=== PATIENT | male | born 1965 | race Two or more races ===

== ENCOUNTER 2022-09-15 12:55 | Inpatient (IN) | payer BC, MEDICAID ==
[~2022-09-15] VITALS: Ht 167.6 cm; Wt 68.1 kg
[~2022-09-15 12:55] MED LIST: ASPI-543 PO; ATOR20TA50 PO; CHOL1CAP47 PO; DOX2T PO; GAB100C PO; INSLANTI SC; INSLISPI SC; METO-6 PO; METO25TA36 PO; MID10T PO; NIFE1TAB30 PO; NIFE1TAB31 PO; PANT40T PO
[2022-09-15] MEDS ORDERED: HYDROcodone-ACET 5/325MG TAB PO ONE ×2 (14:00→18:00)
[2022-09-15 14:06] LABS: Basophils # (auto) 0.1 10 ^3/uL (0-0.2); Basophils % (auto) 1.2 % (0.0-2.0); Eosinophils # (auto) 0.1 10 ^3/uL (0-0.8); Eosinophils % (auto) 2.2 % (0.0-7.0); Hemoglobin 13.5 g/dL (13.5-17.5); Lymphocytes % (auto) 31.3 % (10.0-50.0); Mean Corpuscular Hemoglobin 27.8 pg (28.0-32.0); Mean Corpuscular Hgb Conc. 33.7 g/dL (32.0-36.0); Mean Corpuscular Volume 82.5 fL (80.0-100.0); Monocytes # (auto) 0.6 10 ^3/uL (0-1.3); Monocytes % (auto) 8.7 % (0.0-12.0); Neutrophils # (auto) 3.6 10 ^3/uL (1.6-8.6); Neutrophils % (auto) 56.6 % (37.0-80.0); Nucleated Red Blood Cells % 0.1 %; Red Blood Cells 4.85 10^6/uL (4.5-5.90); Red Cell Distribution Width 15.1 % (11.8-14.3); White Blood Cell 6.3 10^3/uL (4.4-10.8)
[2022-09-15 14:25] LABS: Albumin 3.9 g/dL (3.4-5.0); BUN/Creatinine Ratio 24.1; Calcium 8.8 mg/dL (8.5-10.1); Potassium 4.9 mmol/L (3.5-5.1)
[2022-09-15 14:27] LABS: Bilirubin, Total 0.3 mg/dL (0.2-1.0); Total Protein 7.8 g/dL (6.4-8.2)
[2022-09-15 14:40] LABS: Urine Bacteria NONE SEEN /hpf (None Seen); Urine Blood Negative /uL (Negative); Urine Hyaline Cast FEW /lpf (0 - 2); Urine Specific Gravity 1.008 (1.001-1.035); Urine WBC 1 /hpf (0 - 3)
[2022-09-15] MEDS ORDERED: CYCLOBENZAPRINE HCL 10 MG TAB PO ONE (18:00)
[2022-09-15] MEDS ORDERED: NITROGLYCERIN 0.4 MG SL TAB SL PRN (21:15)
[2022-09-15] MEDS ORDERED: MORPHINE SULFATE INJ 2 MG/ml SYRG IV PRN (21:15)
[2022-09-15] MEDS ORDERED: ALBUMIN 25% 50 ML IV PRN (22:00)
[2022-09-16] MEDS: ACCU-CHEK COMFORT CURVE STRIP VI SCH ×5 (05:05→23:00)
[2022-09-16] MEDS: INSULIN 70/30 1unit/0.01ml Susp (100units/ml) SC SCH ×3 (05:06→23:00)
[2022-09-16] MEDS: INSULIN LISPRO (HUMAN) 100 UNITS/ML ML SC SCH ×5 (05:06→23:00)
[2022-09-16] MEDS: hydrALAZINE HCL 25 MG TAB PO SCH ×4 (05:06→22:59)
[2022-09-16 23:00] VITALS: BP 189/99
[2022-09-16 23:11] VITALS: BP 189/9
[2022-09-17] VITALS (7 sets, daily range): BP systolic 155–183; BP diastolic 79–97
[2022-09-17] MEDS ORDERED: TAMS0.4C36 PO (00:22)
[2022-09-17] MEDS ORDERED: LISI-275 PO (00:22)
[2022-09-17] MEDS ORDERED: HYDR-4296 PO (00:22)
[2022-09-17] MEDS ORDERED: TORS20TA20 PO (00:22)
[2022-09-17] MEDS ORDERED: AMLO-489 PO (00:22)
[2022-09-17] MEDS: hydrALAZINE HCL 25 MG TAB PO SCH ×3 (05:10→21:51)
[2022-09-17] MEDS: INSULIN LISPRO (HUMAN) 100 UNITS/ML ML SC SCH ×4 (05:19→21:57)
[2022-09-17] MEDS: ACCU-CHEK COMFORT CURVE STRIP VI SCH ×4 (05:19→21:58)
[2022-09-17] MEDS: cefTRIAXone 1GM/50ML D5W 50 ML IV SCH (09:40)
[2022-09-17] MEDS: INSULIN 70/30 1unit/0.01ml Susp (100units/ml) SC SCH ×2 (10:03→21:54)
[2022-09-17 11:25] LABS: Basophils # (auto) 0.1 10 ^3/uL (0-0.2); Basophils % (auto) 1.3 % (0.0-2.0); Eosinophils # (auto) 0.2 10 ^3/uL (0-0.8); Eosinophils % (auto) 3.5 % (0.0-7.0); Hematocrit 40.6 % (41.0-53.0); Hemoglobin 13.2 g/dL (13.5-17.5); Lymphocytes # (auto) 1.4 10 ^3/uL (0.4-5.4); Lymphocytes % (auto) 26.4 % (10.0-50.0); Mean Corpuscular Hemoglobin 27.9 pg (28.0-32.0); Mean Corpuscular Hgb Conc. 32.5 g/dL (32.0-36.0); Mean Corpuscular Volume 85.9 fL (80.0-100.0); Monocytes # (auto) 0.5 10 ^3/uL (0-1.3); Monocytes % (auto) 9.2 % (0.0-12.0); Neutrophils # (auto) 3.1 10 ^3/uL (1.6-8.6); Neutrophils % (auto) 59.6 % (37.0-80.0); Nucleated Red Blood Cells % 0.1 %; Red Blood Cells 4.73 10^6/uL (4.5-5.90); Red Cell Distribution Width 15.6 % (11.8-14.3); White Blood Cell 5.3 10^3/uL (4.4-10.8)
[2022-09-17 12:01] LABS: Calcium 8.6 mg/dL (8.5-10.1); Potassium 4.7 mmol/L (3.5-5.1)
[2022-09-17 12:03] LABS: BUN/Creatinine Ratio 22.3
[2022-09-17] MEDS: GABAPENTIN 100 MG CAP PO SCH ×2 (13:36→21:50)
[2022-09-18] MEDS ORDERED: HALOPERIDOL LACTATE 5 MG/ML INJ VIAL IM PRN (01:00)
[2022-09-18 05:00] VITALS: BP 162/75
[2022-09-18 05:37] LABS: Basophils # (auto) 0.1 10 ^3/uL (0-0.2); Basophils % (auto) 0.7 % (0.0-2.0); Eosinophils # (auto) 0.2 10 ^3/uL (0-0.8); Eosinophils % (auto) 2.4 % (0.0-7.0); Hematocrit 39.1 % (41.0-53.0); Hemoglobin 13.2 g/dL (13.5-17.5); Lymphocytes # (auto) 3.1 10 ^3/uL (0.4-5.4); Lymphocytes % (auto) 32.8 % (10.0-50.0); Mean Corpuscular Hemoglobin 28.8 pg (28.0-32.0); Mean Corpuscular Hgb Conc. 33.7 g/dL (32.0-36.0); Mean Corpuscular Volume 85.5 fL (80.0-100.0); Monocytes % (auto) 10.6 % (0.0-12.0); Neutrophils # (auto) 5.1 10 ^3/uL (1.6-8.6); Neutrophils % (auto) 53.5 % (37.0-80.0); Nucleated Red Blood Cells % 0.1 %; Red Blood Cells 4.57 10^6/uL (4.5-5.90); Red Cell Distribution Width 15.3 % (11.8-14.3); White Blood Cell 9.6 10^3/uL (4.4-10.8)
[2022-09-18] MEDS ORDERED: IPRATROPIUM BROM 0.5 MG/2.5ML INH SOL ONE (05:48)
[2022-09-18] MEDS ORDERED: ALBUTEROL SULF 2.5 MG/0.5ML(0.5%) NEB SOLN ONE (05:48)
[2022-09-18] MEDS: hydrALAZINE HCL 25 MG TAB PO SCH ×2 (05:49→14:17)
[2022-09-18 05:50] LABS: Albumin 3.7 g/dL (3.4-5.0); Calcium 8.7 mg/dL (8.5-10.1); Magnesium 2.4 mg/dL (1.6-2.6); Potassium 4.3 mmol/L (3.5-5.1)
[2022-09-18] MEDS: GABAPENTIN 100 MG CAP PO SCH ×2 (05:52→14:17)
[2022-09-18] MEDS: ACCU-CHEK COMFORT CURVE STRIP VI SCH ×3 (05:53→17:00)
[2022-09-18] MEDS: INSULIN LISPRO (HUMAN) 100 UNITS/ML ML SC SCH ×3 (05:53→17:00)
[2022-09-18 05:56] LABS: BUN/Creatinine Ratio 22.7; Bilirubin, Total 0.3 mg/dL (0.2-1.0); Total Protein 6.8 g/dL (6.4-8.2)
[2022-09-18 08:00] VITALS: BP 178/89
[2022-09-18 08:50] VITALS: BP 160/85
[2022-09-18] MEDS: cefTRIAXone 1GM/50ML D5W 50 ML IV SCH (10:12)
[2022-09-18] MEDS: INSULIN 70/30 1unit/0.01ml Susp (100units/ml) SC SCH (10:22)
[2022-09-18 12:30] VITALS: BP 162/96
[2022-09-18 16:14] VITALS: BP 156/76
[2022-09-18 16:35] VITALS: BP 164/89
== END 2022-09-18 19:10 | disposition home or self-care (01) | DRG 247 ==
LOC: ER 12:55 → TELE 21:25 → TELE-EAST 09-16 23:19
PROVIDERS: ADMIT Internal Medicine Infectious Disease; ATTEND Internal Medicine Infectious Disease
DX: K56.7 Ileus, unspecified (principal); N17.9 Acute kidney failure, unspecified; I31.39 Other pericardial effusion (noninflammatory); K65.4 Sclerosing mesenteritis; K59.00 Constipation, unspecified; N18.30 Chronic kidney disease, stage 3 unspecified; K52.9 Noninfective gastroenteritis and colitis, unspecified; Z20.822 Contact with and (suspected) exposure to COVID-19; E66.9 Obesity, unspecified; Z68.24 Body mass index [BMI] 24.0-24.9, adult; Z79.4 Long term (current) use of insulin; Z89.421 Acquired absence of other right toe(s)
CPT/HCPCS: 36415; 74176; 80048; 80053; 80061; 81001; 82962; 83036; 83735; 84484; 85025; 87040; 87077; 87086; 87186; 87426; G0378; J0696; J1815

== ENCOUNTER 2024-09-02 18:25 | Inpatient (IN) | payer MEDICAID ==
[~2024-09-02] VITALS: Ht 167.6 cm; Wt 90.3 kg
[~2024-09-02 18:25] MED LIST changes: +AMLO1TAB22 PO; -DOX2T PO; +HYDR25TA88 PO; -INSLANTI SC; -INSLISPI SC; +LISI-275 PO; -METO-6 PO; -METO25TA36 PO; -MID10T PO; -NIFE1TAB30 PO; -NIFE1TAB31 PO; +TAMS0.4C39 PO; +TORS20TA20 PO
[2024-09-02] MEDS: KETOROLAC TROMETH 30 MG/ML 1ML VIAL IV ONE (20:15)
[2024-09-02] MEDS ORDERED: SOD CHL 0.45% 1,000 ML IV SCH (20:15)
[2024-09-02] MEDS ORDERED: KETOROLAC TROMETH 30 MG/ML 1ML VIAL IV PRN (20:15)
[2024-09-02] MEDS ORDERED: MORPHINE SULFATE INJ 2 MG/ml SYRG IV PRN (20:15)
[2024-09-02] MEDS ORDERED: NITROGLYCERIN 0.4 MG SL TAB SL PRN (20:15)
[2024-09-02 21:00] VITALS: BP 156/90; PULSE 87; RESP 20; TEMP 98.6; O2SAT 98
--- NOTE | 2024-09-02 21:10 | DVH ---
CHEST RADIOGRAPH Indication: MD request, admission Technique: Single frontal view of the chest was obtained Comparison: CHEST PORTABLE on DOS: 03/26/21, CXRP on DOS: 03/26/21 FINDINGS: Lines and Tubes: None Lungs: No focal consolidation. Pleura: No effusion. No pneumothorax. Cardiomediastinal contours: Unremarkable Bones: No acute osseous abnormality. IMPRESSION: No acute cardiopulmonary disease.
--- NOTE | 2024-09-02 21:13 | DVH ---
CLINICAL INDICATION: R/O osteomyelitis TECHNIQUE: 3 radiographic views of the right hand were obtained. Comparison: None FINDINGS/IMPRESSION: There is 1 mm density adjacent to the palmar base of the 3rd digit middle phalanx which may represent a small avulsed bony fragment of unknown chronicity versus nonspecific soft tissue calcification. Ot herwise , no evidence of acute traumatic fractures or dislocation. 5 mm lucency over the lateral base of the 3rd digit middle phalanx and lateral head of the 3rd digit proximal phalanx with 4 mm lucency over the lateral head of the 2nd digit middle phalanx which may represent small cysts. The visualized joint space is well maintained. The alignment is anatomical. Vascular calcification is noted.
[2024-09-02 21:38] LABS: Basophils # (auto) 0.1 10 ^3/uL (0-0.2); Eosinophils # (auto) 0.1 10 ^3/uL (0-0.8); Lymphocytes # (auto) 1.4 10 ^3/uL (0.4-5.4); Lymphocytes % (auto) 15.9 % (10.0-50.0); Monocytes # (auto) 0.9 10 ^3/uL (0-1.3)
[2024-09-02 21:46] LABS: Basophils % (auto) 0.9 % (0.0-2.0); Eosinophils % (auto) 0.8 % (0.0-7.0); Hematocrit 50.7 % (41.0-53.0); Hemoglobin 16.8 g/dL (13.5-17.5); Mean Corpuscular Hemoglobin 27.6 pg (28.0-32.0); Mean Corpuscular Volume 83.5 fL (80.0-100.0); Monocytes % (auto) 10.2 % (0.0-12.0); Neutrophils # (auto) 6.2 10 ^3/uL (1.6-8.6); Neutrophils % (auto) 72.2 % (37.0-80.0); Nucleated Red Blood Cells % 0.2 %; Platelet Count (auto) 304 10^3/uL (140-450); Red Blood Cells 6.08 10^6/uL (4.5-5.90); Red Cell Distribution Width 15.1 % (11.8-14.3); White Blood Cell 8.6 10^3/uL (4.4-10.8)
[2024-09-02 21:53] LABS: Alanine Aminotransferase 15 U/L (7-40); Anion Gap 11 (5-15); Aspartate Aminotransferase 14 U/L (13-40); BUN/Creatinine Ratio 24.4 (10.0-20.0); Calcium 10.3 mg/dL (8.7-10.4); Carbon Dioxide 27 mmol/L (20-31); Potassium 3.6 mmol/L (3.5-5.1)
[2024-09-02 21:54] LABS: Bilirubin, Total 0.5 mg/dL (0.2-1.0)
[2024-09-02 21:59] LABS: Albumin 5.1 g/dL (3.2-4.8); Alkaline Phosphatase 118 U/L (46-116); Blood Urea Nitrogen 58 mg/dL (9-23); Chloride 95 mmol/L (98-107); Glucose 221 mg/dL (74-106); Sodium 133 mmol/L (136-145); Total Protein 8.9 g/dL (5.7-8.2); Uric Acid 11.2 mg/dL (3.7-9.2)
[2024-09-02] MEDS: ACCU-CHEK COMFORT CURVE STRIP VI SCH (22:00)
[2024-09-02 22:19] LABS: Erythrocyte Sedimentation Rate 40 mm/hr (0-20)
[2024-09-02 22:23] LABS: CRP High Sensitivity 8.26 mg/dL (<1.0)
[2024-09-02] MEDS ORDERED: HYDROmorphone HCL 2 MG/ML VL/or syr IV PRN (22:45)
[2024-09-02] MEDS ORDERED: HYDROcodone-ACET 10/325MG TAB PO PRN (22:45)
[2024-09-02] MEDS: SODIUM CHLORIDE 0.9% 1,000 ML IV SCH (23:03)
[2024-09-02] MEDS: cefTRIAXone 1GM/50ML D5W 50 ML IV ONE (23:03)
[2024-09-02] MEDS: INSULIN LANTUS (GLARGINE) 1 /0.01ml (100units/ml) SC SCH (23:04)
[2024-09-02] MEDS: methylPREDNISolone SOD SUCC 40 MG/ML VL IV ONE (23:04)
[2024-09-02] MEDS: INSULIN LISPRO (HUMAN) 100 UNITS/ML ML SC SCH (23:05)
[2024-09-02] MEDS: HYDROmorphone HCL 2 MG/ML VL/or syr IV PRN (23:59)
--- NOTE | 2024-09-02 23:59 | DVHHP2 ---
Patient Family History: Diabetes mellitus G8 MOTHER G8 FATHER Hypertension G8 MOTHER G8 FATHER Allergies: Coded Allergies: NO KNOWN ALLERGIES (Unverified , 03/26/21) Home Meds Active Scripts Pantoprazole Sodium Sesquihydr (Pantoprazole Sodium) 40 Mg Tab, 40 MG PO DAILY for 90 Days, #90 TAB Prov:DAVID VARGAS MD 03/29/21 Gabapentin (Gabapentin) 100 Mg Cap, 100 MG PO Q8H for 30 Days, #90 CAP Prov:DAVID VARGAS MD 03/29/21 Cholecalciferol (Vitamin D3 Super Strength) 2,000 Unit Cap, 4000 UNIT PO DAILY for 100 Days, #100 CAP Prov:DAVID VARGAS MD 03/29/21 Atorvastatin Calcium (ATORVASTATIN CALCIUM) 20 Mg Tab, 40 MG PO HS for 90 Days, #180 TAB Prov:DAVID VARGAS MD 03/29/21 Aspirin (Aspir-Low) 81 Mg Tab, 81 MG PO QPM for 90 Days, #90 TAB Prov:DAVID VARGAS MD 03/29/21 Reported Medications Torsemide (Torsemide) 20 Mg Tab, 40 MG PO, MG 09/17/22 Tamsulosin Hcl (Tamsulosin Hcl) 0.4 Mg Cap, 0.4 MG PO QPM for 30 Days, MG 09/17/22 Amlodipine Besylate (Amlodipine Besylate) 5 Mg Tab, 10 MG PO DAILY for 30 Days, MG 09/17/22 Lisinopril (Lisinopril) 5 Mg Tab, 5 MG PO DAILY for 30 Days, MG 09/17/22 Hydralazine Hcl (Hydralazine Hcl) 25 Mg Tab, 25 MG PO TID for 30 Days, MG 09/17/22 Current Medications Current Medications Medications (Trade) Dose Ordered Sig/Andrea Route PRN Reason Start Time Stop Time Status Last Admin Nitroglycerin (Ntrostat Sublingual) 0.4 mg Q5MINP PRN SL FOR CHEST PAIN 09/02/24 20:15 Morphine Sulfate 2 mg Q30M PRN IV FOR CHEST PAIN 09/02/24 20:15 Sodium Chloride 1,000 ml @ 80 mls/hr [id number] IV 09/02/24 20:15 09/02/24 22:49 DC Ketorolac Tromethamine (Toradol Injection) 15 mg Q8HPRN PRN IV MODERATE PAIN (4-6 PAIN SCALE) 09/02/24 20:15 09/02/24 22:49 DC Pantoprazole Sodium (Protonix Tablet) 40 mg DAILY@0600 PO 09/03/24 06:00 Insulin Glargine (Lantus) 20 units BID@0700,2200 SC 09/02/24 22:00 09/02/24 23:04 Insulin Human Lispro (HumaLOG) 5 units ACHS SC 09/02/24 22:00 09/02/24 23:05 Lisinopril (Zestril Tablet) 10 mg DAILY PO 09/03/24 10:00 Diagnostic Test (Pha) (Accu-Chek Comfort Curve T) 1 strip ACHS 09/02/24 22:00 09/02/24 22:00 Ceftriaxone Sodium 50 ml @ 100 mls/hr DAILY@09 IV 09/03/24 09:00 Patient Own Medication 1 DAILY PO 09/03/24 10:00 UNV Patient Own Medication 1 DAILY PO 09/03/24 10:00 UNV Methylprednisolone Sodium Succinate (Solu Medrol) 40 mg Q8HR IV 09/03/24 06:00 09/03/24 23:00 Acetaminophen/ Hydrocodone Bitart (Clements 10/325MG Tab) 1 tab Q6HP PRN PO MILD PAIN (1-3 PAIN SCALE) 09/02/24 22:45 Hydromorphone HCl (Dilaudid Injection) 0.4 mg Q4HPRN PRN IV MODERATE PAIN (4-6 PAIN SCALE) 09/02/24 22:45 Hydromorphone HCl (Dilaudid Injection) 0.8 mg Q4HPRN PRN IV SEVERE PAIN (7-10 PAIN SCALE) 09/02/24 22:45 Sodium Chloride 1,000 ml @ 60 mls/hr [id number] IV 09/02/24 22:45 09/02/24 23:03 Vital Signs Vital Signs Date Time Temp Pulse Resp B/P (MAP) Pulse Ox O2 Delivery O2 Flow Rate FiO2 09/02/24 21:00 98.6 87 20 156/90 (112) 98 98.6 Results Labs Test 09/02/24 22:09 09/02/24 20:56 Range/Units POC Glucose 242 H 70-106 mg/dl White Blood Count 8.6 4.4-10.8 10^3/uL Red Blood Count 6.08 H 4.5-5.90 10^6/uL Hemoglobin 16.8 13.5-17.5 g/dL Hematocrit 50.7 41.0-53.0 % Mean Corpuscular Volume 83.5 80.0-100.0 fL Mean Corpuscular Hemoglobin 27.6 L 28.0-32.0 pg Mean Corpuscular Hemoglobin Concent 33.0 32.0-36.0 g/dL Red Cell Distribution Width 15.1 H 11.8-14.3 % Platelet Count 304 140-450 10^3/uL Mean Platelet Volume 8.8 6.9-10.8 fL Neutrophils (%) (Auto) 72.2 37.0-80.0 % Lymphocytes (%) (Auto) 15.9 10.0-50.0 % Monocytes (%) (Auto) 10.2 0.0-12.0 % Eosinophils (%) (Auto) 0.8 0.0-7.0 % Basophils (%) (Auto) 0.9 0.0-2.0 % Neutrophils # (Auto) 6.2 1.6-8.6 10 ^3/uL Lymphocytes # (Auto) 1.4 0.4-5.4 10 ^3/uL Monocytes # (Auto) 0.9 0-1.3 10 ^3/uL Eosinophils # (Auto) 0.1 0-0.8 10 ^3/uL Basophils # (Auto) 0.1 0-0.2 10 ^3/uL Nucleated Red Blood Cells 0.2 % Erythrocyte Sedimentation Rate 40 H 0-20 mm/hr Sodium Level 133 L 136-145 mmol/L Potassium Level 3.6 3.5-5.1 mmol/L Chloride Level 95 L 98-107 mmol/L Carbon Dioxide Level 27 20-31 mmol/L Anion Gap 11 5-15 Blood Urea Nitrogen 58 H 9-23 mg/dL Creatinine 2.38 H 0.700-1.30 mg/dL Glomerular Filtration Rate Calc 31 >90 mL/min BUN/Creatinine Ratio 24.4 H 10.0-20.0 Serum Glucose 221 H 74-106 mg/dL Uric Acid 11.2 H 3.7-9.2 mg/dL Calcium Level 10.3 8.7-10.4 mg/dL Total Bilirubin 0.5 0.2-1.0 mg/dL Aspartate Amino Transferase (AST) 14 13-40 U/L Alanine Aminotransferase (ALT) 15 7-40 U/L Alkaline Phosphatase 118 H 46-116 U/L C-Reactive Protein High Sensitivity 8.26 H <1.0 mg/dL Total Protein 8.9 H 5.7-8.2 g/dL Albumin 5.1 H 3.2-4.8 g/dL DAVID VARGAS MD Sep 02, 2024 23:59
[2024-09-03] VITALS (9 sets, daily range): BP systolic 126–158; BP diastolic 68–90; PULSE 78–96; RESP 18–20; TEMP 97.8–98.6; O2SAT 95–99
[2024-09-03] MEDS ORDERED: INSU100I21 SC (03:55)
[2024-09-03] MEDS ORDERED: INSU75IN2 SC (03:55)
[2024-09-03 06:27] LABS: Basophils # (auto) 0 10 ^3/uL (0-0.2); Basophils % (auto) 0.2 % (0.0-2.0); Eosinophils # (auto) 0 10 ^3/uL (0-0.8); Monocytes # (auto) 0.1 10 ^3/uL (0-1.3); Nucleated Red Blood Cells % 0.1 %; Platelet Count (auto) 279 10^3/uL (140-450); Red Cell Distribution Width 15.2 % (11.8-14.3); White Blood Cell 6.9 10^3/uL (4.4-10.8)
[2024-09-03 06:30] LABS: Hematocrit 46.9 % (41.0-53.0); Hemoglobin 15.1 g/dL (13.5-17.5); Lymphocytes # (auto) 0.7 10 ^3/uL (0.4-5.4); Lymphocytes % (auto) 10.6 % (10.0-50.0); Mean Corpuscular Hgb Conc. 32.3 g/dL (32.0-36.0); Mean Corpuscular Volume 83.8 fL (80.0-100.0); Monocytes % (auto) 2.1 % (0.0-12.0); Neutrophils % (auto) 87.1 % (37.0-80.0)
[2024-09-03] MEDS: PANTOPRAZOLE 40 MG TAB PO SCH (06:30)
[2024-09-03] MEDS: methylPREDNISolone SOD SUCC 40 MG/ML VL IV SCH (06:30)
[2024-09-03 06:51] LABS: Alanine Aminotransferase 10 U/L (7-40); Albumin 4.3 g/dL (3.2-4.8); Alkaline Phosphatase 103 U/L (46-116); Anion Gap 13 (5-15); BUN/Creatinine Ratio 22.1 (10.0-20.0); Calcium 9.3 mg/dL (8.7-10.4); Carbon Dioxide 22 mmol/L (20-31); Chloride 99 mmol/L (98-107); Cholesterol 184 mg/dL (< 200); Potassium 3.6 mmol/L (3.5-5.1); Total Protein 7.7 g/dL (5.7-8.2); Triglycerides 62 mg/dL (< 150)
[2024-09-03 06:52] LABS: Bilirubin, Total 0.4 mg/dL (0.2-1.0)
[2024-09-03 06:55] LABS: Aspartate Aminotransferase 9 U/L (13-40); Blood Urea Nitrogen 58 mg/dL (9-23); Glucose 243 mg/dL (74-106); HDL Cholesterol 69 mg/dL (40-59); LDL Cholesterol 100 mg/dL (< 100); Sodium 134 mmol/L (136-145)
[2024-09-03] MEDS: cefTRIAXone 1GM/50ML D5W 50 ML IV SCH (08:05)
[2024-09-03] MEDS: FARXIGA 10 MG PO SCH (10:29)
[2024-09-03] MEDS: [UNRECOGNIZED DRUG - OTHER] PO SCH (10:29)
[2024-09-03] MEDS: LISINOPRIL 5 MG TAB PO SCH (10:31)
[2024-09-03] MEDS: TORSEMIDE 20 MG TAB PO ONE (13:00)
[2024-09-03] MEDS: INSULIN LISPRO (HUMAN) 100 UNITS/ML ML SC ONE (13:15)
[2024-09-03] MEDS: ACETAMINOPHEN 325 MG TAB PO PRN (14:09)
[2024-09-03] MEDS: GABAPENTIN 100 MG CAP PO SCH (14:09)
[2024-09-03] MEDS: InsuLIN REG 1unit/0.01ml Soln (100units/ml) SC SCH ×2 (17:00→22:21)
[2024-09-03] MEDS: ACCU-CHEK COMFORT CURVE STRIP VI SCH (17:00)
[2024-09-03] MEDS ORDERED: HYDROmorphone HCL 2 MG/ML VL/or syr IV PRN ×2 (21:00)
[2024-09-03] MEDS: SODIUM CHLORIDE 0.9% 1,000 ML IV SCH (21:00)
[2024-09-03] MEDS ORDERED: ACETAMINOPHEN 325 MG TAB PO PRN (21:00)
[2024-09-03] MEDS ORDERED: hydrALAZINE HCL 20 MG/ML VL IV PRN ×2 (21:00)
[2024-09-03] MEDS ORDERED: INSULIN LANTUS (GLARGINE) 1 /0.01ml (100units/ml) SC SCH (22:00)
[2024-09-03] MEDS: hydrALAZINE HCL 25 MG TAB PO SCH (22:21)
--- NOTE | 2024-09-03 23:59 | DVHPN2 ---
Progress Note - Dictate Date Seen: Sep 03, 2024 vital signs Vital Sign Date Time Temp Pulse Resp B/P (MAP) Pulse Ox O2 Delivery O2 Flow Rate FiO2 09/03/24 22:21 126/68 09/03/24 21:00 98.4 86 18 99 98.4 09/03/24 20:02 Room Air* 0 N/A Nasal Cannula* Total Intake and Output 09/02/24 09/02/24 09/03/24 15:00 23:00 07:00 Intake Total 450 ml Balance 450 ml medications Current Medications Medications Dose Ordered Sig/Andrea Route Start Time Stop Time Status Last Admin Dose Admin Nitroglycerin 0.4 mg Q5MINP PRN SL 09/02/24 20:15 Morphine Sulfate 2 mg Q30M PRN IV 09/02/24 20:15 Pantoprazole Sodium 40 mg DAILY@0600 PO 09/03/24 06:00 09/03/24 06:30 40 MG Patient Own Medication 1 DAILY PO 09/03/24 10:00 09/03/24 10:29 1 Patient Own Medication 1 DAILY PO 09/03/24 10:00 09/03/24 10:29 1 Acetaminophen/ Hydrocodone Bitart 1 tab Q6HP PRN PO 09/02/24 22:45 Gabapentin 100 mg TID PO 09/03/24 14:00 09/03/24 22:21 100 MG Torsemide 40 mg DAILY PO 09/04/24 10:00 Diagnostic Test (Pha) 1 strip ACHS 09/03/24 17:00 09/03/24 22:22 1 STRIP Insulin Human Regular HS SC 09/03/24 22:00 09/03/24 22:21 3 UNITS Sodium Chloride 1,000 ml @ 30 mls/hr Q24H IV 09/03/24 21:00 09/03/24 21:00 30 MLS/HR Acetaminophen 500 mg Q6HP PRN PO 09/03/24 21:00 Hydromorphone HCl 0.4 mg Q4HPRN PRN IV 09/03/24 21:00 Hydromorphone HCl 0.8 mg Q4HPRN PRN IV 09/03/24 21:00 Insulin Glargine 20 units DAILY@BREAKFAST SC 09/04/24 08:00 Hydralazine HCl 50 mg Q8H PO 09/03/24 21:00 09/03/24 22:21 50 MG Hydralazine HCl 5 mg Q6HR PRN IV 09/03/24 21:00 Hydralazine HCl 10 mg Q6HP PRN IV 09/03/24 21:00 Hydralazine HCl 20 mg Q6HPRN PRN IV 09/03/24 21:00 Insulin Human Lispro AC SC 09/04/24 07:00 Insulin Glargine 30 units DAILY@1800 SC 09/04/24 18:00 Prednisone 10 mg BIDPC PO 09/04/24 09:00 laboratory and microbiology Laboratory Tests 09/03/24 05:23 Test 09/03/24 05:23 Range/Units Serum Glucose 243 H 74-106 mg/dL Assessment/Plan Rec Allopurinol starting tomorrow DAVID VARGAS MD Sep 03, 2024 23:59
[2024-09-04] VITALS (8 sets, daily range): BP systolic 107–126; BP diastolic 45–69; PULSE 72–80; RESP 16–20; TEMP 97.3–98; O2SAT 95–99
[2024-09-04] MEDS: INSULIN LISPRO (HUMAN) 100 UNITS/ML ML SC SCH (07:09)
[2024-09-04] MEDS: INSULIN LANTUS (GLARGINE) 1 /0.01ml (100units/ml) SC SCH ×2 (08:28→18:23)
--- NOTE | 2024-09-04 09:41 | DVHINCON2 ---
Date of service: Sep 04, [address] 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 As per the history obtained from the patient pain was started in onset and had limited mobility of his fingers and wrist. On admission patient noted to have a uric acid level of 11.2. Admitted with impression of gout. Started on prednisone. Rheumatology consult is pending. Nephrology consulted because of the elevated creatinine. Past Medical History As stated above Past Surgical History No surgical history Family History: Diabetes mellitus G8 MOTHER G8 FATHER Hypertension G8 MOTHER G8 FATHER Family History No history of kidney disease Social History Denies any abuse of tobacco or drugs Drinks socially Allergies: Coded Allergies: NO KNOWN ALLERGIES (Unverified , 03/26/21) Home Meds Active Scripts Pantoprazole Sodium Sesquihydr (Pantoprazole Sodium) 40 Mg Tab, 40 MG PO DAILY f or 90 Days, #90 TAB Prov:DAVID ÁLVAREZ MD 03/29/21 Gabapentin (Gabapentin) 100 Mg Cap, 100 MG PO Q8H for 30 Days, #90 CAP Prov:DAVID ÁLVAREZ MD 03/29/21 Cholecalciferol (Vitamin D3 Super Strength) 2,000 Unit Cap, 4000 UNIT PO DAILY for 100 Days, #100 CAP Prov:DAVID ÁLVAREZ MD 03/29/21 Atorvastatin Calcium (ATORVASTATIN CALCIUM) 20 Mg Tab, 40 MG PO HS for 90 Days, #180 TAB Prov:DAVID ÁLVAREZ MD 03/29/21 Aspirin (Aspir-Low) 81 Mg Tab, 81 MG PO QPM for 90 Days, #90 TAB Prov:DAVID ÁLVAREZ MD 03/29/21 Reported Medications Insulin Lispro Protamine & Lis (Humalog Mix 75/25 Kwikpen) 75 Mg/25 Kwp Inj, SC 09/03/24 Insulin Lispro (Humalog Salvatore Kwikpen) 100 Unit/Ml Inj, SC 09/03/24 Torsemide (Torsemide) 20 Mg Tab, 40 MG PO, MG 09/17/22 Tamsulosin Hcl (Tamsulosin Hcl) 0.4 Mg Cap, 0.4 MG PO QPM for 30 Days, MG 09/17/22 Amlodipine Besylate (Amlodipine Besylate) 5 Mg Tab, 10 MG PO DAILY for 30 Days, MG 09/17/22 Lisinopril (Lisinopril) 5 Mg Tab, 5 MG PO DAILY for 30 Days, MG 09/17/22 Hydralazine Hcl (Hydralazine Hcl) 25 Mg Tab, 25 MG PO TID for 30 Days, MG 09/17/22 Current Medications Current Medications Medications (Trade) Dose Ordered Sig/Andrea Route PRN Reason Start Time Stop Time Status Last Admin Lisinopril (Zestril Tablet) 10 mg DAILY PO 09/03/24 10:00 09/03/24 21:17 DC 09/03/24 10:31 Patient Own Medication 1 DAILY PO 09/03/24 10:00 09/03/24 10:29 Patient Own Medication 1 DAILY PO 09/03/24 10:00 09/03/24 10:29 Acetaminophen (Tylenol Tablet) 650 mg Q6HP PRN PO PAIN SCALE 1-3 OR TEMP>100.4 09/03/24 13:00 09/03/24 21:17 DC 09/03/24 14:09 Gabapentin (Neurontin Capsule) 100 mg TID PO 09/03/24 14:00 09/04/24 06:03 Torsemide (Demadex Tab) 40 mg DAILY PO 09/04/24 10:00 Diagnostic Test (Pha) (Accu-Chek Comfort Curve T) 1 strip ACHS 09/03/24 17:00 09/04/24 06:37 Insulin Human Regular (InsuLIN R) HS SC 09/03/24 22:00 09/03/24 22:21 Insulin Human Regular (InsuLIN R) AC SC 09/03/24 17:00 09/03/24 21:17 DC 09/03/24 17:00 Insulin Glargine (Lantus) 25 units BID@0700,2200 SC 09/03/24 22:00 09/03/24 21:17 DC Sodium Chloride 1,000 ml @ 30 mls/hr Q24H IV 09/03/24 21:00 09/03/24 21:00 Acetaminophen (Tylenol Tablet) 500 mg Q6HP PRN PO PAIN SCALE 1-3 OR TEMP>100.4 09/03/24 21:00 Hydromorphone HCl (Dilaudid Injection) 0.4 mg Q4HPRN PRN IV MODERATE PAIN (4-6 PAIN SCALE) 09/03/24 21:00 Hydromorphone HCl (Dilaudid Injection) 0.8 mg Q4HPRN PRN IV SEVERE PAIN (7-10 PAIN SCALE) 09/03/24 21:00 Insulin Glargine (Lantus) 20 units DAILY@BREAKFAST SC 09/04/24 08:00 09/04/24 08:28 Hydralazine HCl (Apresoline Tablet) 50 mg Q8H PO 09/03/24 21:00 09/03/24 22:21 Hydralazine HCl (Apresoline Injection) 5 mg Q6HR PRN IV SBP>170-185 09/03/24 21:00 Hydralazine HCl (Apresoline Injection) 10 mg Q6HP PRN IV SBP >181-200 09/03/24 21:00 Hydralazine HCl (Apresoline Injection) 20 mg Q6HPRN PRN IV HTN crisis SBP >221-240 09/03/24 21:00 Insulin Human Lispro (HumaLOG) AC SC 09/04/24 07:00 09/04/24 07:09 Insulin Glargine (Lantus) 30 units DAILY@1800 SC 09/04/24 18:00 Prednisone 10 mg BIDPC PO 09/04/24 09:00 Review of Systems 12 point review of systems negative except as stated in the HPI Vital Signs Vital Signs Date Time Temp Pulse Resp B/P (MAP) Pulse Ox O2 Delivery O2 Flow Rate FiO2 09/04/24 05:00 97.9 73 20 115/65 (82) 97 97.9 09/03/24 20:02 Room Air* 0 N/A Nasal Cannula* Physical Exam Alert awake oriented x3 HEENT: Normocephalic, no JVD Lungs: Bilateral good air entry CVS: S1, S2 regular rate rhythm Abdomen: Soft, bowel sounds present JEWEL STAKER: No focal deficits Extremities: Redness and minimal swelling dorsum of the right wrist. Labs/Diagnostic Data Labs Test 09/04/24 05:36 09/03/24 05:23 09/02/24 20:56 Range/Units POC Glucose 382 H 70-106 mg/dl White Blood Count 6.9 4.4-10.8 10^3/uL Red Blood Count 5.60 4.5-5.90 10^6/uL Hemoglobin 15.1 13.5-17.5 g/dL Hematocrit 46.9 41.0-53.0 % Mean Corpuscular Volume 83.8 80.0-100.0 fL Mean Corpuscular Hemoglobin 27.0 L 28.0-32.0 pg Mean Corpuscular Hemoglobin Concent 32.3 32.0-36.0 g/dL Red Cell Distribution Width 15.2 H 11.8-14.3 % Platelet Count 279 140-450 10^3/uL Mean Platelet Volume 8.6 6.9-10.8 fL Neutrophils (%) (Auto) 87.1 H 37.0-80.0 % Lymphocytes (%) (Auto) 10.6 10.0-50.0 % Monocytes (%) (Auto) 2.1 0.0-12.0 % Eosinophils (%) (Auto) 0.0 0.0-7.0 % Basophils (%) (Auto) 0.2 0.0-2.0 % Neutrophils # (Auto) 6.0 1.6-8.6 10 ^3/uL Lymphocytes # (Auto) 0.7 0.4-5.4 10 ^3/uL Monocytes # (Auto) 0.1 0-1.3 10 ^3/uL Eosinophils # (Auto) 0 0-0.8 10 ^3/uL Basophils # (Auto) 0 0-0.2 10 ^3/uL Nucleated Red Blood Cells 0.1 % Sodium Level 134 L 136-145 mmol/L Potassium Level 3.6 3.5-5.1 mmol/L Chloride Level 99 98-107 mmol/L Carbon Dioxide Level 22 20-31 mmol/L Anion Gap 13 5-15 Blood Urea Nitrogen 58 H 9-23 mg/dL Creatinine 2.63 H 0.700-1.30 mg/dL Glomerular Filtration Rate Calc 27 >90 mL/min BUN/Creatinine Ratio 22.1 H 10.0-20.0 Serum Glucose 243 H 74-106 mg/dL Hemoglobin A1c 8.7 H <5.7 % A1C Calcium Level 9.3 8.7-10.4 mg/dL Total Bilirubin 0.4 0.2-1.0 mg/dL Aspartate Amino Transferase (AST) 9 L 13-40 U/L Alanine Aminotransferase (ALT) 10 7-40 U/L Alkaline Phosphatase 103 46-116 U/L Total Protein 7.7 5.7-8.2 g/dL Albumin 4.3 3.2-4.8 g/dL Triglycerides Level 62 < 150 mg/dL Cholesterol Level 184 < 200 mg/dL LDL Cholesterol 100 H < 100 mg/dL HDL Cholesterol 69 H 40-59 mg/dL Erythrocyte Sedimentation Rate 40 H 0-20 mm/hr Uric Acid 11.2 H 3.7-9.2 mg/dL C-Reactive Protein High Sensitivity 8.26 H <1.0 mg/dL Microbiology Date/Time Source Procedure Growth Status 09/02/24 20:56 Blood Blood Culture - Preliminary NO GROWTH AFTER 24 HOURS OF INCUBATION. 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 Blood sugars need better control. Endocrine consult Rheumatology consult GFR has declined slightly. Continue IV fluids. Hold torsemide. Labs in a.m.. Plan discussed with: Patient DARSHAN MARTINEZ MD Sep 04, 2024 09:41
[2024-09-04] MEDS: predniSONE 5 MG TAB PO SCH (09:46)
[2024-09-04] MEDS ORDERED: TORSEMIDE 20 MG TAB PO SCH (10:00)
[2024-09-05] VITALS (8 sets, daily range): BP systolic 143–165; BP diastolic 70–85; PULSE 18–83; RESP 14–20; TEMP 97.6–98.5; O2SAT 96–98
[2024-09-05 06:17] LABS: Basophils # (auto) 0 10 ^3/uL (0-0.2); Eosinophils # (auto) 0 10 ^3/uL (0-0.8); Eosinophils % (auto) 0.2 % (0.0-7.0); Hemoglobin 14.7 g/dL (13.5-17.5); Lymphocytes # (auto) 1.1 10 ^3/uL (0.4-5.4); Mean Corpuscular Volume 83.4 fL (80.0-100.0); White Blood Cell 9.9 10^3/uL (4.4-10.8)
[2024-09-05 06:21] LABS: Basophils % (auto) 0.2 % (0.0-2.0); Hematocrit 45.3 % (41.0-53.0); Lymphocytes % (auto) 11.6 % (10.0-50.0); Mean Corpuscular Hemoglobin 27.1 pg (28.0-32.0); Mean Corpuscular Hgb Conc. 32.5 g/dL (32.0-36.0); Monocytes # (auto) 0.7 10 ^3/uL (0-1.3); Monocytes % (auto) 7.1 % (0.0-12.0); Neutrophils % (auto) 80.9 % (37.0-80.0); Nucleated Red Blood Cells % 0.2 %; Platelet Count (auto) 291 10^3/uL (140-450); Red Blood Cells 5.43 10^6/uL (4.5-5.90); Red Cell Distribution Width 15.4 % (11.8-14.3)
[2024-09-05 06:25] LABS: Chloride 103 mmol/L (98-107); Potassium 4.4 mmol/L (3.5-5.1)
[2024-09-05 06:26] LABS: Anion Gap 10 (5-15); Carbon Dioxide 22 mmol/L (20-31)
[2024-09-05 06:31] LABS: BUN/Creatinine Ratio 25.4 (10.0-20.0)
[2024-09-05 06:34] LABS: Blood Urea Nitrogen 72 mg/dL (9-23); Glucose 155 mg/dL (74-106); Sodium 135 mmol/L (136-145)
[2024-09-05] MEDS: hydrALAZINE HCL 25 MG TAB PO SCH (06:48)
--- NOTE | 2024-09-05 10:46 | DVHINCON2 ---
Date of service: Sep 05, 2024 Reason for Consultation hyperglycemia History of Present Illness 59-year-old male with a history of type 2 diabetes mellitus, CKD stage IV who presented on 09/04 with right wrist pain and swelling. Initial lab evaluation suggestive of gout flare and patient started on prednisone. Regarding his history of diabetes at home he is on NPH/regular 75/25 mix with modest hyperglycemia at home. Since hospitalization patient has had significant hyperglycemia up to 290 mg/dL. Maintained on basal regimen plus correctional lispro and regular with meals and at bedtime respectively. A1c 8.7%. Family History: Diabetes mellitus G8 MOTHER G8 FATHER Hypertension G8 MOTHER G8 FATHER Allergies: Coded Allergies: NO KNOWN ALLERGIES (Unverified , 03/26/21) Home Meds Active Scripts Pantoprazole Sodium Sesquihydr (Pantoprazole Sodium) 40 Mg Tab, 40 MG PO DAILY for 90 Days, #90 TAB Prov:DAVID VARGAS MD 03/29/21 Gabapentin (Gabapentin) 100 Mg Cap, 100 MG PO Q8H for 30 Days, #90 CAP Prov:DAVID VARGAS MD 03/29/21 Cholecalciferol (Vitamin D3 Super Strength) 2,000 Unit Cap, 4000 UNIT PO DAILY for 100 Days, #100 CAP Prov:DAVID VARGAS MD 03/29/21 Atorvastatin Calcium (ATORVASTATIN CALCIUM) 20 Mg Tab, 40 MG PO HS for 90 Days, #180 TAB Prov:DAVID VARGAS MD 03/29/21 Aspirin (Aspir-Low) 81 Mg Tab, 81 MG PO QPM for 90 Days, #90 TAB Prov:DAVID VARGAS MD 03/29/21 Reported Medications Insulin Lispro Protamine & Lis (Humalog Mix 75/25 Kwikpen) 75 Mg/25 Kwp Inj, SC 09/03/24 Insulin Lispro (Humalog Salvatore Kwikpen) 100 Unit/Ml Inj, SC 09/03/24 Torsemide (Torsemide) 20 Mg Tab, 40 MG PO, MG 09/17/22 Tamsulosin Hcl (Tamsulosin Hcl) 0.4 Mg Cap, 0.4 MG PO QPM for 30 Days, MG 09/17/22 Amlodipine Besylate (Amlodipine Besylate) 5 Mg Tab, 10 MG PO DAILY for 30 Days, MG 09/17/22 Lisinopril (Lisinopril) 5 Mg Tab, 5 MG PO DAILY for 30 Days, MG 09/17/22 Hydralazine Hcl (Hydralazine Hcl) 25 Mg Tab, 25 MG PO TID for 30 Days, MG 09/17/22 Current Medications Current Medications Medications (Trade) Dose Ordered Sig/Andrea Route PRN Reason Start Time Stop Time Status Last Admin Insulin Glargine (Lantus) 30 units DAILY@1800 SC 09/04/24 18:00 09/04/24 18:23 Hydralazine HCl (Apresoline Tablet) 25 mg Q8HR PO 09/05/24 06:00 09/05/24 06:48 Review of Systems Negative except that which is stated in HPI Vital Signs Vital Signs Date Time Temp Pulse Resp B/P (MAP) Pulse Ox O2 Delivery O2 Flow Rate FiO2 09/05/24 09:00 98.5 75 16 143/75 (97) 97 98.5 09/04/24 20:00 Room Air* 0 N/A Nasal Cannula* Physical Exam Gen - no acute distress CV - RRR, no m/r/g Resp - non labored respirations Ext - no edema bilaterally Labs/Diagnostic Data Labs Test 09/05/24 08:41 09/05/24 05:08 09/03/24 05:23 09/02/24 20:56 Range/Units POC Glucose 249 H 70-106 mg/dl White Blood Count 9.9 # 4.4-10.8 10^3/uL Red Blood Count 5.43 4.5-5.90 10^6/uL Hemoglobin 14.7 13.5-17.5 g/dL Hematocrit 45.3 41.0-53.0 % Mean Corpuscular Volume 83.4 80.0-100.0 fL Mean Corpuscular Hemoglobin 27.1 L 28.0-32.0 pg Mean Corpuscular Hemoglobin Concent 32.5 32.0-36.0 g/dL Red Cell Distribution Width 15.4 H 11.8-14.3 % Platelet Count 291 140-450 10^3/uL Mean Platelet Volume 9.1 6.9-10.8 fL Neutrophils (%) (Auto) 80.9 H 37.0-80.0 % Lymphocytes (%) (Auto) 11.6 10.0-50.0 % Monocytes (%) (Auto) 7.1 0.0-12.0 % Eosinophils (%) (Auto) 0.2 0.0-7.0 % Basophils (%) (Auto) 0.2 0.0-2.0 % Neutrophils # (Auto) 8.0 1.6-8.6 10 ^3/uL Lymphocytes # (Auto) 1.1 0.4-5.4 10 ^3/uL Monocytes # (Auto) 0.7 0-1.3 10 ^3/uL Eosinophils # (Auto) 0 0-0.8 10 ^3/uL Basophils # (Auto) 0 0-0.2 10 ^3/uL Nucleated Red Blood Cells 0.2 % Sodium Level 135 L 136-145 mmol/L Potassium Level 4.4 3.5-5.1 mmol/L Chloride Level 103 98-107 mmol/L Carbon Dioxide Level 22 20-31 mmol/L Anion Gap 10 5-15 Blood Urea Nitrogen 72 #H 9-23 mg/dL Creatinine 2.84 H 0.700-1.30 mg/dL Glomerular Filtration Rate Calc 25 >90 mL/min BUN/Creatinine Ratio 25.4 H 10.0-20.0 Serum Glucose 155 H 74-106 mg/dL Calcium Level 9.0 8.7-10.4 mg/dL Hemoglobin A1c 8.7 H <5.7 % A1C Total Bilirubin 0.4 0.2-1.0 mg/dL Aspartate Amino Transferase (AST) 9 L 13-40 U/L Alanine Aminotransferase (ALT) 10 7-40 U/L Alkaline Phosphatase 103 46-116 U/L Total Protein 7.7 5.7-8.2 g/dL Albumin 4.3 3.2-4.8 g/dL Triglycerides Level 62 < 150 mg/dL Cholesterol Level 184 < 200 mg/dL LDL Cholesterol 100 H < 100 mg/dL HDL Cholesterol 69 H 40-59 mg/dL Erythrocyte Sedimentation Rate 40 H 0-20 mm/hr Uric Acid 11.2 H 3.7-9.2 mg/dL C-Reactive Protein High Sensitivity 8.26 H <1.0 mg/dL Microbiology Date/Time Source Procedure Growth Status 09/02/24 20:56 Blood Blood Culture - Preliminary NO GROWTH AFTER 48 HOURS OF INCUBATION. Resulted Assessment 1. Uncontrolled type 2 diabetes mellitus with hyperglycemia 2. Steroid-induced hyperglycemia 3. CKD stage IV Longstanding history of diabetes with hyperglycemia. Presented without have any evidence of ketoacidosis. Initially started on basal correctional regimen will switch to basal bolus correctional to optimize physiologic profile and continue monitoring. Start glargine 20 units daily Start scheduled lispro 5 units with meals Continue correctional lispro with meals and at bedtime [id number] blood glucose monitoring 4 times daily Hypoglycemia protocol Plan discussed with: Patient GREGORY BARAHONA MD Sep 05, 2024 10:46
--- NOTE | 2024-09-05 11:01 | DVHPN2 ---
Progress Note - Dictate Date Seen: Sep 04, 2024 vital signs Vital Sign Date Time Temp Pulse Resp B/P (MAP) Pulse Ox O2 Delivery O2 Flow Rate FiO2 09/05/24 09:00 98.5 75 16 143/75 (97) 97 98.5 09/04/24 20:00 Room Air* 0 N/A Nasal Cannula* Total Intake and Output 09/04/24 09/04/24 09/05/24 15:00 23:00 07:00 Intake Total 720 ml 1620 ml 800 ml Balance 720 ml 1620 ml 800 ml medications Current Medications Medications Dose Ordered Sig/Andrea Route Start Time Stop Time Status Last Admin Dose Admin Nitroglycerin 0.4 mg Q5MINP PRN SL 09/02/24 20:15 Morphine Sulfate 2 mg Q30M PRN IV 09/02/24 20:15 Pantoprazole Sodium 40 mg DAILY@0600 PO 09/03/24 06:00 09/05/24 06:47 40 MG Patient Own Medication 1 DAILY PO 09/03/24 10:00 09/04/24 09:35 1 Patient Own Medication 1 DAILY PO 09/03/24 10:00 09/04/24 09:35 1 Acetaminophen/ Hydrocodone Bitart 1 tab Q6HP PRN PO 09/02/24 22:45 Hold Gabapentin 100 mg TID PO 09/03/24 14:00 09/05/24 06:47 100 MG Diagnostic Test (Pha) 1 strip ACHS 09/03/24 17:00 09/05/24 06:48 1 STRIP Insulin Human Regular HS SC 09/03/24 22:00 09/04/24 22:04 6 UNITS Sodium Chloride 1,000 ml @ 30 mls/hr Q24H IV 09/03/24 21:00 09/04/24 22:04 30 MLS/HR Acetaminophen 500 mg Q6HP PRN PO 09/03/24 21:00 Hydromorphone HCl 0.4 mg Q4HPRN PRN IV 09/03/24 21:00 Hydromorphone HCl 0.8 mg Q4HPRN PRN IV 09/03/24 21:00 Insulin Glargine 20 units DAILY@BREAKFAST SC 09/04/24 08:00 09/05/24 08:48 20 UNITS Hydralazine HCl 5 mg Q6HR PRN IV 09/03/24 21:00 Hydralazine HCl 10 mg Q6HP PRN IV 09/03/24 21:00 Hydralazine HCl 20 mg Q6HPRN PRN IV 09/03/24 21:00 Insulin Human Lispro AC SC 09/04/24 07:00 09/05/24 06:46 3 UNITS Insulin Glargine 30 units DAILY@1800 SC 09/04/24 18:00 09/04/24 18:23 30 UNITS Prednisone 10 mg BIDPC PO 09/04/24 09:00 09/05/24 08:51 10 MG Hydralazine HCl 25 mg Q8HR PO 09/05/24 06:00 09/05/24 06:48 25 MG laboratory and microbiology Laboratory Tests 09/05/24 05:08 Test 09/05/24 05:08 Range/Units Serum Glucose 155 H 74-106 mg/dL Assessment/Plan Rec Allopurinol starting tomorrow DAVID VARGAS MD Sep 05, 2024 11:01
--- NOTE | 2024-09-05 17:24 | DVHPN2 ---
Progress Note - Dictate Date Seen: Sep 05, 2024 Medical Necessity Reason Pt with a Central, PICC or Fol: No Subjective right wrist pain has significantly improved vital signs Vital Sign Date Time Temp Pulse Resp B/P (MAP) Pulse Ox O2 Delivery O2 Flow Rate FiO2 09/05/24 16:54 97.6 83 16 165/70 (101) 98 97.6 09/05/24 08:00 Room Air* 0 N/A Nasal Cannula* Total Intake and Output 09/04/24 09/04/24 09/05/24 15:00 23:00 07:00 Intake Total 720 ml 1620 ml 800 ml Balance 720 ml 1620 ml 800 ml medications Current Medications Medications Dose Ordered Sig/Andrea Route Start Time Stop Time Status Last Admin Dose Admin Nitroglycerin 0.4 mg Q5MINP PRN SL 09/02/24 20:15 Morphine Sulfate 2 mg Q30M PRN IV 09/02/24 20:15 Pantoprazole Sodium 40 mg DAILY@0600 PO 09/03/24 06:00 09/05/24 06:47 40 MG Patient Own Medication 1 DAILY PO 09/03/24 10:00 09/04/24 09:35 1 Patient Own Medication 1 DAILY PO 09/03/24 10:00 09/04/24 09:35 1 Acetaminophen/ Hydrocodone Bitart 1 tab Q6HP PRN PO 09/02/24 22:45 Hold Gabapentin 100 mg TID PO 09/03/24 14:00 09/05/24 13:50 100 MG Diagnostic Test (Pha) 1 strip ACHS 09/03/24 17:00 09/05/24 12:05 1 STRIP Insulin Human Regular HS SC 09/03/24 22:00 09/04/24 22:04 6 UNITS Sodium Chloride 1,000 ml @ 30 mls/hr Q24H IV 09/03/24 21:00 09/04/24 22:04 30 MLS/HR Acetaminophen 500 mg Q6HP PRN PO 09/03/24 21:00 Hydromorphone HCl 0.4 mg Q4HPRN PRN IV 09/03/24 21:00 Hydromorphone HCl 0.8 mg Q4HPRN PRN IV 09/03/24 21:00 Insulin Glargine 20 units DAILY@BREAKFAST SC 09/04/24 08:00 09/05/24 08:48 20 UNITS Hydralazine HCl 5 mg Q6HR PRN IV 09/03/24 21:00 Hydralazine HCl 10 mg Q6HP PRN IV 09/03/24 21:00 Hydralazine HCl 20 mg Q6HPRN PRN IV 09/03/24 21:00 Insulin Human Lispro AC SC 09/04/24 07:00 09/05/24 12:05 15 UNITS Insulin Glargine 30 units DAILY@1800 SC 09/04/24 18:00 09/04/24 18:23 30 UNITS Prednisone 10 mg BIDPC PO 09/04/24 09:00 09/05/24 08:51 10 MG Hydralazine HCl 25 mg Q8HR PO 09/05/24 06:00 09/05/24 13:50 25 MG objective Alert awake oriented x3 HEENT: Normocephalic, no JVD Lungs: Bilateral good air entry CVS: S1, S2 regular rate rhythm Abdomen: Soft, bowel sounds present UNDERGRADUATE INTERN: No focal deficits Extremities: Redness and minimal swelling dorsum of the right wrist has resolved laboratory and microbiology Laboratory Tests 09/05/24 05:08 Test 09/05/24 05:08 Range/Units Serum Glucose 155 H 74-106 mg/dL Assessment/Plan Assessment AARON CKD stage 4 secondary to diabetic nephropathy Gout with inflammation of the right wrist Type 2 diabetes, poorly controlled Hypertension Plan/Recommendation Continue with prednisone. Blood sugars need better control. Endocrine consult Rheumatology consult Hold torsemide. cleared from Nephrology for discharge. PAtient is known to me and will have him follow up in office in 2 weeks Plan discussed with: Patient TABATHA PARRA MD Sep 05, 2024 17:24
--- NOTE | 2024-09-05 23:01 | DVHPN2 ---
Progress Note - Dictate Date Seen: Sep 05, 2024 Medical Necessity Reason Pt with a Central, PICC or Fol: No vital signs Vital Sign Date Time Temp Pulse Resp B/P (MAP) Pulse Ox O2 Delivery O2 Flow Rate FiO2 09/05/24 21:42 157/85 09/05/24 20:33 98.2 78 17 97 98.2 09/05/24 20:00 Room Air* 0 N/A Nasal Cannula* Total Intake and Output 09/04/24 09/04/24 09/05/24 15:00 23:00 07:00 Intake Total 720 ml 1620 ml 800 ml Balance 720 ml 1620 ml 800 ml medications Current Medications Medications Dose Ordered Sig/Andrea Route Start Time Stop Time Status Last Admin Dose Admin Nitroglycerin 0.4 mg Q5MINP PRN SL 09/02/24 20:15 Morphine Sulfate 2 mg Q30M PRN IV 09/02/24 20:15 Pantoprazole Sodium 40 mg DAILY@0600 PO 09/03/24 06:00 09/05/24 06:47 40 MG Patient Own Medication 1 DAILY PO 09/03/24 10:00 09/04/24 09:35 1 Patient Own Medication 1 DAILY PO 09/03/24 10:00 09/04/24 09:35 1 Acetaminophen/ Hydrocodone Bitart 1 tab Q6HP PRN PO 09/02/24 22:45 Hold Gabapentin 100 mg TID PO 09/03/24 14:00 09/05/24 21:42 100 MG Diagnostic Test (Pha) 1 strip ACHS 09/03/24 17:00 09/05/24 21:41 1 STRIP Insulin Human Regular HS SC 09/03/24 22:00 09/05/24 21:42 6 UNITS Sodium Chloride 1,000 ml @ 30 mls/hr Q24H IV 09/03/24 21:00 09/04/24 22:04 30 MLS/HR Acetaminophen 500 mg Q6HP PRN PO 09/03/24 21:00 Hydromorphone HCl 0.4 mg Q4HPRN PRN IV 09/03/24 21:00 Hydromorphone HCl 0.8 mg Q4HPRN PRN IV 09/03/24 21:00 Insulin Glargine 20 units DAILY@BREAKFAST SC 09/04/24 08:00 09/05/24 08:48 20 UNITS Hydralazine HCl 5 mg Q6HR PRN IV 09/03/24 21:00 Hydralazine HCl 10 mg Q6HP PRN IV 09/03/24 21:00 Hydralazine HCl 20 mg Q6HPRN PRN IV 09/03/24 21:00 Insulin Human Lispro AC SC 09/04/24 07:00 09/05/24 17:20 3 UNITS Insulin Glargine 30 units DAILY@1800 SC 09/04/24 18:00 09/05/24 17:48 30 UNITS Prednisone 10 mg BIDPC PO 09/04/24 09:00 09/05/24 17:47 10 MG Hydralazine HCl 25 mg Q8HR PO 09/05/24 06:00 09/05/24 21:42 25 MG laboratory and microbiology Laboratory Tests 09/05/24 05:08 Test 09/05/24 05:08 Range/Units Serum Glucose 155 H 74-106 mg/dL Assessment/Plan Rec Allopurinol starting tomorrow DAVID VARGAS MD Sep 05, 2024 23:01
[2024-09-06 00:37] VITALS: BP 138/81; PULSE 84; RESP 16; TEMP 98.3; O2SAT 98
[2024-09-06 04:19] VITALS: BP 131/82; PULSE 69; RESP 17; TEMP 98.3; O2SAT 98
[2024-09-06] MEDS: SODIUM CHLORIDE 0.9% 1,000 ML IV SCH (04:23)
[2024-09-06 05:54] LABS: Basophils # (auto) 0.1 10 ^3/uL (0-0.2); Basophils % (auto) 0.6 % (0.0-2.0); Eosinophils # (auto) 0 10 ^3/uL (0-0.8); Eosinophils % (auto) 0.1 % (0.0-7.0); Hematocrit 44.4 % (41.0-53.0); Hemoglobin 14.6 g/dL (13.5-17.5); Lymphocytes # (auto) 1.3 10 ^3/uL (0.4-5.4); Mean Corpuscular Hemoglobin 27.7 pg (28.0-32.0); Mean Corpuscular Volume 83.9 fL (80.0-100.0); Monocytes # (auto) 0.7 10 ^3/uL (0-1.3); Monocytes % (auto) 8.9 % (0.0-12.0); Neutrophils # (auto) 6.1 10 ^3/uL (1.6-8.6); Neutrophils % (auto) 74.4 % (37.0-80.0); Nucleated Red Blood Cells % 0.1 %; Platelet Count (auto) 267 10^3/uL (140-450); Red Blood Cells 5.29 10^6/uL (4.5-5.90); Red Cell Distribution Width 15.2 % (11.8-14.3); White Blood Cell 8.2 10^3/uL (4.4-10.8)
[2024-09-06 06:14] LABS: Albumin 3.8 g/dL (3.2-4.8); Alkaline Phosphatase 84 U/L (46-116); Anion Gap 8 (5-15); Calcium 9.2 mg/dL (8.7-10.4); Carbon Dioxide 23 mmol/L (20-31); Chloride 105 mmol/L (98-107); Potassium 4.7 mmol/L (3.5-5.1); Sodium 136 mmol/L (136-145)
[2024-09-06 06:15] LABS: BUN/Creatinine Ratio 25.1 (10.0-20.0); Total Protein 6.6 g/dL (5.7-8.2)
[2024-09-06 06:17] LABS: Bilirubin, Total 0.4 mg/dL (0.2-1.0)
[2024-09-06 06:40] LABS: Alanine Aminotransferase 9 U/L (7-40); Aspartate Aminotransferase 9 U/L (13-40); Blood Urea Nitrogen 58 mg/dL (9-23); Glucose 209 mg/dL (74-106)
[2024-09-06] MEDS: hydrALAZINE HCL 20 MG/ML VL IV PRN (07:49)
[2024-09-06 08:00] VITALS: PULSE 18; RESP 19; O2SAT 98
[2024-09-06 08:46] VITALS: BP 178/104; PULSE 75; RESP 16; TEMP 97.8; O2SAT 96
--- NOTE | 2024-09-06 09:50 | DVHPN2 ---
Progress Note - Dictate Date Seen: Sep 06, 2024 Medical Necessity Reason Pt with a Central, PICC or Fol: No vital signs Vital Sign Date Time Temp Pulse Resp B/P (MAP) Pulse Ox O2 Delivery O2 Flow Rate FiO2 09/06/24 08:46 97.8 75 16 178/104 (128) 96 97.8 09/05/24 20:00 Room Air* 0 N/A Nasal Cannula* Total Intake and Output 09/05/24 09/05/24 09/06/24 15:00 23:00 07:00 Intake Total 1030 ml 800 ml Balance 1030 ml 800 ml medications Current Medications Medications Dose Ordered Sig/Andrea Route Start Time Stop Time Status Last Admin Dose Admin Nitroglycerin 0.4 mg Q5MINP PRN SL 09/02/24 20:15 Morphine Sulfate 2 mg Q30M PRN IV 09/02/24 20:15 Pantoprazole Sodium 40 mg DAILY@0600 PO 09/03/24 06:00 09/06/24 06:33 40 MG Patient Own Medication 1 DAILY PO 09/03/24 10:00 09/06/24 07:48 1 Patient Own Medication 1 DAILY PO 09/03/24 10:00 09/06/24 07:48 1 Acetaminophen/ Hydrocodone Bitart 1 tab Q6HP PRN PO 09/02/24 22:45 Hold Gabapentin 100 mg TID PO 09/03/24 14:00 09/06/24 06:33 100 MG Diagnostic Test (Pha) 1 strip ACHS 09/03/24 17:00 09/06/24 06:34 1 STRIP Insulin Human Regular HS SC 09/03/24 22:00 09/05/24 21:42 6 UNITS Acetaminophen 500 mg Q6HP PRN PO 09/03/24 21:00 Hydromorphone HCl 0.4 mg Q4HPRN PRN IV 09/03/24 21:00 Hydromorphone HCl 0.8 mg Q4HPRN PRN IV 09/03/24 21:00 Insulin Glargine 20 units DAILY@BREAKFAST SC 09/04/24 08:00 09/06/24 07:46 20 UNITS Hydralazine HCl 5 mg Q6HR PRN IV 09/03/24 21:00 09/06/24 07:49 5 MG Hydralazine HCl 10 mg Q6HP PRN IV 09/03/24 21:00 Hydralazine HCl 20 mg Q6HPRN PRN IV 09/03/24 21:00 Insulin Human Lispro AC SC 09/04/24 07:00 09/06/24 06:34 3 UNITS Insulin Glargine 30 units DAILY@1800 SC 09/04/24 18:00 09/05/24 17:48 30 UNITS Prednisone 10 mg BIDPC PO 09/04/24 09:00 09/06/24 07:47 10 MG Hydralazine HCl 25 mg Q8HR PO 09/05/24 06:00 09/06/24 06:33 25 MG Sodium Chloride 1,000 ml @ 75 mls/hr [id number] IV 09/05/24 23:00 09/06/24 04:23 75 MLS/HR laboratory and microbiology Laboratory Tests 09/06/24 05:20 Test 09/06/24 05:20 Range/Units Serum Glucose 209 H 74-106 mg/dL Assessment/Plan Rec Allopurinol starting tomorrow DAVID VARGAS MD Sep 06, 2024 09:50
[2024-09-06] MEDS ORDERED: ALLO300T2 PO (09:55)
[2024-09-06 11:21] VITALS: BP 150/89; PULSE 75; RESP 18; TEMP 97.8; O2SAT 96
== END 2024-09-06 12:11 | disposition home or self-care (01) | DRG 351 ==
LOC: EAST 19:37 → CENTRAL 09-03 22:28
PROVIDERS: ADMIT Specialist; ATTEND Specialist
DX: M10.031 Idiopathic gout, right wrist (principal); N17.0 Acute kidney failure with tubular necrosis; E11.22 Type 2 diabetes mellitus with diabetic chronic kidney disease; T38.0X5A Adverse effect of glucocorticoids and synthetic analogues, initial encounter; N18.4 Chronic kidney disease, stage 4 (severe); E11.65 Type 2 diabetes mellitus with hyperglycemia; I12.9 Hypertensive chronic kidney disease with stage 1 through stage 4 chronic kidney disease, or unspecified chronic kidney disease; Z82.49 Family history of ischemic heart disease and other diseases of the circulatory system; Z79.82 Long term (current) use of aspirin; Z79.899 Other long term (current) drug therapy; Z83.3 Family history of diabetes mellitus; Y92.89 Other specified places as the place of occurrence of the external cause; Z79.4 Long term (current) use of insulin
CPT/HCPCS: 36415; 71045; 73120; 80048; 80053; 80061; 82962; 83036; 84550; 85025; 85652; 86141; 87040; G0378; J1815

== ENCOUNTER 2024-11-27 15:43 | Inpatient (IN) | payer MEDICAID ==
[~2024-11-27] VITALS: Ht 167.6 cm; Wt 87.9 kg
[~2024-11-27 15:43] MED LIST changes: +ALLO300T2 PO; +INSU100I21 SC; +INSU75IN2 SC
--- NOTE | 2024-11-27 16:07 | ED.PDOC ---
HPI (NEURO) HPI Comments 59 y.o male with PMHx of multiple TIA's, CKD, HTN, hyperlipidemia and DM, presents to the ED for a chief complaint of a frontal headache associated with nausea, fever and chills that started at 7am today after waking up. Patient reports headache is non radiating, constant, sharp and has no alleviating factors. Patient denies any vision changes, numbness, weakness, confusions, vomiting or recent head injuries. Time Seen by MD: 15:58 Primary Care Provider: ALICIA Burns Notes: Nurses Notes, Medications, Allergies Information Source: Patient Mode of Arrival: Ambulatory Severity: Moderate Headache Severity: Moderate Timing: Hours Duration: Since onset Headache Quality: Aching, Sharp Headache Location: Frontal Onset: At rest Circumstances: Spontaneous Symptoms: None History of: TIA, DM, Hypertension Modifying factors: Nothing Associated Signs and Symptoms: Headache, Nausea, Other (fever and chills ) Past Medical History PAST MEDICAL HISTORY: CKF, DM, GERD, High Lipids, HTN, TIA Family History Family History: Reviewed,noncontributory to illness, Family hx of DM, Family hx of HTN Social History Smoker: Non-Smoker Alcohol: Occasionally Drugs: Denies Drug Use Lives In: Home Constitutional: reports: chills, fever; denies: diaphoresis, fatigue, malaise, sweats, weakness, others EENTM: denies: blurred vision, double vision, ear bleeding, ear discharge, ear drainage, ear pain, ear ringing, eye pain, eye redness, hearing loss, mouth pain, mouth swelling, nasal discharge, nose bleeding, nose congestion, nose pain, photophobia, tearing, throat pain, throat swelling, voice changes, others Respiratory: denies: cough, hemoptysis, orthopnea, SOB at rest, shortness of breath, SOB with excertion, stridor, wheezing, others Cardiovascular: denies: chest pain, dizzy spells, diaphoresis, Dyspnea on exertion, edema, irregular heart beat, left arm pain, lightheadedness, palpitations, PND, syncope, others Gastrointestinal: reports: nausea; denies: abdomen distended, abdominal pain, blood streaked bowels, constipated, diarrhea, dysphagia, difficulty swallowing, hematemesis, melena, poor appetite, poor fluid intake, rectal bleeding, rectal pain, vomiting, others Genitourinary: denies: burning, dysuria, flank pain, frequency, hematuria, incontinence, penile discharge, penile sore, pain, testicle pain, testicle swelling, urgency, others Neurological: reports: headache; denies: dizziness, fainting, left sided numbness, left sided weakness, numbness, paresthesia, pre-existing deficit, right sided numbness, right sided weakness, seizure, speech problems, tingling, tremors, weakness, others Musculoskeletal: denies: back pain, gout, joint pain, joint swelling, muscle pain, muscle stiffness, neck pain, others Integumetry: denies: bruises, change in color, change in hair/nails, dryness, laceration, lesions, lumps, rash, wounds, others Allergic/Immunocompromised: denies: Difficulty Healing, Frequent Infections, Hives, Itching, others Hematologic/Lymphatic: denies: anemia, blood clots, easy bleeding, easy bruising, swollen glands, others Endocrine: denies: excessive hunger, excessive sweating, excessive thirst, excessive urination, flushing, intolerance to cold, intolerance to heat, unexplained weight gain, unexplained weight loss, others Psychiatric: denies: anxiety, bipolar disorder, depression, hopeless, panic disorder, schizophrenia, sleepless, suicidal, others All Other Systems: Reviewed and Negative Physical Exam General Appearance: Moderate Distress HEENT: Normal ENT Inspection, Pharynx Normal, TMs Normal Neck: Full Range of Motion, Non-Tender, Normal, Normal Inspection Respiratory: Chest Non-Tender, Lungs Clear, No Accessory Muscle Use, No Respiratory Distress, Normal Breath Sounds Cardiovascular: No Edema, No JVD, No Murmur, No Gallop, Normal Peripheral Pulses, Regular Rate/Rhythm Breast Exam: Deferred Gastrointestinal: No Organomegaly, Non Tender, No Pulsatile Mass, Normal Bowel Sounds, Soft Genitalia: Deferred Pelvic: Deferred Rectal: Deferred Extremities: No calf tenderness, Normal capillary refill, Normal inspection, Normal range of motion, Non-tender, No pedal edema Musculoskeletal : Apperance: Normal Neurologic: Alert, 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 Was a procedure done?: No Differential Diagnosis (SZ) CVA: CVA, TIA General Weakness: Dehydration Headache: Cluster, Migraine, CVA, Subarachnoid Hemorrhage, Sinusitis, Trigeminal Neuralgia X-Ray, Labs, Meds, VS Vital Signs Date Time Temp Pulse Resp B/P (MAP) Pulse Ox O2 Delivery O2 Flow Rate FiO2 11/27/24 20:29 100.3 90 16 125/80 (95) 96 100.3 11/27/24 18:26 102.1 95 16 123/67 (85) 95 102.1 11/27/24 16:12 102.9 101 16 147/92 (110) 96 102.9 11/27/24 16:07 99 11/27/24 16:03 99 11/27/24 15:43 102.9 101 16 147/92 (110) 96 102.9 Lab Test 11/27/24 20:05 11/27/24 19:00 11/27/24 16:10 11/27/24 16:01 Range/Units SARS-CoV-2 Antigen (Rapid) Negative NEGATIVE Urine Color Colorless Yellow Urine Clarity Clear Clear Urine pH 5.5 5.0-9.0 Urine Specific [place] 1.008 1.001-1.035 Urine Protein 1+ H Negative Urine Ketones Negative Negative Urine Blood Trace H Negative /uL Urine Nitrite Negative Negative Urine Bilirubin Negative Negative Urine Urobilinogen Normal Negative mg/dL Urine Leukocyte Esterase Negative Negative /uL Urine RBC 1 0 - 3 /hpf Urine Microscopic WBC 1 0-3 /HPF Urine Squamous Epithelial Cells None seen <5 /hpf Urine Bacteria None seen None Seen /hpf Urine Glucose 4+ H Normal mg/dL White Blood Count 10.8 4.4-10.8 10^3/uL Red Blood Count 5.82 4.5-5.90 10^6/uL Hemoglobin 15.9 13.5-17.5 g/dL Hematocrit 47.7 41.0-53.0 % Mean Corpuscular Volume 82.0 80.0-100.0 fL Mean Corpuscular Hemoglobin 27.2 L 28.0-32.0 pg Mean Corpuscular Hemoglobin Concent 33.2 32.0-36.0 g/dL Red Cell Distribution Width 15.5 H 11.8-14.3 % Platelet Count 257 140-450 10^3/uL Mean Platelet Volume 8.1 6.9-10.8 fL Neutrophils (%) (Auto) 81.1 H 37.0-80.0 % Lymphocytes (%) (Auto) 9.9 L 10.0-50.0 % Monocytes (%) (Auto) 7.6 0.0-12.0 % Eosinophils (%) (Auto) 0.5 0.0-7.0 % Basophils (%) (Auto) 0.9 0.0-2.0 % Neutrophils # (Auto) 8.7 H 1.6-8.6 10 ^3/uL Lymphocytes # (Auto) 1.1 0.4-5.4 10 ^3/uL Monocytes # (Auto) 0.8 0-1.3 10 ^3/uL Eosinophils # (Auto) 0.1 0-0.8 10 ^3/uL Basophils # (Auto) 0.1 0-0.2 10 ^3/uL Nucleated Red Blood Cells 0.0 % Sodium Level 135 L 136-145 mmol/L Potassium Level 4.3 3.5-5.1 mmol/L Chloride Level 99 98-107 mmol/L Carbon Dioxide Level 28 20-31 mmol/L Anion Gap 8 5-15 Blood Urea Nitrogen 43 H 9-23 mg/dL Creatinine 2.33 H 0.700-1.30 mg/dL Glomerular Filtration Rate Calc 31 >90 mL/min BUN/Creatinine Ratio 18.5 10.0-20.0 Serum Glucose 186 H 74-106 mg/dL Calcium Level 9.8 8.7-10.4 mg/dL POC Glucose 169 H 70-106 mg/dl Current Medications Medications (Trade) Dose Ordered Sig/Andrea Route Start Time Stop Time Status Last Admin Acetaminophen (Tylenol Tablet) 650 mg ONCE ONCE PO 11/27/24 16:15 11/27/24 16:16 DC 11/27/24 20:16 CAT scan of the head is negative The chest x-ray is pending The patient was given acetaminophen 650 mg by mouth for the fever The patient's CBC is within normal limits The chemistry panel shows a BUN of 43 and a creatinine of 2.33 The patient is being admitted at this time The patient understands and agrees with the management. Images Reviewed?: Images reviewed and evaluated by me Time of 1ST Reevaluation: 16:03 Reevaluation 1ST: Unchanged Patient Education/Counseling: Diagnosis, Treatment, Prognosis Family Education/Counseling: No Family Present Departure 1 Departure Time of Disposition: 21:51 Impression: Primary Impression: Intractable headache Additional Impression: Fever Disposition: 09 ADMITTED INPATIENT Admit to: Tele Condition: Fair Critical Care Note Critical Care Time?: No Stability Stability form required: Yes Unstable for transfer: ED Physician Assesment (Clinical assesment) Heart Score Heart Score: Heart Score Response (Comments) Value History N/A 0 EKG N/A 0 Age N/A 0 Risk Factors N/A 0 Troponin N/A 0 Total 0 I personally scribed for LEE DELACRUZ MD ([email or web address]) on 11/27/24 at 16:07. Electronically submitted by Jael Molina ([facility]). LEE DELACRUZ MD November 27, 2024 16:07
[2024-11-27 16:17] LABS: Basophils # (auto) 0.1 10 ^3/uL (0-0.2); Eosinophils # (auto) 0.1 10 ^3/uL (0-0.8); Eosinophils % (auto) 0.5 % (0.0-7.0); Lymphocytes # (auto) 1.1 10 ^3/uL (0.4-5.4)
[2024-11-27 16:18] LABS: Basophils % (auto) 0.9 % (0.0-2.0); Hematocrit 47.7 % (41.0-53.0); Hemoglobin 15.9 g/dL (13.5-17.5); Lymphocytes % (auto) 9.9 % (10.0-50.0); Mean Corpuscular Hemoglobin 27.2 pg (28.0-32.0); Mean Corpuscular Hgb Conc. 33.2 g/dL (32.0-36.0); Monocytes # (auto) 0.8 10 ^3/uL (0-1.3); Monocytes % (auto) 7.6 % (0.0-12.0); Neutrophils # (auto) 8.7 10 ^3/uL (1.6-8.6); Neutrophils % (auto) 81.1 % (37.0-80.0); Platelet Count (auto) 257 10^3/uL (140-450); Red Blood Cells 5.82 10^6/uL (4.5-5.90); Red Cell Distribution Width 15.5 % (11.8-14.3); White Blood Cell 10.8 10^3/uL (4.4-10.8)
[2024-11-27 16:34] LABS: Chloride 99 mmol/L (98-107); Potassium 4.3 mmol/L (3.5-5.1)
[2024-11-27 16:35] LABS: Anion Gap 8 (5-15); Calcium 9.8 mg/dL (8.7-10.4); Carbon Dioxide 28 mmol/L (20-31)
[2024-11-27 16:40] LABS: BUN/Creatinine Ratio 18.5 (10.0-20.0)
[2024-11-27 16:49] LABS: Blood Urea Nitrogen 43 mg/dL (9-23); Glucose 186 mg/dL (74-106); Sodium 135 mmol/L (136-145)
--- NOTE | 2024-11-27 17:07 | DVH ---
EXAM: CT HEAD WITHOUT CONTRAST INDICATION: BYERS TECHNIQUE: CT of the head without intravenous contrast. Radiation Dose : 1. Head: CT Dose: CTDI volume is 50 mGy. Dose-length product is 934 mGy*cm The dose indicators for CT are the volume Computed Tomography (CT) Dose Index (CTDIvol) and the Dose Length Product (DLP), and are measured in units of mGy and mGy-cm, respectively. These indicators are not patient dose, but values generated from the CT scanner acquisition factors. The report includes radiation exposure data for exposures received during this examination. COMPARISON: HEAD WITHOUT CONTRAST on DOS: 03/26/21 FINDINGS: There is no evidence of acute intracranial hemorrhage, extra-axial collection, mass effect, midline s hift, herniation or hydrocephalus. The ventricles, sulci and cisterns are age appropriate. The rios-white differentiation is intact. Patchy periventricular and subcortical white matter hypoattenuation is nonspecific but may be related to small vessel ischemic disease. Near complete opacification of the right maxillary sinus. The surrounding soft tissues and osseous structures are unremarkable. IMPRESSION: 1. No acute intracranial abnormality. Radiation optimization: All CT scans at this facility use at least one of these dose optimization nida hniques: automated exposure control mA and/or kV adjustment per patient size (includes targeted exam s where dose is matched to clinical indication) or iterative reconstruction.
[2024-11-27 19:01] LABS: Urine Bacteria None Seen /hpf (None Seen)
[2024-11-27 19:19] LABS: Urine Blood TRACE /uL (Negative); Urine Clarity Clear (Clear); Urine Color Colorless (Yellow); Urine Protein, UAD 1+ (Negative); Urine Specific Gravity 1.008 (1.001-1.035); Urine Squamous Epithelial Cell None Seen /hpf (<5); Urine Urobilinogen Normal (Negative); Urine WBC 1 /HPF (0-3); Urine pH 5.5 (5.0-9.0)
[2024-11-27] MEDS: ACETAMINOPHEN 325 MG TAB PO ONE (20:16)
[2024-11-27 21:34] LABS: COVID19 ANTIGEN SOFIA FIA NEGATIVE (NEGATIVE)
[2024-11-27] MEDS ORDERED: NITROGLYCERIN 0.4 MG SL TAB SL PRN (22:00)
[2024-11-27] MEDS ORDERED: MORPHINE SULFATE INJ 2 MG/ml SYRG IV PRN (22:00)
--- NOTE | 2024-11-27 22:18 | DVH ---
EXAM: XY CHEST XRAY 1 VIEW CLINICAL HISTORY: ALICIA DUTTON TECHNIQUE: Single AP view of the chest WID: COMPARISON: XY CHEST XRAY 1 VIEW on DOS: 09/02/24 FINDINGS: Lines and tubes: None Chest: The heart size and pulmonary vasculature is within normal limits. No pleural effusion, pneumothorax, or consolidation. The osseous structures are grossly intact. Multilevel thoracic spondylosis. IMPRESSION: No acute cardiopulmonary abnormality.
--- NOTE | 2024-11-27 22:36 | DVH ---
CLINICAL INDICATION: R/o OM TECHNIQUE: 2 radiographic views of the right foot were obtained. 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 Hallux valgus deformity of the right great toe Bony changes to the 4th metatarsal may represent osteomyelitis. Consider MRI for further evaluation. The visualized joint space is well maintained. The alignment is anatomical. There is no radiopaque foreign body. HS:Y
--- NOTE | 2024-11-27 22:43 | DVHHP2 ---
Admitting Diagnosis: Hyperpyrexia Headache, Pneumonitis R diabetic foot History of Present Illness Mychal Russo 59-year-old middle-aged male with known history of uncontrolled diabetes Hypertension complicated by CKD stage 3b is admitted through emergency room for further eval and management of sudden onset of high fever with chills, nasal sinus congestion, Bifrontal Headache, nausea loss of appetite, poor intake, feeling malaise, as well as generally weak for past 12 hours. He was not able to retain any food. As per patient, his blood pressure at home was high at 179/98 mm. It significantly improved following to his intake of lisinopril. Upon arrival to ER, patient appeared to be generally weak hypovolemic and febrile T-max 102.9 F accompanied by tachycardia HR 101 per minute, and uncontrolled hypertension BP 147/92 mm. By physical exam patient appeared to be hypovolemic, upper respiratory congestion, and reduced breath sound at l basal lung > R base. His chest x-ray in my assessment was noted to have changes of developing pneumonitis affecting LL Base Moreover patient had nonhealing ulcer over base of R 4th metatarsal. His x-ray R foot appearance raised concern about osteomyelitis. His lab exams are reflective of upper normal total WBC count at 10.8 K with 81% neutrophils. Past Medical History Past medical records: reviewed Cardiovascular history: Known history of hypertension without acute ME/CAD Recent h/o CHF 01/20/2021- partly contributed by diastolic dysfunction and cor pulmonale, PAD Respiratory history: Obesity hypoventilation, acute hypoxic Respiratory failure on 01/20/2021 [facility] Gastrointestinal history: GE reflux Genitourinary history: Erectile dysfunction CKD stage 3B to IV-serum creatinine runs @ 2.3-2.6 mg/dL GFR runs between 30 to 35 mL/minute Endocrine history: Uncontrolled diabetes type 2-currently on insulin therapy Hemoglobin A1c runs around 8 % Exogenous obesity with current BMI 35.51 kg/m Neurology history: Diabetic peripheral neuropathy affecting bilateral lower extremity Musculoskeletal history: R diabetic foot-received amputation of second and fifth toe Nonhealing ulcerated callus at base of right foot for past several years Gouty arthritis Past Surgical History Surgical amputation of R fourth and second toES Multiple excisional surgical debridement of ulcerated Callous of R feet Social History Single, , works as a [employer] driver, currently lives with his daughter, History of cigarette/e-cigarette/marijuana smoking: Denies History of alcohol drinking:: Social and sober drinking History of substance abuse: Denies Patient Family History: Diabetes mellitus G8 MOTHER G8 FATHER Hypertension G8 MOTHER G8 FATHER Allergies: Coded Allergies: Acetaminophen (Verified Adverse Reaction, Severe, MAKES HIM VOMIT, 11/27/24) Hydrocodone (Verified Adverse Reaction, Severe, MAKES HIM VOMIT, 11/27/24) Home Meds Active Scripts Allopurinol (Allopurinol) 300 Mg Tab, 200 MG PO DAILY for 90 Days, #60 TAB Prov:DAVID VARGAS MD 09/06/24 Pantoprazole Sodium Sesquihydr (Pantoprazole Sodium) 40 Mg Tab, 40 MG PO DAILY for 90 Days, #90 TAB Prov:DAVID VARGAS MD 03/29/21 Gabapentin (Gabapentin) 100 Mg Cap, 100 MG PO Q8H for 30 Days, #90 CAP Prov:DAVID VARGAS MD 03/29/21 Cholecalciferol (Vitamin D3 Super Strength) 2,000 Unit Cap, 4000 UNIT PO DAILY for 100 Days, #100 CAP Prov:DAVID VARGAS MD 03/29/21 Atorvastatin Calcium (ATORVASTATIN CALCIUM) 20 Mg Tab, 40 MG PO HS for 90 Days, #180 TAB Prov:DAVID VARGAS MD 03/29/21 Aspirin (Aspir-Low) 81 Mg Tab, 81 MG PO QPM for 90 Days, #90 TAB Prov:DAVID VARGAS MD 03/29/21 Reported Medications Insulin Lispro Protamine & Lis (Humalog Mix 75/25 Kwikpen) 75 Mg/25 Kwp Inj, SC 09/03/24 Insulin Lispro (Humalog Salvatore Kwikpen) 100 Unit/Ml Inj, SC 09/03/24 Torsemide (Torsemide) 20 Mg Tab, 40 MG PO, MG 09/17/22 Tamsulosin Hcl (Tamsulosin Hcl) 0.4 Mg Cap, 0.4 MG PO QPM for 30 Days, MG 09/17/22 Amlodipine Besylate (Amlodipine Besylate) 5 Mg Tab, 10 MG PO DAILY for 30 Days, MG 09/17/22 Lisinopril (Lisinopril) 5 Mg Tab, 5 MG PO DAILY for 30 Days, MG 09/17/22 Hydralazine Hcl (Hydralazine Hcl) 25 Mg Tab, 25 MG PO TID for 30 Days, MG 09/17/22 Current Medications Current Medications Medications (Trade) Dose Ordered Sig/Andrea Route PRN Reason Start Time Stop Time Status Last Admin Nitroglycerin (Ntrostat Sublingual) 0.4 mg Q5MINP PRN SL FOR CHEST PAIN 11/27/24 22:00 Morphine Sulfate 2 mg Q30M PRN IV FOR CHEST PAIN 11/27/24 22:00 Amlodipine Besylate (Norvasc Tablet) 5 mg DAILY PO 11/28/24 10:00 11/28/24 09:18 Aspirin (Ecotrin Enteric Coated Tablet) 81 mg QPM PO 11/28/24 18:00 Atorvastatin Calcium (Lipitor) 40 mg HS PO 11/27/24 22:00 11/27/24 23:36 Gabapentin (Neurontin Capsule) 100 mg Q8H PO 11/27/24 22:00 11/28/24 05:09 Hydralazine HCl (Apresoline Tablet) 25 mg TID PO 11/27/24 22:00 11/28/24 05:09 Lisinopril (Zestril Tablet) 5 mg DAILY PO 11/28/24 10:00 11/28/24 09:18 Pantoprazole Sodium (Protonix Tablet) 40 mg DAILY PO 11/28/24 10:00 11/28/24 09:17 Tamsulosin HCl (Flomax) 0.4 mg QPM PO 11/28/24 18:00 11/27/24 22:09 DC Torsemide (Demadex Tab) 40 mg DAILY PO 11/28/24 10:00 11/28/24 09:18 Tamsulosin HCl (Flomax) 0.4 mg QPM PO 11/28/24 18:00 Acetaminophen (Tylenol Tablet) 500 mg Q4HPRN PRN PO Headache, Temp >101.5F 11/27/24 22:15 Ceftriaxone Sodium 50 ml @ 100 mls/hr DAILY IV 11/28/24 10:00 11/28/24 09:17 Diagnostic Test (Pha) (Accu-Chek Comfort Curve T) 1 strip ACHS 11/28/24 11:30 Insulin Human Lispro (HumaLOG) 5 units AC SC 11/28/24 11:30 Insulin Glargine (Lantus) 10 units QAM SC 11/29/24 07:00 Review of Systems Constitutional: Reports [id number] fever chills, easy tiredness, weight loss HEENT: Reports headache/conjunctival/ENT pains and sinus congestion, Denies hoarse voice, hearing or visual deficit Neck: Denies cervical spine local/radicular pains, denies goiters/stridor Denies stiffness spasms, reduced ROM, RS: Reports chest congestion, cough, SOB, denies pleuritic chest pains CVS: Reports exertional shortness of breath Denies angina, palpitation, SOB, edema, orthopnea, PND GI: Denies loss of appetite, abdominal pains, tenderness, N/V/D, Denies melena, GI bleeding,constipation, : Denies dysuria, flank pains, frequency, hematuria, Denies passing foul odor/cloudy turbid urine, nocturia MS: Denies generalized aches/pains, back pains, spasms, stiffness, Denies radicular pains, denies generalized myalgias/muscle weakness EXTs: Reports edema, denies rash, erythema or distal R forearm R wrist Denies physical trauma, open wounds, discoloration, radicular pains NEURO: Denies hypersomnolence, confused mental status, Denies focal weakness or seizures/tremors/myoclonic jerks SKIN: Denies rashes or open ulcerated wound ENDOCRINE: Reports polyuria, polydipsia, denies intolerance to heat and cold HEM/LYMPH: Reports easy tiredness, bruising, lymphadenopathy ALLERGY: Denies allergic reactions Psychiatry: Denies anxiety or depression disorder Otherwise the Review of Systems is Negative as per History & Physical Interview: Yes Vital Signs Vital Signs Date Time Temp Pulse Resp B/P (MAP) Pulse Ox O2 Delivery O2 Flow Rate FiO2 11/28/24 09:18 135/75 11/28/24 09:15 98.1 79 19 95 98.1 11/28/24 00:00 Room Air* 0 21 Vital Signs Vital Signs Date Time Temp Pulse Resp B/P (MAP) Pulse Ox O2 Delivery O2 Flow Rate FiO2 11/27/24 20:29 100.3 90 16 125/80 (95) 96 100.3 11/27/24 18:26 102.1 95 16 123/67 (85) 95 102.1 11/27/24 16:12 102.9 101 16 147/92 (110) 96 102.9 11/27/24 16:07 99 11/27/24 16:03 99 11/27/24 15:43 102.9 101 16 147/92 (110) 96 102.9 Physical Exam Physical exam General appearance: Well-developed, obese male appears generally weak Awake alert oriented x3 no respiratory distress Head: Normocephalic nontraumatic Eyes: EOMI, CHANEL, sclera nonicteric, conjunctive- pale+1 ENT: Bilateral maxillary sinus congestion, NSL bi lateral symmetrical, TM-mildly hyperemic, oral mucosa dry +2 Fundoscopy-grade 2 av changes Neck: Supple, carotid upstroke +2, trachea midline, JVD-3 cm No thyroid or lymph node, C spine- Full ROM No use of sternomastoid muscle Chest: Bilateral symmetrical expansions, No costochondral tenderness Lungs: clear breath sounds all over anterior lung sadler Reduced BS, a few late inspiratory rales at L base> R base CVS: PMI-1 cm lateral to L MCL in fifth ICS , S1- S2 NSR no S3 GI: Abdomen soft, obese+1, bowel sounds normoactive, no mass no hernia No focal/rebound tenderness, No hepatosplenomegaly, , : No CVA tenderness, no bladder mass palpable, genitalia-NE SKIN: Turgor dry, color pale+1, no rash, no icterus, No varicosity, no ulcers or wounds EXTs: edema +1, distal pulses +2 capillary refill <2 seconds, no open wounds JOINTS: Reduced range at bilateral knees BACK: No apparent lumbosacral spinal muscle tenderness, LYMPH NODES: No cervical, axillary or inguinal lymph nodes Neuro: Awake alert oriented 4, coherent, all cognitives- intact No pronator drift, no focal motor deficit, Changes of DPN present, DTR +2, gait steady PSYCH: Affect mildly depressed-denies suicidal ideation Lab Test 11/27/24 20:05 11/27/24 19:00 11/27/24 16:10 11/27/24 16:01 Range/Units SARS-CoV-2 Antigen (Rapid) Negative NEGATIVE Urine Color Colorless Yellow Urine Clarity Clear Clear Urine pH 5.5 5.0-9.0 Urine Specific [place] 1.008 1.001-1.035 Urine Protein 1+ H Negative Urine Ketones Negative Negative Urine Blood Trace H Negative /uL Urine Nitrite Negative Negative Urine Bilirubin Negative Negative Urine Urobilinogen Normal Negative mg/dL Urine Leukocyte Esterase Negative Negative /uL Urine RBC 1 0 - 3 /hpf Urine Microscopic WBC 1 0-3 /HPF Urine Squamous Epithelial Cells None seen <5 /hpf Urine Bacteria None seen None Seen /hpf Urine Glucose 4+ H Normal mg/dL White Blood Count 10.8 4.4-10.8 10^3/uL Red Blood Count 5.82 4.5-5.90 10^6/uL Hemoglobin 15.9 13.5-17.5 g/dL Hematocrit 47.7 41.0-53.0 % Mean Corpuscular Volume 82.0 80.0-100.0 fL Mean Corpuscular Hemoglobin 27.2 L 28.0-32.0 pg Mean Corpuscular Hemoglobin Concent 33.2 32.0-36.0 g/dL Red Cell Distribution Width 15.5 H 11.8-14.3 % Platelet Count 257 140-450 10^3/uL Mean Platelet Volume 8.1 6.9-10.8 fL Neutrophils (%) (Auto) 81.1 H 37.0-80.0 % Lymphocytes (%) (Auto) 9.9 L 10.0-50.0 % Monocytes (%) (Auto) 7.6 0.0-12.0 % Eosinophils (%) (Auto) 0.5 0.0-7.0 % Basophils (%) (Auto) 0.9 0.0-2.0 % Neutrophils # (Auto) 8.7 H 1.6-8.6 10 ^3/uL Lymphocytes # (Auto) 1.1 0.4-5.4 10 ^3/uL Monocytes # (Auto) 0.8 0-1.3 10 ^3/uL Eosinophils # (Auto) 0.1 0-0.8 10 ^3/uL Basophils # (Auto) 0.1 0-0.2 10 ^3/uL Nucleated Red Blood Cells 0.0 % Sodium Level 135 L 136-145 mmol/L Potassium Level 4.3 3.5-5.1 mmol/L Chloride Level 99 98-107 mmol/L Carbon Dioxide Level 28 20-31 mmol/L Anion Gap 8 5-15 Blood Urea Nitrogen 43 H 9-23 mg/dL Creatinine 2.33 H 0.700-1.30 mg/dL Glomerular Filtration Rate Calc 31 >90 mL/min BUN/Creatinine Ratio 18.5 10.0-20.0 Serum Glucose 186 H 74-106 mg/dL Calcium Level 9.8 8.7-10.4 mg/dL POC Glucose 169 H 70-106 mg/dl DOS: 11/27/2024 EXAM: CT HEAD WITHOUT CONTRAST INDICATION: BYERS COMPARISON: HEAD WITHOUT CONTRAST on DOS: 03/26/21 FINDINGS: There is no evidence of acute intracranial hemorrhage, extra-axial collection, mass effect, midline shift, herniation or hydrocephalus. The ventricles, sulci and cisterns are age appropriate. The rios-white differentiation is intact. Patchy periventricular and subcortical white matter hypoattenuation is nonspecific but may be related to small vessel ischemic disease. Near complete opacification of the right maxillary sinus. The surrounding soft tissues and osseous structures are unremarkable. IMPRESSION: 1. No acute intracranial abnormality. ATED BY: SALLY RHODES MD ORDERING PHYSICIAN: DAVID VARGAS MD PROCEDURE(s): RFOT2 - R FOOT 2 VIEW XRAY REASON: R/o OM ORDER NUMBER(s): [id number], ACCESSION NUMBER(s): [id number] CLINICAL INDICATION: R/o OM TECHNIQUE: 2 radiographic views of the right foot were obtained. 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 Hallux valgus deformity of the right great toe Bony changes to the 4th metatarsal may represent osteomyelitis. Consider MRI for further evaluation. The visualized joint space is well maintained. The alignment is anatomical. There is no radiopaque foreign body. HS:Y ATED BY: HONG STEVEN Jr., DO DICTATED DATE/TIME: 11/27/242233 Wounds R foot base of fourth metatarsal-nonhealing ulcerated callus without purulent discharge Results Labs Test 11/28/24 05:47 11/27/24 20:05 11/27/24 19:00 11/27/24 16:10 Range/Units White Blood Count 7.3 # 4.4-10.8 10^3/uL Red Blood Count 5.21 4.5-5.90 10^6/uL Hemoglobin 14.1 13.5-17.5 g/dL Hematocrit 42.8 # 41.0-53.0 % Mean Corpuscular Volume 82.2 80.0-100.0 fL Mean Corpuscular Hemoglobin 27.1 L 28.0-32.0 pg Mean Corpuscular Hemoglobin Concent 32.9 32.0-36.0 g/dL Red Cell Distribution Width 15.6 H 11.8-14.3 % Platelet Count 227 140-450 10^3/uL Mean Platelet Volume 8.8 6.9-10.8 fL Neutrophils (%) (Auto) 76.9 37.0-80.0 % Lymphocytes (%) (Auto) 9.7 L 10.0-50.0 % Monocytes (%) (Auto) 12.0 0.0-12.0 % Eosinophils (%) (Auto) 0.6 0.0-7.0 % Basophils (%) (Auto) 0.8 0.0-2.0 % Neutrophils # (Auto) 5.7 1.6-8.6 10 ^3/uL Lymphocytes # (Auto) 0.7 0.4-5.4 10 ^3/uL Monocytes # (Auto) 0.9 0-1.3 10 ^3/uL Eosinophils # (Auto) 0 0-0.8 10 ^3/uL Basophils # (Auto) 0.1 0-0.2 10 ^3/uL Nucleated Red Blood Cells 0.0 % Sodium Level 133 L 136-145 mmol/L Potassium Level 3.9 3.5-5.1 mmol/L Chloride Level 99 98-107 mmol/L Carbon Dioxide Level 25 20-31 mmol/L Anion Gap 9 5-15 Blood Urea Nitrogen 49 H 9-23 mg/dL Creatinine 2.79 H 0.700-1.30 mg/dL Glomerular Filtration Rate Calc 25 >90 mL/min BUN/Creatinine Ratio 17.6 10.0-20.0 Serum Glucose 273 H 74-106 mg/dL Calcium Level 9.0 8.7-10.4 mg/dL Total Bilirubin 0.5 0.2-1.0 mg/dL Aspartate Amino Transferase (AST) 10 L 13-40 U/L Alanine Aminotransferase (ALT) 9 7-40 U/L Alkaline Phosphatase 91 46-116 U/L Total Protein 6.4 5.7-8.2 g/dL Albumin 3.7 3.2-4.8 g/dL SARS-CoV-2 Antigen (Rapid) Negative NEGATIVE Urine Color Colorless Yellow Urine Clarity Clear Clear Urine pH 5.5 5.0-9.0 Urine Specific [place] 1.008 1.001-1.035 Urine Protein 1+ H Negative Urine Ketones Negative Negative Urine Blood Trace H Negative /uL Urine Nitrite Negative Negative Urine Bilirubin Negative Negative Urine Urobilinogen Normal Negative mg/dL Urine Leukocyte Esterase Negative Negative /uL Urine RBC 1 0 - 3 /hpf Urine Microscopic WBC 1 0-3 /HPF Urine Squamous Epithelial Cells None seen <5 /hpf Urine Bacteria None seen None Seen /hpf Urine Glucose 4+ H Normal mg/dL Hemoglobin A1c 7.9 H <5.7 % A1C C-Reactive Protein High Sensitivity 1.61 H <1.0 mg/dL Test 11/27/24 16:01 Range/Units POC Glucose 169 H 70-106 mg/dl Primary Diagnosis 1. Febrile illness a. Bilateral maxillary sinusitis b. Developing LL B pneumonia b. R diabetic foot-possible osteomyelitis of R 4th metatarsal 2. Moderately severe hypovolemia 3. Acute kidney injury on CKD stage IIIB from a. Hypovolemia b. Inadvertent effect of diuretic and antihypertensive c. CKD from uncontrolled diabetes and hypertension 4. Uncontrolled diabetes with hyperglycemia 5. Uncontrolled hypertension 2' Diagnosis/Comorbidities Exogenous obesity in adult with current BMI > 30-35 kg per m2 Medical decision making Overall patient's general condition appears to be clinically ill from High-grade fever, chills and constitutional symptoms * Etiologic cause of febrile illness could be multifocal from Bilateral maxillary sinusitis, developing LL B pneumonitis and/ osteomyelitis affecting R 4th metatarsal * Recommended patient to receive MRI of R foot * Patient may need podiatry and ID consultation * Started patient on broad-spectrum IV antibiotics * Place patient on IV hydration for correction of AARON on CKD stage IIIB Plan Admit to medical floor with telemetry Obtain blood and sputum cultures Cautious IV fluids infusion IV antibiotics Reconciled home medication Consider MRI R foot Consider Podiatry consultation Consider ID consult check am labs and Hemoglobin A1c Accu-Chek q.a.c. and HS Humalog through sliding scale Inj. LAntus VTE precautions Update patient The patient is well informed by me about 1. Clinical impression, treatment plans, side effects of medications, course of the disease and guarded prognosis 2. All patient's question/ concerns raised by patient are satisfactorily addressed by me Plan discussed with: Patient Code Visit Code Visit Total Time (mins): 100 DAVID VARGAS MD November 27, 2024 22:43
[2024-11-27 22:57] VITALS: BP 142/74; PULSE 73; RESP 18; TEMP 98.7; O2SAT 97
[2024-11-27] MEDS: GABAPENTIN 100 MG CAP PO SCH (23:36)
[2024-11-27] MEDS: ATORVASTATIN 20 MG TAB PO SCH (23:36)
[2024-11-28] VITALS (10 sets, daily range): BP systolic 133–155; BP diastolic 75–92; PULSE 70–85; RESP 16–21; TEMP 97.3–98.6; O2SAT 92–98
[2024-11-28] MEDS: SODIUM CHLORIDE 0.9% 1,000 ML IV ONE (00:33)
[2024-11-28] MEDS: ALLOPURINOL 100 MG TAB PO ONE (00:33)
[2024-11-28] MEDS: hydrALAZINE HCL 25 MG TAB PO SCH (00:37)
[2024-11-28 06:57] LABS: Basophils # (auto) 0.1 10 ^3/uL (0-0.2); Basophils % (auto) 0.8 % (0.0-2.0); Eosinophils # (auto) 0 10 ^3/uL (0-0.8); Eosinophils % (auto) 0.6 % (0.0-7.0); Hemoglobin 14.1 g/dL (13.5-17.5); Mean Corpuscular Volume 82.2 fL (80.0-100.0); Neutrophils # (auto) 5.7 10 ^3/uL (1.6-8.6); Red Cell Distribution Width 15.6 % (11.8-14.3); White Blood Cell 7.3 10^3/uL (4.4-10.8)
[2024-11-28 07:01] LABS: Hematocrit 42.8 % (41.0-53.0); Lymphocytes # (auto) 0.7 10 ^3/uL (0.4-5.4); Lymphocytes % (auto) 9.7 % (10.0-50.0); Mean Corpuscular Hemoglobin 27.1 pg (28.0-32.0); Mean Corpuscular Hgb Conc. 32.9 g/dL (32.0-36.0); Monocytes # (auto) 0.9 10 ^3/uL (0-1.3); Neutrophils % (auto) 76.9 % (37.0-80.0); Platelet Count (auto) 227 10^3/uL (140-450); Red Blood Cells 5.21 10^6/uL (4.5-5.90)
[2024-11-28 07:05] LABS: Albumin 3.7 g/dL (3.2-4.8); Alkaline Phosphatase 91 U/L (46-116); Anion Gap 9 (5-15); BUN/Creatinine Ratio 17.6 (10.0-20.0); Carbon Dioxide 25 mmol/L (20-31); Chloride 99 mmol/L (98-107); Potassium 3.9 mmol/L (3.5-5.1); Total Protein 6.4 g/dL (5.7-8.2)
[2024-11-28 07:06] LABS: Bilirubin, Total 0.5 mg/dL (0.2-1.0)
[2024-11-28 07:20] LABS: Alanine Aminotransferase 9 U/L (7-40); Aspartate Aminotransferase 10 U/L (13-40); Blood Urea Nitrogen 49 mg/dL (9-23); Glucose 273 mg/dL (74-106); Sodium 133 mmol/L (136-145)
--- NOTE | 2024-11-28 07:26 | ECG ---
[facility] Test Date: 2024-11-27 Test Time: 16:03:11 Pat Name: JOHNNY PENN Department: ER Room: [address] [place] [address] 5 Gender: M Adult Live In Caregiver: [place] : 1965 Requested By: LEE DELACRUZ Order Number: [id number] Reading MD: Gordy Stevens Measurements Intervals [place] Rate: 99 P: 37 VA: 107 QRS: 42 QRSD: 76 T: -66 QT: 291 QTc: 374 Interpretive Statements Sinus rhythm Probable left atrial enlargement Anteroseptal infarct, old Nonspecific repol abnormality, inferior leads Electronically Signed On 11-28-2024 12:16:48 PDT by Gordy Stevens Please click the below link to view image of tracing.
[2024-11-28] MEDS: cefTRIAXone 1GM/50ML D5W 50 ML IV SCH (09:17)
[2024-11-28] MEDS: PANTOPRAZOLE 40 MG TAB PO SCH (09:17)
[2024-11-28] MEDS: TORSEMIDE 20 MG TAB PO SCH (09:18)
[2024-11-28] MEDS: amLODIPine BESYLATE 5 MG TAB PO SCH (09:18)
[2024-11-28] MEDS: LISINOPRIL 5 MG TAB PO SCH (09:18)
[2024-11-28] MEDS: LISINOPRIL 5 MG TAB PO ONE (10:00)
--- NOTE | 2024-11-28 10:02 | DVHPN2 ---
Progress Note - Dictate Date Seen: November 28, 2024 Has the PT tested + for MRSA If YES, has PT been informed?: No Medical Necessity Reason Pt with a Central, PICC or Fol: No Medical Necessity Reason MRI of R feet IV antibiotics Podiatry consultation Subjective The patient is noted defervascence of hyperpyrexia from 102.9 to 100 Noted to have improvement in symptoms of upper and lower RS infection /congestion as well Seems to be responding to IV Rocephin He appears well hydrated Recommended patient to receive MRI of R foot Refer patient to Dr. Wagoner [employer] His HTN and NIDDM are coming under under failr control Overnight events are reviewed through medical chart and case discussion with patient's assigned RN while making rounds on patient on the day of service vital signs Vital Sign Date Time Temp Pulse Resp B/P (MAP) Pulse Ox O2 Delivery O2 Flow Rate FiO2 11/28/24 09:18 135/75 11/28/24 09:15 98.1 79 19 95 98.1 11/28/24 00:00 Room Air* 0 21 medications Current Medications Medications Dose Ordered Sig/Andrea Route Start Time Stop Time Status Last Admin Dose Admin Nitroglycerin 0.4 mg Q5MINP PRN SL 11/27/24 22:00 Morphine Sulfate 2 mg Q30M PRN IV 11/27/24 22:00 Amlodipine Besylate 5 mg DAILY PO 11/28/24 10:00 11/28/24 09:18 5 MG Aspirin 81 mg QPM PO 11/28/24 18:00 Atorvastatin Calcium 40 mg HS PO 11/27/24 22:00 11/27/24 23:36 40 MG Gabapentin 100 mg Q8H PO 11/27/24 22:00 11/28/24 05:09 100 MG Hydralazine HCl 25 mg TID PO 11/27/24 22:00 11/28/24 05:09 25 MG Pantoprazole Sodium 40 mg DAILY PO 11/28/24 10:00 11/28/24 09:17 40 MG Torsemide 40 mg DAILY PO 11/28/24 10:00 11/28/24 09:18 40 MG Tamsulosin HCl 0.4 mg QPM PO 11/28/24 18:00 Acetaminophen 500 mg Q4HPRN PRN PO 11/27/24 22:15 Ceftriaxone Sodium 50 ml @ 100 mls/hr DAILY IV 11/28/24 10:00 11/28/24 09:17 100 MLS/HR Diagnostic Test (Pha) 1 strip ACHS 11/28/24 11:30 Insulin Human Lispro 5 units AC SC 11/28/24 11:30 Insulin Glargine 10 units QAM SC 11/29/24 07:00 Lisinopril 10 mg DAILY PO 11/29/24 10:00 objective Physical exam General appearance: Well-developed, obese male appears generally weak Awake alert oriented x3 no respiratory distress Head: Normocephalic nontraumatic Eyes: EOMI, CHANEL, sclera nonicteric, conjunctive- pale+1 ENT: Bilateral maxillary sinus congestion, NSL bilateral symmetrical, TM-mildly hyperemic, oral mucosa dry +1 Fundoscopy-grade 2 av changes Neck: Supple, carotid upstroke +2, trachea midline, JVD-3 cm No thyroid or lymph node, C spine- Full ROM No use of sternomastoid muscle Chest: Bilateral symmetrical expansions, No costochondral tenderness Lungs: clear breath sounds all over anterior lung sadler Reduced BS, a few late inspiratory rales at L base> R base CVS: PMI-1 cm lateral to L MCL in fifth ICS , S1- S2 NSR no S3 GI: Abdomen soft, obese+1, bowel sounds normoactive, no mass no hernia No focal/rebound tenderness, No hepatosplenomegaly, , : No CVA tenderness, no bladder mass palpable, genitalia-NE SKIN: Turgor dry, color pale+1, no rash, no icterus, No varicosity, no ulcers or wounds EXTs: edema +0, distal pulses +2 capillary refill <2 seconds, no open wounds JOINTS: Reduced range at bilateral knees BACK: No apparent lumbosacral spinal muscle tenderness, LYMPH NODES: No cervical, axillary or inguinal lymph nodes Neuro: Awake alert oriented 4, coherent, all cognitives- intact No pronator drift, no focal motor deficit, Changes of DPN present, DTR +2, gait steady PSYCH: Affect mildly depressed-denies suicidal ideation Wounds Wounds R foot base of fourth metatarsal-nonhealing ulcerated callus without purulent discharge, feels tender laboratory and microbiology Laboratory Tests 11/28/24 05:47 Test 11/28/24 05:47 Range/Units Serum Glucose 273 H 74-106 mg/dL Results Results Labs Test 11/28/24 05:47 11/27/24 20:05 11/27/24 19:00 11/27/24 16:10 Range/Units White Blood Count 7.3 # 4.4-10.8 10^3/uL Red Blood Count 5.21 4.5-5.90 10^6/uL Hemoglobin 14.1 13.5-17.5 g/dL Hematocrit 42.8 # 41.0-53.0 % Mean Corpuscular Volume 82.2 80.0-100.0 fL Mean Corpuscular Hemoglobin 27.1 L 28.0-32.0 pg Mean Corpuscular Hemoglobin Concent 32.9 32.0-36.0 g/dL Red Cell Distribution Width 15.6 H 11.8-14.3 % Platelet Count 227 140-450 10^3/uL Mean Platelet Volume 8.8 6.9-10.8 fL Neutrophils (%) (Auto) 76.9 37.0-80.0 % Lymphocytes (%) (Auto) 9.7 L 10.0-50.0 % Monocytes (%) (Auto) 12.0 0.0-12.0 % Eosinophils (%) (Auto) 0.6 0.0-7.0 % Basophils (%) (Auto) 0.8 0.0-2.0 % Neutrophils # (Auto) 5.7 1.6-8.6 10 ^3/uL Lymphocytes # (Auto) 0.7 0.4-5.4 10 ^3/uL Monocytes # (Auto) 0.9 0-1.3 10 ^3/uL Eosinophils # (Auto) 0 0-0.8 10 ^3/uL Basophils # (Auto) 0.1 0-0.2 10 ^3/uL Nucleated Red Blood Cells 0.0 % Sodium Level 133 L 136-145 mmol/L Potassium Level 3.9 3.5-5.1 mmol/L Chloride Level 99 98-107 mmol/L Carbon Dioxide Level 25 20-31 mmol/L Anion Gap 9 5-15 Blood Urea Nitrogen 49 H 9-23 mg/dL Creatinine 2.79 H 0.700-1.30 mg/dL Glomerular Filtration Rate Calc 25 >90 mL/min BUN/Creatinine Ratio 17.6 10.0-20.0 Serum Glucose 273 H 74-106 mg/dL Calcium Level 9.0 8.7-10.4 mg/dL Total Bilirubin 0.5 0.2-1.0 mg/dL Aspartate Amino Transferase (AST) 10 L 13-40 U/L Alanine Aminotransferase (ALT) 9 7-40 U/L Alkaline Phosphatase 91 46-116 U/L Total Protein 6.4 5.7-8.2 g/dL Albumin 3.7 3.2-4.8 g/dL SARS-CoV-2 Antigen (Rapid) Negative NEGATIVE Urine Color Colorless Yellow Urine Clarity Clear Clear Urine pH 5.5 5.0-9.0 Urine Specific [place] 1.008 1.001-1.035 Urine Protein 1+ H Negative Urine Ketones Negative Negative Urine Blood Trace H Negative /uL Urine Nitrite Negative Negative Urine Bilirubin Negative Negative Urine Urobilinogen Normal Negative mg/dL Urine Leukocyte Esterase Negative Negative /uL Urine RBC 1 0 - 3 /hpf Urine Microscopic WBC 1 0-3 /HPF Urine Squamous Epithelial Cells None seen <5 /hpf Urine Bacteria None seen None Seen /hpf Urine Glucose 4+ H Normal mg/dL Hemoglobin A1c 7.9 H <5.7 % A1C C-Reactive Protein High Sensitivity 1.61 H <1.0 mg/dL Test 11/27/24 16:01 Range/Units POC Glucose 169 H 70-106 mg/dl Assessment/Plan DOS: 11/27/2024 EXAM: CT HEAD WITHOUT CONTRAST INDICATION: BYERS COMPARISON: HEAD WITHOUT CONTRAST on DOS: 03/26/21 FINDINGS: There is no evidence of acute intracranial hemorrhage, extra-axial collection, mass effect, midline shift, herniation or hydrocephalus. The ventricles, sulci and cisterns are age appropriate. The rios-white differentiation is intact. Patchy periventricular and subcortical white matter hypoattenuation is nonspecific but may be related to small vessel ischemic disease. Near complete opacification of the right maxillary sinus. The surrounding soft tissues and osseous structures are unremarkable. IMPRESSION: 1. No acute intracranial abnormality. ATED BY: SALLY RHODES MD ORDERING PHYSICIAN: DAVID VARGAS MD PROCEDURE(s): RFOT2 - R FOOT 2 VIEW XRAY REASON: R/o OM ORDER NUMBER(s): [id number], ACCESSION NUMBER(s): [id number] CLINICAL INDICATION: R/o OM TECHNIQUE: 2 radiographic views of the right foot were obtained. 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 Hallux valgus deformity of the right great toe Bony changes to the 4th metatarsal may represent osteomyelitis. Consider MRI for further evaluation. The visualized joint space is well maintained. The alignment is anatomical. There is no radiopaque foreign body. HS:Y ATED BY: HONG STEVEN Jr. DO DICTATED DATE/TIME: 11/27/242233 Problem List Primary Diagnosis 1. Febrile illness a. Bilateral maxillary sinusitis.................................................... Improving b. Developing LL B pneumonia b. R diabetic foot-possible osteomyelitis of R 4th metatarsal............ Very likely 2. Moderately severe hypovolemia 3. Acute kidney injury on CKD stage IIIB....................................... Worsening from a. Hypovolemia b. Inadvertent effect of diuretic and antihypertensive c. CKD from uncontrolled diabetes and hypertension 4. Uncontrolled diabetes with hyperglycemia 5. Uncontrolled hypertension 2' Diagnosis/Comorbidities Exogenous obesity in adult with current BMI > 30-35 kg per m2 Assessment/Plan Medical decision making Overall patient's general condition appears to be relatively improving with Defervescing of hyperpyrexia, upper and lower respiratory congestion Noted improvement in state of maxillary sinusitis and lower respiratory infection * Etiologic cause of febrile illness seemed most likely from osteomyelitis affecting R 4th metatarsal * Patient received MRI R foot-reviewed radiology report * Noted some chronic changes from osteomyelitis as well as severe bony edema Affecting R 4th metatarsal * Patient is recommended to receive one biopsy by Dr. Wagoner podiatry * Continued patient on IV Rocephin * Recommended ID consult from Dr. Juliano vargas * Noted correction in state of dehydration * Lab exam reflects uncontrolled diabetes with hemoglobin A1c 7.9% * Recommended higher dose of Lantus and Humalog Plan Continue hospital stay at medical floor with telemetry Await results of blood and sputum cultures Reviewed results of MRI R foot Refer patient to Dr. Juliano vargas, ID Continue IV Rocephin Revised dose of lisinopril Preop lab work Accu-Chek q.a.c. and HS Revised dose of Humalog and injection Lantus VTE precautions Update patient The patient is well informed by me about 1. Clinical impression, treatment plans, side effects of medications, course of the disease and guarded prognosis 2. All patient's question/ concerns raised by patient are satisfactorily addressed by me Prognosis Fair Dietary Evaluation Review Recommendations by RD: Dietary education by RD Comments: Recommend intenstional weightloss of 30 lbs thru diet and exercises Expected Outcomes/Goals: Intentional loss of weight can help better control of NIDDM and CKD Interpretation of weight loss: >10% in 6 months Plan discussed with: Patient Total Time (mins): 45 DAVID VARGAS MD November 28, 2024 10:02
[2024-11-28] MEDS: ACCU-CHEK COMFORT CURVE STRIP VI SCH (11:38)
[2024-11-28] MEDS: INSULIN LISPRO (HUMAN) 100 UNITS/ML ML SC SCH (12:43)
--- NOTE | 2024-11-28 14:35 | DVH ---
CLINICAL INDICATION: Osteomyelitis R foot-fourth metatarsal COMPARISON: None TECHNIQUE: Multiplanar, multisequence MRI of the right foot was performed without intravenous contras t. Contrast: None. INTERPRETATION: Bones: No evidence of acute fracture. There is faint T1 hypointensity in the proximal 4th metatarsal with corresponding edema. There is cortical thickening of the 4th metatarsal. There is edema in the residual proximal 5th metatarsal without definite T1 hypointensity. The rest of the 5th metatarsal is status post amputation. Joints: There is severe 4th and 5th tarsometatarsal joint space narrowing. There is 4th MTP joint eff usion. Severe hallux valgus with ulnar deviation of the 1st through 3rd toes. There are subchondral c ysts in the medial 1st metatarsal head. Bunion formation noted. Soft tissues: No high-grade tendon or ligament injury. Soft tissue edema within the intrinsic muscles of the foot is nonspecific and may reflect denervation edema or myositis. There is subcutaneous soft tissue swelling deep to the 4th MTP joint and deep to the residual 5th metatarsal bone. IMPRESSION: 1. Bone marrow edema in the proximal 4th metatarsal bone, with cortical thickening. This appearance m ay represent sequelae of a chronic stress reaction and severe osteoarthritis of the tarsometatarsal j oints. Acute on chronic osteomyelitis is not excluded. 2. Plantar soft tissue swelling, nonspecific but may reflect cellulitis. 3. No fluid collection. 4. Edema in the 5th metatarsal, nonspecific and May also be related to stress reaction. Osteomyeliti s is considered less likely though not excluded.
[2024-11-28] MEDS: TAMSULOSIN HYDROCHLORIDE 0.4 MG CAP PO SCH (17:30)
[2024-11-28] MEDS: ASPirin-EC 81 mg tab PO SCH (17:30)
[2024-11-28] MEDS ORDERED: TAMSULOSIN HYDROCHLORIDE 0.4 MG CAP PO SCH (18:00)
[2024-11-29] VITALS (8 sets, daily range): BP systolic 130–154; BP diastolic 78–95; PULSE 66–86; RESP 10–20; TEMP 97.1–98.2; O2SAT 96–98
[2024-11-29] MEDS: INSULIN LANTUS (GLARGINE) 1 /0.01ml (100units/ml) SC SCH (06:30)
[2024-11-29 07:46] LABS: Basophils # (auto) 0 10 ^3/uL (0-0.2); Basophils % (auto) 0.9 % (0.0-2.0); Eosinophils # (auto) 0.2 10 ^3/uL (0-0.8); Eosinophils % (auto) 4.6 % (0.0-7.0); Hematocrit 45.6 % (41.0-53.0); Hemoglobin 14.6 g/dL (13.5-17.5); Lymphocytes # (auto) 1.1 10 ^3/uL (0.4-5.4); Lymphocytes % (auto) 20.4 % (10.0-50.0); Mean Corpuscular Hemoglobin 26.5 pg (28.0-32.0); Mean Corpuscular Hgb Conc. 32.1 g/dL (32.0-36.0); Mean Corpuscular Volume 82.6 fL (80.0-100.0); Monocytes % (auto) 17.8 % (0.0-12.0); Neutrophils % (auto) 56.3 % (37.0-80.0); Nucleated Red Blood Cells % 0.1 %; Platelet Count (auto) 223 10^3/uL (140-450); Red Blood Cells 5.52 10^6/uL (4.5-5.90); Red Cell Distribution Width 15.4 % (11.8-14.3); White Blood Cell 5.4 10^3/uL (4.4-10.8)
[2024-11-29 07:56] LABS: Alanine Aminotransferase < 9 U/L (7-40); Albumin 3.7 g/dL (3.2-4.8); Alkaline Phosphatase 86 U/L (46-116); Anion Gap 8 (5-15); Aspartate Aminotransferase 10 U/L (13-40); BUN/Creatinine Ratio 17.4 (10.0-20.0); Bilirubin, Total 0.3 mg/dL (0.2-1.0); Blood Urea Nitrogen 51 mg/dL (9-23); Carbon Dioxide 25 mmol/L (20-31); Chloride 103 mmol/L (98-107); Glucose 280 mg/dL (74-106); Sodium 136 mmol/L (136-145); Total Protein 6.4 g/dL (5.7-8.2)
[2024-11-29 08:41] LABS: Partial Thromboplastin Time 28.9 SEC (24.5-34.5); Prothrombin Time 10.6 sec (9.3-11.8)
[2024-11-29] MEDS: LISINOPRIL 5 MG TAB PO SCH (09:46)
--- NOTE | 2024-11-29 12:22 | DVHINCON2 ---
Date Seen: November 29, 2024 Reason for Consultation Right foot wound History of Present Illness Mychal Russo 59-year-old middle-aged male with known history of uncontrolled diabetes Hypertension complicated by CKD stage 3b is admitted through emergency room for further eval and management of sudden onset of high fever with chills, nasal sinus congestion, Bifrontal Headache, nausea loss of appetite, poor intake, feeling malaise, as well as generally weak for past 12 hours. He was not able to retain any food. As per patient, his blood pressure at home was high at 179/98 mm. It significantly improved following to his intake of lisinopril. Upon arrival to ER, patient appeared to be generally weak hypovolemic and febrile T-max 102.9 F accompanied by tachycardia HR 101 per minute, and uncontrolled hypertension BP 147/92 mm. By physical exam patient appeared to be hypovolemic, upper respiratory congestion, and reduced breath sound at l basal lung > R base. His chest x-ray in my assessment was noted to have changes of developing pneumonitis affecting LL Base Moreover patient had nonhealing ulcer over base of R 4th metatarsal. His x-ray R foot appearance raised concern about osteomyelitis. His lab exams are reflective of upper normal total WBC count at 10.8 K with 81% neutrophils. Past Medical History See H&P Past Surgical History See H&P Family History: Diabetes mellitus G8 MOTHER G8 FATHER Hypertension G8 MOTHER G8 FATHER Allergies: Coded Allergies: Acetaminophen (Verified Adverse Reaction, Severe, MAKES HIM VOMIT, 11/27/24) Hydrocodone (Verified Adverse Reaction, Severe, MAKES HIM VOMIT, 11/27/24) Home Meds Active Scripts Allopurinol (Allopurinol) 300 Mg Tab, 200 MG PO DAILY for 90 Days, #60 TAB Prov:DAVID VARGAS MD 09/06/24 Pantoprazole Sodium Sesquihydr (Pantoprazole Sodium) 40 Mg Tab, 40 MG PO DAILY for 90 Days, #90 TAB Prov:DAVID VARGAS MD 03/29/21 Gabapentin (Gabapentin) 100 Mg Cap, 100 MG PO Q8H for 30 Days, #90 CAP Prov:DAVID VARGAS MD 03/29/21 Cholecalciferol (Vitamin D3 Super Strength) 2,000 Unit Cap, 4000 UNIT PO DAILY for 100 Days, #100 CAP Prov:DAVID VARGAS MD 03/29/21 Atorvastatin Calcium (ATORVASTATIN CALCIUM) 20 Mg Tab, 40 MG PO HS for 90 Days, #180 TAB Prov:DAVID VARGAS MD 03/29/21 Aspirin (Aspir-Low) 81 Mg Tab, 81 MG PO QPM for 90 Days, #90 TAB Prov:DAVID VARGAS MD 03/29/21 Reported Medications Insulin Lispro Protamine & Lis (Humalog Mix 75/25 Kwikpen) 75 Mg/25 Kwp Inj, SC 09/03/24 Insulin Lispro (Humalog Salvatore Kwikpen) 100 Unit/Ml Inj, SC 09/03/24 Torsemide (Torsemide) 20 Mg Tab, 40 MG PO, MG 09/17/22 Tamsulosin Hcl (Tamsulosin Hcl) 0.4 Mg Cap, 0.4 MG PO QPM for 30 Days, MG 09/17/22 Amlodipine Besylate (Amlodipine Besylate) 5 Mg Tab, 10 MG PO DAILY for 30 Days, MG 09/17/22 Lisinopril (Lisinopril) 5 Mg Tab, 5 MG PO DAILY for 30 Days, MG 09/17/22 Hydralazine Hcl (Hydralazine Hcl) 25 Mg Tab, 25 MG PO TID for 30 Days, MG 09/17/22 Current Medications Current Medications Medications (Trade) Dose Ordered Sig/Andrea Route PRN Reason Start Time Stop Time Status Last Admin Aspirin (Ecotrin Enteric Coated Tablet) 81 mg QPM PO 11/28/24 18:00 11/28/24 17:30 Tamsulosin HCl (Flomax) 0.4 mg QPM PO 11/28/24 18:00 11/27/24 22:09 DC Tamsulosin HCl (Flomax) 0.4 mg QPM PO 11/28/24 18:00 11/28/24 17:30 Insulin Glargine (Lantus) 10 units QAM SC 11/29/24 07:00 11/29/24 06:30 Lisinopril (Zestril Tablet) 10 mg DAILY PO 11/29/24 10:00 11/29/24 10:44 Vital Signs Vital Signs Date Time Temp Pulse Resp B/P (MAP) Pulse Ox O2 Delivery O2 Flow Rate FiO2 11/29/24 10:44 160/92 11/29/24 09:00 97.2 67 17 96 97.2 11/29/24 08:00 Room Air* 0 21 Physical Exam Dermatological: Skin is dry with mild erythema and some maceration around the wound site No gross deformities noted Mild non-pitting edema present bilaterally Right foot plantar ulceration with eschar and cellulitis Vascular: Dorsalis pedis and posterior tibial pulses are 1+ bilaterally Capillary refill is under 2 seconds Skin temperature is warm bilaterally Neurologic: Protective sensation is absent on the plantar forefoot bilaterally Monofilament testing reveals decreased sensation in multiple plantar sites Musculoskeletal: Range of motion at the ankle and MTP joints is within normal limits. Strength is 5/5 in all tested muscle groups. Gait is antalgic due to offloading of the affected limb. Labs/Diagnostic Data Labs Test 11/29/24 10:47 11/29/24 07:21 11/27/24 20:05 11/27/24 19:00 Range/Units POC Glucose 262 H 70-106 mg/dl White Blood Count 5.4 # 4.4-10.8 10^3/uL Red Blood Count 5.52 4.5-5.90 10^6/uL Hemoglobin 14.6 13.5-17.5 g/dL Hematocrit 45.6 41.0-53.0 % Mean Corpuscular Volume 82.6 80.0-100.0 fL Mean Corpuscular Hemoglobin 26.5 L 28.0-32.0 pg Mean Corpuscular Hemoglobin Concent 32.1 32.0-36.0 g/dL Red Cell Distribution Width 15.4 H 11.8-14.3 % Platelet Count 223 140-450 10^3/uL Mean Platelet Volume 8.4 6.9-10.8 fL Neutrophils (%) (Auto) 56.3 37.0-80.0 % Lymphocytes (%) (Auto) 20.4 10.0-50.0 % Monocytes (%) (Auto) 17.8 H 0.0-12.0 % Eosinophils (%) (Auto) 4.6 0.0-7.0 % Basophils (%) (Auto) 0.9 0.0-2.0 % Neutrophils # (Auto) 3.0 1.6-8.6 10 ^3/uL Lymphocytes # (Auto) 1.1 0.4-5.4 10 ^3/uL Monocytes # (Auto) 1.0 0-1.3 10 ^3/uL Eosinophils # (Auto) 0.2 0-0.8 10 ^3/uL Basophils # (Auto) 0 0-0.2 10 ^3/uL Nucleated Red Blood Cells 0.1 % Prothrombin Time 10.6 9.3-11.8 sec Prothrombin Time INR 1.00 0.9-1.15 Activated Partial Thromboplast Time 28.9 24.5-34.5 SEC Sodium Level 136 136-145 mmol/L Potassium Level 4.0 3.5-5.1 mmol/L Chloride Level 103 98-107 mmol/L Carbon Dioxide Level 25 20-31 mmol/L Anion Gap 8 5-15 Blood Urea Nitrogen 51 H 9-23 mg/dL Creatinine 2.93 H 0.700-1.30 mg/dL Glomerular Filtration Rate Calc 24 >90 mL/min BUN/Creatinine Ratio 17.4 10.0-20.0 Serum Glucose 280 H 74-106 mg/dL Calcium Level 9.0 8.7-10.4 mg/dL Total Bilirubin 0.3 0.2-1.0 mg/dL Aspartate Amino Transferase (AST) 10 L 13-40 U/L Alanine Aminotransferase (ALT) < 9 7-40 U/L Alkaline Phosphatase 86 46-116 U/L Total Protein 6.4 5.7-8.2 g/dL Albumin 3.7 3.2-4.8 g/dL SARS-CoV-2 Antigen (Rapid) Negative NEGATIVE Urine Color Colorless Yellow Urine Clarity Clear Clear Urine pH 5.5 5.0-9.0 Urine Specific [place] 1.008 1.001-1.035 Urine Protein 1+ H Negative Urine Ketones Negative Negative Urine Blood Trace H Negative /uL Urine Nitrite Negative Negative Urine Bilirubin Negative Negative Urine Urobilinogen Normal Negative mg/dL Urine Leukocyte Esterase Negative Negative /uL Urine RBC 1 0 - 3 /hpf Urine Microscopic WBC 1 0-3 /HPF Urine Squamous Epithelial Cells None seen <5 /hpf Urine Bacteria None seen None Seen /hpf Urine Glucose 4+ H Normal mg/dL Test 11/27/24 16:10 Range/Units Hemoglobin A1c 7.9 H <5.7 % A1C C-Reactive Protein High Sensitivity 1.61 H <1.0 mg/dL Microbiology Date/Time Source Procedure Growth Status 11/27/24 22:15 Blood Blood Culture - Preliminary NO GROWTH AFTER 24 HOURS OF INCUBATION. Resulted Problems(with codes): (1) Generalized weakness (2) ESRD (end stage renal disease) (3) Episode of syncope (4) Uncontrolled diabetes mellitus (5) Lumbar strain (6) Pericardial effusion (7) Fever (8) Intractable headache (9) Osteomyelitis of foot Plan/Recommendation ASSESSMENT: Patient is a 59 year old seen on the floor for a worsening ulcer PLAN: - The patients chart was reviewed, clinical findings were discussed with the patient, the etiologies of the conditions were discussed in detail, and a treatment plan was agreed to at this time, with both oral and written instructions provided. - reviewed advanced imaging - discussed plan is to perform an incision and drainage - patient NPO since midnight - take him to the OR today - we will get cultures in the OR - can weightbear as tolerated in postoperative shoe All questions were answered and concerns addressed to the patient's satisfaction. The patient was given the phone number to the clinic and was told how to make contact with the clinic should any concerns or questions arise. Patient understands that if any questions or concerns arise prior to the next appointment, we should be contacted immediately. FOLLOW-UP: Continue to follow while inpatient Plan discussed with: Patient Date of Service: November 29, 2024 Billing Provider: ROLANDO AKHTAR DPM Common Visit Codes: CONSULT ONLY Consultation Codes: [id number] CONSULT <80MIN ROLANDO AKHTAR DPM November 29, 2024 12:22
[2024-11-29] MEDS ORDERED: KETAMINE 50mg/ML 1ml syringe ONE (13:07)
[2024-11-29] MEDS ORDERED: fentaNYL CITRATE 100 MCG/2 ML VL ONE (13:08)
[2024-11-29] MEDS ORDERED: ONDANSETRON HCL 4 MG/2 ML VIAL ONE (13:08)
[2024-11-29] MEDS ORDERED: SODIUM CHLORIDE LOCK 10 ML ONE (13:08)
[2024-11-29] MEDS ORDERED: MIDAZOLAM HCL 2MG/2ML 2ml VIAL (1mg/ml) ONE (13:08)
[2024-11-29] MEDS ORDERED: LIDOCAINE 1% INJ PF 5ML AMP ONE (13:08)
[2024-11-29] MEDS ORDERED: PROPOFOL 10 MG/ML 20 ML IV ONE (13:08)
[2024-11-29] MEDS: VANCOMYCIN HCL 1000 MG VL ONE (13:11)
--- NOTE | 2024-11-29 13:36 | DVHOP2 ---
Operative Report - 2 Report Details Date: 11/29/24 Preop Diagnosis: 1. Right foot osteomyelitis 2. Right foot abscess 3. Right foot cellulitis Postop Diagnosis: Same as preop Surgeon: Rolando Akhtar MD Anesthesiologist: See anesthesia Anesthesia: Mac Consent: The patient was informed of the risks and benefits of the procedure. These include but are not limited to complications of anesthesia, postoperative infection, incomplete relief of symptoms, recurrence of symptoms, damage to blood vessels, nerves and tendons, deep venous thrombosis, pulmonary embolism and possible need for repeat surgery in the future. Complications: None Estimated Blood Loss: Minimal Fluids: See anesthesia Findings: Consistent with the diagnosis Indications for Surgery: Worsening right foot wound Name of Procedure Performed 1. Right foot I&D to bone (45440) 2. Right foot bone biopsy 4th metatarsal () Procedure Details Procedure Details: PRE-PROCEDURE INFORMATION: In the pre-op holding area, the extremity to be operated on was clearly marked and the patient verified correct laterality of the marking. The patient was transferred to the OR table and placed in a supine position. A timeout was performed in which identification of the correct patient, procedure, location, and materials was done. The right foot and leg were prepped and draped in normal sterile fashion. DESCRIPTION OF PROCEDURE: Attention was directed to the right where area of fluctuance was noted. An incision was made over this area and was deepened through blunt dissection. The incision was deepened to the level of abscess and bone. Care was taken to the dissection to avoid any neurovascular and tendinous structures. The incision was deepened to the bone, and the abscess appeared to be purulent fluid consistent with pus. The cortices of the bone was then removed with rongeur an all necrotic tissue. After the abscess was drained, the area was irrigated with 3 L normal saline using cysto tubing. Deep cultures were then obtained from the wound. The area was then inspected and any areas of tracking, especially along the tendons were also drained. A bone biopsy was then taken of the right 4th metatarsal which was deepened to the muscle belly and tendons. The bone was then sent to pathology to determine the extent of osteomyelitis. The wound was packed with Betadine-soaked gauze and we will need to be closed at a later date. POSTOPERATIVE INFORMATION: The patient tolerated the above noted procedure and anesthesia well and was transferred to the PACU with vital signs stable, and vascular status intact with capillary refill intact to all digits. Deep cultures were taken and bone biopsy was sent. Patient will return to the floor to continue IV antibiotics. Patient will need subsequent closure on . Specimen: Right 4th metatarsal Condition Good Disposition Still a Patient ROLANDO AKHTAR DPM November 29, 2024 13:36
--- NOTE | 2024-11-29 22:20 | DVHPN2 ---
Progress Note - Dictate Date Seen: November 29, 2024 Has the PT tested + for MRSA If YES, has PT been informed?: No Medical Necessity Reason Pt with a Central, PICC or Fol: No Medical Necessity Reason Podiatry surgical intervention Bone biopsy Management of uncontrolled diabetes Subjective The patient remains hemodynamically stable, afebrile for past 24 hours * MRI are foot is reported abnormal for osteomyelitis of the fourth metatarsal * The patient is recommended bone marrow biopsy * Risks benefits complications of bone marrow biopsy are well discussed with the patient * Patient has given informed consent * Moreover patient is noted to have uncontrolled diabetes with hyperglycemia blood sugar 436 * Stat BMP, IV fluid and Humalog 15 units are ordered Overnight events are reviewed through medical chart and case discussion with patient's assigned RN while making rounds on patient on the day of service vital signs Vital Sign Date Time Temp Pulse Resp B/P (MAP) Pulse Ox O2 Delivery O2 Flow Rate FiO2 11/29/24 21:00 97.1 86 20 154/95 (114) 97 97.1 11/29/24 20:00 Room Air* 0 21 Total Intake and Output 11/28/24 11/28/24 11/29/24 15:00 23:00 07:00 Intake Total 50 ml 1800 ml 0 ml Balance 50 ml 1800 ml 0 ml medications Current Medications Medications Dose Ordered Sig/Andrea Route Start Time Stop Time Status Last Admin Dose Admin Nitroglycerin 0.4 mg Q5MINP PRN SL 11/27/24 22:00 Morphine Sulfate 2 mg Q30M PRN IV 11/27/24 22:00 Amlodipine Besylate 5 mg DAILY PO 11/28/24 10:00 11/28/24 09:18 5 MG Aspirin 81 mg QPM PO 11/28/24 18:00 11/29/24 17:27 81 MG Atorvastatin Calcium 40 mg HS PO 11/27/24 22:00 11/28/24 21:51 40 MG Gabapentin 100 mg Q8H PO 11/27/24 22:00 11/29/24 14:37 100 MG Hydralazine HCl 25 mg TID PO 11/27/24 22:00 11/29/24 14:37 25 MG Pantoprazole Sodium 40 mg DAILY PO 11/28/24 10:00 11/28/24 09:17 40 MG Torsemide 40 mg DAILY PO 11/28/24 10:00 11/28/24 09:18 40 MG Tamsulosin HCl 0.4 mg QPM PO 11/28/24 18:00 11/29/24 17:27 0.4 MG Acetaminophen 500 mg Q4HPRN PRN PO 11/27/24 22:15 Ceftriaxone Sodium 50 ml @ 100 mls/hr DAILY IV 11/28/24 10:00 11/29/24 09:36 100 MLS/HR Diagnostic Test (Pha) 1 strip ACHS 11/28/24 11:30 11/29/24 16:55 1 STRIP Insulin Human Lispro 5 units AC SC 11/28/24 11:30 11/29/24 17:31 5 UNITS Insulin Glargine 10 units QAM SC 11/29/24 07:00 11/29/24 06:30 10 UNITS Lisinopril 10 mg DAILY PO 11/29/24 10:00 11/29/24 10:44 10 MG Sodium Chloride 1,000 ml @ 125 mls/hr Q8H IV 11/29/24 21:30 Insulin Human Lispro AC SC 11/30/24 07:00 UNV Insulin Human Lispro HS SC 11/30/24 22:00 UNV objective Physical exam General appearance: Well-developed, obese male appears generally weak Awake alert oriented x3 no respiratory distress Head: Normocephalic nontraumatic Eyes: EOMI, CHANEL, sclera nonicteric, conjunctive- pale+1 ENT: Bilateral maxillary sinus congestion, NSL bilateral symmetrical, TM-mildly hyperemic, oral mucosa dry +1 Fundoscopy-grade 2 av changes Neck: Supple, carotid upstroke +2, trachea midline, JVD-3 cm No thyroid or lymph node, C spine- Full ROM No use of sternomastoid muscle Chest: Bilateral symmetrical expansions, No costochondral tenderness Lungs: clear breath sounds all over anterior lung sadler Reduced BS, a few late inspiratory rales at L base> R base CVS: PMI-1 cm lateral to L MCL in fifth ICS , S1- S2 NSR no S3 GI: Abdomen soft, obese+1, bowel sounds normoactive, no mass no hernia No focal/rebound tenderness, No hepatosplenomegaly, , : No CVA tenderness, no bladder mass palpable, genitalia-NE SKIN: Turgor dry, color pale+1, no rash, no icterus, No varicosity, no ulcers or wounds EXTs: edema +0, distal pulses +2 capillary refill <2 seconds, no open wounds JOINTS: Reduced range at bilateral knees BACK: No apparent lumbosacral spinal muscle tenderness, LYMPH NODES: No cervical, axillary or inguinal lymph nodes Neuro: Awake alert oriented 4, coherent, all cognitives- intact No pronator drift, no focal motor deficit, Changes of DPN present, DTR +2, gait steady PSYCH: Affect mildly depressed-denies suicidal ideation Wounds Wounds R foot base of fourth metatarsal-nonhealing ulcerated callus without purulent discharge, feels tender laboratory and microbiology Laboratory Tests 11/29/24 07:21 Test 11/29/24 07:21 Range/Units Serum Glucose 280 H 74-106 mg/dL Problem List Primary Diagnosis 1. Febrile illness a. Bilateral maxillary sinusitis.................................................... Improving b. Developing LL B pneumonia b. R diabetic foot-possible osteomyelitis of R 4th metatarsal............ Under evaluation 2. Moderately severe hypovolemia................................................. Being corrected he 3. Acute kidney injury on CKD stage IIIB....................................... Worsening from a. Hypovolemia b. Inadvertent effect of diuretic and antihypertensive c. CKD from uncontrolled diabetes and hypertension 4. Uncontrolled diabetes with hyperglycemia 5. Uncontrolled hypertension 2' Diagnosis/Comorbidities Exogenous obesity in adult with current BMI > 30-35 kg per m2 Assessment/Plan Medical decision making Overall patient's general condition remains hemodynamically stable, afebrile The patient received podiatry surgical intervention this afternoon Including a. Debridement followed by irrigation lavage b. Bone biopsy of fourth metatarsal Surgeon: Manny wong Postprocedure patient appeared to be clinically stable * There were no post procedure complication/s * Continued patient on IV Rocephin * Recommended ID consult from Dr. Juliano neri * Noted uncontrolled diabetes with hyperglycemia Blood sugar was high for 436 mg/dL Recommended stat BMP exam, 0.9 normal saline IV infusion, Humalog 15 units subQ Treatment plans as of today Continue hospital stay at medical floor with telemetry Reviewed report of bone marrow biopsy Requested stat BMP Ordered cautious.9 normal saline infusion Recommended injection Humalog 15 units subQ x1 dose Continue IV Rocephin Revised dose of lisinopril Await results of blood and sputum cultures Reviewed results of MRI R foot Accu-Chek q.a.c. and HS Revised dose of Humalog and injection Lantus VTE precautions Update patient The patient is well informed by me about 1. Clinical impression, treatment plans, side effects of medications, course of the disease and guarded prognosis 2. All patient's question/ concerns raised by patient are satisfactorily addressed by me Prognosis Fair Dietary Evaluation Review Recommendations by RD: Dietary education by RD Comments: Recommend intenstional weightloss of 30 lbs thru diet and exercises Expected Outcomes/Goals: Intentional loss of weight can help better control of NIDDM and CKD Interpretation of weight loss: >10% in 6 months Plan discussed with: Patient Total Time (mins): 45 DAVID NERI MD November 29, 2024 22:20
[2024-11-29] MEDS: SODIUM CHLORIDE 0.9% 1,000 ML IV SCH (22:23)
[2024-11-29] MEDS: INSULIN LISPRO (HUMAN) 100 UNITS/ML ML SC ONE (22:33)
[2024-11-29] MEDS: ACETAMINOPHEN 325 MG TAB PO PRN (22:37)
[2024-11-30] VITALS (8 sets, daily range): BP systolic 136–170; BP diastolic 75–95; PULSE 73–89; RESP 17–20; TEMP 97.3–98.5; O2SAT 95–98
[2024-11-30] MEDS: INSULIN LISPRO (HUMAN) 100 UNITS/ML ML SC SCH ×2 (06:33→22:15)
--- NOTE | 2024-11-30 11:36 | DVHPN2 ---
Subjective Mychal Rsuso 59-year-old middle-aged male with known history of uncontrolled diabetes Hypertension complicated by CKD stage 3b is admitted through emergency room for further eval and management of sudden onset of high fever with chills, nasal sinus congestion, Bifrontal Headache, nausea loss of appetite, poor intake, feeling malaise, as well as generally weak for past 12 hours. He was not able to retain any food. As per patient, his blood pressure at home was high at 179/98 mm. It significantly improved following to his intake of lisinopril. Upon arrival to ER, patient appeared to be generally weak hypovolemic and febrile T-max 102.9 F accompanied by tachycardia HR 101 per minute, and uncontrolled hypertension BP 147/92 mm. By physical exam patient appeared to be hypovolemic, upper respiratory congestion, and reduced breath sound at l basal lung > R base. His chest x-ray in my assessment was noted to have changes of developing pneumonitis affecting LL Base Moreover patient had nonhealing ulcer over base of R 4th metatarsal. His x-ray R foot appearance raised concern about osteomyelitis. His lab exams are reflective of upper normal total WBC count at 10.8 K with 81% neutrophils. Changes from previous H/P or p: No Changes Objective Vitals Vital Signs Date Time Temp Pulse Resp B/P (MAP) Pulse Ox O2 Delivery O2 Flow Rate FiO2 11/30/24 09:21 155/87 11/30/24 09:00 97.8 74 17 96 97.8 11/30/24 08:00 Room Air* 0 21 Intake/Output Intake and Output 11/30/24 07:00 Intake Total 1300 ml Balance 1300 ml Intake Oral 1150 ml IV Total 150 ml # Voids 7 Exam Dermatological: Skin is dry with mild erythema and some maceration around the wound site No gross deformities noted Mild non-pitting edema present bilaterally Right foot plantar ulceration with eschar and cellulitis Vascular: Dorsalis pedis and posterior tibial pulses are 1+ bilaterally Capillary refill is under 2 seconds Skin temperature is warm bilaterally Neurologic: Protective sensation is absent on the plantar forefoot bilaterally Monofilament testing reveals decreased sensation in multiple plantar sites Musculoskeletal: Range of motion at the ankle and MTP joints is within normal limits. Strength is 5/5 in all tested muscle groups. Gait is antalgic due to offloading of the affected limb. Medications Current Medications Medications Dose Ordered Sig/Andrea Route Start Time Stop Time Status Last Admin Dose Admin Nitroglycerin 0.4 mg Q5MINP PRN SL 11/27/24 22:00 Morphine Sulfate 2 mg Q30M PRN IV 11/27/24 22:00 Amlodipine Besylate 5 mg DAILY PO 11/28/24 10:00 11/30/24 09:21 5 MG Aspirin 81 mg QPM PO 11/28/24 18:00 11/29/24 17:27 81 MG Atorvastatin Calcium 40 mg HS PO 11/27/24 22:00 11/29/24 22:22 40 MG Gabapentin 100 mg Q8H PO 11/27/24 22:00 11/30/24 06:35 100 MG Hydralazine HCl 25 mg TID PO 11/27/24 22:00 11/30/24 06:35 25 MG Pantoprazole Sodium 40 mg DAILY PO 11/28/24 10:00 11/30/24 09:21 40 MG Torsemide 40 mg DAILY PO 11/28/24 10:00 11/30/24 09:20 40 MG Tamsulosin HCl 0.4 mg QPM PO 11/28/24 18:00 11/29/24 17:27 0.4 MG Acetaminophen 500 mg Q4HPRN PRN PO 11/27/24 22:15 11/29/24 22:37 500 MG Ceftriaxone Sodium 50 ml @ 100 mls/hr DAILY IV 11/28/24 10:00 11/30/24 09:20 100 MLS/HR Diagnostic Test (Pha) 1 strip ACHS 11/28/24 11:30 11/30/24 06:38 1 STRIP Insulin Human Lispro 5 units AC WV 11/28/24 11:30 11/30/24 06:34 5 UNITS Insulin Glargine 10 units QAM W[place] 11/29/24 07:00 11/30/24 06:35 10 UNITS Lisinopril 10 mg DAILY PO 11/29/24 10:00 11/30/24 09:21 10 MG Sodium Chloride 1,000 ml @ 125 mls/hr Q8H IV 11/29/24 21:30 11/30/24 05:30 125 MLS/HR Insulin Human Lispro AC SC 11/30/24 07:00 11/30/24 06:33 8 UNITS Insulin Human Lispro HS SC 11/30/24 22:00 Laboratory Results Laboratory Tests 11/29/24 07:21 Urinalysis Test 11/27/24 19:00 Urine Color Colorless (Yellow) Urine Clarity Clear (Clear) Urine pH 5.5 (5.0-9.0) Urine Specific [place] 1.008 (1.001-1.035) Urine Protein 1+ (Negative) H Urine Ketones Negative (Negative) Urine Blood Trace /uL (Negative) H Urine Nitrite Negative (Negative) Urine Bilirubin Negative (Negative) Urine Urobilinogen Normal mg/dL (Negative) Urine Leukocyte Esterase Negative /uL (Negative) Urine RBC 1 /hpf (0 - 3) Urine Microscopic WBC 1 /HPF (0-3) Urine Squamous Epithelial Cells None seen /hpf (<5) Urine Bacteria None seen /hpf (None Seen) Urine Glucose 4+ mg/dL (Normal) H Microbiology Microbiology Date/Time Source Procedure Growth Status 11/29/24 13:27 Foot Right Gram Stain - Final Resulted 11/29/24 13:27 Foot Right Anaerobic Culture Pending Resulted 11/29/24 13:27 Foot Right Aerobic Culture - Preliminary Resulted 11/27/24 22:15 Blood Blood Culture - Preliminary NO GROWTH AFTER 48 HOURS OF INCUBATION. Resulted Assessment/Plan Assessment/Plan ASSESSMENT: Patient is a 59 year old seen on the floor follow up s/p foot I&D PLAN: - The patients chart was reviewed, clinical findings were discussed with the patient, the etiologies of the conditions were discussed in detail, and a treatment plan was agreed to at this time, with both oral and written instructions provided. - reviewed advanced imaging - reviewed all of the labs and pathology - discussed plan is to perform a subsequent incision and drainage with closure - patient will be NPO at midnight - take him to the OR tomorrow - it was determined that multiple I&Ds will be necessary to save the limb - evaluted patients both feet and there is excessive dryness and onychomycosis that patient would benefit from routine foot care as an outpatient - can weightbear as tolerated in postoperative shoe - patient can be sent home on p.o. antibiotics after procedure All questions were answered and concerns addressed to the patient's satisfaction. The patient was given the phone number to the clinic and was told how to make contact with the clinic should any concerns or questions arise. Patient understands that if any questions or concerns arise prior to the next appointment, we should be contacted immediately. FOLLOW-UP: Continue to follow while inpatient Plan discussed with: Patient My Orders Orders - ROLANDO AKHTAR DPM Procedure Category Date Status Time Gram Stain YA 11/29/24 In Process 13:27 Routine Bacterial YA 11/29/24 In Process Culture 13: Anaerobic Culture YA 11/29/24 In Process 13:27 Renal DIET 11/30/24 Transmitted Standard(2gna,3gk,Lopho) Breakfast Problem List: (1) Fever (2) Intractable headache (3) Generalized weakness (4) Pericardial effusion (5) ESRD (end stage renal disease) (6) Uncontrolled diabetes mellitus (7) Lumbar strain (8) Episode of syncope (9) Osteomyelitis of foot Date of Service: November 30, 2024 Billing Provider: ROLANDO AKHTAR DPM Common Visit Codes: [id number] INP/OBS CARE(HIGH) ROLANDO AKHTAR DPM November 30, 2024 11:36
[2024-11-30] MEDS: INSULIN LANTUS (GLARGINE) 1 /0.01ml (100units/ml) SC SCH (23:15)
[2024-11-30] MEDS: SODIUM CHLORIDE 0.9% 1,000 ML IV SCH (23:15)
--- NOTE | 2024-11-30 23:27 | DVHPN2 ---
Progress Note - Dictate Date Seen: November 30, 2024 Has the PT tested + for MRSA If YES, has PT been informed?: No Medical Necessity Reason Pt with a Central, PICC or Fol: No Medical Necessity Reason IV antibiotics IV diuretics Subjective The patient remains hemodynamically stable, afebrile for past 24 hours * MRI are foot is reported abnormal for osteomyelitis of the fourth metatarsal * The patient received uneventful bone marrow biopsy * There were no postprocedure delayed complications * Noted uncontrolled diabetes with hyperglycemia blood sugar 290s * Recommended patient to receive higher dose of Lantus and Humalog through sliding scale Overnight events are reviewed through medical chart and case discussion with patient's assigned RN while making rounds on patient on the day of service vital signs Vital Sign Date Time Temp Pulse Resp B/P (MAP) Pulse Ox O2 Delivery O2 Flow Rate FiO2 11/30/24 22:14 137/87 11/30/24 21:00 97.6 75 18 97 97.6 11/30/24 08:00 Room Air* 0 21 Total Intake and Output 11/29/24 11/29/24 11/30/24 15:00 23:00 07:00 Intake Total 150 ml 350 ml 800 ml Balance 150 ml 350 ml 800 ml medications Current Medications Medications Dose Ordered Sig/Andrea Route Start Time Stop Time Status Last Admin Dose Admin Nitroglycerin 0.4 mg Q5MINP PRN SL 11/27/24 22:00 Morphine Sulfate 2 mg Q30M PRN IV 11/27/24 22:00 Amlodipine Besylate 5 mg DAILY PO 11/28/24 10:00 11/30/24 09:21 5 MG Aspirin 81 mg QPM PO 11/28/24 18:00 11/30/24 17:26 81 MG Atorvastatin Calcium 40 mg HS PO 11/27/24 22:00 11/30/24 22:14 40 MG Gabapentin 100 mg Q8H PO 11/27/24 22:00 11/30/24 22:14 100 MG Hydralazine HCl 25 mg TID PO 11/27/24 22:00 11/30/24 22:14 25 MG Pantoprazole Sodium 40 mg DAILY PO 11/28/24 10:00 11/30/24 09:21 40 MG Torsemide 40 mg DAILY PO 11/28/24 10:00 11/30/24 09:20 40 MG Tamsulosin HCl 0.4 mg QPM PO 11/28/24 18:00 11/30/24 17:26 0.4 MG Acetaminophen 500 mg Q4HPRN PRN PO 11/27/24 22:15 11/29/24 22:37 500 MG Ceftriaxone Sodium 50 ml @ 100 mls/hr DAILY IV 11/28/24 10:00 11/30/24 09:20 100 MLS/HR Diagnostic Test (Pha) 1 strip ACHS 11/28/24 11:30 11/30/24 22:14 1 STRIP Insulin Human Lispro 5 units AC SC 11/28/24 11:30 11/30/24 17:41 5 UNITS Insulin Glargine 10 units QAM SC 11/29/24 07:00 11/30/24 06:35 10 UNITS Lisinopril 10 mg DAILY PO 11/29/24 10:00 11/30/24 09:21 10 MG Sodium Chloride 1,000 ml @ 125 mls/hr Q8H IV 11/29/24 21:30 11/30/24 21:30 125 MLS/HR Insulin Human Lispro AC SC 11/30/24 07:00 11/30/24 11:30 5 UNITS Insulin Human Lispro HS SC 11/30/24 22:00 11/30/24 22:15 4 UNITS objective Physical exam General appearance: Well-developed, obese male appears generally weak Awake alert oriented x3 no respiratory distress Head: Normocephalic nontraumatic Eyes: EOMI, CHANEL, sclera nonicteric, conjunctive- pale+1 ENT: Bilateral maxillary sinus congestion, NSL bilateral symmetrical, TM-mildly hyperemic, oral mucosa dry +1 Fundoscopy-grade 2 av changes Neck: Supple, carotid upstroke +2, trachea midline, JVD-3 cm No thyroid or lymph node, C spine- Full ROM No use of sternomastoid muscle Chest: Bilateral symmetrical expansions, No costochondral tenderness Lungs: clear breath sounds all over anterior lung sadler Reduced BS, a few late inspiratory rales at L base> R base CVS: PMI-1 cm lateral to L MCL in fifth ICS , S1- S2 NSR no S3 GI: Abdomen soft, obese+1, bowel sounds normoactive, no mass no hernia No focal/rebound tenderness, No hepatosplenomegaly, , : No CVA tenderness, no bladder mass palpable, genitalia-NE SKIN: Turgor dry, color pale+1, no rash, no icterus, No varicosity, no ulcers or wounds EXTs: edema +0, distal pulses +2 capillary refill <2 seconds, no open wounds JOINTS: Reduced range at bilateral knees BACK: No apparent lumbosacral spinal muscle tenderness, LYMPH NODES: No cervical, axillary or inguinal lymph nodes Neuro: Awake alert oriented 4, coherent, all cognitives- intact No pronator drift, no focal motor deficit, Changes of DPN present, DTR +2, gait steady PSYCH: Affect mildly depressed-denies suicidal ideation Wounds Wounds R foot base of fourth metatarsal-nonhealing ulcerated callus without purulent discharge, feels tender laboratory and microbiology Laboratory Tests 11/29/24 07:21 Test 11/29/24 07:21 Range/Units Serum Glucose 280 H 74-106 mg/dL - PATIENT: JOHNNY PENN ACCT: [id number] LOC: [facility] U: [id number] AGE/SX: 59/M ROOM: [id number] RE11/27/[address]: DAVID VARGAS MD : 1965 BED: 5 DIS: STATUS: ADM IN TLOC: - SPEC #: [id number] SARA: 11/29/24-3010 STATUS: RES REQ #: [id number] RECD: 11/30/[address] [place] [address]: ROLANDO WAGONER DPM SOURCE: FOOT ENTR: 11/29/24-2 [facility] DR: DAVID VARGAS MD [facility]: RIGHT SARAH VARGAS MD ORDERED: RTEC, GS, ANAECUL COMMENTS: NO SPECIMEN SENT TO [id number] Has specimen been collected/obtained? Y Specimen Comment: RIGHT FOOT DEEP CULTURE - Procedure Result - Gram Stain Final RESULT Few White Blood Cells Seen Moderate Red Blood Cells Seen Rare Gram Positive Cocci in pairs Anaerobic Culture PENDING Aerobic Culture Preliminary Report Few growth: Possible Staphylococcus aureus Identification and Susceptibilty test to follow. Few growth: Beta-Hemolytic Group B Streptococcus Still ruling out pathogens. Group B Streptococci are susceptible to Ampicillin, Penicillin and Cefazolin, but may be Erythromycin and/or Clindamycin resistant. Contact laboratory if Erythromycin and/or Clindamycin testing necessary. END OF REPORT Problem List Primary Diagnosis 1. Febrile illness a. Bilateral maxillary sinusitis.................................................... Improving b. Developing LL B pneumonia b. R diabetic foot-possible osteomyelitis of R 4th metatarsal............ Under evaluation 2. Acute kidney injury on CKD stage IIIB....................................... Worsening from a. Hypovolemia b. Inadvertent effect of diuretic and antihypertensive c. CKD from uncontrolled diabetes and hypertension 3. Uncontrolled diabetes with hyperglycemia 4. Uncontrolled hypertension 2' Diagnosis/Comorbidities Exogenous obesity in adult with current BMI > 30-35 kg per m2 Assessment/Plan Medical decision making Overall patient's general condition remains hemodynamically stable, afebrile The patient received uneventful bone marrow biopsy by Dr. Wagoner podiatry * Reviewed wound culture results * Continued patient on IV antibiotics namely Rocephin * Awaiting bone marrow biopsy reports * There were no post procedure complication/s * Recommended ID consult from Dr. Sarah vargas * Noted uncontrolled diabetes with hyperglycemia Blood sugar was high for 293 mg/dL Recommended higher dose of injection Lantus and Humalog through sliding scale Treatment plans as of today Continue hospital stay at medical floor with telemetry Awaiting results of bone marrow biopsy Reviewed results of wound cultures continue IV Rocephin Reduce IV fluids at TKO Revised dose of Lantus and Humalog through sliding scale Added Farxiga and Karendia Revised dose of lisinopril Reviewed results of MRI R foot Accu-Chek q.a.c. and HS VTE precautions Update patient The patient is well informed by me about 1. Clinical impression, treatment plans, side effects of medications, course of the disease and guarded prognosis 2. All patient's question/ concerns raised by patient are satisfactorily addressed by me Prognosis fair Dietary Evaluation Review Recommendations by RD: Dietary education by RD Comments: Recommend intenstional weightloss of 30 lbs thru diet and exercises Expected Outcomes/Goals: Intentional loss of weight can help better control of NIDDM and CKD Interpretation of weight loss: >10% in 6 months Plan discussed with: Patient Total Time (mins): 45 DAVID VARGAS MD November 30, 2024 23:27
[2024-11-30] MEDS: FUROSEMIDE 20 MG/2 ML VIAL IV ONE (23:30)
[2024-12-01] VITALS (7 sets, daily range): BP systolic 114–151; BP diastolic 61–92; PULSE 62–97; RESP 11–20; TEMP 97.7–98.4; O2SAT 96–99
[2024-12-01 06:47] LABS: Basophils # (auto) 0 10 ^3/uL (0-0.2); Basophils % (auto) 0.6 % (0.0-2.0); Eosinophils # (auto) 0.2 10 ^3/uL (0-0.8); Eosinophils % (auto) 2.3 % (0.0-7.0); Hematocrit 42.3 % (41.0-53.0); Hemoglobin 13.7 g/dL (13.5-17.5); Lymphocytes % (auto) 26.9 % (10.0-50.0); Mean Corpuscular Hemoglobin 26.9 pg (28.0-32.0); Mean Corpuscular Hgb Conc. 32.3 g/dL (32.0-36.0); Mean Corpuscular Volume 83.2 fL (80.0-100.0); Monocytes # (auto) 0.9 10 ^3/uL (0-1.3); Monocytes % (auto) 12.6 % (0.0-12.0); Neutrophils # (auto) 4.2 10 ^3/uL (1.6-8.6); Neutrophils % (auto) 57.6 % (37.0-80.0); Nucleated Red Blood Cells % 0.1 %; Platelet Count (auto) 230 10^3/uL (140-450); Red Blood Cells 5.09 10^6/uL (4.5-5.90); Red Cell Distribution Width 15.5 % (11.8-14.3); White Blood Cell 7.3 10^3/uL (4.4-10.8)
[2024-12-01 07:06] LABS: Alkaline Phosphatase 82 U/L (46-116); Anion Gap 9 (5-15); BUN/Creatinine Ratio 17.2 (10.0-20.0); Carbon Dioxide 23 mmol/L (20-31); Chloride 107 mmol/L (98-107); Sodium 139 mmol/L (136-145)
[2024-12-01 07:07] LABS: Albumin 3.4 g/dL (3.2-4.8)
[2024-12-01 07:09] LABS: Blood Urea Nitrogen 52 mg/dL (9-23); Glucose 341 mg/dL (74-106)
[2024-12-01 07:10] LABS: Alanine Aminotransferase < 9 U/L (7-40); Aspartate Aminotransferase < 8 U/L (13-40); Bilirubin, Total 0.2 mg/dL (0.2-1.0); Calcium 8.7 mg/dL (8.7-10.4)
[2024-12-01] MEDS: DEXTROSE 50% SYRINGE 50 ML IV ONE (09:38)
[2024-12-01] MEDS: DEXTROSE (50%) 50ML SYRG IV PRN (09:48)
[2024-12-01] MEDS ORDERED: fentaNYL CITRATE 100 MCG/2 ML VL ONE (11:18)
--- NOTE | 2024-12-01 11:38 | DVHPN2 ---
Subjective Mychal Russo 59-year-old middle-aged male with known history of uncontrolled diabetes Hypertension complicated by CKD stage 3b is admitted through emergency room for further eval and management of sudden onset of high fever with chills, nasal sinus congestion, Bifrontal Headache, nausea loss of appetite, poor intake, feeling malaise, as well as generally weak for past 12 hours. He was not able to retain any food. As per patient, his blood pressure at home was high at 179/98 mm. It significantly improved following to his intake of lisinopril. Upon arrival to ER, patient appeared to be generally weak hypovolemic and febrile T-max 102.9 F accompanied by tachycardia HR 101 per minute, and uncontrolled hypertension BP 147/92 mm. By physical exam patient appeared to be hypovolemic, upper respiratory congestion, and reduced breath sound at l basal lung > R base. His chest x-ray in my assessment was noted to have changes of developing pneumonitis affecting LL Base Moreover patient had nonhealing ulcer over base of R 4th metatarsal. His x-ray R foot appearance raised concern about osteomyelitis. His lab exams are reflective of upper normal total WBC count at 10.8 K with 81% neutrophils. Changes from previous H/P or p: No Changes Objective Vitals Vital Signs Date Time Temp Pulse Resp B/P (MAP) Pulse Ox O2 Delivery O2 Flow Rate FiO2 12/01/24 10:33 151/61 12/01/24 09:00 97.7 71 20 96 97.7 11/30/24 20:00 Room Air* 0 21 Intake/Output Intake and Output 12/01/24 07:00 Intake Total 1930 ml Output Total 1300 ml Balance 630 ml Intake Oral 1930 ml Output Urine Total 1300 ml # Voids 2 Exam Dermatological: Skin is dry with mild erythema and some maceration around the wound site No gross deformities noted Mild non-pitting edema present bilaterally Right foot plantar ulceration with eschar and cellulitis Vascular: Dorsalis pedis and posterior tibial pulses are 1+ bilaterally Capillary refill is under 2 seconds Skin temperature is warm bilaterally Neurologic: Protective sensation is absent on the plantar forefoot bilaterally Monofilament testing reveals decreased sensation in multiple plantar sites Musculoskeletal: Range of motion at the ankle and MTP joints is within normal limits. Strength is 5/5 in all tested muscle groups. Gait is antalgic due to offloading of the affected limb. Medications Current Medications Medications Dose Ordered Sig/Andrea Route Start Time Stop Time Status Last Admin Dose Admin Nitroglycerin 0.4 mg Q5MINP PRN SL 11/27/24 22:00 Morphine Sulfate 2 mg Q30M PRN IV 11/27/24 22:00 Amlodipine Besylate 5 mg DAILY PO 11/28/24 10:00 12/01/24 10:32 5 MG Aspirin 81 mg QPM PO 11/28/24 18:00 11/30/24 17:26 81 MG Atorvastatin Calcium 40 mg HS PO 11/27/24 22:00 11/30/24 22:14 40 MG Gabapentin 100 mg Q8H PO 11/27/24 22:00 12/01/24 06:00 100 MG Hydralazine HCl 25 mg TID PO 11/27/24 22:00 12/01/24 06:00 25 MG Pantoprazole Sodium 40 mg DAILY PO 11/28/24 10:00 12/01/24 10:30 40 MG Torsemide 40 mg DAILY PO 11/28/24 10:00 12/01/24 10:31 40 MG Tamsulosin HCl 0.4 mg QPM PO 11/28/24 18:00 11/30/24 17:26 0.4 MG Acetaminophen 500 mg Q4HPRN PRN PO 11/27/24 22:15 11/29/24 22:37 500 MG Ceftriaxone Sodium 50 ml @ 100 mls/hr DAILY IV 11/28/24 10:00 12/01/24 10:30 100 MLS/HR Diagnostic Test (Pha) 1 strip ACHS 11/28/24 11:30 12/01/24 06:36 1 STRIP Insulin Human Lispro 5 units AC SC 11/28/24 11:30 12/01/24 06:36 5 UNITS Lisinopril 10 mg DAILY PO 11/29/24 10:00 12/01/24 10:33 10 MG Insulin Human Lispro AC SC 11/30/24 07:00 12/01/24 06:36 12 UNITS Insulin Human Lispro HS SC 11/30/24 22:00 11/30/24 22:15 4 UNITS Sodium Chloride 1,000 ml @ 15 mls/hr Q24H IV 11/30/24 23:15 Insulin Glargine 12 units BIDBRS SC 11/30/24 23:15 12/01/24 06:37 12 UNITS Dextrose 50 ml PRN PRN IV 12/01/24 09:45 12/01/24 09:48 50 ML Laboratory Results Laboratory Tests 12/01/24 05:20 Chemistry Test 12/01/24 05:20 Albumin 3.4 g/dL (3.2-4.8) Calcium Level 8.7 mg/dL (8.7-10.4) Total Protein 6.0 g/dL (5.7-8.2) LFT Test 12/01/24 05:20 Alanine Aminotransferase (ALT) < 9 U/L (7-40) Alkaline Phosphatase 82 U/L (46-116) Aspartate Amino Transferase (AST) < 8 U/L (13-40) L Total Bilirubin 0.2 mg/dL (0.2-1.0) Urinalysis Test 11/27/24 19:00 Urine Color Colorless (Yellow) Urine Clarity Clear (Clear) Urine pH 5.5 (5.0-9.0) Urine Specific [place] 1.008 (1.001-1.035) Urine Protein 1+ (Negative) H Urine Ketones Negative (Negative) Urine Blood Trace /uL (Negative) H Urine Nitrite Negative (Negative) Urine Bilirubin Negative (Negative) Urine Urobilinogen Normal mg/dL (Negative) Urine Leukocyte Esterase Negative /uL (Negative) Urine RBC 1 /hpf (0 - 3) Urine Microscopic WBC 1 /HPF (0-3) Urine Squamous Epithelial Cells None seen /hpf (<5) Urine Bacteria None seen /hpf (None Seen) Urine Glucose 4+ mg/dL (Normal) H Microbiology Microbiology Date/Time Source Procedure Growth Status 11/29/24 13:27 Foot Right Gram Stain - Final Resulted 11/29/24 13:27 Foot Right Anaerobic Culture Pending Resulted 11/29/24 13:27 Aerobic Culture - Preliminary Staphylococcus aureus Resulted 11/27/24 22:15 Blood Blood Culture - Preliminary NO GROWTH AFTER 72 HOURS OF INCUBATION. Resulted Assessment/Plan Assessment/Plan ASSESSMENT: Patient is a 59 year old seen on the floor follow up s/p foot I&D PLAN: - The patients chart was reviewed, clinical findings were discussed with the patient, the etiologies of the conditions were discussed in detail, and a treatment plan was agreed to at this time, with both oral and written instructions provided. - reviewed advanced imaging - reviewed all of the labs and pathology - discussed plan is to perform a subsequent incision and drainage with closure - patient has been NPO since midnight - take him to the OR today - it was determined that multiple I&Ds will be necessary to save the limb - evaluted patients both feet and there is excessive dryness and onychomycosis that patient would benefit from routine foot care as an outpatient - can weightbear as tolerated in postoperative shoe - patient can be sent home on p.o. antibiotics after procedure All questions were answered and concerns addressed to the patient's satisfaction. The patient was given the phone number to the clinic and was told how to make contact with the clinic should any concerns or questions arise. Patient understands that if any questions or concerns arise prior to the next appointment, we should be contacted immediately. FOLLOW-UP: Continue to follow while inpatient Plan discussed with: Patient My Orders Orders - ROLANDO AKHTAR DPM Procedure Category Date Status Time Npo (Nothing By DIET 12/01/24 Transmitted Mouth) Diet Breakfast Obtain Consent For: ORDERS 11/30/24 Transmitted 11:37 Problem List: (1) Fever (2) Intractable headache (3) Generalized weakness (4) Pericardial effusion (5) ESRD (end stage renal disease) (6) Uncontrolled diabetes mellitus (7) Lumbar strain (8) Episode of syncope (9) Osteomyelitis of foot Date of Service: December 01, 2024 Billing Provider: ROLANDO AKHTAR DPM Common Visit Codes: [id number] INP/OBS CARE(HIGH) ROLANDO AKHTAR DPM December 01, 2024 11:38
[2024-12-01] MEDS ORDERED: ePHEDrine SULFATE 50 MG/ML AMP ONE (11:42)
[2024-12-01] MEDS: BUPIVACAINE 0.5% MPF INJ 30ML SDV IJ ONE (11:44)
[2024-12-01] MEDS ORDERED: PROPOFOL 10 MG/ML 20 ML IV ONE (11:47)
[2024-12-01] MEDS: VANCOMYCIN HCL 1000 MG VL ONE (11:48)
--- NOTE | 2024-12-01 11:55 | DVHOP2 ---
Operative Report - 2 Report Details Date: 12/01/24 Preop Diagnosis: 1. Right foot osteomyelitis 2. Right foot abscess 3. Right foot cellulitis Postop Diagnosis: Same as preop Surgeon: Rolando Akhtar MD Anesthesiologist: See anesthesia Anesthesia: Mac Consent: The patient was informed of the risks and benefits of the procedure. These include but are not limited to complications of anesthesia, postoperative infection, incomplete relief of symptoms, recurrence of symptoms, damage to blood vessels, nerves and tendons, deep venous thrombosis, pulmonary embolism and possible need for repeat surgery in the future. Complications: None Estimated Blood Loss: Minimal Fluids: See anesthesia Findings: Consistent with the diagnosis Indications for Surgery: Worsening foot wound Name of Procedure Performed 1. Right foot I&D to bone (66789) 2. Right foot 4th metatarsal partial ray amputation (23094) 3. Right foot delayed closure (11615) Procedure Details Procedure Details: PRE-PROCEDURE INFORMATION: In the pre-op holding area, the extremity to be operated on was clearly marked and the patient verified correct laterality of the marking. The patient was transferred to the OR table and placed in a supine position. A timeout was performed in which identification of the correct patient, procedure, location, and materials was done. The right foot and leg were prepped and draped in normal sterile fashion. DESCRIPTION OF PROCEDURE: Attention was directed to the right foot where previous incision was made. An incision was made over this area and was deepened through blunt dissection. The incision was deepened to the level of abscess and bone. Care was taken to the dissection to avoid any neurovascular and tendinous structures. The incision was deepened to the bone, and the abscess appeared to be purulent fluid consistent with pus. The cortices of the bone was then removed with rongeur an all necrotic tissue. After the abscess was drained, the area was irrigated with 3 L normal saline using cysto tubing. Deep cultures were then obtained from the wound. The area was then inspected and any areas of tracking, especially along the tendons were also drained. Attention was directed to the right 4th metatarsal, where there was a prominence that was likely causing the ulceration. It was decided at that point to perform a partial 4th ray amputation. Using a sagittal saw an, the saw was placed at the neck of the 4th metatarsal and was removed in its entirety. A delayed closure was then performed using 2-0 nylon after was deemed appropriate with no longer concern for infection. POSTOPERATIVE INFORMATION: The patient tolerated the above noted procedure and anesthesia well and was transferred to the PACU with vital signs stable, and vascular status intact with capillary refill intact to all digits. Patient can be discharged home on p.o. antibiotics. Patient will follow up with me in 1 week. Patient to keep dressings clean dry and intact until 1st postoperative visit Condition Good Disposition Still a Patient ROLANDO AKHTAR DPM December 01, 2024 11:55
--- NOTE | 2024-12-01 11:59 | DVHPN2 ---
Progress Note - Dictate Date Seen: December 01, 2024 Has the PT tested + for MRSA If YES, has PT been informed?: No Medical Necessity Reason Pt with a Central, PICC or Fol: No Subjective The patient remains hemodynamically stable, afebrile for past 24 hours * MRI are foot is reported abnormal for osteomyelitis of the fourth metatarsal * The patient received uneventful and drainage of incision and drainage of abscess, partial amputation of fourth ray of R foot * There were no postprocedure complications * Noted uncontrolled diabetes with hypoglycemia blood sugar at morning hours * Recommended patient to receive reduced dose of Lantus at evening time Overnight events are reviewed through medical chart and case discussion with patient's assigned RN while making rounds on patient on the day of service vital signs Vital Sign Date Time Temp Pulse Resp B/P (MAP) Pulse Ox O2 Delivery O2 Flow Rate FiO2 12/01/24 10:33 151/61 12/01/24 09:00 97.7 71 20 96 97.7 11/30/24 20:00 Room Air* 0 21 Total Intake and Output 11/30/24 11/30/24 12/01/24 15:00 23:00 07:00 Intake Total 360 ml 570 ml 1000 ml Output Total 1300 ml Balance 360 ml 570 ml -300 ml medications Current Medications Medications Dose Ordered Sig/Andrea Route Start Time Stop Time Status Last Admin Dose Admin Nitroglycerin 0.4 mg Q5MINP PRN SL 11/27/24 22:00 Morphine Sulfate 2 mg Q30M PRN IV 11/27/24 22:00 Amlodipine Besylate 5 mg DAILY PO 11/28/24 10:00 12/01/24 10:32 5 MG Aspirin 81 mg QPM PO 11/28/24 18:00 11/30/24 17:26 81 MG Atorvastatin Calcium 40 mg HS PO 11/27/24 22:00 11/30/24 22:14 40 MG Gabapentin 100 mg Q8H PO 11/27/24 22:00 12/01/24 06:00 100 MG Hydralazine HCl 25 mg TID PO 11/27/24 22:00 12/01/24 06:00 25 MG Pantoprazole Sodium 40 mg DAILY PO 11/28/24 10:00 12/01/24 10:30 40 MG Torsemide 40 mg DAILY PO 11/28/24 10:00 12/01/24 10:31 40 MG Tamsulosin HCl 0.4 mg QPM PO 11/28/24 18:00 11/30/24 17:26 0.4 MG Acetaminophen 500 mg Q4HPRN PRN PO 11/27/24 22:15 11/29/24 22:37 500 MG Ceftriaxone Sodium 50 ml @ 100 mls/hr DAILY IV 11/28/24 10:00 12/01/24 10:30 100 MLS/HR Diagnostic Test (Pha) 1 strip ACHS 11/28/24 11:30 12/01/24 06:36 1 STRIP Insulin Human Lispro 5 units AC SC 11/28/24 11:30 12/01/24 06:36 5 UNITS Lisinopril 10 mg DAILY PO 11/29/24 10:00 12/01/24 10:33 10 MG Insulin Human Lispro AC SC 11/30/24 07:00 12/01/24 06:36 12 UNITS Insulin Human Lispro HS SC 11/30/24 22:00 11/30/24 22:15 4 UNITS Sodium Chloride 1,000 ml @ 15 mls/hr Q24H IV 11/30/24 23:15 Insulin Glargine 12 units BIDBRS SC 11/30/24 23:15 12/01/24 06:37 12 UNITS Dextrose 50 ml PRN PRN IV 12/01/24 09:45 12/01/24 09:48 50 ML objective Physical exam General appearance: Well-developed, obese male appears generally weak Awake alert oriented x3 no respiratory distress Head: Normocephalic nontraumatic Eyes: EOMI, CHANEL, sclera nonicteric, conjunctive- pale+1 ENT: Bilateral maxillary sinus congestion, NSL bilateral symmetrical, TM-mildly hyperemic, oral mucosa dry +1 Fundoscopy-grade 2 av changes Neck: Supple, carotid upstroke +2, trachea midline, JVD-3 cm No thyroid or lymph node, C spine- Full ROM No use of sternomastoid muscle Chest: Bilateral symmetrical expansions, No costochondral tenderness Lungs: clear breath sounds all over anterior lung sadler Reduced BS, a few late inspiratory rales at L base> R base CVS: PMI-1 cm lateral to L MCL in fifth ICS , S1- S2 NSR no S3 GI: Abdomen soft, obese+1, bowel sounds normoactive, no mass no hernia No focal/rebound tenderness, No hepatosplenomegaly, , : No CVA tenderness, no bladder mass palpable, genitalia-NE SKIN: Turgor dry, color pale+1, no rash, no icterus, No varicosity, no ulcers or wounds EXTs: edema +0, RLE surgically dressed distal pulses +2 capillary refill <2 seconds, no open wounds JOINTS: Reduced range at bilateral knees BACK: No apparent lumbosacral spinal muscle tenderness, LYMPH NODES: No cervical, axillary or inguinal lymph nodes Neuro: Awake alert oriented 4, coherent, all cognitives- intact No pronator drift, no focal motor deficit, Changes of DPN present, DTR +2, gait steady PSYCH: Affect mildly depressed-denies suicidal ideation Wounds Wounds -status post debridement, I and D of R foot-surgically dressed laboratory and microbiology Laboratory Tests 12/01/24 05:20 Test 12/01/24 05:20 Range/Units Serum Glucose 341 H 74-106 mg/dL Problem List Primary Diagnosis 1. Osteomyelitis of R foot 2. R diabetic foot complicated by abscess 3. Acute kidney injury on CKD from a. Hypovolemia 4. Fairly well-controlled NIDDM hypertension 2' Diagnosis/Comorbidities. Exogenous obesity in adult with current BMI > 30-35 kg per m2 Assessment/Plan Medical decision making Overall patient's general condition remains hemodynamically stable, afebrile The patient received uneventful incision and drainage of abscess Operative Report - 2 Report Details Date: 12/01/24 Preop Diagnosis: 1. Right foot osteomyelitis 2. Right foot abscess 3. Right foot cellulitis Postop Diagnosis: Same as preop Surgeon: Manny Wagoner MD Anesthesiologist: See anesthesia Anesthesia: Mac Consent: The patient was informed of the risks and benefits of the procedure. These include but are not limited to complications of anesthesia, postoperative infection, incomplete relief of symptoms, recurrence of symptoms, damage to blood vessels, nerves and tendons, deep venous thrombosis, pulmonary embolism and possible need for repeat surgery in the future. Complications: None Estimated Blood Loss: Minimal Fluids: See anesthesia Findings: Consistent with the diagnosis Indications for Surgery: Worsening foot wound Name of Procedure Performed 1. Right foot I&D to bone (19401) 2. Right foot 4th metatarsal partial ray amputation (46455) 3. Right foot delayed closure (98159) Internal medicine assessment of the surgical procedure * The patient tolerated surgery very well * There were no complications per day * Cultures were sent microbiology lab * Prior cultures grew staph aureus-sensitivity pending * Continued patient on IV antibiotics namely Rocephin * Awaiting bone marrow biopsy reports * Case is discussed with Dr. Juliano neri * May need IV home antibiotics * Adjusted dose of injection Lantus and Humalog through sliding scale Treatment plans as of today Continue hospital stay at medical floor with telemetry Reviewed results of wound cultures continue IV Rocephin Reduce IV fluids at TKO Revised dose of Lantus and Humalog through sliding scale Added Farxiga and Karendia Revised dose of lisinopril Reviewed results of MRI R foot Accu-Chek q.a.c. and HS VTE precautions Update patient The patient is well informed by me about 1. Clinical impression, treatment plans, side effects of medications, course of the disease and guarded prognosis 2. All patient's question/ concerns raised by patient are satisfactorily addressed by me Dietary Evaluation Review Recommendations by RD: Dietary education by RD Comments: Recommend intenstional weightloss of 30 lbs thru diet and exercises Expected Outcomes/Goals: Intentional loss of weight can help better control of NIDDM and CKD Interpretation of weight loss: >10% in 6 months Plan discussed with: Patient Total Time (mins): 45 DAVID NERI MD December 01, 2024 11:59
[2024-12-01] MEDS: INSULIN LANTUS (GLARGINE) 1 /0.01ml (100units/ml) SC SCH (18:24)
[2024-12-02] VITALS (12 sets, daily range): BP systolic 101–136; BP diastolic 57–118; PULSE 71–97; RESP 11–18; TEMP 97.2–100; O2SAT 93–98
[2024-12-02] MEDS: INSULIN LANTUS (GLARGINE) 1 /0.01ml (100units/ml) SC SCH (11:45)
--- NOTE | 2024-12-02 12:01 | DVHPN2 ---
Progress Note - Dictate Date Seen: December 02, 2024 Has the PT tested + for MRSA If YES, has PT been informed?: No Medical Necessity Reason Pt with a Central, PICC or Fol: No Subjective The patient is seen on postop day 1 of his receiving I & D, partial amputation of R for metatarsal For diagnosis of osteomyelitis based on MRI findings The patient remains hemodynamically stable, afebrile for past 24 hours * Case is discussed with Dr. Juliano Álvarez ID * The patient will need home IV antibiotics * Patient was referred to psychotherapist social worker * His diabetes remains under fair to poor control * Dose of injection Lantus has been adjusted Overnight events are reviewed through medical chart and case discussion with patient's assigned RN while making rounds on patient on the day of service vital signs Vital Sign Date Time Temp Pulse Resp B/P (MAP) Pulse Ox O2 Delivery O2 Flow Rate FiO2 12/02/24 10:01 103/69 12/02/24 09:00 98.6 78 18 96 98.6 12/02/24 08:00 Room Air* 0 21 Total Intake and Output 12/01/24 12/01/24 12/02/24 15:00 23:00 07:00 Intake Total 100 ml 950 ml 800 ml Output Total 2000 ml 1750 ml Balance 100 ml -1050 ml -950 ml medications Current Medications Medications Dose Ordered Sig/Andrea Route Start Time Stop Time Status Last Admin Dose Admin Nitroglycerin 0.4 mg Q5MINP PRN SL 11/27/24 22:00 Morphine Sulfate 2 mg Q30M PRN IV 11/27/24 22:00 Amlodipine Besylate 5 mg DAILY PO 11/28/24 10:00 12/02/24 10:00 5 MG Aspirin 81 mg QPM PO 11/28/24 18:00 12/01/24 18:10 81 MG Atorvastatin Calcium 40 mg HS PO 11/27/24 22:00 12/01/24 21:38 40 MG Gabapentin 100 mg Q8H PO 11/27/24 22:00 12/02/24 06:09 100 MG Hydralazine HCl 25 mg TID PO 11/27/24 22:00 12/02/24 06:09 25 MG Pantoprazole Sodium 40 mg DAILY PO 11/28/24 10:00 12/02/24 09:59 40 MG Torsemide 40 mg DAILY PO 11/28/24 10:00 12/02/24 10:01 40 MG Tamsulosin HCl 0.4 mg QPM PO 11/28/24 18:00 12/01/24 18:10 0.4 MG Acetaminophen 500 mg Q4HPRN PRN PO 11/27/24 22:15 11/29/24 22:37 500 MG Ceftriaxone Sodium 50 ml @ 100 mls/hr DAILY IV 11/28/24 10:00 12/02/24 09:59 100 MLS/HR Diagnostic Test (Pha) 1 strip ACHS 11/28/24 11:30 12/02/24 11:04 1 STRIP Insulin Human Lispro 5 units AC SC 11/28/24 11:30 12/02/24 11:45 5 UNITS Lisinopril 10 mg DAILY PO 11/29/24 10:00 12/02/24 10:01 10 MG Insulin Human Lispro AC SC 11/30/24 07:00 12/02/24 11:46 5 UNITS Insulin Human Lispro HS SC 11/30/24 22:00 11/30/24 22:15 4 UNITS Sodium Chloride 1,000 ml @ 15 mls/hr Q24H IV 11/30/24 23:15 Dextrose 50 ml PRN PRN IV 12/01/24 09:45 12/01/24 09:48 50 ML Insulin Glargine 5 units BIDBRS SC 12/01/24 18:00 12/02/24 09:58 5 UNITS Insulin Glargine 15 units QAM SC 12/02/24 11:45 UNV objective Physical exam General appearance: Well-developed, obese male appears generally weak Awake alert oriented x3 no respiratory distress Head: Normocephalic nontraumatic Eyes: EOMI, CHANEL, sclera nonicteric, conjunctive- pale+1 ENT: Bilateral maxillary sinus congestion, NSL bilateral symmetrical, TM-mildly hyperemic, oral mucosa dry +1 Fundoscopy-grade 2 av changes Neck: Supple, carotid upstroke +2, trachea midline, JVD-3 cm No thyroid or lymph node, C spine- Full ROM No use of sternomastoid muscle Chest: Bilateral symmetrical expansions, No costochondral tenderness Lungs: clear breath sounds all over anterior lung sadler Reduced BS, a few late inspiratory rales at L base> R base CVS: PMI-1 cm lateral to L MCL in fifth ICS , S1- S2 NSR no S3 GI: Abdomen soft, obese+1, bowel sounds normoactive, no mass no hernia No focal/rebound tenderness, No hepatosplenomegaly, , : No CVA tenderness, no bladder mass palpable, genitalia-NE SKIN: Turgor dry, color pale+1, no rash, no icterus, No varicosity, no ulcers or wounds EXTs: edema +0, distal pulses +2 capillary refill <2 seconds, no open wounds JOINTS: Reduced range at bilateral knees BACK: No apparent lumbosacral spinal muscle tenderness, LYMPH NODES: No cervical, axillary or inguinal lymph nodes Neuro: Awake alert oriented 4, coherent, all cognitives- intact No pronator drift, no focal motor deficit, Changes of DPN present, DTR +2, gait steady PSYCH: Affect mildly depressed-denies suicidal ideation Wounds Wounds R foot base of fourth metatarsal-nonhealing ulcerated callus without purulent discharge, feels tender laboratory and microbiology Laboratory Tests 12/01/24 05:20 Test 12/01/24 05:20 Range/Units Serum Glucose 341 H 74-106 mg/dL Problem List Primary Diagnosis 1. Febrile illness a. Bilateral maxillary sinusitis.................................................... Improving b. Developing LL B pneumonia b. R diabetic foot-possible osteomyelitis of R 4th metatarsal............ Under evaluation 2. Acute kidney injury on CKD stage IIIB....................................... Worsening from a. Hypovolemia b. Inadvertent effect of diuretic and antihypertensive c. CKD from uncontrolled diabetes and hypertension 3. Uncontrolled diabetes with hyperglycemia 4. Uncontrolled hypertension 2' Diagnosis/Comorbidities Exogenous obesity in adult with current BMI > 30-35 kg per m2 Assessment/Plan Medical decision making Overall patient's general condition remains hemodynamically stable, afebrile on post op day 1 of his receiving incision drainage and partial resection of R 4th ray. * No delayed postop complications * His wound cultures have grown staph aureus * Patient will need home IV antibiotics * Case is discussed with Dr. Juliano Álvarez MD * The patient was referred to psychotherapist social worker * Noted uncontrolled diabetes with hyperglycemia Blood sugar was high for 293 mg/dL Recommended higher dose of injection Lantus and Humalog through sliding scale Case is discussed with pharmacy Treatment plans as of today Continue hospital stay at medical floor with telemetry Recommended PICC line insertion Refer to psychotherapist social worker for home IV antibiotics, scooter Reviewed results of wound cultures continue IV Rocephin Reduce IV fluids at TKO Revised dose of Lantus and Humalog through sliding scale Added Farxiga and Karendia DC lisinopril Refer to Dr. Arango nephrology for rising creatinine Reviewed results of MRI R foot Accu-Chek q.a.c. and HS VTE precautions Update patient The patient is well informed by me about 1. Clinical impression, treatment plans, side effects of medications, course of the disease and guarded prognosis 2. All patient's question/ concerns raised by patient are satisfactorily addressed by me Dietary Evaluation Review Recommendations by RD: Dietary education by RD Comments: Recommend intenstional weightloss of 30 lbs thru diet and exercises Expected Outcomes/Goals: Intentional loss of weight can help better control of NIDDM and CKD Interpretation of weight loss: >10% in 6 months Plan discussed with: Patient Total Time (mins): 45 DAVID ÁLVAREZ MD December 02, 2024 12:01
[2024-12-02] MEDS: LISINOPRIL 5 MG TAB PO SCH (13:00)
[2024-12-02] MEDS: hydrALAZINE HCL 25 MG TAB PO SCH (14:00)
[2024-12-02] MEDS: HEPARIN SODIUM (PORCINE) 5000 UNITS/ML 1ML VIAL ONE (15:36)
[2024-12-02] MEDS: MIDAZOLAM HCL 2MG/2ML 2ml VIAL (1mg/ml) ONE (15:37)
[2024-12-02] MEDS: LIDOCAINE 2%HCL (LOCAL ANESTH.) INJ 20ML MDV ONE (15:37)
[2024-12-02] MEDS: fentaNYL CITRATE 100 MCG/2 ML VL ONE (15:37)
[2024-12-02] MEDS: IODIXANOL 320MG/ML 100ML BTL IV ONE (16:21)
--- NOTE | 2024-12-02 16:29 | DVH ---
XY Insertion of Venous Cath, HISTORY: POWERLINE INSERTION DR MEADE PROCEDURE: Informed consent was obtained. The patient was placed supine on the interventional table. A limited localization ultrasound of the right neck base was obtained. The right neck base and upper chest were prepped with chlorhexidine which was allowed to dry and draped in the usual sterile fashio n. Time out was performed. IV sedation was administered. The skin and the soft tissues were infiltrat ed with 1% Lidocaine . With real-time ultrasound guidance, the external jugular vein was accessed wit h a micropuncture kit, and an image documenting patency was recorded to PACS. Contrast injection conf irms patency. A subcutaneous tunneled tract was created from the right upper chest to the venotomy si te. A 5 Monegasque Power Line, 22 cm long central venous catheter was advanced through the tunneled tract after being trimmed. Fluoroscopy was used to advance a guidewire through the internal jugular vein into the inferior vena cava. 6 [place]gasque peel-away sheath was introduced, though which was advanced the catheter into the upper cavoatrial junction. The catheter tip position was confirmed with fluoroscopy. There was satisfactor y flow in both lumens. The catheter lumens were flushed with saline and heparin was left indwelling i n the catheter. A post-procedure image of the chest was obtained. The neck incision site was closed w ith a Dermabond and dressed sterilely. The catheter was sutured at the skin surface and exit site als o dressed sterilely. No immediate complication was identified. DAP 1.23 FLUOROSCOPY TIME: 2.2 minutes. SEDATION: Dr. James Meade was personally responsible for the administration of moderate sedation during the procedure performed, including the use of an independent trained observer who had no other duties during the procedure. The drugs utilized were IV fentanyl and versed (see nursing log for details). The total time of supervision by the attending physician was approximately 30 minutes. FINDINGS: Widely patent right EJV. Post procedure image demonstrates smooth course of the catheter w ith the tip in the upper cavoatrial junction. IMPRESSION: Successful placement of 5 lithuanian dual lumen Power Line , 22 cm long catheter through right external j ugular vein. Plan: Please contact IR for removal when no longer needed.
[2024-12-03] VITALS (8 sets, daily range): BP systolic 108–151; BP diastolic 66–91; PULSE 79–89; RESP 16–18; TEMP 96.7–99; O2SAT 95–99
--- NOTE | 2024-12-03 07:53 | DVHPN2 ---
Consult Progress Note Date Seen: December 02, 2024 Subjective Patient reports: Other (patient underwent amputation of the 4th toe and allowed for delayed foot closure ) Objective vital signs Vital Sign Date Time Temp Pulse Resp B/P (MAP) Pulse Ox O2 Delivery O2 Flow Rate FiO2 12/03/24 05:13 126/77 12/03/24 05:00 97.2 83 18 99 97.2 12/02/24 20:00 Room Air* 0 21 Total Intake and Output 12/02/24 12/02/24 12/03/24 15:00 23:00 07:00 Intake Total 50 ml 700 ml 1700 ml Output Total 1750 ml 600 ml Balance 50 ml -1050 ml 1100 ml medications Current Medications Medications Dose Ordered Sig/Andrea Route Start Time Stop Time Status Last Admin Dose Admin Nitroglycerin 0.4 mg Q5MINP PRN SL 11/27/24 22:00 Morphine Sulfate 2 mg Q30M PRN IV 11/27/24 22:00 Amlodipine Besylate 5 mg DAILY PO 11/28/24 10:00 12/02/24 10:00 Aspirin 81 mg QPM PO 11/28/24 18:00 12/02/24 18:12 Atorvastatin Calcium 40 mg HS PO 11/27/24 22:00 12/02/24 21:59 Gabapentin 100 mg Q8H PO 11/27/24 22:00 12/03/24 05:13 Pantoprazole Sodium 40 mg DAILY PO 11/28/24 10:00 12/02/24 09:59 Tamsulosin HCl 0.4 mg QPM PO 11/28/24 18:00 12/02/24 18:12 Acetaminophen 500 mg Q4HPRN PRN PO 11/27/24 22:15 11/29/24 22:37 Diagnostic Test (Pha) 1 strip ACHS 11/28/24 11:30 12/03/24 06:37 Insulin Human Lispro 5 units AC SC 11/28/24 11:30 12/03/24 06:34 Insulin Human Lispro AC SC 11/30/24 07:00 12/02/24 18:25 Insulin Human Lispro HS SC 11/30/24 22:00 12/02/24 22:02 Sodium Chloride 1,000 ml @ 15 mls/hr Q24H IV 11/30/24 23:15 Dextrose 50 ml PRN PRN IV 12/01/24 09:45 12/01/24 09:48 Insulin Glargine 15 units QAM SC 12/02/24 11:45 12/03/24 06:29 Hydralazine HCl 50 mg TID PO 12/02/24 13:00 12/03/24 05:13 Physical Exam: General: Appears weak and diaphoretic Neck: Supple. No masses. HEENT: PERRL. Normal lids and conjunctiva. Moist mucous membranes. Oropharynx without lesions, exudates or excessive erythema. Normal appearance of the external aspects of the nose and ears. Heart: Regular rhythm, normal rate. No murmur. No lower extremity edema. Lungs: Normal respiratory effort. Clear to auscultation bilaterally. No wheezes. No crackles. Abdomen: Soft. Non-tender. Non-distended. No masses or abdominal hernia. Msk: Right foot 4th toe plantar base ulcer with drainage and erythema. No digital cyanosis. Normal strength and tone in all other limbs. Skin: Warm and dry, no generalized rashes. Localized erythema and drainage at right foot 4th toe. Neuro: Alert. No facial droop or slurred speech. Extra-ocular movements intact. Sensation intact to soft touch in all four limbs. Psych: Appropriate mood. Full affect. Oriented to person, place, time, and situation. laboratory and microbiology Laboratory Tests 12/01/24 05:20 Test 12/01/24 05:20 Range/Units Serum Glucose 341 H 74-106 mg/dL Problem List/Assessment/Plan Problems(with codes): (1) Fever (2) Intractable headache (3) Generalized weakness (4) Pericardial effusion (5) ESRD (end stage renal disease) (6) Uncontrolled diabetes mellitus (7) Lumbar strain (8) Episode of syncope (9) Osteomyelitis of foot Problem List/Assessment/Plan ASSESSMENT AND PLAN: ID Problem List: - Sepsis - Possible left lower lobe pneumonia - Right foot nonhealing ulcer, concern for osteomyelitis (4th metatarsal) - History of gouty arthritis - CKD stage 3 - Uncontrolled diabetes mellitus - Hypertension - History of amputation, 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 Mychal Russo is a 59-year-old male with a history of uncontrolled diabetes mellitus, hypertension, CKD stage 3, and prior right 2nd and 5th toe amputations. He presents with sudden onset of fever (up to 102.9F), chills, nasal congestion, headache, poor oral intake, and urinary urgency, and was admitted for sepsis. On exam, notable for right foot 4th toe ulcer (plantar base) with ongoing drainage and erythema; X-ray of right foot demonstrates bony change of the fourth metatarsal concerning for osteomyelitis. Laboratory evaluation reveals WBC 10.8 (81% neutrophils), platelet count 57, Hgb 15.9, sodium 135, BUN 43, creatinine 2.3 (similar to baseline), glucose 169. Oxygen saturation 96% on room air. Chest imaging suggests possible pneumonia in the left lung base. CT head without acute findings. Urinalysis without pyuria, negative COVID test. Patient was initiated on empiric ceftriaxone and vancomycin. Blood cultures to date show no growth. Patient is clinically stabilizing with fluids and antibiotics. 11/30: hemoglobin A1C is 7.9 , blood sugars as high as 300s during this septic episode and whitecount is at 73 . Foot mri shows bone marrow edema in proximal 4th metatarsal bone with cortical thickening this appearance may represent severe arthritis of metatarsals , acute on chronic osteomyelitis is not excluded . plantar soft tissue swelling , non specific bone marrow represents cellulitis , no fluid collection, edema in 5th metatarsal non specific may also represent stress reaction . patient underwent debridement on 11/29 and Mr Sharon found that there was area fluctuant on right metatarsal deep into the level of the abscess to the level of the bone and prelance consistent with pus. deep cultures were taken and bone biopsy was sent 12/01: operative cultures show gram positive cocci 12/02: s/p amputation of 4th toe and fevers appear to have improved after amputation and additional source control Plan: - Continue ceftriaxone and daptomycin - piccline placement in 6 weeks in anticipation of IV antibiotics - patient will need wound care at home for management of recent amputation - close follow up with primary care Dr to maintain blood sugars under 180 - recommend additional debridement at time for Dr Osborn to close due to fevers - in postoperative period likely hypoglycemic and doesn't need as much insulin and agree with D50 to resuscitate blood sugars - follow up on operative culture results - Hold escalation/adjustment of [id number] therapy pending MRI confirmation of osteomyelitis. - Recommend MRI of right foot to evaluate for osteomyelitis. - Recommend general surgery consult for possible debridement of right 4th toe. If debridement is performed, collect aerobic and anaerobic cultures of bone and tissue. - Monitor for ongoing signs of sepsis; consider addition of daptomycin if clinical situation warrants. - Check hemoglobin A1c. - Monitor blood cultures. - Supportive care: maintain glycemic control, fluid resuscitation as needed. - Monitor kidney function, platelets. - Continue to follow while inpatient. Isolation Precautions: Standard Plan discussed with: Other Dietary Evaluation Review Recommendations by RD: Dietary education by RD Comments: Recommend intenstional weightloss of 30 lbs thru diet and exercises Expected Outcomes/Goals: Intentional loss of weight can help better control of NIDDM and CKD Interpretation of weight loss: >10% in 6 months SARAH VARGAS MD December 03, 2024 07:53
--- NOTE | 2024-12-03 07:53 | DVHPN2 ---
Consult Progress Note Date Seen: November 30, 2024 Subjective Patient reports: Other (fever curve is improving as high as 100.4 . foot is red and tender ) Objective vital signs Vital Sign Date Time Temp Pulse Resp B/P (MAP) Pulse Ox O2 Delivery O2 Flow Rate FiO2 12/03/24 05:13 126/77 12/03/24 05:00 97.2 83 18 99 97.2 12/02/24 20:00 Room Air* 0 21 Total Intake and Output 12/02/24 12/02/24 12/03/24 15:00 23:00 07:00 Intake Total 50 ml 700 ml 1700 ml Output Total 1750 ml 600 ml Balance 50 ml -1050 ml 1100 ml medications Current Medications Medications Dose Ordered Sig/Andrea Route Start Time Stop Time Status Last Admin Dose Admin Nitroglycerin 0.4 mg Q5MINP PRN SL 11/27/24 22:00 Morphine Sulfate 2 mg Q30M PRN IV 11/27/24 22:00 Amlodipine Besylate 5 mg DAILY PO 11/28/24 10:00 12/02/24 10:00 Aspirin 81 mg QPM PO 11/28/24 18:00 12/02/24 18:12 Atorvastatin Calcium 40 mg HS PO 11/27/24 22:00 12/02/24 21:59 Gabapentin 100 mg Q8H PO 11/27/24 22:00 12/03/24 05:13 Pantoprazole Sodium 40 mg DAILY PO 11/28/24 10:00 12/02/24 09:59 Tamsulosin HCl 0.4 mg QPM PO 11/28/24 18:00 12/02/24 18:12 Acetaminophen 500 mg Q4HPRN PRN PO 11/27/24 22:15 11/29/24 22:37 Diagnostic Test (Pha) 1 strip ACHS 11/28/24 11:30 12/03/24 06:37 Insulin Human Lispro 5 units AC SC 11/28/24 11:30 12/03/24 06:34 Insulin Human Lispro AC SC 11/30/24 07:00 12/02/24 18:25 Insulin Human Lispro HS SC 11/30/24 22:00 12/02/24 22:02 Sodium Chloride 1,000 ml @ 15 mls/hr Q24H IV 11/30/24 23:15 Dextrose 50 ml PRN PRN IV 12/01/24 09:45 12/01/24 09:48 Insulin Glargine 15 units QAM SC 12/02/24 11:45 12/03/24 06:29 Hydralazine HCl 50 mg TID PO 12/02/24 13:00 12/03/24 05:13 Physical Exam: General: Appears weak and diaphoretic Neck: Supple. No masses. HEENT: PERRL. Normal lids and conjunctiva. Moist mucous membranes. Oropharynx without lesions, exudates or excessive erythema. Normal appearance of the external aspects of the nose and ears. Heart: Regular rhythm, normal rate. No murmur. No lower extremity edema. Lungs: Normal respiratory effort. Clear to auscultation bilaterally. No wheezes. No crackles. Abdomen: Soft. Non-tender. Non-distended. No masses or abdominal hernia. Msk: Right foot 4th toe plantar base ulcer with drainage and erythema. No digital cyanosis. Normal strength and tone in all other limbs. Skin: Warm and dry, no generalized rashes. Localized erythema and drainage at right foot 4th toe. Neuro: Alert. No facial droop or slurred speech. Extra-ocular movements intact. Sensation intact to soft touch in all four limbs. Psych: Appropriate mood. Full affect. Oriented to person, place, time, and situation. laboratory and microbiology Laboratory Tests 12/01/24 05:20 Test 12/01/24 05:20 Range/Units Serum Glucose 341 H 74-106 mg/dL Problem List/Assessment/Plan Problems(with codes): (1) Fever (2) Uncontrolled diabetes mellitus (3) ESRD (end stage renal disease) (4) Pericardial effusion (5) Generalized weakness (6) Lumbar strain (7) Episode of syncope (8) Osteomyelitis of foot Problem List/Assessment/Plan ASSESSMENT AND PLAN: ID Problem List: - Sepsis - Possible left lower lobe pneumonia - Right foot nonhealing ulcer, concern for osteomyelitis (4th metatarsal) - History of gouty arthritis - CKD stage 3 - Uncontrolled diabetes mellitus - Hypertension - History of amputation, 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 Mychal Russo is a 59-year-old male with a history of uncontrolled diabetes mellitus, hypertension, CKD stage 3, and prior right 2nd and 5th toe amputations. He presents with sudden onset of fever (up to 102.9F), chills, nasal congestion, headache, poor oral intake, and urinary urgency, and was admitted for sepsis. On exam, notable for right foot 4th toe ulcer (plantar base) with ongoing drainage and erythema; X-ray of right foot demonstrates bony change of the fourth metatarsal concerning for osteomyelitis. Laboratory evaluation reveals WBC 10.8 (81% neutrophils), platelet count 57, Hgb 15.9, sodium 135, BUN 43, creatinine 2.3 (similar to baseline), glucose 169. Oxygen saturation 96% on room air. Chest imaging suggests possible pneumonia in the left lung base. CT head without acute findings. Urinalysis without pyuria, negative COVID test. Patient was initiated on empiric ceftriaxone and vancomycin. Blood cultures to date show no growth. Patient is clinically stabilizing with fluids and antibiotics. 11/30: hemoglobin A1C is 7.9 , blood sugars as high as 300s during this septic episode and whitecount is at 73 . Foot mri shows bone marrow edema in proximal 4th metatarsal bone with cortical thickening this appearance may represent severe arthritis of metatarsals , acute on chronic osteomyelitis is not excluded . plantar soft tissue swelling , non specific bone marrow represents cellulitis , no fluid collection, edema in 5th metatarsal non specific may also represent stress reaction . patient underwent debridement on 11/29 and Mr Sharon found that there was area fluctuant on right metatarsal deep into the level of the abscess to the level of the bone and prelance consistent with pus. deep cultures were taken and bone biopsy was sent Plan: - follow up on operative and blood cultures - Continue ceftriaxone at present. - Hold escalation/adjustment of [id number] therapy pending MRI confirmation of osteomyelitis. - Recommend MRI of right foot to evaluate for osteomyelitis. - Recommend general surgery consult for possible debridement of right 4th toe. If debridement is performed, collect aerobic and anaerobic cultures of bone and tissue. - Monitor for ongoing signs of sepsis; consider addition of daptomycin if clinical situation warrants. - Check hemoglobin A1c. - Monitor blood cultures. - Supportive care: maintain glycemic control, fluid resuscitation as needed. - Monitor kidney function, platelets. - Continue to follow while inpatient. Isolation Precautions: Standard Plan discussed with: Other Dietary Evaluation Review Recommendations by RD: Dietary education by RD Comments: Recommend intenstional weightloss of 30 lbs thru diet and exercises Expected Outcomes/Goals: Intentional loss of weight can help better control of NIDDM and CKD Interpretation of weight loss: >10% in 6 months SARAH VARGAS MD December 03, 2024 07:53
--- NOTE | 2024-12-03 07:53 | DVHPN2 ---
Consult Progress Note Date Seen: December 03, 2024 Subjective Patient reports: Other (growing staph aureus in his wound . patient is able to get up and ambulate , toleratign diet . no fevers in last 24 hrs , no drainage from 4th toe amputation site and is well wrapped . has a piccline in place ) Objective vital signs Vital Sign Date Time Temp Pulse Resp B/P (MAP) Pulse Ox O2 Delivery O2 Flow Rate FiO2 12/03/24 05:13 126/77 12/03/24 05:00 97.2 83 18 99 97.2 12/02/24 20:00 Room Air* 0 21 Total Intake and Output 12/02/24 12/02/24 12/03/24 15:00 23:00 07:00 Intake Total 50 ml 700 ml 1700 ml Output Total 1750 ml 600 ml Balance 50 ml -1050 ml 1100 ml medications Current Medications Medications Dose Ordered Sig/Andrea Route Start Time Stop Time Status Last Admin Dose Admin Nitroglycerin 0.4 mg Q5MINP PRN SL 11/27/24 22:00 Morphine Sulfate 2 mg Q30M PRN IV 11/27/24 22:00 Amlodipine Besylate 5 mg DAILY PO 11/28/24 10:00 12/02/24 10:00 Aspirin 81 mg QPM PO 11/28/24 18:00 12/02/24 18:12 Atorvastatin Calcium 40 mg HS PO 11/27/24 22:00 12/02/24 21:59 Gabapentin 100 mg Q8H PO 11/27/24 22:00 12/03/24 05:13 Pantoprazole Sodium 40 mg DAILY PO 11/28/24 10:00 12/02/24 09:59 Tamsulosin HCl 0.4 mg QPM PO 11/28/24 18:00 12/02/24 18:12 Acetaminophen 500 mg Q4HPRN PRN PO 11/27/24 22:15 11/29/24 22:37 Diagnostic Test (Pha) 1 strip ACHS 11/28/24 11:30 12/03/24 06:37 Insulin Human Lispro 5 units AC SC 11/28/24 11:30 12/03/24 06:34 Insulin Human Lispro AC SC 11/30/24 07:00 12/02/24 18:25 Insulin Human Lispro HS SC 11/30/24 22:00 12/02/24 22:02 Sodium Chloride 1,000 ml @ 15 mls/hr Q24H IV 11/30/24 23:15 Dextrose 50 ml PRN PRN IV 12/01/24 09:45 12/01/24 09:48 Insulin Glargine 15 units QAM SC 12/02/24 11:45 12/03/24 06:29 Hydralazine HCl 50 mg TID PO 12/02/24 13:00 12/03/24 05:13 Physical Exam: General: Appears weak and diaphoretic Neck: Supple. No masses. HEENT: PERRL. Normal lids and conjunctiva. Moist mucous membranes. Oropharynx without lesions, exudates or excessive erythema. Normal appearance of the external aspects of the nose and ears. Heart: Regular rhythm, normal rate. No murmur. No lower extremity edema. Lungs: Normal respiratory effort. Clear to auscultation bilaterally. No wheezes. No crackles. Abdomen: Soft. Non-tender. Non-distended. No masses or abdominal hernia. Msk: Right foot 4th toe plantar base ulcer with drainage and erythema. No digital cyanosis. Normal strength and tone in all other limbs. Skin: Warm and dry, no generalized rashes. Localized erythema and drainage at right foot 4th toe. Neuro: Alert. No facial droop or slurred speech. Extra-ocular movements intact. Sensation intact to soft touch in all four limbs. Psych: Appropriate mood. Full affect. Oriented to person, place, time, and situation. laboratory and microbiology Laboratory Tests 12/01/24 05:20 Test 12/01/24 05:20 Range/Units Serum Glucose 341 H 74-106 mg/dL Problem List/Assessment/Plan Problems(with codes): (1) Intractable headache (2) Generalized weakness (3) Pericardial effusion (4) ESRD (end stage renal disease) (5) Uncontrolled diabetes mellitus (6) Lumbar strain (7) Episode of syncope Problem List/Assessment/Plan ASSESSMENT AND PLAN: ID Problem List: - Sepsis - Possible left lower lobe pneumonia - Right foot nonhealing ulcer, concern for osteomyelitis (4th metatarsal) - History of gouty arthritis - CKD stage 3 - Uncontrolled diabetes mellitus - Hypertension - History of amputation, 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 Mychal Russo is a 59-year-old male with a history of uncontrolled diabetes mellitus, hypertension, CKD stage 3, and prior right 2nd and 5th toe amputations. He presents with sudden onset of fever (up to 102.9F), chills, nasal congestion, headache, poor oral intake, and urinary urgency, and was admitted for sepsis. On exam, notable for right foot 4th toe ulcer (plantar base) with ongoing drainage and erythema; X-ray of right foot demonstrates bony change of the fourth metatarsal concerning for osteomyelitis. Laboratory evaluation reveals WBC 10.8 (81% neutrophils), platelet count 57, Hgb 15.9, sodium 135, BUN 43, creatinine 2.3 (similar to baseline), glucose 169. Oxygen saturation 96% on room air. Chest imaging suggests possible pneumonia in the left lung base. CT head without acute findings. Urinalysis without pyuria, negative COVID test. Patient was initiated on empiric ceftriaxone and vancomycin. Blood cultures to date show no growth. Patient is clinically stabilizing with fluids and antibiotics. 11/30: hemoglobin A1C is 7.9 , blood sugars as high as 300s during this septic episode and whitecount is at 73 . Foot mri shows bone marrow edema in proximal 4th metatarsal bone with cortical thickening this appearance may represent severe arthritis of metatarsals , acute on chronic osteomyelitis is not excluded . plantar soft tissue swelling , non specific bone marrow represents cellulitis , no fluid collection, edema in 5th metatarsal non specific may also represent stress reaction . patient underwent debridement on 11/29 and Sharon found that there was area fluctuant on right metatarsal deep into the level of the abscess to the level of the bone and prelance consistent with pus. deep cultures were taken and bone biopsy was sent 12/01: operative cultures show gram positive cocci 12/02: s/p amputation of 4th toe and fevers appear to have improved after amputation and additional source control 12/03: has piccline in place . MSSA growing out of cultures Plan: - stop daptomycin and ceftriaxone - Start IV Ancef 4grams of continuous daily for 6 weeks - oral rifampin 300mg PO BID to complete a 6 week coarse - recommend patient follow upw ith infectious disease clinic in 4 weeks for ongoing management of antibiotic coarse - patient will need wound care at home for management of recent amputation - close follow up with primary care Dr to maintain blood sugars under 180 - recommend additional debridement at time for Dr Osborn to close due to fevers - in postoperative period likely hypoglycemic and doesn't need as much insulin and agree with D50 to resuscitate blood sugars - follow up on operative culture results - Hold escalation/adjustment of [id number] therapy pending MRI confirmation of osteomyelitis. - Recommend MRI of right foot to evaluate for osteomyelitis. - Recommend general surgery consult for possible debridement of right 4th toe. If debridement is performed, collect aerobic and anaerobic cultures of bone and tissue. - Monitor for ongoing signs of sepsis; consider addition of daptomycin if clinical situation warrants. - Check hemoglobin A1c. - Monitor blood cultures. - Supportive care: maintain glycemic control, fluid resuscitation as needed. - Monitor kidney function, platelets. - Continue to follow while inpatient. Isolation Precautions: Standard Plan discussed with: Other Dietary Evaluation Review Recommendations by RD: Dietary education by RD Comments: Recommend intenstional weightloss of 30 lbs thru diet and exercises Expected Outcomes/Goals: Intentional loss of weight can help better control of NIDDM and CKD Interpretation of weight loss: >10% in 6 months SARAH VARGAS MD December 03, 2024 07:53
--- NOTE | 2024-12-03 07:53 | DVHPN2 ---
Consult Progress Note Date Seen: December 01, 2024 Subjective Patient reports: Other (still febrile , having fevers as high as 101. the foot is still drainaing after surgery . patient is also having some hypoglycemic episodes as low as 47 ) Objective vital signs Vital Sign Date Time Temp Pulse Resp B/P (MAP) Pulse Ox O2 Delivery O2 Flow Rate FiO2 12/03/24 05:13 126/77 12/03/24 05:00 97.2 83 18 99 97.2 12/02/24 20:00 Room Air* 0 21 Total Intake and Output 12/02/24 12/02/24 12/03/24 15:00 23:00 07:00 Intake Total 50 ml 700 ml 1700 ml Output Total 1750 ml 600 ml Balance 50 ml -1050 ml 1100 ml medications Current Medications Medications Dose Ordered Sig/Andrea Route Start Time Stop Time Status Last Admin Dose Admin Nitroglycerin 0.4 mg Q5MINP PRN SL 11/27/24 22:00 Morphine Sulfate 2 mg Q30M PRN IV 11/27/24 22:00 Amlodipine Besylate 5 mg DAILY PO 11/28/24 10:00 12/02/24 10:00 Aspirin 81 mg QPM PO 11/28/24 18:00 12/02/24 18:12 Atorvastatin Calcium 40 mg HS PO 11/27/24 22:00 12/02/24 21:59 Gabapentin 100 mg Q8H PO 11/27/24 22:00 12/03/24 05:13 Pantoprazole Sodium 40 mg DAILY PO 11/28/24 10:00 12/02/24 09:59 Tamsulosin HCl 0.4 mg QPM PO 11/28/24 18:00 12/02/24 18:12 Acetaminophen 500 mg Q4HPRN PRN PO 11/27/24 22:15 11/29/24 22:37 Diagnostic Test (Pha) 1 strip ACHS 11/28/24 11:30 12/03/24 06:37 Insulin Human Lispro 5 units AC SC 11/28/24 11:30 12/03/24 06:34 Insulin Human Lispro AC SC 11/30/24 07:00 12/02/24 18:25 Insulin Human Lispro HS SC 11/30/24 22:00 12/02/24 22:02 Sodium Chloride 1,000 ml @ 15 mls/hr Q24H IV 11/30/24 23:15 Dextrose 50 ml PRN PRN IV 12/01/24 09:45 12/01/24 09:48 Insulin Glargine 15 units QAM SC 12/02/24 11:45 12/03/24 06:29 Hydralazine HCl 50 mg TID PO 12/02/24 13:00 12/03/24 05:13 Physical Exam: General: Appears weak and diaphoretic Neck: Supple. No masses. HEENT: PERRL. Normal lids and conjunctiva. Moist mucous membranes. Oropharynx without lesions, exudates or excessive erythema. Normal appearance of the external aspects of the nose and ears. Heart: Regular rhythm, normal rate. No murmur. No lower extremity edema. Lungs: Normal respiratory effort. Clear to auscultation bilaterally. No wheezes. No crackles. Abdomen: Soft. Non-tender. Non-distended. No masses or abdominal hernia. Msk: Right foot 4th toe plantar base ulcer with drainage and erythema. No digital cyanosis. Normal strength and tone in all other limbs. Skin: Warm and dry, no generalized rashes. Localized erythema and drainage at right foot 4th toe. Neuro: Alert. No facial droop or slurred speech. Extra-ocular movements intact. Sensation intact to soft touch in all four limbs. Psych: Appropriate mood. Full affect. Oriented to person, place, time, and situation. laboratory and microbiology Laboratory Tests 12/01/24 05:20 Test 12/01/24 05:20 Range/Units Serum Glucose 341 H 74-106 mg/dL Problem List/Assessment/Plan Problems(with codes): (1) Uncontrolled diabetes mellitus (2) Lumbar strain (3) Episode of syncope (4) Osteomyelitis of foot (5) ESRD (end stage renal disease) (6) Pericardial effusion Problem List/Assessment/Plan ASSESSMENT AND PLAN: ID Problem List: - Sepsis - Possible left lower lobe pneumonia - Right foot nonhealing ulcer, concern for osteomyelitis (4th metatarsal) - History of gouty arthritis - CKD stage 3 - Uncontrolled diabetes mellitus - Hypertension - History of amputation, 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 Mychal Russo is a 59-year-old male with a history of uncontrolled diabetes mellitus, hypertension, CKD stage 3, and prior right 2nd and 5th toe amputations. He presents with sudden onset of fever (up to 102.9F), chills, nasal congestion, headache, poor oral intake, and urinary urgency, and was admitted for sepsis. On exam, notable for right foot 4th toe ulcer (plantar base) with ongoing drainage and erythema; X-ray of right foot demonstrates bony change of the fourth metatarsal concerning for osteomyelitis. Laboratory evaluation reveals WBC 10.8 (81% neutrophils), platelet count 57, Hgb 15.9, sodium 135, BUN 43, creatinine 2.3 (similar to baseline), glucose 169. Oxygen saturation 96% on room air. Chest imaging suggests possible pneumonia in the left lung base. CT head without acute findings. Urinalysis without pyuria, negative COVID test. Patient was initiated on empiric ceftriaxone and vancomycin. Blood cultures to date show no growth. Patient is clinically stabilizing with fluids and antibiotics. 11/30: hemoglobin A1C is 7.9 , blood sugars as high as 300s during this septic episode and whitecount is at 73 . Foot mri shows bone marrow edema in proximal 4th metatarsal bone with cortical thickening this appearance may represent severe arthritis of metatarsals , acute on chronic osteomyelitis is not excluded . plantar soft tissue swelling , non specific bone marrow represents cellulitis , no fluid collection, edema in 5th metatarsal non specific may also represent stress reaction . patient underwent debridement on 11/29 and Mr Sharon found that there was area fluctuant on right metatarsal deep into the level of the abscess to the level of the bone and prelance consistent with pus. deep cultures were taken and bone biopsy was sent 12/01: operative cultures show gram positive cocci Plan: - recommend addition of daptomycin until culture sensitives return - recommend additional debridement at time for Dr Osborn to close due to fevers - in postoperative period likely hypoglycemic and doesn't need as much insulin and agree with D50 to resuscitate blood sugars - follow up on operative and blood cultures - Continue ceftriaxone at present. - Hold escalation/adjustment of [id number] therapy pending MRI confirmation of osteomyelitis. - Recommend MRI of right foot to evaluate for osteomyelitis. - Recommend general surgery consult for possible debridement of right 4th toe. If debridement is performed, collect aerobic and anaerobic cultures of bone and tissue. - Monitor for ongoing signs of sepsis; consider addition of daptomycin if clinical situation warrants. - Check hemoglobin A1c. - Monitor blood cultures. - Supportive care: maintain glycemic control, fluid resuscitation as needed. - Monitor kidney function, platelets. - Continue to follow while inpatient. Isolation Precautions: Standard Plan discussed with: Other Dietary Evaluation Review Recommendations by RD: Dietary education by RD Comments: Recommend intenstional weightloss of 30 lbs thru diet and exercises Expected Outcomes/Goals: Intentional loss of weight can help better control of NIDDM and CKD Interpretation of weight loss: >10% in 6 months SARAH VARGAS MD December 03, 2024 07:53
--- NOTE | 2024-12-03 07:53 | DVHINCON2 ---
Date of service: November 29, 2024 Family History: Diabetes mellitus G8 MOTHER G8 FATHER Hypertension G8 MOTHER G8 FATHER Allergies: Coded Allergies: Acetaminophen (Verified Adverse Reaction, Severe, MAKES HIM VOMIT, 11/27/24) Hydrocodone (Verified Adverse Reaction, Severe, MAKES HIM VOMIT, 11/27/24) Home Meds Active Scripts Rifampin (Rifampin) 300 Mg Cap, 300 MG PO BID PRN for 42 Days, #84 CAP Prov:SARAH ÁLVAREZ MD 12/03/24 Allopurinol (Allopurinol) 300 Mg Tab, 200 MG PO DAILY for 90 Days, #60 TAB Prov:DAVID ÁLVAREZ MD 09/06/24 Pantoprazole Sodium Sesquihydr (Pantoprazole Sodium) 40 Mg Tab, 40 MG PO DAILY for 90 Days, #90 TAB Prov:DAVID ÁLVAREZ MD 03/29/21 Gabapentin (Gabapentin) 100 Mg Cap, 100 MG PO Q8H for 30 Days, #90 CAP Prov:DAVID ÁLVAREZ MD 03/29/21 Cholecalciferol (Vitamin D3 Super Strength) 2,000 Unit Cap, 4000 UNIT PO DAILY for 100 Days, #100 CAP Prov:DAVID ÁLVAREZ MD 03/29/21 Atorvastatin Calcium (ATORVASTATIN CALCIUM) 20 Mg Tab, 40 MG PO HS for 90 Days, #180 TAB Prov:DAVID ÁLVAREZ MD 03/29/21 Aspirin (Aspir-Low) 81 Mg Tab, 81 MG PO QPM for 90 Days, #90 TAB Prov:DAVID ÁLVAREZ MD 03/29/21 Reported Medications Insulin Lispro Protamine & Lis (Humalog Mix 75/25 Kwikpen) 75 Mg/25 Kwp Inj, SC 09/03/24 Insulin Lispro (Humalog Salvatore Kwikpen) 100 Unit/Ml Inj, SC 09/03/24 Torsemide (Torsemide) 20 Mg Tab, 40 MG PO, MG 09/17/22 Tamsulosin Hcl (Tamsulosin Hcl) 0.4 Mg Cap, 0.4 MG PO QPM for 30 Days, MG 09/17/22 Amlodipine Besylate (Amlodipine Besylate) 5 Mg Tab, 10 MG PO DAILY for 30 Days, MG 09/17/22 Lisinopril (Lisinopril) 5 Mg Tab, 5 MG PO DAILY for 30 Days, MG 09/17/22 Hydralazine Hcl (Hydralazine Hcl) 25 Mg Tab, 25 MG PO TID for 30 Days, MG 09/17/22 Current Medications Current Medications Medications (Trade) Dose Ordered Sig/Andrea Route PRN Reason Start Time Stop Time Status Last Admin Insulin Glargine (Lantus) 15 units QAM SC 12/02/24 11:45 12/03/24 06:29 Hydralazine HCl (Apresoline Tablet) 50 mg TID PO 12/02/24 13:00 12/03/24 05:13 Lisinopril (Zestril Tablet) 2.5 mg DAILY PO 12/02/24 13:00 12/02/24 17:08 DC Vital Signs Vital Signs Date Time Temp Pulse Resp B/P (MAP) Pulse Ox O2 Delivery O2 Flow Rate FiO2 12/03/24 05:13 126/77 12/03/24 05:00 97.2 83 18 99 97.2 12/02/24 20:00 Room Air* 0 21 Labs/Diagnostic Data Labs Test 12/03/24 06:03 12/01/24 05:20 11/29/24 07:21 11/27/24 20:05 Range/Units POC Glucose 207 H 70-106 mg/dl White Blood Count 7.3 # 4.4-10.8 10^3/uL Red Blood Count 5.09 4.5-5.90 10^6/uL Hemoglobin 13.7 13.5-17.5 g/dL Hematocrit 42.3 41.0-53.0 % Mean Corpuscular Volume 83.2 80.0-100.0 fL Mean Corpuscular Hemoglobin 26.9 L 28.0-32.0 pg Mean Corpuscular Hemoglobin Concent 32.3 32.0-36.0 g/dL Red Cell Distribution Width 15.5 H 11.8-14.3 % Platelet Count 230 140-450 10^3/uL Mean Platelet Volume 8.7 6.9-10.8 fL Neutrophils (%) (Auto) 57.6 37.0-80.0 % Lymphocytes (%) (Auto) 26.9 10.0-50.0 % Monocytes (%) (Auto) 12.6 H 0.0-12.0 % Eosinophils (%) (Auto) 2.3 0.0-7.0 % Basophils (%) (Auto) 0.6 0.0-2.0 % Neutrophils # (Auto) 4.2 1.6-8.6 10 ^3/uL Lymphocytes # (Auto) 2.0 0.4-5.4 10 ^3/uL Monocytes # (Auto) 0.9 0-1.3 10 ^3/uL Eosinophils # (Auto) 0.2 0-0.8 10 ^3/uL Basophils # (Auto) 0 0-0.2 10 ^3/uL Nucleated Red Blood Cells 0.1 % Sodium Level 139 136-145 mmol/L Potassium Level 4.0 3.5-5.1 mmol/L Chloride Level 107 98-107 mmol/L Carbon Dioxide Level 23 20-31 mmol/L Anion Gap 9 5-15 Blood Urea Nitrogen 52 H 9-23 mg/dL Creatinine 3.02 H 0.700-1.30 mg/dL Glomerular Filtration Rate Calc 23 >90 mL/min BUN/Creatinine Ratio 17.2 10.0-20.0 Serum Glucose 341 H 74-106 mg/dL Calcium Level 8.7 8.7-10.4 mg/dL Total Bilirubin 0.2 0.2-1.0 mg/dL Aspartate Amino Transferase (AST) < 8 L 13-40 U/L Alanine Aminotransferase (ALT) < 9 7-40 U/L Alkaline Phosphatase 82 46-116 U/L Total Protein 6.0 5.7-8.2 g/dL Albumin 3.4 3.2-4.8 g/dL Prothrombin Time 10.6 9.3-11.8 sec Prothrombin Time INR 1.00 0.9-1.15 Activated Partial Thromboplast Time 28.9 24.5-34.5 SEC SARS-CoV-2 Antigen (Rapid) Negative NEGATIVE Test 11/27/24 19:00 11/27/24 16:10 Range/Units Urine Color Colorless Yellow Urine Clarity Clear Clear Urine pH 5.5 5.0-9.0 Urine Specific [place] 1.008 1.001-1.035 Urine Protein 1+ H Negative Urine Ketones Negative Negative Urine Blood Trace H Negative /uL Urine Nitrite Negative Negative Urine Bilirubin Negative Negative Urine Urobilinogen Normal Negative mg/dL Urine Leukocyte Esterase Negative Negative /uL Urine RBC 1 0 - 3 /hpf Urine Microscopic WBC 1 0-3 /HPF Urine Squamous Epithelial Cells None seen <5 /hpf Urine Bacteria None seen None Seen /hpf Urine Glucose 4+ H Normal mg/dL Hemoglobin A1c 7.9 H <5.7 % A1C C-Reactive Protein High Sensitivity 1.61 H <1.0 mg/dL Microbiology Date/Time Source Procedure Growth Status 11/29/24 13:27 Foot Right Gram Stain - Final Resulted 11/29/24 13:27 Foot Right Anaerobic Culture - Preliminary Resulted 11/29/24 13:27 Aerobic Culture - Final Staphylococcus aureus Resulted 11/27/24 22:15 Blood Blood Culture - Final NO GROWTH AFTER 5 DAYS OF INCUBATION. 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 Mychal Russo is a 59-year-old male with a history of uncontrolled diabetes mellitus, hypertension, CKD stage 3, and prior right 2nd and 5th toe amputations. He presents with sudden onset of fever (up to 102.9F), chills, nasal congestion, headache, poor oral intake, and urinary urgency, and was admitted for sepsis. On exam, notable for right foot 4th toe ulcer (plantar base) with ongoing drainage and erythema; X-ray of right foot demonstrates bony change of the fourth metatarsal concerning for osteomyelitis. Laboratory evaluation reveals WBC 10.8 (81% neutrophils), platelet count 57, Hgb 15.9, sodium 135, BUN 43, creatinine 2.3 (similar to baseline), glucose 169. Oxygen saturation 96% on room air. Chest imaging suggests possible pneumonia in the left lung base. CT head without acute findings. Urinalysis without pyuria, negative COVID test. Patient was initiated on empiric ceftriaxone and vancomycin. Blood cultures to date show no growth. Patient is clinically stabilizing with fluids and antibiotics. Plan: - Continue ceftriaxone at present. - Hold escalation/adjustment of [id number] therapy pending MRI confirmation of osteomyelitis. - Recommend MRI of right foot to evaluate for osteomyelitis. - Recommend general surgery consult for possible debridement of right 4th toe. If debridement is performed, collect aerobic and anaerobic cultures of bone and tissue. - Monitor for ongoing signs of sepsis; consider addition of daptomycin if clinical situation warrants. - Check hemoglobin A1c. - Monitor blood cultures. - Supportive care: maintain glycemic control, fluid resuscitation as needed. - Monitor kidney function, platelets. - Continue to follow while inpatient. Isolation Precautions: Standard Assessment and plan discussed with the patient as written above. Plan subject to change pending new information or diagnostics. Updates may be added as addendum. Thank you for consultation. ID will continue to follow. Please contact Infectious Disease for any questions or concerns. Sarah Álvarez M.D. [facility]: ? History: The patient's chart and medications were reviewed in detail and the patient was seen and examined. History obtained from: patient Mr. Mychal Russo is a 59-year-old male with uncontrolled diabetes mellitus, hypertension, CKD stage 3, and a history of gout and prior right 2nd and 5th toe amputations. He presents with sudden onset of fever, chills, nasal congestion, headache, poor PO intake, and urinary urgency. Noted right foot 4th toe ulcer with ongoing drainage and erythema; longstanding issues with chronic foot wounds. Admitted for sepsis; concern for possible left lower lobe pneumonia and right foot osteomyelitis. Review of Systems: A complete 10-system review of systems was completed and negative except as noted in the HPI or here. - CONSTITUTIONAL: Fever, chills present. Denies weight loss. - HEENT: Nasal congestion, headache. Denies changes in vision and hearing. - RESPIRATORY: Denies cough; possible left lower lobe pneumonia. - CARDIOVASCULAR: Denies chest pain and palpitations. - GASTROINTESTINAL: Poor oral intake. Denies abdominal pain, nausea, vomiting, or diarrhea. - GENITOURINARY: Urinary urgency. Denies dysuria or frequency. - MUSCULOSKELETAL: Right foot 4th toe ulcer with drainage and erythema. History of gout. Denies myalgia or other joint pain. - SKIN: Right foot ulceration with drainage and erythema. Denies generalized rash or pruritus. - NEUROLOGICAL: Denies syncope. - PSYCHIATRIC: Not discussed. Past Medical History: - Uncontrolled diabetes mellitus - Hypertension - Chronic kidney disease, stage 3 - Gouty arthritis Past Surgical History: - Amputation of right 2nd and 5th toes Home Medications: - Allopurinol - Gabapentin - Pantoprazole - Calcitriol (assumed correction of "calcipherol" based on context) - Atorvastatin - Aspirin - Insulin - Nitroglycerin Dosing, frequency, and routes not detailed in transcript. Allergies: Not provided in transcript. Family History: Not provided in transcript. Social History: - Never smoked - No alcohol use - Lives with daughter - Former hazmat cdl a driver - Other details not provided Objective: Vital Signs on Arrival: - Temp: 102.9F - BP: 147/92 mmHg - Pulse: 101 bpm - Resp: 16/min - SpO2: 96% on room air Most Recent Vital Signs: Not provided in transcript. Admission Weight: Not provided in transcript. Physical Exam: General: Appears weak and diaphoretic Neck: Supple. No masses. HEENT: PERRL. Normal lids and conjunctiva. Moist mucous membranes. Oropharynx without lesions, exudates or excessive erythema. Normal appearance of the external aspects of the nose and ears. Heart: Regular rhythm, normal rate. No murmur. No lower extremity edema. Lungs: Normal respiratory effort. Clear to auscultation bilaterally. No wheezes. No crackles. Abdomen: Soft. Non-tender. Non-distended. No masses or abdominal hernia. Msk: Right foot 4th toe plantar base ulcer with drainage and erythema. No digital cyanosis. Normal strength and tone in all other limbs. Skin: Warm and dry, no generalized rashes. Localized erythema and drainage at right foot 4th toe. Neuro: Alert. No facial droop or slurred speech. Extra-ocular movements intact. Sensation intact to soft touch in all four limbs. Psych: Appropriate mood. Full affect. Oriented to person, place, time, and situation. Lines: Not provided in transcript. Diagnostic Studies: Significant relevant results below; all available studies personally reviewed. Pertinent Imaging: - Right foot X-ray: Bony change in the fourth metatarsal concerning for osteomyelitis. - CT head without contrast: No acute intracranial abnormality. - Chest imaging: Possible left lung base pneumonia. Laboratory: - WBC: 10.8 (81% neutrophils) - Hemoglobin: 15.9 - Platelets: 57 - Sodium: 135 BUN: 43 - Creatinine: 2.3 (noted as baseline) - Glucose: 169 - Urinalysis: No pyuria - COVID: Negative - Blood cultures: No growth to date Other Studies: Not provided in transcript. Plan discussed with: Patient SARAH ÁLVAREZ MD December 03, 2024 07:52
--- NOTE | 2024-12-03 11:02 | DVHINCON2 ---
Date of service: December 03, [address] Álvarez Reason for Consultation Elevated creatinine History of Present Illness This is a 59-year-old male with history of Chronic kidney disease stage IIIB secondary to diabetes, hypertension admitted because of high fever with chills. In the emergency room patient noted to have a temperature of 102.9 F. patient also noted to have nonhealing ulcer at the base of right 4th metatarsal. X-ray of the foot was concerning for osteomyelitis. Patient was admitted. Evaluated by Podiatry. Patient underwent right foot I and D and partial ray amputation of the 4th metatarsal. On IV antibiotics. Nephrology consulted because of rising creatinine. Baseline creatinine is between 2.3-2.5. Patient seen and examined at bedside. No complaints. Past Medical History Hypertension Type 2 diabetes Coronary artery disease Congestive heart failure Nonhealing diabetic foot ulcer Past Surgical History Status post amputation of right 4th metatarsal Family History: Diabetes mellitus G8 MOTHER G8 FATHER Hypertension G8 MOTHER G8 FATHER Family History Diabetes mellitus G8 MOTHER G8 FATHER Hypertension G8 MOTHER G8 FATHER Social History Social History Single, , works as a freight delivery driver, currently lives with his daughter, History of cigarette/e-cigarette/marijuana smoking: Denies History of alcohol drinking:: Social and sober drinking History of substance abuse: Denies Allergies: Coded Allergies: Acetaminophen (Verified Adverse Reaction, Severe, MAKES HIM VOMIT, 11/27/24) Hydrocodone (Verified Adverse Reaction, Severe, MAKES HIM VOMIT, 11/27/24) Home Meds Active Scripts Allopurinol (Allopurinol) 300 Mg Tab, 200 MG PO DAILY for 90 Days, #60 TAB Prov:DAVID ÁLVAREZ MD 09/06/24 Pantoprazole Sodium Sesquihydr (Pantoprazole Sodium) 40 Mg Tab, 40 MG PO DAILY for 90 Days, #90 TAB Prov:DAVID ÁLVAREZ MD 03/29/21 Gabapentin (Gabapentin) 100 Mg Cap, 100 MG PO Q8H for 30 Days, #90 CAP Prov:DAVID ÁLVAREZ MD 03/29/21 Cholecalciferol (Vitamin D3 Super Strength) 2,000 Unit Cap, 4000 UNIT PO DAILY for 100 Days, #100 CAP Prov:DAVID ÁLVAREZ MD 03/29/21 Atorvastatin Calcium (ATORVASTATIN CALCIUM) 20 Mg Tab, 40 MG PO HS for 90 Days, #180 TAB Prov:DAVID ÁLVAREZ MD 03/29/21 Aspirin (Aspir-Low) 81 Mg Tab, 81 MG PO QPM for 90 Days, #90 TAB Prov:DAVID ÁLVAREZ MD 03/29/21 Reported Medications Insulin Lispro Protamine & Lis (Humalog Mix 75/25 Kwikpen) 75 Mg/25 Kwp Inj, SC 09/03/24 Insulin Lispro (Humalog Salvatore Kwikpen) 100 Unit/Ml Inj, SC 09/03/24 Torsemide (Torsemide) 20 Mg Tab, 40 MG PO, MG 09/17/22 Tamsulosin Hcl (Tamsulosin Hcl) 0.4 Mg Cap, 0.4 MG PO QPM for 30 Days, MG 09/17/22 Amlodipine Besylate (Amlodipine Besylate) 5 Mg Tab, 10 MG PO DAILY for 30 Days, MG 09/17/22 Lisinopril (Lisinopril) 5 Mg Tab, 5 MG PO DAILY for 30 Days, MG 09/17/22 Hydralazine Hcl (Hydralazine Hcl) 25 Mg Tab, 25 MG PO TID for 30 Days, MG 09/17/22 Current Medications Current Medications Medications (Trade) Dose Ordered Sig/Andrea Route PRN Reason Start Time Stop Time Status Last Admin Insulin Glargine (Lantus) 15 units QAM SC 12/02/24 11:45 12/03/24 06:29 Hydralazine HCl (Apresoline Tablet) 50 mg TID PO 12/02/24 13:00 12/03/24 05:13 Lisinopril (Zestril Tablet) 2.5 mg DAILY PO 12/02/24 13:00 12/02/24 17:08 DC Cefazolin Sodium 50 ml @ 100 mls/hr Q12H IV 12/03/24 22:00 Review of Systems 12 point review of system negative except as stated in the HPI Vital Signs Vital Signs Date Time Temp Pulse Resp B/P (MAP) Pulse Ox O2 Delivery O2 Flow Rate FiO2 12/03/24 10:35 128/75 12/03/24 09:00 98.3 82 18 96 98.3 12/03/24 08:00 Room Air* 0 21 Physical Exam Awake alert oriented x3 HEENT: Normocephalic, no JVD Lungs: Bilateral good air entry CVS: S1, S2 regular rate rhythm Abdomen: Soft, bowel sounds present BI ANALYST: No focal deficits Extremities: Right foot status post surgery. Currently in bandages. No edema to left lower extremity Labs/Diagnostic Data Labs Test 12/03/24 10:38 12/01/24 05:20 11/29/24 07:21 11/27/24 20:05 Range/Units POC Glucose 226 H 70-106 mg/dl White Blood Count 7.3 # 4.4-10.8 10^3/uL Red Blood Count 5.09 4.5-5.90 10^6/uL Hemoglobin 13.7 13.5-17.5 g/dL Hematocrit 42.3 41.0-53.0 % Mean Corpuscular Volume 83.2 80.0-100.0 fL Mean Corpuscular Hemoglobin 26.9 L 28.0-32.0 pg Mean Corpuscular Hemoglobin Concent 32.3 32.0-36.0 g/dL Red Cell Distribution Width 15.5 H 11.8-14.3 % Platelet Count 230 140-450 10^3/uL Mean Platelet Volume 8.7 6.9-10.8 fL Neutrophils (%) (Auto) 57.6 37.0-80.0 % Lymphocytes (%) (Auto) 26.9 10.0-50.0 % Monocytes (%) (Auto) 12.6 H 0.0-12.0 % Eosinophils (%) (Auto) 2.3 0.0-7.0 % Basophils (%) (Auto) 0.6 0.0-2.0 % Neutrophils # (Auto) 4.2 1.6-8.6 10 ^3/uL Lymphocytes # (Auto) 2.0 0.4-5.4 10 ^3/uL Monocytes # (Auto) 0.9 0-1.3 10 ^3/uL Eosinophils # (Auto) 0.2 0-0.8 10 ^3/uL Basophils # (Auto) 0 0-0.2 10 ^3/uL Nucleated Red Blood Cells 0.1 % Sodium Level 139 136-145 mmol/L Potassium Level 4.0 3.5-5.1 mmol/L Chloride Level 107 98-107 mmol/L Carbon Dioxide Level 23 20-31 mmol/L Anion Gap 9 5-15 Blood Urea Nitrogen 52 H 9-23 mg/dL Creatinine 3.02 H 0.700-1.30 mg/dL Glomerular Filtration Rate Calc 23 >90 mL/min BUN/Creatinine Ratio 17.2 10.0-20.0 Serum Glucose 341 H 74-106 mg/dL Calcium Level 8.7 8.7-10.4 mg/dL Total Bilirubin 0.2 0.2-1.0 mg/dL Aspartate Amino Transferase (AST) < 8 L 13-40 U/L Alanine Aminotransferase (ALT) < 9 7-40 U/L Alkaline Phosphatase 82 46-116 U/L Total Protein 6.0 5.7-8.2 g/dL Albumin 3.4 3.2-4.8 g/dL Prothrombin Time 10.6 9.3-11.8 sec Prothrombin Time INR 1.00 0.9-1.15 Activated Partial Thromboplast Time 28.9 24.5-34.5 SEC SARS-CoV-2 Antigen (Rapid) Negative NEGATIVE Test 11/27/24 19:00 11/27/24 16:10 Range/Units Urine Color Colorless Yellow Urine Clarity Clear Clear Urine pH 5.5 5.0-9.0 Urine Specific [place] 1.008 1.001-1.035 Urine Protein 1+ H Negative Urine Ketones Negative Negative Urine Blood Trace H Negative /uL Urine Nitrite Negative Negative Urine Bilirubin Negative Negative Urine Urobilinogen Normal Negative mg/dL Urine Leukocyte Esterase Negative Negative /uL Urine RBC 1 0 - 3 /hpf Urine Microscopic WBC 1 0-3 /HPF Urine Squamous Epithelial Cells None seen <5 /hpf Urine Bacteria None seen None Seen /hpf Urine Glucose 4+ H Normal mg/dL Hemoglobin A1c 7.9 H <5.7 % A1C C-Reactive Protein High Sensitivity 1.61 H <1.0 mg/dL Microbiology Date/Time Source Procedure Growth Status 11/29/24 13:27 Foot Right Gram Stain - Final Resulted 11/29/24 13:27 Foot Right Anaerobic Culture - Preliminary Resulted 11/29/24 13:27 Aerobic Culture - Final Staphylococcus aureus Resulted 11/27/24 22:15 Blood Blood Culture - Final NO GROWTH AFTER 5 DAYS OF INCUBATION. Complete Assessment AARON superimposed on Chronic kidney disease stage IIIB Right foot osteomyelitis Status post I and D of the right foot and partial ray amputation of 4th metatarsal Poorly controlled diabetes Hypertension History of coronary artery disease Plan/Recommendation Continue with IV antibiotics. Patient status post tunneled PICC line. Awaiting arrangements for home antibiotics. Discontinue lisinopril and torsemide for now. Hold off on SGLT2 inhibitors We will follow up on labs Plan discussed with: Patient DARSHAN MARTINEZ MD December 03, 2024 11:02
[2024-12-03] MEDS: ceFAZolin 2 GM/D5W50ml 50 ML IV ONE (14:28)
--- NOTE | 2024-12-03 14:49 | DVHPN2 ---
Progress Note - Dictate Date Seen: December 03, 2024 Has the PT tested + for MRSA If YES, has PT been informed?: No Medical Necessity Reason Pt with a Central, PICC or Fol: No Medical Necessity Reason Nephrology consult Home IV antibiotics arrangement Discharge planning Subjective The patient is seen on postop day 2 of his receiving I & D, partial amputation of R for metatarsal For diagnosis of osteomyelitis based on MRI findings The patient remains hemodynamically stable, afebrile for past 24 hours * Case is discussed with Dr. Juliano Álvarez ID-revised IV antibiotics to IV Ancef * Patient recommended to receive IV Ancef as home IV antibiotics-order has been placed * Moreover noted to have worsening of serum creatinine value * The patient has been seen by Dr. Fernandez, Nephrology * Her input and recommendations are being followed * Social Service has been working on arranging home IV antibiotics * His diabetes remains under fair to poor control * Dose of injection Lantus has been adjusted Overnight events are reviewed through medical chart and case discussion with patient's assigned RN while making rounds on patient on the day of service vital signs Vital Sign Date Time Temp Pulse Resp B/P (MAP) Pulse Ox O2 Delivery O2 Flow Rate FiO2 12/03/24 14:27 151/91 12/03/24 13:00 98.5 79 18 98 98.5 12/03/24 08:00 Room Air* 0 21 Total Intake and Output 12/02/24 12/02/24 12/03/24 15:00 23:00 07:00 Intake Total 50 ml 700 ml 1700 ml Output Total 1750 ml 600 ml Balance 50 ml -1050 ml 1100 ml medications Current Medications Medications Dose Ordered Sig/Andrea Route Start Time Stop Time Status Last Admin Dose Admin Nitroglycerin 0.4 mg Q5MINP PRN SL 11/27/24 22:00 Morphine Sulfate 2 mg Q30M PRN IV 11/27/24 22:00 Amlodipine Besylate 5 mg DAILY PO 11/28/24 10:00 12/03/24 10:35 5 MG Aspirin 81 mg QPM PO 11/28/24 18:00 12/02/24 18:12 81 MG Atorvastatin Calcium 40 mg HS PO 11/27/24 22:00 12/02/24 21:59 40 MG Gabapentin 100 mg Q8H PO 11/27/24 22:00 12/03/24 14:26 100 MG Pantoprazole Sodium 40 mg DAILY PO 11/28/24 10:00 12/03/24 10:35 40 MG Tamsulosin HCl 0.4 mg QPM PO 11/28/24 18:00 12/02/24 18:12 0.4 MG Acetaminophen 500 mg Q4HPRN PRN PO 11/27/24 22:15 11/29/24 22:37 500 MG Diagnostic Test (Pha) 1 strip ACHS 11/28/24 11:30 12/03/24 11:39 1 STRIP Insulin Human Lispro 5 units AC SC 11/28/24 11:30 12/03/24 11:38 5 UNITS Insulin Human Lispro AC SC 11/30/24 07:00 12/03/24 11:39 5 UNITS Insulin Human Lispro HS SC 11/30/24 22:00 12/02/24 22:02 8 UNITS Sodium Chloride 1,000 ml @ 15 mls/hr Q24H IV 11/30/24 23:15 Dextrose 50 ml PRN PRN IV 12/01/24 09:45 12/01/24 09:48 50 ML Insulin Glargine 15 units QAM SC 12/02/24 11:45 12/03/24 06:29 15 UNITS Hydralazine HCl 50 mg TID PO 12/02/24 13:00 12/03/24 14:27 50 MG Cefazolin Sodium 50 ml @ 100 mls/hr Q12H IV 12/03/24 22:00 objective Physical exam General appearance: Well-developed, obese male appears generally weak Awake alert oriented x3 no respiratory distress Head: Normocephalic nontraumatic Eyes: EOMI, CHANEL, sclera nonicteric, conjunctive- pale+1 ENT: Bilateral maxillary sinus congestion, NSL bilateral symmetrical, TM-mildly hyperemic, oral mucosa dry +1 Fundoscopy-grade 2 av changes Neck: Supple, carotid upstroke +2, trachea midline, JVD-3 cm No thyroid or lymph node, C spine- Full ROM No use of sternomastoid muscle Chest: Bilateral symmetrical expansions, No costochondral tenderness Lungs: clear breath sounds all over anterior lung sadler Reduced BS, a few late inspiratory rales at L base> R base CVS: PMI-1 cm lateral to L MCL in fifth ICS , S1- S2 NSR no S3 GI: Abdomen soft, obese+1, bowel sounds normoactive, no mass no hernia No focal/rebound tenderness, No hepatosplenomegaly, , : No CVA tenderness, no bladder mass palpable, genitalia-NE SKIN: Turgor dry, color pale+1, no rash, no icterus, No varicosity, no ulcers or wounds EXTs: edema +0, RLE surgically dressed distal pulses +2 capillary refill <2 seconds, no open wounds JOINTS: Reduced range at bilateral knees BACK: No apparent lumbosacral spinal muscle tenderness, LYMPH NODES: No cervical, axillary or inguinal lymph nodes Neuro: Awake alert oriented 4, coherent, all cognitives- intact No pronator drift, no focal motor deficit, Changes of DPN present, DTR +2, gait steady PSYCH: Affect mildly depressed-denies suicidal ideation Wounds Wounds -status post debridement, I and D of R foot-surgically dressed laboratory and microbiology Laboratory Tests 12/01/24 05:20 Test 12/01/24 05:20 Range/Units Serum Glucose 341 H 74-106 mg/dL Problem List Primary Diagnosis 1. Osteomyelitis of R foot 2. R diabetic foot complicated by abscess 3. Acute kidney injury on CKD from a. Hypovolemia 4. Fairly well-controlled NIDDM hypertension 2' Diagnosis/Comorbidities. Exogenous obesity in adult with current BMI > 30-35 kg per m2 Assessment/Plan Medical decision making Overall patient's general condition remains hemodynamically stable, afebrile on post op day 2 of his receiving incision drainage and partial resection of R 4th ray. * No delayed postop complications * His wound cultures have grown staph aureus sensitive to methyl penicillin * Patient is recommended IV Ancef by Dr. Juliano Álvarez MD * clinical services professional are helping to arrange for home IV antibiotics * Case is discussed with patient's assigned RN * For worsening of serum creatinine, the patient has been seen by Dr. fernandez * She recommended patient to be off lisinopril and torsemide * Her recommendations are being followed * Noted uncontrolled diabetes with hyperglycemia Blood sugar was high for 293 mg/dL Recommended higher dose of injection Lantus and Humalog through sliding scale Case is discussed with pharmacy Treatment plans as of today Consider discharge planning today provided patient receives supply of IV antibiotics at home Started patient on IV Ancef Continue injection Lantus and Humalog for diabetes Continue daily wound care Continue Eliane PUGH lisinopril and torsemide Reviewed input of Dr. Arango nephrology for rising creatinine Reviewed results of MRI R foot Accu-Chek q.a.c. and HS VTE precautions Update patient The patient is well informed by me about 1. Clinical impression, treatment plans, side effects of medications, course of the disease and fair prognosis 2. All patient's question/ concerns raised by patient are satisfactorily addressed by me Dietary Evaluation Review Recommendations by RD: Dietary education by RD Comments: Recommend intenstional weightloss of 30 lbs thru diet and exercises Expected Outcomes/Goals: Intentional loss of weight can help better control of NIDDM and CKD Interpretation of weight loss: >10% in 6 months Plan discussed with: Patient Total Time (mins): 45 DAVID ÁLVAREZ MD December 03, 2024 14:49
--- NOTE | 2024-12-03 18:12 | DVHPN2 ---
Consult Progress Note Date Seen: Dec 04, 2024 Subjective Patient reports: Feels better (no diarrhra or rash) Objective vital signs Vital Sign Date Time Temp Pulse Resp B/P (MAP) Pulse Ox O2 Delivery O2 Flow Rate FiO2 12/03/24 17:00 99.0 83 18 124/78 (93) 96 99.0 12/03/24 08:00 Room Air* 0 21 Total Intake and Output 12/02/24 12/02/24 12/03/24 15:00 23:00 07:00 Intake Total 50 ml 700 ml 1700 ml Output Total 1750 ml 600 ml Balance 50 ml -1050 ml 1100 ml medications Current Medications Medications Dose Ordered Sig/Andrea Route Start Time Stop Time Status Last Admin Dose Admin Nitroglycerin 0.4 mg Q5MINP PRN SL 11/27/24 22:00 Morphine Sulfate 2 mg Q30M PRN IV 11/27/24 22:00 Amlodipine Besylate 5 mg DAILY PO 11/28/24 10:00 12/03/24 10:35 5 MG Aspirin 81 mg QPM PO 11/28/24 18:00 12/03/24 17:26 81 MG Atorvastatin Calcium 40 mg HS PO 11/27/24 22:00 12/02/24 21:59 40 MG Gabapentin 100 mg Q8H PO 11/27/24 22:00 12/03/24 14:26 100 MG Pantoprazole Sodium 40 mg DAILY PO 11/28/24 10:00 12/03/24 10:35 40 MG Tamsulosin HCl 0.4 mg QPM PO 11/28/24 18:00 12/03/24 17:26 0.4 MG Acetaminophen 500 mg Q4HPRN PRN PO 11/27/24 22:15 11/29/24 22:37 500 MG Diagnostic Test (Pha) 1 strip ACHS 11/28/24 11:30 12/03/24 17:00 1 STRIP Insulin Human Lispro 5 units AC SC 11/28/24 11:30 12/03/24 17:32 5 UNITS Insulin Human Lispro AC SC 11/30/24 07:00 12/03/24 17:00 2 UNITS Insulin Human Lispro HS SC 11/30/24 22:00 12/02/24 22:02 8 UNITS Sodium Chloride 1,000 ml @ 15 mls/hr Q24H IV 11/30/24 23:15 Dextrose 50 ml PRN PRN IV 12/01/24 09:45 12/01/24 09:48 50 ML Insulin Glargine 15 units QAM SC 12/02/24 11:45 12/03/24 06:29 15 UNITS Hydralazine HCl 50 mg TID PO 12/02/24 13:00 12/03/24 14:27 50 MG Cefazolin Sodium 50 ml @ 100 mls/hr Q12H IV 12/03/24 22:00 Physical Exam:General: NAD, mildly diaphoreticNeck: Supple. No masses.HEENT: PERRL. Normal lids and conjunctiva. Moist mucous membranes. Oropharynx without lesions, exudates or excessive erythema. Normal appearance of the external aspects of the nose and ears.Heart: Regular rhythm, normal rate. No murmur. No lower extremity edema.Lungs: Normal respiratory effort. Scattered rhonchi. Short of breath on conversation. No wheezes. No crackles.Abdomen: Soft. Non-tender. Non-distended. No masses or abdominal hernia.Msk: No digital cyanosis. Normal strength and tone in all 4 limbsSkin: Warm and dry, no rashes.Neuro: Alert. No facial droop or slurred speech. Extra-ocular movements intact. Sensation intact to soft touch in all 4 limbs.Psych: Appropriate mood. Full affect. Oriented to person, place, time, and situation. 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 Mychal Russo is a 59-year-old male with a history of uncontrolled diabetes mellitus, hypertension, CKD stage 3, and prior right 2nd and 5th toe amputations. He presents with sudden onset of fever (up to 102.9F), chills, nasal congestion, headache, poor oral intake, and urinary urgency, and was admitted for sepsis. On exam, notable for right foot 4th toe ulcer (plantar base) with ongoing drainage and erythema; X-ray of right foot demonstrates bony change of the fourth metatarsal concerning for osteomyelitis. Laboratory evaluation reveals WBC 10.8 (81% neutrophils), platelet count 57, Hgb 15.9, sodium 135, BUN 43, creatinine 2.3 (similar to baseline), glucose 169. Oxygen saturation 96% on room air. Chest imaging suggests possible pneumonia in the left lung base. CT head without acute findings. Urinalysis without pyuria, negative COVID test. Patient was initiated on empiric ceftriaxone and vancomycin. Blood cultures to date show no growth. Patient is clinically stabilizing with fluids and antibiotics. 11/30: hemoglobin A1C is 7.9 , blood sugars as high as 300s during this septic episode and whitecount is at 73 . Foot mri shows bone marrow edema in proximal 4th metatarsal bone with cortical thickening this appearance may represent severe arthritis of metatarsals , acute on chronic osteomyelitis is not excluded . plantar soft tissue swelling , non specific bone marrow represents cellulitis , no fluid collection, edema in 5th metatarsal non specific may also represent stress reaction . patient underwent debridement on 11/29 and Mr Herrera found that there was area fluctuant on right metatarsal deep into the level of the abscess to the level of the bone and prelance consistent with pus. deep cultures were taken and bone biopsy was sent 12/01: operative cultures show gram positive cocci 12/02: s/p amputation of 4th toe and fevers appear to have improved after amputation and additional source control 12/03: has piccline in place . MSSA growing out of cultures Plan: - stop daptomycin and ceftriaxone - Start IV Ancef 4grams of continuous daily for 6 weeks - oral rifampin 300mg PO BID to complete a 6 week coarse - recommend patient follow upw ith infectious disease clinic in 4 weeks for ongoing management of antibiotic coarse - patient will need wound care at home for management of recent amputation - close follow up with primary care Dr to maintain blood sugars under 180 - recommend additional debridement at time for Dr Osborn to close due to fevers - in postoperative period likely hypoglycemic and doesn't need as much insulin and agree with D50 to resuscitate blood sugars - follow up on operative culture results - Hold escalation/adjustment of [id number] therapy pending MRI confirmation of osteomyelitis. - Recommend MRI of right foot to evaluate for osteomyelitis. - Recommend general surgery consult for possible debridement of right 4th toe. If debridement is performed, collect aerobic and anaerobic cultures of bone and tissue. - Monitor for ongoing signs of sepsis; consider addition of daptomycin if clinical situation warrants. - Check hemoglobin A1c. - Monitor blood cultures. - Supportive care: maintain glycemic control, fluid resuscitation as needed. - Monitor kidney function, platelets. - Continue to follow while inpatient. Isolation Precautions: Standard Plan discussed with: Patient Dietary Evaluation Review Recommendations by RD: Dietary education by RD Comments: 1) Initiate Dialy-Osvaldo @ 1 tb qd 2) Encourage optimal PO intake 3) Refer to outpatient RD/CDCES for diabetes education and weight management 4) Follow-up with nephrology and podiatry or othropedic surgery 5) Continue to monitor I&O, labs, and skin integrity Expected Outcomes/Goals: 1) appetite and labs to improve 2) wound to improve 3) f/u in 3-5 days Interpretation of weight loss: >10% in 6 months SARAH VARGAS MD December 03, 2024 18:12
[2024-12-03] MEDS ORDERED: RIFA300C58 PO (18:22)
[2024-12-03] MEDS: ceFAZolin 1GM/50ML 50 ML IV SCH (21:30)
[2024-12-03] MEDS: rifAMPin 300 MG CAP PO SCH (22:06)
[2024-12-04] VITALS (7 sets, daily range): BP systolic 117–142; BP diastolic 69–82; PULSE 73–82; RESP 14–18; TEMP 97.9–98.6; O2SAT 93–98
[2024-12-04 06:32] LABS: Chloride 104 mmol/L (98-107); Potassium 3.8 mmol/L (3.5-5.1); Sodium 137 mmol/L (136-145)
[2024-12-04 06:33] LABS: Anion Gap 8 (5-15); Carbon Dioxide 25 mmol/L (20-31)
[2024-12-04 06:34] LABS: Calcium 8.7 mg/dL (8.7-10.4)
[2024-12-04 06:38] LABS: BUN/Creatinine Ratio 20.4 (10.0-20.0)
[2024-12-04 06:41] LABS: Blood Urea Nitrogen 59 mg/dL (9-23); Glucose 133 mg/dL (74-106)
[2024-12-04] MEDS ORDERED: RIFA300C58 PO (12:46)
--- NOTE | 2024-12-04 13:17 | DVHDS2 ---
Discharge Summary Date of Admission November 27, 2024 at 21:52 Date of Discharge: Dec 04, 2024 Admitting Diagnosis Hyperpyrexia Wounds: Surgical wound at right foot Labs/Diagnostic Data: Laboratory Results Test 12/04/24 11:48 12/04/24 05:37 12/01/24 05:20 11/29/24 07:21 POC Glucose 232 mg/dl (70-106) Sodium Level 137 mmol/L (136-145) Potassium Level 3.8 mmol/L (3.5-5.1) Chloride Level 104 mmol/L (98-107) Carbon Dioxide Level 25 mmol/L (20-31) Anion Gap 8 (5-15) Blood Urea Nitrogen 59 mg/dL (9-23) Creatinine 2.89 mg/dL (0.700-1.30) Glomerular Filtration Rate Calc 24 mL/min (>90) BUN/Creatinine Ratio 20.4 (10.0-20.0) Serum Glucose 133 mg/dL (74-106) Calcium Level 8.7 mg/dL (8.7-10.4) White Blood Count 7.3 10^3/uL (4.4-10.8) Red Blood Count 5.09 10^6/uL (4.5-5.90) Hemoglobin 13.7 g/dL (13.5-17.5) Hematocrit 42.3 % (41.0-53.0) Mean Corpuscular Volume 83.2 fL (80.0-100.0) Mean Corpuscular Hemoglobin 26.9 pg (28.0-32.0) Mean Corpuscular Hemoglobin Concent 32.3 g/dL (32.0-36.0) Red Cell Distribution Width 15.5 % (11.8-14.3) Platelet Count 230 10^3/uL (140-450) Mean Platelet Volume 8.7 fL (6.9-10.8) Neutrophils (%) (Auto) 57.6 % (37.0-80.0) Lymphocytes (%) (Auto) 26.9 % (10.0-50.0) Monocytes (%) (Auto) 12.6 % (0.0-12.0) Eosinophils (%) (Auto) 2.3 % (0.0-7.0) Basophils (%) (Auto) 0.6 % (0.0-2.0) Neutrophils # (Auto) 4.2 10 ^3/uL (1.6-8.6) Lymphocytes # (Auto) 2.0 10 ^3/uL (0.4-5.4) Monocytes # (Auto) 0.9 10 ^3/uL (0-1.3) Eosinophils # (Auto) 0.2 10 ^3/uL (0-0.8) Basophils # (Auto) 0 10 ^3/uL (0-0.2) Nucleated Red Blood Cells 0.1 % Total Bilirubin 0.2 mg/dL (0.2-1.0) Aspartate Amino Transferase (AST) < 8 U/L (13-40) Alanine Aminotransferase (ALT) < 9 U/L (7-40) Alkaline Phosphatase 82 U/L (46-116) Total Protein 6.0 g/dL (5.7-8.2) Albumin 3.4 g/dL (3.2-4.8) Prothrombin Time 10.6 sec (9.3-11.8) Prothrombin Time INR 1.00 (0.9-1.15) Activated Partial Thromboplast Time 28.9 SEC (24.5-34.5) Test 11/27/24 20:05 11/27/24 19:00 11/27/24 16:10 SARS-CoV-2 Antigen (Rapid) Negative (NEGATIVE) Urine Color Colorless (Yellow) Urine Clarity Clear (Clear) Urine pH 5.5 (5.0-9.0) Urine Specific Louise 1.008 (1.001-1.035) Urine Protein 1+ (Negative) Urine Ketones Negative (Negative) Urine Blood Trace /uL (Negative) Urine Nitrite Negative (Negative) Urine Bilirubin Negative (Negative) Urine Urobilinogen Normal mg/dL (Negative) Urine Leukocyte Esterase Negative /uL (Negative) Urine RBC 1 /hpf (0 - 3) Urine Microscopic WBC 1 /HPF (0-3) Urine Squamous Epithelial Cells None seen /hpf (<5) Urine Bacteria None seen /hpf (None Seen) Urine Glucose 4+ mg/dL (Normal) Hemoglobin A1c 7.9 % A1C (<5.7) C-Reactive Protein High Sensitivity 1.61 mg/dL (<1.0) Other Laboratory Tests 12/04/24 05:37 12/01/24 05:20 Brief Hx & Hospital Course: History of Present Illness Mychal Russo 59-year-old middle-aged male with known history of uncontrolled diabetes Hypertension complicated by CKD stage 3b is admitted through emergency room for further eval and management of sudden onset of high fever with chills, nasal sinus congestion, Bifrontal Headache, nausea loss of appetite, poor intake, feeling malaise, as well as generally weak for past 12 hours. He was not able to retain any food. As per patient, his blood pressure at home was high at 179/98 mm. It significantly improved following to his intake of lisinopril. Upon arrival to ER, patient appeared to be generally weak hypovolemic and febrile T-max 102.9 F accompanied by tachycardia HR 101 per minute, and uncontrolled hypertension BP 147/92 mm. By physical exam patient appeared to be hypovolemic, upper respiratory congestion, and reduced breath sound at l basal lung > R base. His chest x-ray in my assessment was noted to have changes of developing pneumonitis affecting LL Base Moreover patient had nonhealing ulcer over base of R 4th metatarsal. His x-ray R foot appearance raised concern about osteomyelitis. His lab exams are reflective of upper normal total WBC count at 10.8 K with 81% neutrophils. Past Medical History Past medical records: reviewed Cardiovascular history: Known history of hypertension without acute HI/CAD Recent h/o CHF 01/20/2021- partly contributed by diastolic dysfunction and cor pulmonale, PAD Respiratory history: Obesity hypoventilation, acute hypoxic Respiratory failure [facility] 01[facility]20/2021 [facility] Gastrointestinal history: GE reflux Genitourinary history: Erectile dysfunction CKD stage 3B to IV-serum creatinine runs @ 2.3-2.6 mg/dL GFR runs between 30 to 35 mL/minute Endocrine history: Uncontrolled diabetes type 2-currently on insulin therapy Hemoglobin A1c runs around 8 % Exogenous obesity with current BMI 35.51 kg/m Neurology history: Diabetic peripheral neuropathy affecting bilateral lower extremity Musculoskeletal history: R diabetic foot-received amputation of second and fifth toe Nonhealing ulcerated callus at base of right foot for past several years Gouty arthritis Past Surgical History Surgical amputation of R fourth and second toES Multiple excisional surgical debridement of ulcerated Callous of R feet Hospital course Consults/Reason for consult Dr. Juliano Álvarez-infectious disease Dr. Wagoner-Podiatry DPM Dr. Deandre Woodard nephrology Intervention radiology Operations or Procedures Incision and drainage of R foot abscess Excision debridement and lavage of R foot Partial amputation of R 4 toe Condition at Discharge: Good Final Diagnosis/Problems List 1. Hyperpyrexia From a. Acute sinusitis b. Possible LLB pneumonitis c. Osteomyelitis of R foot 2. R diabetic foot complicated by a. Abscess of R foot b. Osteomyelitis of R foot metatarsal secondary to Staph aureus 3. Diabetes T2 uncontrolled From a. Obesity and insulin resistance b. Noncompliance with diet and medications c stress from infection/surgery 4. Acute kidney injury on CKD A. Intravascular volume depletion B. CKD from diabetes and hypertension C. Inadvertent effect of antihypertensive and diuretics 5. Fairly well-controlled hypertension 6. Exogenous obesity in adult with current BMI > 30-35 kg per m2 Discharge Disposition: Still a Patient Discharge Instruct/Medications Diet: Consistent carbohydrate, Cardiac 2g Na,low cholest Diet comment: 1800 calorie ADA diet, proteint compatible with renal failure, low-salt 2 g Activity: Light activity Activity comment: Avoid physical trauma to R foot Wear diabetics shoes all time See ribbon cutter or PMD in case of infection of R foot Follow Up/Referral: Dr. Álvarez in 1-[address] Juliano Álvarez in 1-2 weeks Medications: Please follow discharge med rec Discharge Statement: "Patient was advised to return to the ER or call 911 if any headaches, dizziness, shortness of breath, chest pain, abdominal pain, bleeding, fevers, or worsening of medical condition. Patient was counseled about treatment plan, medications, possible side effects, patientverbalized understanding. All questions were answered to the best of my ability. This discharge took greater then 30 minutes in planning, reviewing documentation, counseling the patient, and discussing with other team members." ASSESSMENT ASSESSMENT Assessment 1. Hyperpyrexia a. Acute sinusitis b. Possible pneumonitis c. Osteomyelitis of R foot 2. R diabetic foot a. Abscess of R foot b. Osteomyelitis of R foot metatarsal secondary to Staph aureus 3. Diabetes T2 uncontrolled Etiologic causes a. Obesity and insulin resistance b. Noncompliance with diet and medications c stress from infection/surgery 4. Acute kidney injury on CKD A. Intravascular volume depletion B. CKD from diabetes and hypertension C. Inadvertent effect of antihypertensive and diuretics 5. Fairly well-controlled hypertension 6. Exogenous obesity in adult with current BMI > 30-35 kg per m2 DAVID ÁLVAREZ MD Dec 04, 2024 13:16
--- NOTE | 2024-12-04 17:04 | DVHPN2 ---
Progress Note - Dictate Date Seen: Dec 04, 2024 Has the PT tested + for MRSA If YES, has PT been informed?: No Medical Necessity Reason Pt with a Central, PICC or Fol: No Subjective No acute issues overnight vital signs Vital Sign Date Time Temp Pulse Resp B/P (MAP) Pulse Ox O2 Delivery O2 Flow Rate FiO2 12/04/24 16:30 98.6 82 16 139/82 (101) 96 98.6 12/04/24 08:00 Room Air* 0 21 Total Intake and Output 12/03/24 12/03/24 12/04/24 14:59 22:59 06:59 Intake Total 2340 ml 800 ml Output Total 1800 ml Balance 540 ml 800 ml medications Current Medications Medications Dose Ordered Sig/Andrea Route Start Time Stop Time Status Last Admin Dose Admin Nitroglycerin 0.4 mg Q5MINP PRN SL 11/27/24 22:00 Morphine Sulfate 2 mg Q30M PRN IV 11/27/24 22:00 Amlodipine Besylate 5 mg DAILY PO 11/28/24 10:00 12/04/24 09:30 5 MG Aspirin 81 mg QPM PO 11/28/24 18:00 12/03/24 17:26 81 MG Atorvastatin Calcium 40 mg HS PO 11/27/24 22:00 12/03/24 21:30 40 MG Gabapentin 100 mg Q8H PO 11/27/24 22:00 12/04/24 13:38 100 MG Pantoprazole Sodium 40 mg DAILY PO 11/28/24 10:00 12/04/24 09:30 40 MG Tamsulosin HCl 0.4 mg QPM PO 11/28/24 18:00 12/03/24 17:26 0.4 MG Acetaminophen 500 mg Q4HPRN PRN PO 11/27/24 22:15 11/29/24 22:37 500 MG Diagnostic Test (Pha) 1 strip ACHS 11/28/24 11:30 12/04/24 11:30 1 STRIP Insulin Human Lispro 5 units AC SC 11/28/24 11:30 12/04/24 12:26 5 UNITS Insulin Human Lispro AC SC 11/30/24 07:00 12/04/24 11:30 5 UNITS Insulin Human Lispro HS SC 11/30/24 22:00 12/03/24 21:32 6 UNITS Sodium Chloride 1,000 ml @ 15 mls/hr Q24H IV 11/30/24 23:15 Dextrose 50 ml PRN PRN IV 12/01/24 09:45 12/01/24 09:48 50 ML Insulin Glargine 15 units QAM SC 12/02/24 11:45 12/04/24 06:14 15 UNITS Hydralazine HCl 50 mg TID PO 12/02/24 13:00 12/04/24 13:39 50 MG Cefazolin Sodium 50 ml @ 100 mls/hr Q12H IV 12/03/24 22:00 12/04/24 09:31 100 MLS/HR Rifampin 300 mg BID PO 12/03/24 22:00 12/04/24 12:16 300 MG objective Awake alert oriented x3 HEENT: Normocephalic, no JVD Lungs: Bilateral good air entry CVS: S1, S2 regular rate rhythm Abdomen: Soft, bowel sounds present APPLE PICKER: No focal deficits Extremities: Right foot status post surgery. Currently in bandages. 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 Patient being discharged home with IV antibiotics. Continue to hold Farxiga , FLORIDALMA inhibitor and Lasix for now. 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 Dietary Evaluation Review Recommendations by RD: Dietary education by RD Comments: 1) Initiate Dialy-Osvaldo @ 1 tb qd 2) Encourage optimal PO intake 3) Refer to outpatient RD/CD[facility] for diabetes education and weight management 4) Follow-up with nephrology and podiatry or othropedic surgery 5) Continue to monitor I&O, labs, and skin integrity Expected Outcomes/Goals: 1) appetite and labs to improve 2) wound to improve 3) f/u in 3-5 days Interpretation of weight loss: >10% in 6 months Plan discussed with: Patient DARSHAN MARTINEZ MD Dec 04, 2024 17:04
== END 2024-12-04 17:15 | disposition home or self-care (01) | DRG 305 ==
LOC: ER 15:43 → OVERFLOW 21:52 → TELE-EAST 23:27
PROVIDERS: ADMIT Specialist; ATTEND Specialist
PROC: 0Y9M0ZZ Drainage of Right Foot, Open Approach (ICD-10-PCS; 2024-11-29)
PROC: 0QBN0ZX Excision of Right Metatarsal, Open Approach, Diagnostic (ICD-10-PCS; principal; 2024-11-29 13:11)
PROC: 0Y6M0ZD Detachment at Right Foot, Partial 4th Ray, Open Approach (ICD-10-PCS; 2024-12-01)
PROC: 0Y9M0ZZ Drainage of Right Foot, Open Approach (ICD-10-PCS; 2024-12-01)
DX: E11.69 Type 2 diabetes mellitus with other specified complication (principal); N17.0 Acute kidney failure with tubular necrosis; J69.0 Pneumonitis due to inhalation of food and vomit; E88.819 Insulin resistance, unspecified; I13.0 Hypertensive heart and chronic kidney disease with heart failure and stage 1 through stage 4 chronic kidney disease, or unspecified chronic kidney disease; I50.9 Heart failure, unspecified; M86.8X7 Other osteomyelitis, ankle and foot; J01.00 Acute maxillary sinusitis, unspecified; L03.115 Cellulitis of right lower limb; L97.519 Non-pressure chronic ulcer of other part of right foot with unspecified severity; E11.22 Type 2 diabetes mellitus with diabetic chronic kidney disease; E86.1 Hypovolemia; E11.621 Type 2 diabetes mellitus with foot ulcer; Z20.822 Contact with and (suspected) exposure to COVID-19; E11.65 Type 2 diabetes mellitus with hyperglycemia; E86.0 Dehydration; Z68.30 Body mass index [BMI] 30.0-30.9, adult; N18.32 Chronic kidney disease, stage 3b; E66.09 Other obesity due to excess calories; J98.4 Other disorders of lung; L02.611 Cutaneous abscess of right foot; I25.10 Atherosclerotic heart disease of native coronary artery without angina pectoris; T50.2X5A Adverse effect of carbonic-anhydrase inhibitors, benzothiadiazides and other diuretics, initial encounter; K21.9 Gastro-esophageal reflux disease without esophagitis; E11.42 Type 2 diabetes mellitus with diabetic polyneuropathy; Z89.429 Acquired absence of other toe(s), unspecified side; Z91.148 Patient's other noncompliance with medication regimen for other reason; Z86.73 Personal history of transient ischemic attack (TIA), and cerebral infarction without residual deficits; Z83.3 Family history of diabetes mellitus; Z82.49 Family history of ischemic heart disease and other diseases of the circulatory system; Z79.84 Long term (current) use of oral hypoglycemic drugs; Y92.89 Other specified places as the place of occurrence of the external cause; Z79.4 Long term (current) use of insulin; Z88.8 Allergy status to other drugs, medicaments and biological substances
CPT/HCPCS: 36415; 70450; 71045; 73620; 73718; 80048; 80053; 81001; 82962; 83036; 85025; 85610; 85730; 86141; 87040; 87070; 87075; 87077; 87186; 87205; 87426; 93005; 96360; 99152; C1894; G0378; J1815; J2250; J2405; J2704; J3490; Q9967

== ENCOUNTER 2024-12-21 08:58 | Inpatient (IN) | payer MEDICAID ==
[~2024-12-21] VITALS: Ht 167.6 cm; Wt 87.4 kg
[~2024-12-21 08:58] MED LIST changes: -LISI-275 PO; +RIFA300C58 PO; -TORS20TA20 PO
--- NOTE | 2024-12-21 09:40 | ED.PDOC ---
Musculoskeletal HPI Comments 59 y.o male with PMHx of DM, CKD, HTN, and gout, presents to the ED for a chief complaint of right arm swelling x 3 days, bilateral leg swelling x 3 weeks and ongoing orthopnea. Patient denies any recent injuries, erythema, pain and has full ROM. Patient has 1+ pitting edema to the right arm and lower extremity. Patient has a PICC line to the right upper arm for osteomyelitis for right toe. No fever, chills, chest pain reported. Chief Complaint: Extremity Swelling Time Seen by MD: 09:05 Primary Care Provider: ALICIA Reviewed Notes: Nurses Notes, Medications, Allergies Allergies: Coded Allergies: Acetaminophen (Verified Adverse Reaction, Severe, MAKES HIM VOMIT, 11/27/24) Hydrocodone (Verified Adverse Reaction, Severe, MAKES HIM VOMIT, 11/27/24) Home Meds Active Scripts Rifampin (Rifampin) 300 Mg Cap, 300 MG PO BID for 42 Days, CAP Prov:DAVID VARGAS MD 12/04/24 Rifampin (Rifampin) 300 Mg Cap, 300 MG PO BID PRN for 42 Days, #84 CAP Prov:SARAH VARGAS MD 12/03/24 Allopurinol (Allopurinol) 300 Mg Tab, 200 MG PO DAILY for 90 Days, #60 TAB Prov:DAVID VARGAS MD 09/06/24 Pantoprazole Sodium Sesquihydr (Pantoprazole Sodium) 40 Mg Tab, 40 MG PO DAILY for 90 Days, #90 TAB Prov:DAVID VARGAS MD 03/29/21 Gabapentin (Gabapentin) 100 Mg Cap, 100 MG PO Q8H for 30 Days, #90 CAP Prov:DAVID VARGAS MD 03/29/21 Cholecalciferol (Vitamin D3 Super Strength) 2,000 Unit Cap, 4000 UNIT PO DAILY for 100 Days, #100 CAP Prov:DAVID VARGAS MD 03/29/21 Atorvastatin Calcium (ATORVASTATIN CALCIUM) 20 Mg Tab, 40 MG PO HS for 90 Days, #180 TAB Prov:DAVID VARGAS MD 03/29/21 Aspirin (Aspir-Low) 81 Mg Tab, 81 MG PO QPM for 90 Days, #90 TAB Prov:DAVID VARGAS MD 03/29/21 Reported Medications Insulin Lispro Protamine & Lis (Humalog Mix 75/25 Kwikpen) 75 Mg/25 Kwp Inj, SC 09/03/24 Insulin Lispro (Humalog Salvatore Kwikpen) 100 Unit/Ml Inj, SC 09/03/24 Tamsulosin Hcl (Tamsulosin Hcl) 0.4 Mg Cap, 0.4 MG PO QPM for 30 Days, MG 09/17/22 Amlodipine Besylate (Amlodipine Besylate) 5 Mg Tab, 10 MG PO DAILY for 30 Days, MG 09/17/22 Hydralazine Hcl (Hydralazine Hcl) 25 Mg Tab, 25 MG PO TID for 30 Days, MG 09/17/22 Information Source: Patient Mode of Arrival: Ambulatory Extremity Location: Arm (right ), Leg (bilateral ) Severity: Moderate Able to Move Extremity: Yes Bear Weight: Fully Pain: None Mechanism: None Circumstances: Spontaneous Onset of Symptoms: Spontaneous Symptoms: Swelling DVT Risk Factors: NONE Associated signs and symptoms: Swelling Past Medical History PAST MEDICAL HISTORY: CKF, DM, GERD, High Lipids, HTN, TIA Surgical History (Other): debridement of the right toe with partial amputation Family History Family History: Reviewed,noncontributory to illness, Family hx of DM, Family hx of HTN Social History Smoker: Non-Smoker Alcohol: Occasionally Drugs: Denies Drug Use Lives In: Home Constitutional: denies: chills, diaphoresis, fatigue, fever, malaise, sweats, weakness, others EENTM: denies: blurred vision, double vision, ear bleeding, ear discharge, ear drainage, ear pain, ear ringing, eye pain, eye redness, hearing loss, mouth pain, mouth swelling, nasal discharge, nose bleeding, nose congestion, nose pain, photophobia, tearing, throat pain, throat swelling, voice changes, others Respiratory: reports: orthopnea; denies: cough, hemoptysis, SOB at rest, shortn ess of breath, SOB with excertion, stridor, wheezing, others Cardiovascular: denies: chest pain, dizzy spells, diaphoresis, Dyspnea on exertion, edema, irregular heart beat, left arm pain, lightheadedness, palpitations, PND, syncope, others Gastrointestinal: denies: abdomen distended, abdominal pain, blood streaked bowels, constipated, diarrhea, dysphagia, difficulty swallowing, hematemesis, melena, nausea, poor appetite, poor fluid intake, rectal bleeding, rectal pain, vomiting, others Genitourinary: denies: burning, dysuria, flank pain, frequency, hematuria, incontinence, penile discharge, penile sore, pain, testicle pain, testicle swelling, urgency, others Neurological: denies: dizziness, fainting, headache, left sided numbness, left sided weakness, numbness, paresthesia, pre-existing deficit, right sided numbness, right sided weakness, seizure, speech problems, tingling, tremors, weakness, others Musculoskeletal: reports: others (right arm and lower extremity swelling. ); denies: back pain, gout, joint pain, joint swelling, muscle pain, muscle stiffness, neck pain Integumetry: denies: bruises, change in color, change in hair/nails, dryness, laceration, lesions, lumps, rash, wounds, others Allergic/Immunocompromised: denies: Difficulty Healing, Frequent Infections, Hives, Itching, others Hematologic/Lymphatic: denies: anemia, blood clots, easy bleeding, easy bruising, swollen glands, others Endocrine: denies: excessive hunger, excessive sweating, excessive thirst, excessive urination, flushing, intolerance to cold, intolerance to heat, unexplained weight gain, unexplained weight loss, others Psychiatric: denies: anxiety, bipolar disorder, depression, hopeless, panic disorder, schizophrenia, sleepless, suicidal, others All Other Systems: Reviewed and Negative Physical Exam General Appearance: No Apparent Distress, Normal HEENT: Normal ENT Inspection, Pharynx Normal, TMs Normal Neck: Full Range of Motion, Non-Tender, Normal, Normal Inspection Respiratory: Chest Non-Tender, Lungs Clear, No Accessory Muscle Use, No Respiratory Distress, Normal Breath Sounds Cardiovascular: No Edema, No JVD, No Murmur, No Gallop, Normal Peripheral Pulses, Regular Rate/Rhythm Breast Exam: Deferred Gastrointestinal: No Organomegaly, Non Tender, No Pulsatile Mass, Normal Bowel Sounds, Soft Genitalia: Deferred Pelvic: Deferred Rectal: Deferred Extremities: Swelling (1+ pitting edema to the right arm. 1+ pitting edema to bilateral legs) Musculoskeletal : Apperance: Normal Neurologic: Alert, grease remover II-XII nml as Tested, No Motor Deficits, Normal Affect, Normal Mood, No Sensory Deficits Cerebellar Function: Normal Reflexes: Normal Skin: Dry, Normal Color, Warm Lymphatic: No Adenopathy Was a procedure done? Was a procedure done?: No Differential Diagnosis EXT Differential Diagnosis: Cellulitis, Deep Vein Thrombosis, Gout, Contusion, Strain X-Ray, Labs, Meds, VS Vital Signs Date Time Temp Pulse Resp B/P (MAP) Pulse Ox O2 Delivery O2 Flow Rate FiO2 12/21/24 12:33 98.4 74 15 145/75 (98) 97 98.4 12/21/24 10:42 98.4 75 16 148/78 (101) 97 98.4 12/21/24 09:20 79 12/21/24 09:11 98.4 81 18 160/93 (115) 97 98.4 Lab Test 12/21/24 12:46 12/21/24 10:55 12/21/24 09:45 Range/Units Troponin I High Sensitivity Pending 28 26 </=54 ng/L White Blood Count 4.5 4.4-10.8 10^3/uL Red Blood Count 5.04 4.5-5.90 10^6/uL Hemoglobin 13.7 13.5-17.5 g/dL Hematocrit 40.9 L 41.0-53.0 % Mean Corpuscular Volume 81.1 80.0-100.0 fL Mean Corpuscular Hemoglobin 27.3 L 28.0-32.0 pg Mean Corpuscular Hemoglobin Concent 33.6 32.0-36.0 g/dL Red Cell Distribution Width 15.0 H 11.8-14.3 % Platelet Count 326 140-450 10^3/uL Mean Platelet Volume 7.6 6.9-10.8 fL Neutrophils (%) (Auto) 51.5 37.0-80.0 % Lymphocytes (%) (Auto) 29.8 10.0-50.0 % Monocytes (%) (Auto) 13.4 H 0.0-12.0 % Eosinophils (%) (Auto) 4.1 0.0-7.0 % Basophils (%) (Auto) 1.2 0.0-2.0 % Neutrophils # (Auto) 2.3 1.6-8.6 10 ^3/uL Lymphocytes # (Auto) 1.3 0.4-5.4 10 ^3/uL Monocytes # (Auto) 0.6 0-1.3 10 ^3/uL Eosinophils # (Auto) 0.2 0-0.8 10 ^3/uL Basophils # (Auto) 0.1 0-0.2 10 ^3/uL Nucleated Red Blood Cells 0.2 % Sodium Level 138 136-145 mmol/L Potassium Level 4.7 3.5-5.1 mmol/L Chloride Level 108 H 98-107 mmol/L Carbon Dioxide Level 22 20-31 mmol/L Anion Gap 8 5-15 Blood Urea Nitrogen 28 H 9-23 mg/dL Creatinine 1.82 H 0.700-1.30 mg/dL Glomerular Filtration Rate Calc 42 >90 mL/min BUN/Creatinine Ratio 15.4 10.0-20.0 Serum Glucose 166 H 74-106 mg/dL Calcium Level 9.4 8.7-10.4 mg/dL B-Type Natriuretic Peptide 250.86 0-100 pg/mL CHEST RADIOGRAPH Indication: extremity swelling Technique: Single frontal view of the chest was obtained COMPARISON: XY CHEST XRAY 1 VIEW on DOS: 11/27/24, XY CHEST XRAY 1 VIEW on DOS: 09/02/24, CHEST PORTABLE on DOS: 03/26/21, CXRP on DOS: 03/26/21 FINDINGS: Lines and Tubes: Tunneled right PICC in satisfactory position overlying the superior vena cava. Lungs: Mild congestion Pleura: No effusion. No pneumothorax. Cardiomediastinal contours: Unremarkable Bones: Unremarkable IMPRESSION: Mild pulmonary vascular congestion Time of 1ST Reevaluation: 10:00 Reevaluation 1ST: Unchanged Patient Education/Counseling: Diagnosis, Treatment, Prognosis Family Education/Counseling: No Family Present Departure 1 Departure Time of Disposition: 13:17 (Patient with worsening shortness of breath and extremity swelling. We will admit patient for further workup and expert consultation) Impression: Primary Impression: Swelling of right upper extremity Additional Impressions: Swelling of lower leg S/P PICC central line placement Shortness of breath Disposition: ADMITTED INPATIENT Admit to: Med Surg Condition: Serious Critical Care Note Critical Care Time?: No Stability Stability form required: No I personally scribed for PATRICIO TODD MD ([facility]) on 12/21/24 at 09:39. Electronically submitted by Jael Molina ([facility]). I personally scribed for PATRICIO TODD [facility] ([facility] on 12/21/24 at 10:44. Electronically submitted by Jael Molina ([facility]). I personally scribed for PATRICIO TODD MD ([facility]) on 12/21/24 at 11:37. Electronically submitted by Jael Molina ([facility]). PATRICIO TODD MD Dec 21, 2024 09:39
[2024-12-21 10:10] LABS: Basophils # (auto) 0.1 10 ^3/uL (0-0.2); Basophils % (auto) 1.2 % (0.0-2.0); Eosinophils # (auto) 0.2 10 ^3/uL (0-0.8); Eosinophils % (auto) 4.1 % (0.0-7.0); Hematocrit 40.9 % (41.0-53.0); Hemoglobin 13.7 g/dL (13.5-17.5); Lymphocytes # (auto) 1.3 10 ^3/uL (0.4-5.4); Lymphocytes % (auto) 29.8 % (10.0-50.0); Mean Corpuscular Hemoglobin 27.3 pg (28.0-32.0); Mean Corpuscular Hgb Conc. 33.6 g/dL (32.0-36.0); Mean Corpuscular Volume 81.1 fL (80.0-100.0); Monocytes # (auto) 0.6 10 ^3/uL (0-1.3); Monocytes % (auto) 13.4 % (0.0-12.0); Neutrophils # (auto) 2.3 10 ^3/uL (1.6-8.6); Neutrophils % (auto) 51.5 % (37.0-80.0); Nucleated Red Blood Cells % 0.2 %; Platelet Count (auto) 326 10^3/uL (140-450); Red Blood Cells 5.04 10^6/uL (4.5-5.90); White Blood Cell 4.5 10^3/uL (4.4-10.8)
[2024-12-21 10:19] LABS: Potassium 4.7 mmol/L (3.5-5.1); Sodium 138 mmol/L (136-145)
[2024-12-21 10:20] LABS: Anion Gap 8 (5-15); Carbon Dioxide 22 mmol/L (20-31)
[2024-12-21 10:21] LABS: Calcium 9.4 mg/dL (8.7-10.4)
[2024-12-21 10:23] LABS: Chloride 108 mmol/L (98-107)
--- NOTE | 2024-12-21 10:24 | DVH ---
CHEST RADIOGRAPH Indication: extremity swelling Technique: Single frontal view of the chest was obtained COMPARISON: XY CHEST XRAY 1 VIEW on DOS: 11/27/24, XY CHEST XRAY 1 VIEW on DOS: 09/02/24, CHEST PORTABL E on DOS: 03/26/21, CXRP on DOS: 03/26/21 FINDINGS: Lines and Tubes: Tunneled right PICC in satisfactory position overlying the superior vena cava. Lungs: Mild congestion Pleura: No effusion. No pneumothorax. Cardiomediastinal contours: Unremarkable Bones: Unremarkable IMPRESSION: Mild pulmonary vascular congestion
[2024-12-21 10:25] LABS: BUN/Creatinine Ratio 15.4 (10.0-20.0)
[2024-12-21 10:26] LABS: Blood Urea Nitrogen 28 mg/dL (9-23); Glucose 166 mg/dL (74-106)
[2024-12-21] MEDS ORDERED: DOCUSATE SOD 100 MG CAP PO PRN (16:00)
[2024-12-21] MEDS ORDERED: ACETAMINOPHEN 325 MG TAB PO PRN (16:00)
[2024-12-21] MEDS ORDERED: ONDANSETRON HCL 4 MG/2 ML VIAL IV PRN (16:00)
[2024-12-21] MEDS ORDERED: DEXTROSE (50%) 50ML SYRG IV PRN (16:00)
--- NOTE | 2024-12-21 16:08 | DVHHP2 ---
Admitting Diagnosis: Extremity swelling History of Present Illness 59 y.o male with PMHx of DM, CKD, HTN, and gout, presents to the ED for a chief complaint of right arm swelling x 3 days, bilateral leg swelling x 3 weeks and ongoing orthopnea. Patient denies any recent injuries, erythema, pain and has full ROM. Patient has 1+ pitting edema to the right arm and lower extremity. Patient has a PICC line to the right upper arm for osteomyelitis for right toe. No fever, chills, chest pain reported. PAST MEDICAL HISTORY: CKF, DM, GERD, High Lipids, HTN, TIA Surgical History (Other): debridement of the right toe with partial amputation Family History Family History: Reviewed,noncontributory to illness, Family hx of DM, Family hx of HTN Social History Smoker: Non-Smoker Alcohol: Occasionally Drugs: Denies Drug Use Lives In: Home Patient Family History: Diabetes mellitus G8 MOTHER G8 FATHER Hypertension G8 MOTHER G8 FATHER Allergies: Coded Allergies: Acetaminophen (Verified Adverse Reaction, Severe, MAKES HIM VOMIT, 11/27/24) Hydrocodone (Verified Adverse Reaction, Severe, MAKES HIM VOMIT, 11/27/24) Home Meds Active Scripts Rifampin (Rifampin) 300 Mg Cap, 300 MG PO BID for 42 Days, CAP Prov:DAVID VARGAS MD 12/04/24 Rifampin (Rifampin) 300 Mg Cap, 300 MG PO BID PRN for 42 Days, #84 CAP Prov:SARAH VARGAS MD 12/03/24 Allopurinol (Allopurinol) 300 Mg Tab, 200 MG PO DAILY for 90 Days, #60 TAB Prov:DAVID VARGAS MD 09/06/24 Pantoprazole Sodium Sesquihydr (Pantoprazole Sodium) 40 Mg Tab, 40 MG PO DAILY for 90 Days, #90 TAB Prov:DAVID VARGAS MD 03/29/21 Gabapentin (Gabapentin) 100 Mg Cap, 100 MG PO Q8H for 30 Days, #90 CAP Prov:DAVID VARGAS MD 03/29/21 Cholecalciferol (Vitamin D3 Super Strength) 2,000 Unit Cap, 4000 UNIT PO DAILY for 100 Days, #100 CAP Prov:DAVID VARGAS MD 03/29/21 Atorvastatin Calcium (ATORVASTATIN CALCIUM) 20 Mg Tab, 40 MG PO HS for 90 Days, #180 TAB Prov:DAVID VARGAS MD 03/29/21 Aspirin (Aspir-Low) 81 Mg Tab, 81 MG PO QPM for 90 Days, #90 TAB Prov:DAVID VARGAS MD 03/29/21 Reported Medications Insulin Lispro Protamine & Lis (Humalog Mix 75/25 Kwikpen) 75 Mg/25 Kwp Inj, SC 09/03/24 Insulin Lispro (Humalog Salvatore Kwikpen) 100 Unit/Ml Inj, SC 09/03/24 Tamsulosin Hcl (Tamsulosin Hcl) 0.4 Mg Cap, 0.4 MG PO QPM for 30 Days, MG 09/17/22 Amlodipine Besylate (Amlodipine Besylate) 5 Mg Tab, 10 MG PO DAILY for 30 Days, MG 09/17/22 Hydralazine Hcl (Hydralazine Hcl) 25 Mg Tab, 25 MG PO TID for 30 Days, MG 09/17/22 Vital Signs Vital Signs Date Time Temp Pulse Resp B/P (MAP) Pulse Ox O2 Delivery O2 Flow Rate FiO2 12/21/24 14:23 78 16 151/79 (103) 97 12/21/24 12:33 98.4 98.4 Physical Exam Generally-59 years old male, overweight, resting on chair. Mild distress HEENT-atraumatic, nondistended Heart-regular rate and rhythm Lungs decreased breath sounds bilateral lower lung sadler Abdomen soft, nontender nondistended Musculoskeletal-plus two pitting edema bilaterally right upper extremity nonpitting, edema, tender Neuro-AO x3, no focal deficits Results Labs Test 12/21/24 12:46 12/21/24 09:45 Range/Units Troponin I High Sensitivity 27 </=54 ng/L White Blood Count 4.5 4.4-10.8 10^3/uL Red Blood Count 5.04 4.5-5.90 10^6/uL Hemoglobin 13.7 13.5-17.5 g/dL Hematocrit 40.9 L 41.0-53.0 % Mean Corpuscular Volume 81.1 80.0-100.0 fL Mean Corpuscular Hemoglobin 27.3 L 28.0-32.0 pg Mean Corpuscular Hemoglobin Concent 33.6 32.0-36.0 g/dL Red Cell Distribution Width 15.0 H 11.8-14.3 % Platelet Count 326 140-450 10^3/uL Mean Platelet Volume 7.6 6.9-10.8 fL Neutrophils (%) (Auto) 51.5 37.0-80.0 % Lymphocytes (%) (Auto) 29.8 10.0-50.0 % Monocytes (%) (Auto) 13.4 H 0.0-12.0 % Eosinophils (%) (Auto) 4.1 0.0-7.0 % Basophils (%) (Auto) 1.2 0.0-2.0 % Neutrophils # (Auto) 2.3 1.6-8.6 10 ^3/uL Lymphocytes # (Auto) 1.3 0.4-5.4 10 ^3/uL Monocytes # (Auto) 0.6 0-1.3 10 ^3/uL Eosinophils # (Auto) 0.2 0-0.8 10 ^3/uL Basophils # (Auto) 0.1 0-0.2 10 ^3/uL Nucleated Red Blood Cells 0.2 % Sodium Level 138 136-145 mmol/L Potassium Level 4.7 3.5-5.1 mmol/L Chloride Level 108 H 98-107 mmol/L Carbon Dioxide Level 22 20-31 mmol/L Anion Gap 8 5-15 Blood Urea Nitrogen 28 H 9-23 mg/dL Creatinine 1.82 H 0.700-1.30 mg/dL Glomerular Filtration Rate Calc 42 >90 mL/min BUN/Creatinine Ratio 15.4 10.0-20.0 Serum Glucose 166 H 74-106 mg/dL Calcium Level 9.4 8.7-10.4 mg/dL B-Type Natriuretic Peptide 250.86 0-100 pg/mL Primary Diagnosis Bilateral lower extremity edema rule out DVT Right foot osteomyelitis lung IV antibiotics Right upper extremity edema rule out DVT AARON on CKD Pulmonary congestion rule out CHF Plan Chest x-ray shows pulmonary congestion Check echo of the heart for possible diastolic heart failure Start IV Lasix 40 mg daily Nephrology consult for AARON on CKD and diuresis Strict in and out Daily weights DVT studies right upper extremity, bilateral lower extremity Resume home meds Insulin sliding scale moderate Patient is on Ancef for 4g qd. We will start Ancef 1 g q.6 hours while in hospital and resume 4 mg q.day upon discharge until January 13 Full code Heparin for DVT prophylaxis No GI prophylaxis needed Cardiac diet Plan discussed with: Patient Problems List: (1) Swelling of lower leg Status: Acute (2) Swelling of right upper extremity Status: Acute (3) Shortness of breath Status: Acute (4) Osteomyelitis of foot Date of Service: Dec 21, 2024 Billing Provider: MARGARET HODGSON MD Common Visit Codes: 95617-EFOOTHM INP/OBS CARE (HIGH) MARGARET HODGSON MD Dec 21, 2024 16:08
--- NOTE | 2024-12-21 16:52 | DVH ---
EXAM: US Duplex Right Lower Extremity Veins CLINICAL INDICATION: swelling and pain TECHNIQUE: Real-time duplex ultrasound scan of the right lower extremity veins integrating B-mode tw o-dimensional vascular structure, Doppler spectral analysis, color flow Doppler imaging and compressi on. COMPARISON: None FINDINGS: DEEP VEINS: Unremarkable. No DVT in the visualized common femoral, femoral, proximal deep femoral or popliteal veins. The veins demonstrate normal color flow, are normally compressible, with normal phasic flow and/or augmentation response. SUPERFICIAL VEINS: Unremarkable. No thrombus in the visualized great saphenous vein. SOFT TISSUES: No acute findings. No popliteal cyst. OTHER FINDINGS: . IMPRESSION: No DVT.
--- NOTE | 2024-12-21 16:54 | DVH ---
Bilateral lower extremity venous duplex Clinical History: swelling and pain Comparison: BLDVT on DOS: 03/27/21, BI LOWER DVT on DOS: 03/27/21 Technique: Duplex Doppler evaluation of the deep venous systems of both lower extremities from the common femora l veins to the popliteal veins including color Doppler and spectral/pulsed waveform analysis was perf ormed. Findings: RIGHT SIDE: The common femoral vein demonstrates appropriate compressibility and waveform variability. There is compressibility/patency of the great saphenous vein at the proximal thigh. The femoral vein demonstrates appropriate compressibility and waveform variability. The deep femoral vein demonstrates appropriate compressibility and waveform variability. The popliteal vein demonstrates appropriate compressibility and waveform variability. There is normal compressibility at the tibioperoneal trunk. LEFT SIDE: The common femoral vein demonstrates appropriate compressibility and waveform variability. There is compressibility/patency of the great saphenous vein at the proximal thigh. The femoral vein demonstrates appropriate compressibility and waveform variability. The deep femoral vein demonstrates appropriate compressibility and waveform variability. The popliteal vein demonstrates appropriate compressibility and waveform variability. There is normal compressibility at the tibioperoneal trunk. Impression: 1. No right or left femoropopliteal venous thrombosis. HS:Y
[2024-12-21 17:00] VITALS: PULSE 76; RESP 18; O2SAT 97
[2024-12-21] MEDS: InsuLIN REG 1unit/0.01ml Soln (100units/ml) SC SCH ×2 (17:00→22:07)
[2024-12-21] MEDS: TAMSULOSIN HYDROCHLORIDE 0.4 MG CAP PO SCH (17:03)
[2024-12-21] MEDS: ASPirin-EC 81 mg tab PO SCH (17:03)
[2024-12-21] MEDS: GABAPENTIN 100 MG CAP PO SCH (17:03)
[2024-12-21] MEDS: ACCU-CHEK COMFORT CURVE STRIP VI SCH (17:06)
[2024-12-21] MEDS: ceFAZolin 1GM/50ML 50 ML IV SCH (17:11)
[2024-12-21] MEDS: FUROSEMIDE 40 MG/4 ML VIAL IV SCH (17:25)
[2024-12-21 18:45] VITALS: BP 168/88; PULSE 70; RESP 17; TEMP 97.6; O2SAT 98
[2024-12-21] MEDS: ATORVASTATIN 20 MG TAB PO SCH (21:54)
[2024-12-21] MEDS: hydrALAZINE HCL 25 MG TAB PO SCH (21:55)
[2024-12-21] MEDS: SODIUM CHLOR 0.9% PF (SALINE LOCK) 10ML VIAL/SYR IV SCH (21:55)
[2024-12-22] VITALS (8 sets, daily range): BP systolic 151–197; BP diastolic 50–109; PULSE 73–82; RESP 16–18; TEMP 97.5–98.4; O2SAT 95–98
[2024-12-22] MEDS: PANTOPRAZOLE 40 MG TAB PO SCH (08:45)
[2024-12-22] MEDS: amLODIPine BESYLATE 5 MG TAB PO SCH (08:46)
[2024-12-22] MEDS: ALLOPURINOL 100 MG TAB PO SCH (08:46)
[2024-12-22] MEDS ORDERED: ALLOPURINOL 100 MG TAB PO SCH (10:00)
--- NOTE | 2024-12-22 14:17 | ECG ---
[facility] Test Date: 2024-12-21 Test Time: 09:20:47 Pat Name: JOHNNY PENN Department: ER Room: 0298 Gender: M Director Workforce Management: : 1965 Requested By: PATRICIO TODD Order Number: [id number] Reading MD: Gordy Stevens Measurements Intervals [place] Rate: 79 P: 40 LA: 145 QRS: 44 QRSD: 83 T: 115 QT: 367 QTc: 421 Interpretive Statements Sinus rhythm Probable anteroseptal infarct, old Nonspecific T abnormalities, lateral leads Baseline wander in lead(s) II,III,aVF Electronically Signed On 12-23-2024 21:17:07 PDT by Gordy Stevens Please click the below link to view image of tracing.
--- NOTE | 2024-12-22 15:38 | DVHINCON2 ---
Date of service: Dec 22, [address] Rodríguez History of Present Illness 59-year-old patient with significant history of chronic kidney disease stage 3, hypertension, diabetes type 2 with nephropathy, chronic leg edema, and osteomyelitis of the right toe and IV antibiotics at home Ancef history of gout who presents to the hospital with progressive leg edema and shortness of breath since last discharge to the hospital about three weeks ago. At the time the patient had acute kidney injury and his torsemide care Shavon as well as Farxiga were discontinued upon discharge and since then he has noticed increasing swelling and above-mentioned symptoms. He denies fever chills does endorse some orthopnea. He was place of mild discomfort in the right hand consistent with early gout Laboratory data revealed chronic kidney disease findings. Past Medical History Diabetes type 2, Chronic kidney disease, hypertension, osteomyelitis of the right toe, gout Past Surgical History I&D Allergies: Coded Allergies: Acetaminophen (Verified Adverse Reaction, Severe, MAKES HIM VOMIT, 11/27/24) Hydrocodone (Verified Adverse Reaction, Severe, MAKES HIM VOMIT, 11/27/24) Home Meds Active Scripts Rifampin (Rifampin) 300 Mg Cap, 300 MG PO BID for 42 Days, CAP Prov:DAVID VARGAS MD 12/04/24 Rifampin (Rifampin) 300 Mg Cap, 300 MG PO BID PRN for 42 Days, #84 CAP Prov:SARAH VARGAS MD 12/03/24 Allopurinol (Allopurinol) 300 Mg Tab, 200 MG PO DAILY for 90 Days, #60 TAB Prov:DAVID VARGAS MD 09/06/24 Pantoprazole Sodium Sesquihydr (Pantoprazole Sodium) 40 Mg Tab, 40 MG PO DAILY for 90 Days, #90 TAB Prov:DAVID VARGAS MD 03/29/21 Gabapentin (Gabapentin) 100 Mg Cap, 100 MG PO Q8H for 30 Days, #90 CAP Prov:DAVID VARGAS MD 03/29/21 Cholecalciferol (Vitamin D3 Super Strength) 2,000 Unit Cap, 4000 UNIT PO DAILY for 100 Days, #100 CAP Prov:DAVID VARGAS MD 03/29/21 Atorvastatin Calcium (ATORVASTATIN CALCIUM) 20 Mg Tab, 40 MG PO HS for 90 Days, #180 TAB Prov:DAVID VARGAS MD 03/29/21 Aspirin (Aspir-Low) 81 Mg Tab, 81 MG PO QPM for 90 Days, #90 TAB Prov:DAVID VARGAS MD 03/29/21 Reported Medications Insulin Lispro Protamine & Lis (Humalog Mix 75/25 Kwikpen) 75 Mg/25 Kwp Inj, SC 09/03/24 Insulin Lispro (Humalog Salvatore Kwikpen) 100 Unit/Ml Inj, SC 09/03/24 Tamsulosin Hcl (Tamsulosin Hcl) 0.4 Mg Cap, 0.4 MG PO QPM for 30 Days, MG 09/17/22 Amlodipine Besylate (Amlodipine Besylate) 5 Mg Tab, 10 MG PO DAILY for 30 Days, MG 09/17/22 Hydralazine Hcl (Hydralazine Hcl) 25 Mg Tab, 25 MG PO TID for 30 Days, MG 09/17/22 Current Medications Current Medications Medications (Trade) Dose Ordered Sig/Andrea Route PRN Reason Start Time Stop Time Status Last Admin Furosemide (Lasix Injection) 40 mg DAILY IV 12/21/24 16:00 12/22/24 09:07 Amlodipine Besylate (Norvasc Tablet) 10 mg DAILY PO 12/22/24 10:00 12/22/24 08:46 Aspirin (Ecotrin Enteric Coated Tablet) 81 mg QPM PO 12/21/24 18:00 12/21/24 17:03 Atorvastatin Calcium (Lipitor) 40 mg HS PO 12/21/24 22:00 12/21/24 21:54 Gabapentin (Neurontin Capsule) 100 mg Q8H PO 12/21/24 16:00 12/22/24 08:46 Hydralazine HCl (Apresoline Tablet) 25 mg TID PO 12/21/24 22:00 12/22/24 14:56 Pantoprazole Sodium (Protonix Tablet) 40 mg DAILY PO 12/22/24 10:00 12/22/24 08:45 Tamsulosin HCl (Flomax) 0.4 mg QPM PO 12/21/24 18:00 12/21/24 17:03 Allopurinol (Zyloprim Tablet) 200 mg DAILY PO 12/22/24 10:00 12/21/24 17:09 DC Ergocalciferol (Vitamin D 50,000 Unit) 50,000 unit Q7D PO 12/25/24 10:00 12/21/24 17:07 DC Diagnostic Test (Pha) (Accu-Chek Comfort Curve T) 1 strip ACHS 12/21/24 17:00 12/22/24 11:26 Insulin Human Regular (InsuLIN R) HS SC 12/21/24 22:00 12/21/24 22:07 Insulin Human Regular (InsuLIN R) AC SC 12/21/24 17:00 12/22/24 11:30 Dextrose 50 ml UD PRN IV Blood Sugar LESS THAN 60 12/21/24 16:00 Sodium Chloride (Saline Lock Ns) 10 ml Q8HR IV 12/21/24 22:00 12/22/24 14:00 Docusate Sodium (Colace Capsule) 100 mg BIDPRN PRN PO FOR CONSTIPATION 12/21/24 16:00 Acetaminophen (Tylenol Tablet) 650 mg Q6HP PRN PO PAIN SCALE 1-3 OR TEMP>100.4 12/21/24 16:00 Hold Hydromorphone HCl (Dilaudid Injection) 0.5 mg Q4HP PRN IV SEVERE PAIN (7-10 PAIN SCALE) 12/21/24 16:00 Ondansetron HCl (Zofran) 4 mg Q4HP PRN IV NAUSEA / VOMITING 12/21/24 16:00 Cefazolin Sodium 50 ml @ 100 mls/hr Q8HR IV 12/21/24 16:37 12/22/24 15:26 Ergocalciferol (Vitamin D 50,000 Unit) 50,000 unit Q7D PO 12/25/24 10:00 Allopurinol (Zyloprim Tablet) 200 mg DAILY PO 12/22/24 10:00 12/22/24 08:46 Family History: Diabetes mellitus G8 MOTHER G8 FATHER Hypertension G8 MOTHER G8 FATHER Social History Denies smoking alcohol or drug abuse Review of Systems HEENT: Oral mucosa dry Neck no JVD Cardiovascular: Denies for chest pain Positive for orthopnea and leg edema Respiratory: Positive for shortness of breath Gastrointestinal: Denies for nausea vomiting Musculoskeletal: Positive for right hand pain Neurological: Denies focal weakness Dermatological: Denies any rash The rest of the review of systems were reviewed pertinent positives and pertinent negatives are as per HPI up to 12 points review of systems H&P Exam Vital Signs/I&O Vital Sign Date Time Temp Pulse Resp B/P (MAP) Pulse Ox O2 Delivery O2 Flow Rate FiO2 6/19/25 14:56 150/86 12/22/24 12:50 98.1 79 18 95 98.1 12/21/24 17:00 Room Air* 0 21 Intake and Output 12/21/24 12/22/24 19:00 07:00 Intake Total 790 ml 240 ml Balance 790 ml 240 ml Intake Oral 740 ml 240 ml IV Total 50 ml # Voids 2 Physical Exam HEENT: No evidence of JVD, no oral ulcers. Pulmonary: Lungs are clear on auscultation bilaterally Cardiovascular S1-S2, no S3 or S4 Abdomen: Bowel sounds positive, soft no rebound tenderness Skin: No rash Neurological: Alert, oriented, no focal weakness Musculoskeletal: Right foot dressed, 1+ pitting edema in the lower extremities, left hand no erythema or deformity or increased temperature Labs/Diagnostic Data Labs/Diagnostic Data Laboratory Tests Test 12/22/24 11:16 12/22/24 06:43 12/22/24 05:34 12/21/24 22:01 Range/Units POC Glucose 291 H 151 H 62 L 289 H 70-106 mg/dl Test 12/21/24 17:11 12/21/24 12:46 12/21/24 10:55 12/21/24 09:45 Range/Units POC Glucose 125 H 70-106 mg/dl Troponin I High Sensitivity 27 28 26 </=54 ng/L White Blood Count 4.5 4.4-10.8 10^3/uL Red Blood Count 5.04 4.5-5.90 10^6/uL Hemoglobin 13.7 13.5-17.5 g/dL Hematocrit 40.9 L 41.0-53.0 % Mean Corpuscular Volume 81.1 80.0-100.0 fL Mean Corpuscular Hemoglobin 27.3 L 28.0-32.0 pg Mean Corpuscular Hemoglobin Concent 33.6 32.0-36.0 g/dL Red Cell Distribution Width 15.0 H 11.8-14.3 % Platelet Count 326 140-450 10^3/uL Mean Platelet Volume 7.6 6.9-10.8 fL Neutrophils (%) (Auto) 51.5 37.0-80.0 % Lymphocytes (%) (Auto) 29.8 10.0-50.0 % Monocytes (%) (Auto) 13.4 H 0.0-12.0 % Eosinophils (%) (Auto) 4.1 0.0-7.0 % Basophils (%) (Auto) 1.2 0.0-2.0 % Neutrophils # (Auto) 2.3 1.6-8.6 10 ^3/uL Lymphocytes # (Auto) 1.3 0.4-5.4 10 ^3/uL Monocytes # (Auto) 0.6 0-1.3 10 ^3/uL Eosinophils # (Auto) 0.2 0-0.8 10 ^3/uL Basophils # (Auto) 0.1 0-0.2 10 ^3/uL Nucleated Red Blood Cells 0.2 % Sodium Level 138 136-145 mmol/L Potassium Level 4.7 3.5-5.1 mmol/L Chloride Level 108 H 98-107 mmol/L Carbon Dioxide Level 22 20-31 mmol/L Anion Gap 8 5-15 Blood Urea Nitrogen 28 H 9-23 mg/dL Creatinine 1.82 H 0.700-1.30 mg/dL Glomerular Filtration Rate Calc 42 >90 mL/min BUN/Creatinine Ratio 15.4 10.0-20.0 Serum Glucose 166 H 74-106 mg/dL Calcium Level 9.4 8.7-10.4 mg/dL B-Type Natriuretic Peptide 250.86 0-100 pg/mL Microbiology Date/Time Source Procedure Growth Status 12/21/24 18:53 Nose MRSA Screen - Final Complete Ultrasound shows no DVT Assessment Assessment: Fluid overload CHF exacerbation Chronic kidney disease stage III Diabetes type 2 Hypertension Osteomyelitis of the right toe Gout Plan: Continue IV Lasix Leg elevation Continue allopurinol consider lowering the dosage Upon discharge he will need perhaps Lasix 20 mg daily Check uric acid 2D echo Continue antihypertensive meds Plan discussed with: Patient SHOSHANA LIN MD Dec 22, 2024 15:38
--- NOTE | 2024-12-22 17:15 | DVHSR ---
APPROVED REPORT EXAM: Two-dimensional and M-mode echocardiogram with Doppler and color Doppler. Blood Pressure: 156/78 mmHg INDICATION Dyspnea Heart Failure Pulmonary Congestion assess for heart failure RISK FACTORS Height: 5' 6", Weight: 196 DIMENSIONS LVDd4.6 (3.8-5.7cm)LA (2D)4.3 (1.9-4.0cm)Aortic Root3.4 (2.0-3.7cm) LVDs2.9 (2.5-4.0cm)LA (MM) (1.9-4.0cm)Aortic Cusp Exc1.6 (1.5-2.0cm) EF (%) 66.0 (55-70%)Rt. Atrium4.1 (1.9-4.0cm)Asc. Aorta cm IVSd1.0 (0.7-1.1cm)RV (D) (1.8-2.4cm) PWd1.0 (0.7-1.1cm) Mitral Valve MitralMitral Stenosis E wave0.90m/sMV Mean GR.mmHg A wave0.80m/sMV Peak GR.mmHg E/A ratio1.12D MVAcm2 Aortic Valve Aortic ValveAortic Stenosis V10.90m/Su Mean GR.2mmHg V20.90m/Su Peak GR.4mmHg LVOT Diameter2.1 (1.8-2.4cm)Doppler AVA3.46cm2 AI P 1/2 Lgkr518.82ms Pulmonic Valve V20.90m/s Conclusion LVEF 55-60%, moderate diastolic dysfunction Mild left and atrial dilation No hemodynamically significant valve disease Small circumferential pericardial effusion
--- NOTE | 2024-12-22 17:17 | DVHPN2 ---
Objective Vitals Vital Signs Date Time Temp Pulse Resp B/P (MAP) Pulse Ox O2 Delivery O2 Flow Rate FiO2 12/22/24 17:00 97.5 74 18 151/50 (83) 97 97.5 12/21/24 17:00 Room Air* 0 21 Intake/Output Intake and Output 12/22/24 07:00 Intake Total 1030 ml Balance 1030 ml Intake Oral 980 ml IV Total 50 ml # Voids 2 Medications Current Medications Medications Dose Ordered Sig/Andrea Route Start Time Stop Time Status Last Admin Dose Admin Furosemide 40 mg DAILY IV 12/21/24 16:00 12/22/24 09:07 40 MG Amlodipine Besylate 10 mg DAILY PO 12/22/24 10:00 12/22/24 08:46 10 MG Aspirin 81 mg QPM PO 12/21/24 18:00 12/21/24 17:03 81 MG Atorvastatin Calcium 40 mg HS PO 12/21/24 22:00 12/21/24 21:54 40 MG Gabapentin 100 mg Q8H PO 12/21/24 16:00 12/22/24 08:46 100 MG Hydralazine HCl 25 mg TID PO 12/21/24 22:00 12/22/24 14:56 25 MG Pantoprazole Sodium 40 mg DAILY PO 12/22/24 10:00 12/22/24 08:45 40 MG Tamsulosin HCl 0.4 mg QPM PO 12/21/24 18:00 12/21/24 17:03 0.4 MG Diagnostic Test (Pha) 1 strip ACHS 12/21/24 17:00 12/22/24 11:26 1 STRIP Insulin Human Regular HS SC 12/21/24 22:00 12/21/24 22:07 9 UNITS Insulin Human Regular AC SC 12/21/24 17:00 12/22/24 11:30 9 UNITS Dextrose 50 ml UD PRN IV 12/21/24 16:00 Sodium Chloride 10 ml Q8HR IV 12/21/24 22:00 12/22/24 14:00 10 ML Docusate Sodium 100 mg BIDPRN PRN PO 12/21/24 16:00 Acetaminophen 650 mg Q6HP PRN PO 12/21/24 16:00 Hold Hydromorphone HCl 0.5 mg Q4HP PRN IV 12/21/24 16:00 Ondansetron HCl 4 mg Q4HP PRN IV 12/21/24 16:00 Cefazolin Sodium 50 ml @ 100 mls/hr Q8HR IV 12/21/24 16:37 12/22/24 15:26 100 MLS/HR Ergocalciferol 50,000 unit Q7D PO 12/25/24 10:00 Allopurinol 200 mg DAILY PO 12/22/24 10:00 12/22/24 08:46 200 MG Laboratory Results Laboratory Tests 12/21/24 09:45 Microbiology Microbiology Date/Time Source Procedure Growth Status 12/21/24 18:53 Nose MRSA Screen - Final Complete Assessment/Plan My Orders Orders - GINNY RUIZ NP Procedure Category Date Status Time Basic Metabolic Panel LAB 12/23/24 Verified 04:00 *Podiatry Consult CONS 12/22/24 Transmitted Ciaran([facility]) 17:14 * Infectious Trina- CONS 12/22/24 Verified Abraham Álvarez 17:15 GINNY RUIZ NP Dec 22, 2024 17:16
--- NOTE | 2024-12-22 20:48 | DVHPN2 ---
Subjective Patient states that his lower extremity swelling has improved. Reviewed: Care Plan, H&P, Labs, Medications Changes from previous H/P or p: No Changes General: Per HPI Objective Vitals Vital Signs Date Time Temp Pulse Resp B/P (MAP) Pulse Ox O2 Delivery O2 Flow Rate FiO2 12/22/24 18:45 Room Air* 0 21 12/22/24 18:30 98.0 74 16 191/105 (133) 98 98.0 Intake/Output Intake and Output 12/22/24 07:00 Intake Total 1030 ml Balance 1030 ml Intake Oral 980 ml IV Total 50 ml # Voids 2 General Appearance: Alert, Oriented X3, Cooperative, No acute distress HEENT: Atraumatic, PERRLA Lungs: Clear to auscultation, Normal air movement Cardiovascular: Normal S1, Normal S2 Abdomen: Normal bowel sounds, Soft, No tenderness Musculoskeletal: Normal sensory function, Normal motor function Extremities: Other (Right lower extremity dressing dry and intact) Skin: Dry, Intact Psych/Mental Status: Mental status NL, Mood NL Medications Current Medications Medications Dose Ordered Sig/Andrea Route Start Time Stop Time Status Last Admin Dose Admin Furosemide 40 mg DAILY IV 12/21/24 16:00 12/22/24 09:07 40 MG Amlodipine Besylate 10 mg DAILY PO 12/22/24 10:00 12/22/24 08:46 10 MG Aspirin 81 mg QPM PO 12/21/24 18:00 12/22/24 18:00 81 MG Atorvastatin Calcium 40 mg HS PO 12/21/24 22:00 12/21/24 21:54 40 MG Gabapentin 100 mg Q8H PO 12/21/24 16:00 12/22/24 17:50 100 MG Hydralazine HCl 25 mg TID PO 12/21/24 22:00 12/22/24 14:56 25 MG Pantoprazole Sodium 40 mg DAILY PO 12/22/24 10:00 12/22/24 08:45 40 MG Tamsulosin HCl 0.4 mg QPM PO 12/21/24 18:00 12/22/24 18:00 0.4 MG Diagnostic Test (Pha) 1 strip ACHS 12/21/24 17:00 12/22/24 17:50 1 STRIP Insulin Human Regular HS SC 12/21/24 22:00 12/21/24 22:07 9 UNITS Insulin Human Regular AC SC 12/21/24 17:00 12/22/24 11:30 9 UNITS Dextrose 50 ml UD PRN IV 12/21/24 16:00 Sodium Chloride 10 ml Q8HR IV 12/21/24 22:00 12/22/24 14:00 10 ML Docusate Sodium 100 mg BIDPRN PRN PO 12/21/24 16:00 Acetaminophen 650 mg Q6HP PRN PO 12/21/24 16:00 Hold Hydromorphone HCl 0.5 mg Q4HP PRN IV 12/21/24 16:00 Ondansetron HCl 4 mg Q4HP PRN IV 12/21/24 16:00 Cefazolin Sodium 50 ml @ 100 mls/hr Q8HR IV 12/21/24 16:37 12/22/24 15:26 100 MLS/HR Ergocalciferol 50,000 unit Q7D PO 12/25/24 10:00 Allopurinol 200 mg DAILY PO 12/22/24 10:00 12/22/24 08:46 200 MG Laboratory Results Laboratory Tests 12/21/24 09:45 Microbiology Microbiology Date/Time Source Procedure Growth Status 12/21/24 18:53 Nose MRSA Screen - Final Complete Labs and/or images reviewed: Labs reviewed by me, Image(s) reviewed by me Assessment/Plan Assessment/Plan Impression: -right lower extremity osteomyelitis -acute decompensated diastolic heart failure -acute kidney injury, vasomotor nephropathy -obesity -diabetes mellitus -primary hypertension Plan: -nephrology consultation: Recommendations reviewed -podiatry consultation placed -IV diuresis -check uric acid level -regular insulin sliding scale -continue antibiotic therapy as ordered as an outpatient for osteomyelitis. Continue with ID consultation -repeat labs in a.m. -echocardiogram, pending Total time spent with patient discussing and formulating plan of care: 35 minutes. This medical document was created using an electronic medical record system with [employer] dictation system. Although this document has been carefully reviewed, there may still be some phonetic and typographical errors. These areas are purely typographical due to imperfections of the software programs, and do not reflect any compromise in the patient's medical care. Plan discussed with: Patient, Other (RN) My Orders Orders - GINNY RUIZ NP Procedure Category Date Status Time Basic Metabolic Panel LAB 12/23/24 Verified 04:00 *Podiatry Consult CONS 12/22/24 Transmitted Ciaran([facility]) 17:14 * Infectious [facility]- [facility] CONS 12/22/24 Transmitted Abraham Álvarez 17:15 Date of Service: Dec 22, 2024 Billing Provider: GINNY RUIZ NP Common Visit Codes: [id number] INP/OBS CARE(HIGH) GINNY RUIZ NP Dec 22, 2024 20:48
[2024-12-22] MEDS: hydrALAZINE HCL 20 MG/ML VL IV ONE (23:00)
[2024-12-23 01:00] VITALS: BP 111/67; PULSE 81; RESP 17; TEMP 98; O2SAT 94
[2024-12-23] MEDS: HYDROmorphone HCL 2 MG/ML VL/or syr IV PRN (01:43)
[2024-12-23 05:00] VITALS: BP 165/99; PULSE 80; RESP 16; TEMP 97.9; O2SAT 100
[2024-12-23] MEDS: hydrALAZINE HCL 20 MG/ML VL IV PRN (05:31)
[2024-12-23 06:29] LABS: Anion Gap 10 (5-15); Carbon Dioxide 26 mmol/L (20-31); Chloride 103 mmol/L (98-107); Potassium 4.9 mmol/L (3.5-5.1); Sodium 139 mmol/L (136-145)
[2024-12-23 06:34] LABS: Uric Acid 7.6 mg/dL (3.7-9.2)
[2024-12-23 06:35] LABS: BUN/Creatinine Ratio 16.9 (10.0-20.0)
[2024-12-23 06:44] LABS: Blood Urea Nitrogen 35 mg/dL (9-23); Glucose 128 mg/dL (74-106)
[2024-12-23 08:50] VITALS: BP 136/75; PULSE 89; RESP 17; TEMP 97.6; O2SAT 97
[2024-12-23 12:55] VITALS: BP 121/60; PULSE 91; RESP 17; TEMP 98.1; O2SAT 96
--- NOTE | 2024-12-23 15:07 | DVHPN2 ---
Subjective Patient states that his lower extremity swelling has improved. Reviewed: Care Plan, H&P, Labs, Medications Changes from previous H/P or p: No Changes General: Per HPI Objective Vitals Vital Signs Date Time Temp Pulse Resp B/P (MAP) Pulse Ox O2 Delivery O2 Flow Rate FiO2 12/23/24 14:00 121/60 12/23/24 12:55 98.1 91 17 96 98.1 12/23/24 08:20 Room Air* 0 21 Intake/Output Intake and Output 12/23/24 07:00 Intake Total 1705 ml Output Total 800 ml Balance 905 ml Intake Oral 1505 ml IV Total 200 ml Output Urine Total 800 ml # Voids 4 General Appearance: Alert, Oriented X3, Cooperative, No acute distress HEENT: Atraumatic, PERRLA Lungs: Clear to auscultation, Normal air movement Cardiovascular: Normal S1, Normal S2 Abdomen: Normal bowel sounds, Soft, No tenderness Musculoskeletal: Normal sensory function, Normal motor function Extremities: Other (Right lower extremity dressing dry and intact) Skin: Dry, Intact Psych/Mental Status: Mental status NL, Mood NL Medications Current Medications Medications Dose Ordered Sig/Andrea Route Start Time Stop Time Status Last Admin Dose Admin Furosemide 40 mg DAILY IV 12/21/24 16:00 12/23/24 10:41 40 MG Amlodipine Besylate 10 mg DAILY PO 12/22/24 10:00 12/23/24 10:41 10 MG Aspirin 81 mg QPM PO 12/21/24 18:00 12/22/24 18:00 81 MG Atorvastatin Calcium 40 mg HS PO 12/21/24 22:00 12/22/24 22:45 40 MG Gabapentin 100 mg Q8H PO 12/21/24 16:00 12/23/24 10:41 100 MG Hydralazine HCl 25 mg TID PO 12/21/24 22:00 12/23/24 05:31 25 MG Pantoprazole Sodium 40 mg DAILY PO 12/22/24 10:00 12/23/24 10:42 40 MG Tamsulosin HCl 0.4 mg QPM PO 12/21/24 18:00 12/22/24 18:00 0.4 MG Diagnostic Test (Pha) 1 strip ACHS 12/21/24 17:00 12/23/24 11:38 1 STRIP Insulin Human Regular HS SC 12/21/24 22:00 12/22/24 22:58 6 UNITS Insulin Human Regular AC SC 12/21/24 17:00 12/23/24 11:38 6 UNITS Dextrose 50 ml UD PRN IV 12/21/24 16:00 Sodium Chloride 10 ml Q8HR IV 12/21/24 22:00 12/23/24 14:24 10 ML Docusate Sodium 100 mg BIDPRN PRN PO 12/21/24 16:00 Acetaminophen 650 mg Q6HP PRN PO 12/21/24 16:00 Hydromorphone HCl 0.5 mg Q4HP PRN IV 12/21/24 16:00 12/23/24 01:43 0.5 MG Ondansetron HCl 4 mg Q4HP PRN IV 12/21/24 16:00 Cefazolin Sodium 50 ml @ 100 mls/hr Q8HR IV 12/21/24 16:37 12/23/24 14:24 100 MLS/HR Ergocalciferol 50,000 unit Q7D PO 12/25/24 10:00 Allopurinol 200 mg DAILY PO 12/22/24 10:00 12/23/24 10:41 200 MG Hydralazine HCl 10 mg Q6HP PRN IV 12/23/24 05:15 12/23/24 05:31 10 MG Laboratory Results Laboratory Tests 12/21/24 09:45 12/23/24 04:37 Chemistry Test 12/23/24 04:37 Calcium Level 9.0 mg/dL (8.7-10.4) Microbiology Microbiology Date/Time Source Procedure Growth Status 12/21/24 18:53 Nose MRSA Screen - Final Complete Labs and/or images reviewed: Labs reviewed by me, Image(s) reviewed by me Assessment/Plan Assessment/Plan Impression: -right lower extremity osteomyelitis -acute decompensated diastolic heart failure -acute kidney injury, vasomotor nephropathy -obesity -diabetes mellitus -primary hypertension Plan: Events: Renal function slightly worsening, high secondary to diuretics -nephrology consultation: Recommendations reviewed -podiatry consultation pending -IV diuresis -check uric acid level -regular insulin sliding scale -continue antibiotic therapy as ordered as an outpatient for osteomyelitis. ID consultation pending -echocardiogram reviewed Plan for discharge in a.m. Total time spent with patient discussing and formulating plan of care: 35 minutes. This medical document was created using an electronic medical record system with [employer] dictation system. Although this document has been carefully reviewed, there may still be some phonetic and typographical errors. These areas are purely typographical due to imperfections of the software programs, and do not reflect any compromise in the patient's medical care. Plan discussed with: Patient, Other (RN) My Orders Orders - GINNY RUIZ NP Procedure Category Date Status Time *Podiatry Consult CONS 12/22/24 Transmitted Ciaran([facility]) 17:14 * Infectious [facility]- CONS 12/22/24 Transmitted Abraham Álvarez 17:15 Date of Service: Dec 23, 2024 Billing Provider: GINNY RUIZ NP Common Visit Codes: [id number] INP/OBS CARE(HIGH) GINNY RUIZ NP Dec 23, 2024 15:07
--- NOTE | 2024-12-23 15:13 | DVHPN2 ---
Progress Note - Dictate Date Seen: Dec 23, 2024 Has the PT tested + for MRSA If YES, has PT been informed?: No Medical Necessity Reason Pt with a Central, PICC or Fol: No Subjective Patient's leg edema is resolved. He feels slightly nauseous vital signs Vital Sign Date Time Temp Pulse Resp B/P (MAP) Pulse Ox O2 Delivery O2 Flow Rate FiO2 12/23/24 14:00 121/60 12/23/24 12:55 98.1 91 17 96 98.1 12/23/24 08:20 Room Air* 0 21 Total Intake and Output 12/22/24 12/22/24 12/23/24 15:00 23:00 07:00 Intake Total 50 ml 650 ml 1005 ml Output Total 800 ml Balance 50 ml 650 ml 205 ml medications Current Medications Medications Dose Ordered Sig/Andrea Route Start Time Stop Time Status Last Admin Dose Admin Amlodipine Besylate 10 mg DAILY PO 12/22/24 10:00 12/23/24 10:41 10 MG Aspirin 81 mg QPM PO 12/21/24 18:00 12/22/24 18:00 81 MG Atorvastatin Calcium 40 mg HS PO 12/21/24 22:00 12/22/24 22:45 40 MG Gabapentin 100 mg Q8H PO 12/21/24 16:00 12/23/24 10:41 100 MG Hydralazine HCl 25 mg TID PO 12/21/24 22:00 12/23/24 05:31 25 MG Pantoprazole Sodium 40 mg DAILY PO 12/22/24 10:00 12/23/24 10:42 40 MG Tamsulosin HCl 0.4 mg QPM PO 12/21/24 18:00 12/22/24 18:00 0.4 MG Diagnostic Test (Pha) 1 strip ACHS 12/21/24 17:00 12/23/24 11:38 1 STRIP Insulin Human Regular HS SC 12/21/24 22:00 12/22/24 22:58 6 UNITS Insulin Human Regular AC SC 12/21/24 17:00 12/23/24 11:38 6 UNITS Dextrose 50 ml UD PRN IV 12/21/24 16:00 Sodium Chloride 10 ml Q8HR IV 12/21/24 22:00 12/23/24 14:24 10 ML Docusate Sodium 100 mg BIDPRN PRN PO 12/21/24 16:00 Acetaminophen 650 mg Q6HP PRN PO 12/21/24 16:00 Hydromorphone HCl 0.5 mg Q4HP PRN IV 12/21/24 16:00 12/23/24 01:43 0.5 MG Ondansetron HCl 4 mg Q4HP PRN IV 12/21/24 16:00 Cefazolin Sodium 50 ml @ 100 mls/hr Q8HR IV 12/21/24 16:37 12/23/24 14:24 100 MLS/HR Ergocalciferol 50,000 unit Q7D PO 12/25/24 10:00 Allopurinol 200 mg DAILY PO 12/22/24 10:00 12/23/24 10:41 200 MG Hydralazine HCl 10 mg Q6HP PRN IV 12/23/24 05:15 12/23/24 05:31 10 MG objective HEENT: No evidence of JVD, no oral ulcers. Pulmonary: Lungs are clear on auscultation bilaterally Cardiovascular S1-S2, no S3 or S4 Abdomen: Bowel sounds positive, soft no rebound tenderness Skin: No rash Neurological: Alert, oriented, no focal weakness laboratory and microbiology Laboratory Tests 12/23/24 04:37 12/21/24 09:45 Test 12/23/24 04:37 Range/Units Serum Glucose 128 H 74-106 mg/dL Assessment/Plan Assessment: Fluid overload, improved CHF exacerbation Chronic kidney disease stage III Diabetes type 2 Hypertension Osteomyelitis of the right toe Gout Plan: Switch Lasix to torsemide 20 mg daily Leg elevation Continue allopurinol consider lowering the dosage 2D echo reviewed Continue antihypertensive meds Follow up as an outpatient with Nephrology, okay to discharge Dietary Evaluation Review Comments: 1) Rudolph 1pk BID 2) CCHO 60 + renal specific 80gm protein 3) Refer CDE on DC 4) Monitor wound healing, I/O , wt trend, lab values Expected Outcomes/Goals: wound to imrpove blood glucose under control FU 3-5 days Plan discussed with: Patient SHOSHANA LIN MD Dec 23, 2024 15:13
[2024-12-23 16:55] VITALS: BP 142/77; PULSE 92; RESP 17; TEMP 98.4; O2SAT 96
[2024-12-23 21:00] VITALS: BP 121/65; PULSE 95; RESP 18; TEMP 99.9; O2SAT 96
[2024-12-24 01:00] VITALS: BP 138/85; PULSE 87; RESP 18; TEMP 97.9; O2SAT 98
[2024-12-24 05:00] VITALS: BP 117/68; PULSE 78; RESP 18; TEMP 97.8; O2SAT 97
[2024-12-24] MEDS: TORSEMIDE 20 MG TAB PO SCH (08:34)
[2024-12-24 09:00] VITALS: BP 139/75; PULSE 80; RESP 18; TEMP 97.8; O2SAT 97
--- NOTE | 2024-12-24 12:00 | DVHINCON2 ---
Date of service: Dec 23, 2024 Family History: Diabetes mellitus G8 MOTHER G8 FATHER Hypertension G8 MOTHER G8 FATHER Allergies: Coded Allergies: Hydrocodone (Verified Adverse Reaction, Severe, MAKES HIM VOMIT, 11/27/24) Home Meds Active Scripts Rifampin (Rifampin) 300 Mg Cap, 300 MG PO BID for 42 Days, CAP Prov:DAVID VARGAS MD 12/04/24 Rifampin (Rifampin) 300 Mg Cap, 300 MG PO BID PRN for 42 Days, #84 CAP Prov:SARAH VARGAS MD 12/03/24 Allopurinol (Allopurinol) 300 Mg Tab, 200 MG PO DAILY for 90 Days, #60 TAB Prov:DAVID VARGAS MD 09/06/24 Pantoprazole Sodium Sesquihydr (Pantoprazole Sodium) 40 Mg Tab, 40 MG PO DAILY for 90 Days, #90 TAB Prov:DAVID VARGAS MD 03/29/21 Gabapentin (Gabapentin) 100 Mg Cap, 100 MG PO Q8H for 30 Days, #90 CAP Prov:DAVID VARGAS MD 03/29/21 Cholecalciferol (Vitamin D3 Super Strength) 2,000 Unit Cap, 4000 UNIT PO DAILY for 100 Days, #100 CAP Prov:DAVID VARGAS MD 03/29/21 Atorvastatin Calcium (ATORVASTATIN CALCIUM) 20 Mg Tab, 40 MG PO HS for 90 Days, #180 TAB Prov:DAVID VARGAS MD 03/29/21 Aspirin (Aspir-Low) 81 Mg Tab, 81 MG PO QPM for 90 Days, #90 TAB Prov:DAVID VARGAS MD 03/29/21 Reported Medications Insulin Lispro Protamine & Lis (Humalog Mix 75/25 Kwikpen) 75 Mg/25 Kwp Inj, SC 09/03/24 Insulin Lispro (Humalog Salvatore Kwikpen) 100 Unit/Ml Inj, SC 09/03/24 Tamsulosin Hcl (Tamsulosin Hcl) 0.4 Mg Cap, 0.4 MG PO QPM for 30 Days, MG 09/17/22 Amlodipine Besylate (Amlodipine Besylate) 5 Mg Tab, 10 MG PO DAILY for 30 Days, MG 09/17/22 Hydralazine Hcl (Hydralazine Hcl) 25 Mg Tab, 25 MG PO TID for 30 Days, MG 09/17/22 Current Medications Current Medications Medications (Trade) Dose Ordered Sig/Andrea Route PRN Reason Start Time Stop Time Status Last Admin Ergocalciferol (Vitamin D 50,000 Unit) 50,000 unit Q7D PO 12/25/24 10:00 12/21/24 17:07 DC Ergocalciferol (Vitamin D 50,000 Unit) 50,000 unit Q7D PO 12/25/24 10:00 Torsemide (Demadex Tab) 20 mg DAILY PO 12/24/24 10:00 12/24/24 08:34 Vital Signs Vital Signs Date Time Temp Pulse Resp B/P (MAP) Pulse Ox O2 Delivery O2 Flow Rate FiO2 12/24/24 09:00 97.8 80 18 139/75 (96) 97 97.8 12/23/24 20:00 Room Air* 0 21 Labs/Diagnostic Data Labs Test 12/24/24 11:12 12/23/24 04:37 12/21/24 12:46 12/21/24 09:45 Range/Units POC Glucose 165 H 70-106 mg/dl Sodium Level 139 136-145 mmol/L Potassium Level 4.9 3.5-5.1 mmol/L Chloride Level 103 98-107 mmol/L Carbon Dioxide Level 26 20-31 mmol/L Anion Gap 10 5-15 Blood Urea Nitrogen 35 H 9-23 mg/dL Creatinine 2.07 H 0.700-1.30 mg/dL Glomerular Filtration Rate Calc 36 >90 mL/min BUN/Creatinine Ratio 16.9 10.0-20.0 Serum Glucose 128 H 74-106 mg/dL Uric Acid 7.6 3.7-9.2 mg/dL Calcium Level 9.0 8.7-10.4 mg/dL Troponin I High Sensitivity 27 </=54 ng/L White Blood Count 4.5 4.4-10.8 10^3/uL Red Blood Count 5.04 4.5-5.90 10^6/uL Hemoglobin 13.7 13.5-17.5 g/dL Hematocrit 40.9 L 41.0-53.0 % Mean Corpuscular Volume 81.1 80.0-100.0 fL Mean Corpuscular Hemoglobin 27.3 L 28.0-32.0 pg Mean Corpuscular Hemoglobin Concent 33.6 32.0-36.0 g/dL Red Cell Distribution Width 15.0 H 11.8-14.3 % Platelet Count 326 140-450 10^3/uL Mean Platelet Volume 7.6 6.9-10.8 fL Neutrophils (%) (Auto) 51.5 37.0-80.0 % Lymphocytes (%) (Auto) 29.8 10.0-50.0 % Monocytes (%) (Auto) 13.4 H 0.0-12.0 % Eosinophils (%) (Auto) 4.1 0.0-7.0 % Basophils (%) (Auto) 1.2 0.0-2.0 % Neutrophils # (Auto) 2.3 1.6-8.6 10 ^3/uL Lymphocytes # (Auto) 1.3 0.4-5.4 10 ^3/uL Monocytes # (Auto) 0.6 0-1.3 10 ^3/uL Eosinophils # (Auto) 0.2 0-0.8 10 ^3/uL Basophils # (Auto) 0.1 0-0.2 10 ^3/uL Nucleated Red Blood Cells 0.2 % B-Type Natriuretic Peptide 250.86 0-100 pg/mL Microbiology Date/Time Source Procedure Growth Status 12/21/24 18:53 Nose MRSA Screen - Final Complete Plan/Recommendation ASSESSMENT AND PLAN: ID Problem List: - Sepsis - Right foot nonhealing ulcer, concern for osteomyelitis (4th metatarsal) - History of gouty arthritis - CKD stage 3 - Uncontrolled diabetes mellitus - Hypertension - History of amputation, 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 Mychal Russo is a 59-year-old male with a history of uncontrolled diabetes mellitus, hypertension, CKD stage 3, and prior right 2nd and 5th toe amputations. He presents with sudden onset of fever (up to 102.9F), chills, nasal congestion, headache, poor oral intake, and urinary urgency, and was admitted for R arm edema and bilateral LE edema concerning for CHF exacerbation On exam, notable for right foot 4th toe ulcer (plantar base) with ongoing drainage and erythema; X-ray of right foot demonstrates bony change of the fourth metatarsal concerning for osteomyelitis. Laboratory evaluation reveals WBC 10.8 (81% neutrophils), platelet count 57, Hgb 15.9, sodium 135, BUN 43, creatinine 2.3 (similar to baseline), glucose 169. Oxygen saturation 96% on room air. Chest imaging suggests possible pneumonia in the left lung base. CT head without acute findings. Urinalysis without pyuria, negative COVID test. 11/30: hemoglobin A1C is 7.9 , blood sugars as high as 300s during this septic episode and whitecount is at 73 . Foot mri shows bone marrow edema in proximal 4th metatarsal bone with cortical thickening this appearance may represent severe arthritis of metatarsals , acute on chronic osteomyelitis is not excluded . plantar soft tissue swelling , non specific bone marrow represents cellulitis , no fluid collection, edema in 5th metatarsal non specific may also represent stress reaction . patient underwent debridement on 11/29 and Mr Herrera found that there was area fluctuant on right metatarsal deep into the level of the abscess to the level of the bone and prelance consistent with pus. deep cultures were taken and bone biopsy was sent. 12/01: operative cultures show gram positive cocci 12/02: s/p amputation of 4th toe and fevers appear to have improved after amputation and additional source control 12/03: has piccline in place . MSSA growing out of cultures since then was discharged on Ancef and rifampin. has been compliant with reg imen. sutures remain in place and wound remain closed without erythema or drainage Plan: - biopsy results reviewed- Negative for osteomyelitis - continue Ancef for now - check esr and crp. - if inflammatory markers are improved, will consider picc line removal and dc on oral keflex and rifampin to complete 6 weeks course - will fu on blood cultures History: The patient's chart and medications were reviewed in detail and the patient was seen and examined. History obtained from: patient Mr. Mychal Russo is a 59-year-old male with uncontrolled diabetes mellitus, hypertension, CKD stage 3, and a history of gout and prior right 2nd and 5th toe amputations. He presents with sudden onset of fever, chills, nasal congestion, headache, poor PO intake, and urinary urgency. Noted right foot 4th toe ulcer with ongoing drainage and erythema; longstanding issues with chronic foot wounds. Admitted for LE edema, R arm pain and swelling, chronic foot wound evaluation Review of Systems: A complete 10-system review of systems was completed and negative except as noted in the HPI or here. - CONSTITUTIONAL: Fever, chills present. Denies weight loss. - HEENT: Nasal congestion, headache. Denies changes in vision and hearing. - RESPIRATORY: Denies cough; possible left lower lobe pneumonia. - CARDIOVASCULAR: Denies chest pain and palpitations. - GASTROINTESTINAL: Poor oral intake. Denies abdominal pain, nausea, vomiting, or diarrhea. - GENITOURINARY: Urinary urgency. Denies dysuria or frequency. - MUSCULOSKELETAL: Right foot 4th toe ulcer with drainage and erythema. History of gout. Denies myalgia or other joint pain. - SKIN: Right foot ulceration with drainage and erythema. Denies generalized rash or pruritus. - NEUROLOGICAL: Denies syncope. - PSYCHIATRIC: Not discussed. Past Medical History: - Uncontrolled diabetes mellitus - Hypertension - Chronic kidney disease, stage 3 - Gouty arthritis Past Surgical History: - Amputation of right 2nd and 5th toes Home Medications: - Allopurinol - Gabapentin - Pantoprazole - Calcitriol (assumed correction of "calcipherol" based on context) - Atorvastatin - Aspirin - Insulin - Nitroglycerin Dosing, frequency, and routes not detailed in transcript. Allergies: Not provided in transcript. Family History: Not provided in transcript. Social History: - Never smoked - No alcohol use - Lives with daughter - Former [employer] driver - Other details not provided Objective: Vital Signs on Arrival: - Temp: 102.9F - BP: 147/92 mmHg - Pulse: 101 bpm - Resp: 16/min - SpO2: 96% on room air Most Recent Vital Signs: Not provided in transcript. Admission Weight: Not provided in transcript. Physical Exam: General: Appears weak and diaphoretic Neck: Supple. No masses. HEENT: PERRL. Normal lids and conjunctiva. Moist mucous membranes. Oropharynx without lesions, exudates or excessive erythema. Normal appearance of the external aspects of the nose and ears. Heart: Regular rhythm, normal rate. No murmur. No lower extremity edema. Lungs: Normal respiratory effort. Clear to auscultation bilaterally. No wheezes. No crackles. Abdomen: Soft. Non-tender. Non-distended. No masses or abdominal hernia. Msk: Right foot 4th toe plantar base ulcer with drainage and erythema. No digital cyanosis. Normal strength and tone in all other limbs. Skin: Warm and dry, no generalized rashes. Localized erythema and drainage at right foot 4th toe. Neuro: Alert. No facial droop or slurred speech. Extra-ocular movements intact. Sensation intact to soft touch in all four limbs. Psych: Appropriate mood. Full affect. Oriented to person, place, t leia, and situation. Lines: Not provided in transcript. Diagnostic Studies: Significant relevant results below; all available studies personally reviewed. Pertinent Imaging: - Right foot X-ray: Bony change in the fourth metatarsal concerning for osteomye litis. - CT head without contrast: No acute intracranial abnormality. - Chest imaging: Possible left lung base pneumonia. Laboratory: - WBC: 10.8 (81% neutrophils) - Hemoglobin: 15.9 - Platelets: 57 - Sodium: 135 BUN: 43 - Creatinine: 2.3 (noted as baseline) - Glucose: 169 - Urinalysis: No pyuria - COVID: Negative - Blood cultures: No growth to date Plan discussed with: Patient Plan discussed with: Patient SARAH VARGAS MD Dec 24, 2024 12:00
[2024-12-24] MEDS ORDERED: LISI-275 PO ×2 (12:09)
[2024-12-24] MEDS ORDERED: FINE10TA PO ×2 (12:09)
[2024-12-24] MEDS ORDERED: DAPA1TAB4 PO ×2 (12:09)
[2024-12-24] MEDS ORDERED: HYDR25TA87 PO (12:09)
[2024-12-24] MEDS ORDERED: FURO20TA4 PO ×2 (12:13)
[2024-12-24] MEDS ORDERED: ALLO100T PO ×2 (12:14)
--- NOTE | 2024-12-24 12:23 | DVHDS2 ---
Discharge Summary Date of Admission Dec 21, 2024 at 15:59 Date of Discharge: Dec 24, 2024 Admitting Diagnosis Acute diastolic heart failure Labs/Diagnostic Data: Laboratory Results Test 12/24/24 11:12 12/23/24 04:37 12/21/24 12:46 12/21/24 09:45 POC Glucose 165 mg/dl (70-106) Sodium Level 139 mmol/L (136-145) Potassium Level 4.9 mmol/L (3.5-5.1) Chloride Level 103 mmol/L (98-107) Carbon Dioxide Level 26 mmol/L (20-31) Anion Gap 10 (5-15) Blood Urea Nitrogen 35 mg/dL (9-23) Creatinine 2.07 mg/dL (0.700-1.30) Glomerular Filtration Rate Calc 36 mL/min (>90) BUN/Creatinine Ratio 16.9 (10.0-20.0) Serum Glucose 128 mg/dL (74-106) Uric Acid 7.6 mg/dL (3.7-9.2) Calcium Level 9.0 mg/dL (8.7-10.4) Troponin I High Sensitivity 27 ng/L (</=54) White Blood Count 4.5 10^3/uL (4.4-10.8) Red Blood Count 5.04 10^6/uL (4.5-5.90) Hemoglobin 13.7 g/dL (13.5-17.5) Hematocrit 40.9 % (41.0-53.0) Mean Corpuscular Volume 81.1 fL (80.0-100.0) Mean Corpuscular Hemoglobin 27.3 pg (28.0-32.0) Mean Corpuscular Hemoglobin Concent 33.6 g/dL (32.0-36.0) Red Cell Distribution Width 15.0 % (11.8-14.3) Platelet Count 326 10^3/uL (140-450) Mean Platelet Volume 7.6 fL (6.9-10.8) Neutrophils (%) (Auto) 51.5 % (37.0-80.0) Lymphocytes (%) (Auto) 29.8 % (10.0-50.0) Monocytes (%) (Auto) 13.4 % (0.0-12.0) Eosinophils (%) (Auto) 4.1 % (0.0-7.0) Basophils (%) (Auto) 1.2 % (0.0-2.0) Neutrophils # (Auto) 2.3 10 ^3/uL (1.6-8.6) Lymphocytes # (Auto) 1.3 10 ^3/uL (0.4-5.4) Monocytes # (Auto) 0.6 10 ^3/uL (0-1.3) Eosinophils # (Auto) 0.2 10 ^3/uL (0-0.8) Basophils # (Auto) 0.1 10 ^3/uL (0-0.2) Nucleated Red Blood Cells 0.2 % B-Type Natriuretic Peptide 250.86 pg/mL (0-100) Other Laboratory Tests 12/23/24 04:37 12/21/24 09:45 Brief Hx & Hospital Course: History of Present Illness 59 y.o male with PMHx of DM, CKD, HTN, and gout, presents to the ED for a chief complaint of right arm swelling x 3 days, bilateral leg swelling x 3 weeks and ongoing orthopnea. Patient denies any recent injuries, erythema, pain and has full ROM. Patient has 1+ pitting edema to the right arm and lower extremity. Patient has a PICC line to the right upper arm for osteomyelitis for right toe. No fever, chills, chest pain reported. Course of Hospitalization: Patient was given IV diuresis. Consultation was placed with Infectious Disease, Podiatry, as well as Nephrology. Patient had echocardiogram which revealed normal ejection fraction with moderate diastolic heart failure. Patient's swelling has improved to bilateral lower extremities as well as right upper extremity. Medication reconciliation was performed. Patient will be continued on his home IV antibiotic therapy with Ancef. Patient will follow up with Podiatry at next available appointment. Patient will also be started on allopurinol 100 mg p.o. daily, as well as Lasix 20 mg p.o. daily, and given his increasing creatinine from IV diuresis in the hospital. Patient currently takes furosemide at home. Patient will make an appointment with Infectious Disease. Social service consultation has been placed for resuming home health services. All questions answered. Physical examination: General: Alert and Oriented x3. No acute distress. Well-nourished. Eyes: EOMI. Anicteric. HENT: Moist mucous membranes. Lungs: Clear to auscultation bilaterally. No accessory muscle use. Cardiovascular: Regular rate and rhythm. No murmur. No JVD. Abdomen: Soft, non-tender and non-distended. No palpable masses. Extremities: No edema. Non-tender. Skin: No rashes or lesions. Warm. Neurologic: No focal neurological deficits. CN II-XII grossly intact, but not individually tested. Psychiatric: Cooperative. Appropriate mood and affect. Total time spent with patient discussing and formulating plan of care: 35 minutes. This medical document was created using an electronic medical record system with [employer] dictation system. Although this document has been carefully reviewed, there may still be some phonetic and typographical errors. These areas are purely typographical due to imperfections of the software programs, and do not reflect any compromise in the patient's medical care. Consults/Reason for consult Infectious disease: Osteomyelitis Podiatry: Osteomyelitis Nephrology: Acute kidney injury Condition at Discharge: Fair Final Diagnosis/Problems List Decompensated diastolic HF Secondary Diagnosis: -right lower extremity osteomyelitis -acute decompensated diastolic heart failure -acute kidney injury, vasomotor nephropathy -obesity -diabetes mellitus -primary hypertension Discharge Disposition: Home with Health Services Discharge Instruct/Medications Diet: Consistent carbohydrate, Cardiac 2g Na,low cholest Activity: No Restrictions, As Tolerated Follow Up/Referral: ID in 2 weeks Podiatry at next available appointment PCP in 1-2 weeks Medications: Continue per medication reconciliation form 36 Discharge Statement: "Patient was advised to return to the ER or call 911 if any headaches, dizziness, shortness of breath, chest pain, abdominal pain, bleeding, fevers, or worsening of medical condition. Patient was counseled about treatment plan, medications, possible side effects, patientverbalized understanding. All questions were answered to the best of my ability. This discharge took greater then 30 minutes in planning, reviewing documentation, counseling the patient, and discussing with other team members." ASSESSMENT ASSESSMENT Assessment Decompensated diastolic HF Date of Service: Dec 24, 2024 Billing Provider: GINNY RUIZ NP Common Visit Codes: 33358-BLD/OBS DISCH DAY >30min GINNY RUIZ NP Dec 24, 2024 12:23
[2024-12-24 13:00] VITALS: BP 176/82; PULSE 80; RESP 18; TEMP 98.2; O2SAT 96
[2024-12-24 13:23] VITALS: BP 135/66; PULSE 70; RESP 16; TEMP 98.2; O2SAT 94
[2024-12-24 14:53] LABS: Erythrocyte Sedimentation Rate 32 mm/hr (0-20)
[2024-12-25] MEDS ORDERED: ERGOCALCIFEROL 50,000 UNIT(1.25MG) CAP PO SCH ×2 (10:00)
== END 2024-12-24 13:52 | disposition home or self-care (01) | DRG 194 ==
LOC: ER 08:58 → OVERFLOW 15:59 → WEST WING 12-22 18:24
PROVIDERS: ADMIT Nurse Practitioner Acute Care; ATTEND Nurse Practitioner Acute Care
DX: I13.0 Hypertensive heart and chronic kidney disease with heart failure and stage 1 through stage 4 chronic kidney disease, or unspecified chronic kidney disease (principal); N17.0 Acute kidney failure with tubular necrosis; E11.22 Type 2 diabetes mellitus with diabetic chronic kidney disease; I50.33 Acute on chronic diastolic (congestive) heart failure; E11.69 Type 2 diabetes mellitus with other specified complication; L97.519 Non-pressure chronic ulcer of other part of right foot with unspecified severity; M86.8X6 Other osteomyelitis, lower leg; E66.9 Obesity, unspecified; E11.65 Type 2 diabetes mellitus with hyperglycemia; M10.9 Gout, unspecified; N18.30 Chronic kidney disease, stage 3 unspecified; Z79.899 Other long term (current) drug therapy; Z82.49 Family history of ischemic heart disease and other diseases of the circulatory system; Z83.3 Family history of diabetes mellitus; Z86.73 Personal history of transient ischemic attack (TIA), and cerebral infarction without residual deficits; Z89.429 Acquired absence of other toe(s), unspecified side; Z68.31 Body mass index [BMI] 31.0-31.9, adult
CPT/HCPCS: 36415; 71045; 80048; 82962; 83880; 84484; 84550; 85025; 85652; 86141; 87081; 93005; 93306; 93970; 93971; 96365; 96375; G0378; J1815

== ENCOUNTER 2024-12-26 09:53 | Emergency (ER) | payer MEDICAID ==
[~2024-12-26] VITALS: Ht 167.6 cm; Wt 86.5 kg
[~2024-12-26 09:53] MED LIST changes: +ALLO100T PO; +DAPA1TAB4 PO; +FINE10TA PO; +FURO20TA4 PO; +HYDR25TA87 PO; +LISI-275 PO
--- NOTE | 2024-12-26 10:07 | ED.PDOC ---
History of Present Illness HPI Comments 59 year old male presents to the ED with a chief complaint of PICC line malfunction onset today (12/26/24). Patient was discharged from [facility] on 12/24/24, with PICC line antibiotics. Patient's home health nurse tried to administer medication this morning, noticed it was plugged, advised patient to come to ED. Patient has no further complaints. Denies chest pain,l shortness of breath, fever, chills, headache, dizziness. No other symptoms or modifying factors present at this time. Time Seen by : 10:00 Primary Care Provider: ALICIA Reviewed Notes: Medications, Allergies Allergies: Coded Allergies: Hydrocodone (Verified Adverse Reaction, Severe, MAKES HIM VOMIT, 11/27/24) Home Meds Active Scripts Allopurinol (Allopurinol) 100 Mg Tab, 100 MG PO DAILY for 30 Days, #30 TAB Prov:GINNY RUIZ FRONT SIGHT ATTACHER 12/24/24 Furosemide (Furosemide) 20 Mg Tab, 20 MG PO DAILY for 30 Days, #30 TAB Prov:GINNY RUIZ NP 12/24/24 Rifampin (Rifampin) 300 Mg Cap, 300 MG PO BID for 42 Days, CAP Prov:DAVID VARGAS MD 12/04/24 Rifampin (Rifampin) 300 Mg Cap, 300 MG PO BID PRN for 42 Days, #84 CAP Prov:SARAH VARGAS MD 12/03/24 Allopurinol (Allopurinol) 300 Mg Tab, 200 MG PO DAILY for 90 Days, #60 TAB Prov:DAVID VARGAS MD 09/06/24 Pantoprazole Sodium Sesquihydr (Pantoprazole Sodium) 40 Mg Tab, 40 MG PO DAILY for 90 Days, #90 TAB Prov:DAVID VARGAS MD 03/29/21 Gabapentin (Gabapentin) 100 Mg Cap, 100 MG PO Q8H for 30 Days, #90 CAP Prov:DAVID VARGAS MD 03/29/21 Cholecalciferol (Vitamin D3 Super Strength) 2,000 Unit Cap, 4000 UNIT PO DAILY for 100 Days, #100 CAP Prov:DAVID VARGAS MD 03/29/21 Atorvastatin Calcium (ATORVASTATIN CALCIUM) 20 Mg Tab, 40 MG PO HS for 90 Days, #180 TAB Prov:DAVID VARGAS MD 03/29/21 Aspirin (Aspir-Low) 81 Mg Tab, 81 MG PO QPM for 90 Days, #90 TAB Prov:DAVID VARGAS MD 03/29/21 Reported Medications Dapagliflozin Propanediol (Farxiga) 10 Mg Tab, 1 TAB PO DAILY 12/24/24 Lisinopril (Lisinopril) 5 Mg Tab, 1 TAB PO DAILY 12/24/24 Finerenone (Kerendia) 10 Mg Tab, PO 12/24/24 Hydralazine HCl (Hydralazine HCl) 25 Mg Tab, 1 TAB PO BID 12/24/24 Insulin Lispro Protamine & Lis (Humalog Mix 75/25 Kwikpen) 75 Mg/25 Kwp Inj, SC 09/03/24 Insulin Lispro (Humalog Salvatore Kwikpen) 100 Unit/Ml Inj, SC 09/03/24 Tamsulosin Hcl (Tamsulosin Hcl) 0.4 Mg Cap, 0.4 MG PO QPM for 30 Days, MG 09/17/22 Amlodipine Besylate (Amlodipine Besylate) 5 Mg Tab, 10 MG PO DAILY for 30 Days, MG 09/17/22 Hydralazine Hcl (Hydralazine Hcl) 25 Mg Tab, 25 MG PO TID for 30 Days, MG 09/17/22 Information Source: Patient Mode of Arrival: Ambulatory Severity: Moderate Timing: Hours Duration: Since onset Prehospital treatment: None Past Medical History PAST MEDICAL HISTORY: CKF, DM, GERD, High Lipids, HTN, TIA Surgical History (Other): RT toe amputation Family History Family History: Reviewed,noncontributory to illness, Family hx of DM, Family hx of HTN Social History Smoker: Non-Smoker Alcohol: Occasionally Drugs: Denies Drug Use Lives In: Home Constitutional: denies: chills, diaphoresis, fatigue, fever, malaise, sweats, weakness, others EENTM: denies: blurred vision, double vision, ear bleeding, ear discharge, ear drainage, ear pain, ear ringing, eye pain, eye redness, hearing loss, mouth pain, mouth swelling, nasal discharge, nose bleeding, nose congestion, nose pain, photophobia, tearing, throat pain, throat swelling, voice changes, others Respiratory: denies: cough, hemoptysis, orthopnea, SOB at rest, shortness of breath, SOB with excertion, stridor, wheezing, others Cardiovascular: denies: chest pain, dizzy spells, diaphoresis, Dyspnea on exertion, edema, irregular heart beat, left arm pain, lightheadedness, palpitations, PND, syncope, others Gastrointestinal: denies: abdomen distended, abdominal pain, blood streaked bowels, constipated, diarrhea, dysphagia, difficulty swallowing, hematemesis, melena, nausea, poor appetite, poor fluid intake, rectal bleeding, rectal pain, vomiting, others Genitourinary: denies: burning, dysuria, flank pain, frequency, hematuria, incontinence, penile discharge, penile sore, pain, testicle pain, testicle swelling, urgency, others Neurological: denies: dizziness, fainting, headache, left sided numbness, left sided weakness, numbness, paresthesia, pre-existing deficit, right sided numbness, right sided weakness, seizure, speech problems, tingling, tremors, weakness, others Musculoskeletal: denies: back pain, gout, joint pain, joint swelling, muscle pain, muscle stiffness, neck pain, others Integumetry: denies: bruises, change in color, change in hair/nails, dryness, laceration, lesions, lumps, rash, wounds, others Allergic/Immunocompromised: denies: Difficulty Healing, Frequent Infections, Hives, Itching, others Hematologic/Lymphatic: denies: anemia, blood clots, easy bleeding, easy bruising, swollen glands, others Endocrine: denies: excessive hunger, excessive sweating, excessive thirst, excessive urination, flushing, intolerance to cold, intolerance to heat, unexplained weight gain, unexplained weight loss, others Psychiatric: denies: anxiety, bipolar disorder, depression, hopeless, panic di sorder, schizophrenia, sleepless, suicidal, others All Other Systems: Reviewed and Negative Physical Exam General Appearance: Moderate Distress, Normal HEENT: Normal ENT Inspection, Pharynx Normal, TMs Normal Neck: Full Range of Motion, Non-Tender, Normal, Normal Inspection Respiratory: Chest Non-Tender, Lungs Clear, No Accessory Muscle Use, No Respiratory Distress, Normal Breath Sounds Cardiovascular: No Edema, No JVD, No Murmur, No Gallop, Normal Peripheral Pulses, Regular Rate/Rhythm Breast Exam: Deferred Gastrointestinal: No Organomegaly, Non Tender, No Pulsatile Mass, Normal Bowel Sounds, Soft Genitalia: Deferred Pelvic: Deferred Rectal: Deferred Extremities: No calf tenderness, Normal capillary refill, Normal inspection, Normal range of motion, Non-tender, No pedal edema Musculoskeletal : Apperance: Normal Neurologic: Alert, computational biologist II-XII nml as Tested, No Motor Deficits, Normal Affect, Normal Mood, No Sensory Deficits Cerebellar Function: Normal Reflexes: Normal Skin: Dry, Normal Color, Warm, Wounds (Right foot) Peripheral Pulses: 3+ Radial (R), 3+ Radial (L) Lymphatic: No Adenopathy Was a procedure done? Was a procedure done?: No Differential Dx Considerations may include: Cellulitis Diabetic foot X-Ray, Labs, Meds, VS Vital Signs Date Time Temp Pulse Resp B/P (MAP) Pulse Ox O2 Delivery O2 Flow Rate FiO2 12/26/24 10:23 80 18 97 Room Air* 0 21 12/26/24 10:11 99.4 80 18 176/91 (119) 97 99.4 12/26/24 10:11 99.4 80 18 176/91 (119) 97 99.4 Lab Test 12/26/24 10:06 Range/Units POC Glucose 214 H 70-106 mg/dl Patient alert. Vitals stable. Answering questions. Ambulating. Complaining of PICC line not working. Reviewed his previous visit. Explained to the patient. Was told to follow up with his primary care physician. Was told to come back if there is any problem. [place] [id number] Ph: [phone] DIAGNOSTIC IMAGING Diagnostic Imaging Report : [id number] Signed PATIENT: JOHNNY PENN ACCT: [id number] UNIT: [id number] : 1965 LOC: ER ROOM / BED: / AGE / SEX: 59 / M ADM STATUS: REG ER SERVICE 1019 ORDERING PHYSICIAN: MILTON DE LA PAZ MD PROCEDURE(s): CXRP - CHEST PORTABLE REASON: picctip ORDER NUMBER(s): [id number], ACCESSION NUMBER(s): [id number] CHEST RADIOGRAPH Indication: picctip Technique: Single frontal view of the chest was obtained COMPARISON: XY CHEST PORTABLE on DOS: 12/21/24, XY CHEST XRAY 1 VIEW on DOS: 11/27/24, XY CHEST XRAY 1 VIEW on DOS: 09/02/24, CHEST PORTABLE on DOS: 03/26/21, CXRP on DOS: 03/26/21 FINDINGS: Lines and Tubes: Right tunneled central venous catheter in the superior vena cava. Lungs: Clear Pleura: No effusion. No pneumothorax. Cardiomediastinal contours: Unremarkable Bones: Unremarkable IMPRESSION: Right PICC in satisfactory position. ATED BY: SHAWN ABRAHAM MD DICTATED DATE/TIME: 12/26/24 105 SIGNED BY: SHAWN ABRAHAM MD SIGNED DATE/TIME: 12/26/24 105 CC: Time of 1ST Reevaluation: 10:30 Reevaluation 1ST: Unchanged Patient Education/Counseling: Diagnosis, Treatment, Prognosis Family Education/Counseling: No Family Present SEPSIS Sepsis Screen Physician Orders * Picc Line Consult (12/26/24 10:03) Chest Portable (12/26/24 10:19) Vital Signs Date Time Temp Pulse Resp B/P (MAP) Pulse Ox O2 Delivery O2 Flow Rate FiO2 12/26/24 10:23 80 18 97 Room Air* 0 21 12/26/24 10:11 99.4 80 18 176/91 (119) 97 99.4 12/26/24 10:11 99.4 80 18 176/91 (119) 97 99.4 Departure 1 Departure Time of Disposition: 10:09 Impression: Primary Impression: S/P PICC central line placement Additional Impression: Diabetic foot Disposition: 01 HOME / SELF CARE / HOMELESS Condition: Good Discharged With: Self Critical Care Note Critical Care Time?: No Stability Stability form required: No Heart Score Heart Score: Heart Score Response (Comments) Value History N/A 0 EKG N/A 0 Age N/A 0 Risk Factors N/A 0 Troponin N/A 0 Total 0 I personally scribed for MILTON DE LA PAZ MD ([email or web address]) on 12/26/24 at 10:07. Electronically submitted by Melany Sommer ([email or web address]). I personally scribed for MILTON DE LA PAZ MD ([email or web address]) on 12/26/24 at 11:23. Electronically submitted by Melany Sommer ([email or web address]). MILTON DE LA PAZ MD Dec 26, 2024 10:07
[2024-12-26 10:11] VITALS: BP 176/91; TEMP 99.4
[2024-12-26 10:23] VITALS: PULSE 80; RESP 18; O2SAT 97
[2024-12-26] MEDS: CATHFLO ACTIVASE (ALTEPLASE) 2 MG VIAL IV ONE (10:30)
--- NOTE | 2024-12-26 10:53 | DVH ---
CHEST RADIOGRAPH Indication: picctip Technique: Single frontal view of the chest was obtained COMPARISON: XY CHEST PORTABLE on DOS: 12/21/24, XY CHEST XRAY 1 VIEW on DOS: 11/27/24, XY CHEST XRAY 1 VIEW on DOS: 09/02/24, CHEST PORTABLE on DOS: 03/26/21, CXRP on DOS: 03/26/21 FINDINGS: Lines and Tubes: Right tunneled central venous catheter in the superior vena cava. Lungs: Clear Pleura: No effusion. No pneumothorax. Cardiomediastinal contours: Unremarkable Bones: Unremarkable IMPRESSION: Right PICC in satisfactory position.
== END 2024-12-26 11:31 | disposition home or self-care (01) ==
LOC: ER 09:53
DX: T82.514A Breakdown (mechanical) of infusion catheter, initial encounter (principal); E11.621 Type 2 diabetes mellitus with foot ulcer; I12.9 Hypertensive chronic kidney disease with stage 1 through stage 4 chronic kidney disease, or unspecified chronic kidney disease; E11.22 Type 2 diabetes mellitus with diabetic chronic kidney disease; N18.9 Chronic kidney disease, unspecified; K21.9 Gastro-esophageal reflux disease without esophagitis; E78.5 Hyperlipidemia, unspecified; Z79.82 Long term (current) use of aspirin; Z79.84 Long term (current) use of oral hypoglycemic drugs; Z79.899 Other long term (current) drug therapy; Z86.73 Personal history of transient ischemic attack (TIA), and cerebral infarction without residual deficits; Z95.828 Presence of other vascular implants and grafts; Z88.5 Allergy status to narcotic agent; Y92.89 Other specified places as the place of occurrence of the external cause
CPT/HCPCS: 71045; 82947; 82962

== ENCOUNTER 2025-01-02 10:17 | Emergency (ER) | payer MEDICAID ==
[~2025-01-02] VITALS: Ht 167.6 cm; Wt 85.5 kg
--- NOTE | 2025-01-02 10:27 | ED.PDOC ---
History of Present Illness HPI Comments 59-year-old male came to the ER stating that his PICC line dressing needs to be changed. He was here last week for the same condition for which the nurse check the line in change the dressing. He does get antibiotics because of his right foot infection. Patient states that he is feeling much better. He does not not have a home nurse yet to help with the change of dressing. Denies any other symptoms. Time Seen by MD: 10:23 Primary Care Provider: KENN Burns Notes: Nurses Notes, Medications, Allergies Allergies: Coded Allergies: Hydrocodone (Verified Adverse Reaction, Severe, MAKES HIM VOMIT, 11/27/24) Home Meds Active Scripts Allopurinol (Allopurinol) 100 Mg Tab, 100 MG PO DAILY for 30 Days, #30 TAB Prov:GINNY RUIZ MEDICATION RECONCILIATION TECHNICIAN 12/24/24 Furosemide (Furosemide) 20 Mg Tab, 20 MG PO DAILY for 30 Days, #30 TAB Prov:GINNY RUIZ MEDICATION RECONCILIATION TECHNICIAN 12/24/24 Rifampin (Rifampin) 300 Mg Cap, 300 MG PO BID for 42 Days, CAP Prov:DAVID VARGAS MD 12/04/24 Rifampin (Rifampin) 300 Mg Cap, 300 MG PO BID PRN for 42 Days, #84 CAP Prov:SARAH VARGAS MD 12/03/24 Allopurinol (Allopurinol) 300 Mg Tab, 200 MG PO DAILY for 90 Days, #60 TAB Prov:DAVID VARGAS MD 09/06/24 Pantoprazole Sodium Sesquihydr (Pantoprazole Sodium) 40 Mg Tab, 40 MG PO DAILY for 90 Days, #90 TAB Prov:DAVID VARGAS MD 03/29/21 Gabapentin (Gabapentin) 100 Mg Cap, 100 MG PO Q8H for 30 Days, #90 CAP Prov:DAVID VARGAS MD 03/29/21 Cholecalciferol (Vitamin D3 Super Strength) 2,000 Unit Cap, 4000 UNIT PO DAILY for 100 Days, #100 CAP Prov:DAVID VARGAS MD 03/29/21 Atorvastatin Calcium (ATORVASTATIN CALCIUM) 20 Mg Tab, 40 MG PO HS for 90 Days, #180 TAB Prov:DAVID VARGAS MD 03/29/21 Aspirin (Aspir-Low) 81 Mg Tab, 81 MG PO QPM for 90 Days, #90 TAB Prov:DAVID VARGAS MD 03/29/21 Reported Medications Dapagliflozin Propanediol (Farxiga) 10 Mg Tab, 1 TAB PO DAILY 12/24/24 Lisinopril (Lisinopril) 5 Mg Tab, 1 TAB PO DAILY 12/24/24 Finerenone (Kerendia) 10 Mg Tab, PO 12/24/24 Hydralazine HCl (Hydralazine HCl) 25 Mg Tab, 1 TAB PO BID 12/24/24 Insulin Lispro Protamine & Lis (Humalog Mix 75/25 Kwikpen) 75 Mg/25 Kwp Inj, SC 09/03/24 Insulin Lispro (Humalog Salvatore Kwikpen) 100 Unit/Ml Inj, SC 09/03/24 Tamsulosin Hcl (Tamsulosin Hcl) 0.4 Mg Cap, 0.4 MG PO QPM for 30 Days, MG 09/17/22 Amlodipine Besylate (Amlodipine Besylate) 5 Mg Tab, 10 MG PO DAILY for 30 Days, MG 09/17/22 Hydralazine Hcl (Hydralazine Hcl) 25 Mg Tab, 25 MG PO TID for 30 Days, MG 09/17/22 Information Source: Patient Mode of Arrival: Ambulatory Severity: Moderate Timing: Days Duration: Since onset Past Medical History PAST MEDICAL HISTORY: CKF, DM, GERD, High Lipids, HTN, TIA Surgical History: Denies all surgeries Family History Family History: Reviewed,noncontributory to illness, Family hx of DM, Family hx of HTN Social History Smoker: Non-Smoker Alcohol: Occasionally Drugs: Denies Drug Use Lives In: Home Constitutional: denies: chills, diaphoresis, fatigue, fever, malaise, sweats, weakness, others EENTM: denies: blurred vision, double vision, ear bleeding, ear discharge, ear drainage, ear pain, ear ringing, eye pain, eye redness, hearing loss, mouth pain, mouth swelling, nasal discharge, nose bleeding, nose congestion, nose pain, photophobia, tearing, throat pain, throat swelling, voice changes, others Respiratory: denies: cough, hemoptysis, orthopnea, SOB at rest, shortness of breath, SOB with excertion, stridor, wheezing, others Cardiovascular: denies: chest pain, dizzy spells, diaphoresis, Dyspnea on exertion, edema, irregular heart beat, left arm pain, lightheadedness, palpitations, PND, syncope, others Gastrointestinal: denies: abdomen distended, abdominal pain, blood streaked bowels, constipated, diarrhea, dysphagia, difficulty swallowing, hematemesis, melena, nausea, poor appetite, poor fluid intake, rectal bleeding, rectal pain, vomiting, others Genitourinary: denies: burning, dysuria, flank pain, frequency, hematuria, incontinence, penile discharge, penile sore, pain, testicle pain, testicle swelling, urgency, others Neurological: denies: dizziness, fainting, headache, left sided numbness, left sided weakness, numbness, paresthesia, pre-existing deficit, right sided numbness, right sided weakness, seizure, speech problems, tingling, tremors, weakness, others Musculoskeletal: denies: back pain, gout, joint pain, joint swelling, muscle pain, muscle stiffness, neck pain, others Integumetry: denies: bruises, change in color, change in hair/nails, dryness, laceration, lesions, lumps, rash, wounds, others Allergic/Immunocompromised: denies: Difficulty Healing, Frequent Infections, Hives, Itching, others Hematologic/Lymphatic: denies: anemia, blood clots, easy bleeding, easy bruising, swollen glands, others Endocrine: denies: excessive hunger, excessive sweating, excessive thirst, excessive urination, flushing, intolerance to cold, intolerance to heat, unexplained weight gain, unexplained weight loss, others Psychiatric: denies: anxiety, bipolar disorder, depression, hopeless, panic disorder, schizophrenia, sleepless, suicidal, others Physical Exam General Appearance: Moderate Distress HEENT: Normal ENT Inspection, Pharynx Normal, TMs Normal Neck: Full Range of Motion, Non-Tender, Normal, Normal Inspection Respiratory: Chest Non-Tender, Lungs Clear, No Accessory Muscle Use, No Respiratory Distress, Normal Breath Sounds Cardiovascular: No Edema, No JVD, No Murmur, No Gallop, Normal Peripheral Pulses, Regular Rate/Rhythm Breast Exam: Deferred Gastrointestinal: No Organomegaly, Non Tender, No Pulsatile Mass, Normal Bowel Sounds, Soft Genitalia: Deferred Pelvic: Deferred Rectal: Deferred Extremities: No calf tenderness, Normal capillary refill, Normal inspection, Normal range of motion, Non-tender, No pedal edema Musculoskeletal : Apperance: Normal Neurologic: Alert, waste specialist II-XII nml as Tested, No Motor Deficits, Normal Affect, Normal Mood, No Sensory Deficits Cerebellar Function: Normal Reflexes: Normal Skin: Dry, Normal Color, Warm, Wounds (PICC line right side) Peripheral Pulses: 3+ Radial (R), 3+ Radial (L) Lymphatic: No Adenopathy Was a procedure done? Was a procedure done?: No Differential Dx Considerations may include: PICC line dressing X-Ray, Labs, Meds, VS Vital Signs Date Time Temp Pulse Resp B/P (MAP) Pulse Ox O2 Delivery O2 Flow Rate FiO2 01/02/25 10:45 98.7 91 18 174/91 (118) 98 98.7 Patient alert. Complaining of having to change the PICC line dressing. Has been a week. Vitals stable. Answering questions. Saturation pristine on room air. No sign of distress. No sepsis. Dressing change. Satisfied with the treatment plan. Was told to follow up with his primary care physician. Was told to come back if there is any problem. Time of 1ST Reevaluation: 11:33 Reevaluation 1ST: Improved Patient Education/Counseling: Diagnosis, Treatment, Prognosis, Need For Follow Up Family Education/Counseling: No Family Present SEPSIS Sepsis Screen Physician Orders Change Picc Dressing Q7 Days QWEEKLY (01/02/25 10:49) Vital Signs Date Time Temp Pulse Resp B/P (MAP) Pulse Ox O2 Delivery O2 Flow Rate FiO2 01/02/25 10:45 98.7 91 18 174/91 (118) 98 98.7 Departure 1 Departure Time of Disposition: 11:34 Impression: Primary Impression: Diabetic foot Additional Impression: Dressing change Disposition: 01 HOME / SELF CARE / HOMELESS Condition: Good Discharged With: Self Critical Care Note Critical Care Time?: No Stability Stability form required: No Heart Score Heart Score: Heart Score Response (Comments) Value History N/A 0 EKG N/A 0 Age N/A 0 Risk Factors N/A 0 Troponin N/A 0 Total 0 MILTON DE LA PAZ MD Jan 02, 2025 10:27
[2025-01-02 10:45] VITALS: BP 174/91; PULSE 91; RESP 18; TEMP 98.7; O2SAT 98
== END 2025-01-02 12:17 | disposition home or self-care (01) ==
LOC: ER 10:17
DX: E11.621 Type 2 diabetes mellitus with foot ulcer (principal); I10 Essential (primary) hypertension; Z48.00 Encounter for change or removal of nonsurgical wound dressing; Z79.899 Other long term (current) drug therapy; Z86.73 Personal history of transient ischemic attack (TIA), and cerebral infarction without residual deficits; Z88.5 Allergy status to narcotic agent

== ENCOUNTER 2025-01-13 12:55 | Emergency (ER) | payer MEDICAID ==
[~2025-01-13] VITALS: Ht 167.6 cm; Wt 83.9 kg
--- NOTE | 2025-01-13 13:13 | ED.PDOC ---
History of Present Illness HPI Comments A 59 YEAR OLD MALE PRESENTS TO THE ED WITH COMPLAINT OF REQUEST FOR TUNNEL CATHETER REMOVAL. PATIENT STATES HE HAD A TUNNEL CATHETER CENTRAL LINE PLACED ON HIS RIGHT UPPER CHEST WALL 6 WEEKS AGO DUE TO HAVING OSTEOMYELITIS. PATIENT REPORTS HE HAS COMPLETED HIS COURSE OF ANTIBIOTICS AND WAS TOLD TO GO TO THE ED FOR REMOVAL OF THIS CATHETER. PATIENT DENIES FEVER, CHILLS, SHORTNESS OF BREATH, CHEST PAIN, ABDOMINAL PAIN, NAUSEA, VOMITING, HEADACHE, OR OTHER COMPLAINTS. NO OTHER SYMPTOMS OR MODIFYING FACTORS AT THIS TIME. PATIENT IS ALERT, ORIENTED X 4, AND HAS STEADY GAIT. Time Seen by MD: 13:03 Primary Care Provider: jazzmine Reviewed Notes: Nurses Notes, Medications, Allergies Allergies: Coded Allergies: Hydrocodone (Verified Adverse Reaction, Severe, MAKES HIM VOMIT, 11/27/24) Home Meds Active Scripts Allopurinol (Allopurinol) 100 Mg Tab, 100 MG PO DAILY for 30 Days, #30 TAB Prov:GINNY RUIZ HARP REPAIRER 12/24/24 Furosemide (Furosemide) 20 Mg Tab, 20 MG PO DAILY for 30 Days, #30 TAB Prov:GINNY RUIZ NP 12/24/24 Rifampin (Rifampin) 300 Mg Cap, 300 MG PO BID for 42 Days, CAP Prov:DAVID VARGAS MD 12/04/24 Rifampin (Rifampin) 300 Mg Cap, 300 MG PO BID PRN for 42 Days, #84 CAP Prov:SARAH VARGAS MD 12/03/24 Allopurinol (Allopurinol) 300 Mg Tab, 200 MG PO DAILY for 90 Days, #60 TAB Prov:DAVID VARGAS MD 09/06/24 Pantoprazole Sodium Sesquihydr (Pantoprazole Sodium) 40 Mg Tab, 40 MG PO DAILY for 90 Days, #90 TAB Prov:DAVID VARGAS MD 03/29/21 Gabapentin (Gabapentin) 100 Mg Cap, 100 MG PO Q8H for 30 Days, #90 CAP Prov:DAVID VARGAS MD 03/29/21 Cholecalciferol (Vitamin D3 Super Strength) 2,000 Unit Cap, 4000 UNIT PO DAILY for 100 Days, #100 CAP Prov:DAVID VARGAS MD 03/29/21 Atorvastatin Calcium (ATORVASTATIN CALCIUM) 20 Mg Tab, 40 MG PO HS for 90 Days, #180 TAB Prov:DAVID VARGAS MD 03/29/21 Aspirin (Aspir-Low) 81 Mg Tab, 81 MG PO QPM for 90 Days, #90 TAB Prov:DAVID VARGAS MD 03/29/21 Reported Medications Dapagliflozin Propanediol (Farxiga) 10 Mg Tab, 1 TAB PO DAILY 12/24/24 Lisinopril (Lisinopril) 5 Mg Tab, 1 TAB PO DAILY 12/24/24 Finerenone (Kerendia) 10 Mg Tab, PO 12/24/24 Hydralazine HCl (Hydralazine HCl) 25 Mg Tab, 1 TAB PO BID 12/24/24 Insulin Lispro Protamine & Lis (Humalog Mix 75/25 Kwikpen) 75 Mg/25 Kwp Inj, SC 09/03/24 Insulin Lispro (Humalog Salvatore Kwikpen) 100 Unit/Ml Inj, SC 09/03/24 Tamsulosin Hcl (Tamsulosin Hcl) 0.4 Mg Cap, 0.4 MG PO QPM for 30 Days, MG 09/17/22 Amlodipine Besylate (Amlodipine Besylate) 5 Mg Tab, 10 MG PO DAILY for 30 Days, MG 09/17/22 Hydralazine Hcl (Hydralazine Hcl) 25 Mg Tab, 25 MG PO TID for 30 Days, MG 09/17/22 Information Source: Patient Mode of Arrival: Ambulatory Severity: Moderate Timing: Weeks Duration: Since onset Prehospital treatment: None Medication Refill: For: Other (REQUEST FOR TUNNEL CATHETER REMOVAL) Past Medical History PAST MEDICAL HISTORY: CKF, DM, GERD, High Lipids, HTN, TIA Surgical History: Denies all surgeries Family History Family History: Reviewed,noncontributory to illness, Family hx of DM, Family hx of HTN Social History Smoker: Non-Smoker Alcohol: Occasionally Drugs: Denies Drug Use Lives In: Home Constitutional: denies: chills, diaphoresis, fatigue, fever, malaise, sweats, weakness, others EENTM: denies: blurred vision, double vision, ear bleeding, ear discharge, ear drainage, ear pain, ear ringing, eye pain, eye redness, hearing loss, mouth pain , mouth swelling, nasal discharge, nose bleeding, nose congestion, nose pain, photophobia, tearing, throat pain, throat swelling, voice changes, others Respiratory: denies: cough, hemoptysis, orthopnea, SOB at rest, shortness of breath, SOB with excertion, stridor, wheezing, others Cardiovascular: denies: chest pain, dizzy spells, diaphoresis, Dyspnea on exertion, edema, irregular heart beat, left arm pain, lightheadedness, palpitations, PND, syncope, others Gastrointestinal: denies: abdomen distended, abdominal pain, blood streaked bowels, constipated, diarrhea, dysphagia, difficulty swallowing, hematemesis, melena, nausea, poor appetite, poor fluid intake, rectal bleeding, rectal pain, vomiting, others Genitourinary: denies: burning, dysuria, flank pain, frequency, hematuria, incontinence, penile discharge, penile sore, pain, testicle pain, testicle swelling, urgency, others Neurological: denies: dizziness, fainting, headache, left sided numbness, left sided weakness, numbness, paresthesia, pre-existing deficit, right sided numbness, right sided weakness, seizure, speech problems, tingling, tremors, weakness, others Musculoskeletal: denies: back pain, gout, joint pain, joint swelling, muscle pain, muscle stiffness, neck pain, others Integumetry: reports: others (REQUEST FOR TUNNEL CATHETER REMOVAL ON RIGHT UPPER CHEST WALL ); denies: bruises, change in color, change in hair/nails, dryness, laceration, lesions, lumps, rash, wounds Allergic/Immunocompromised: denies: Difficulty Healing, Frequent Infections, Hives, Itching, others Hematologic/Lymphatic: denies: anemia, blood clots, easy bleeding, easy bruising, swollen glands, others Endocrine: denies: excessive hunger, excessive sweating, excessive thirst, excessive urination, flushing, intolerance to cold, intolerance to heat, unexplained weight gain, unexplained weight loss, others Psychiatric: denies: anxiety, bipolar disorder, depression, hopeless, panic disorder, schizophrenia, sleepless, suicidal, others All Other Systems: Reviewed and Negative Physical Exam General Appearance: No Apparent Distress, Normal HEENT: Normal ENT Inspection, PERRL/EOMI, Pharynx Normal, TMs Normal Neck: Full Range of Motion, Non-Tender, Normal, Normal Inspection Respiratory: Chest Non-Tender, Lungs Clear, No Accessory Muscle Use, No Respiratory Distress, Normal Breath Sounds Cardiovascular: No Edema, No JVD, No Murmur, No Gallop, Normal Peripheral Pulses, Regular Rate/Rhythm Breast Exam: Deferred Gastrointestinal: No Organomegaly, Non Tender, No Pulsatile Mass, Normal Bowel Sounds, Soft Genitalia: Deferred Pelvic: Deferred Rectal: Deferred Extremities: No calf tenderness, Normal capillary refill, Normal inspection, Normal range of motion, Non-tender, No pedal edema Musculoskeletal : Apperance: Normal Neurologic: Alert, state game warden II-XII nml as Tested, No Motor Deficits, Normal Affect, Normal Mood, No Sensory Deficits Cerebellar Function: Normal Reflexes: Normal Skin: Dry, Normal Color, Warm, Other (TUNNEL CATHETER IN PLACE ON RIGHT UPPER CHEST WALL, NO SKIN REDNESS, SWELLING AND INFECTION SIGNS. ) Peripheral Pulses: 2+ carotid (R), 2+ carotid (L) Lymphatic: No Adenopathy Was a procedure done? Was a procedure done?: No Differential Dx Considerations may include: REQUEST FOR TUNNEL CATHETER REMOVAL, HISTORY OF OSTEOMYELITIS X-Ray, Labs, Meds, VS Vital Signs Date Time Temp Pulse Resp B/P (MAP) Pulse Ox O2 Delivery O2 Flow Rate FiO2 01/13/25 13:16 97.5 84 16 157/94 (115) 97 97.5 X-Ray, Labs, Meds, VS Comment EXTERNAL MEDICAL RECORDS REVIEWED: [NONE] INDEPENDENT HISTORIANS: [NONE] SOCIAL DETERMINANTS OF HEALTH: [NONE] LABS ORDERED: NONE REVIEWED AND INTERPRETED RESULTS: NONE IMAGING ORDERED: XR CHEST: [INTERPRETED BY ME. NO ABNORMALITIES SEEN AT THIS TIME. TUNNELED POWERLINE CATHETER SUCCESSFULLY REMOVED. PENDING RADIOLOGY REVIEW.] TREATMENTS ORDERED: INTERVENTIONAL RADIOLOGY SUCCESSFULLY REMOVED THE PATIENT'S TUNNELED POWERLINE CATHETER. PROCEDURES PERFORMED: NONE CRITICAL CARE TIME: NONE I HAVE DISCUSSED THE PATIENT WITH THE ATTENDING PHYSICIAN DR. TODD AND HE AGREES WITH THE PATIENT'S PLAN OF CARE AND DISPOSITION. BASED ON HISTORY OF PRESENT ILLNESS, AND PHYSICAL EXAM, PATIENT WILL BE DISCHARGED HOME. SHARED DECISION MAKING: PATIENT INSTRUCTED TO FOLLOW UP WITH PRIMARY CARE PROVIDER IN 1-2 DAYS FOR RE-EVALUATION OF SYMPTOMS. PATIENT VERBALIZES UNDERSTANDING TO RETURN TO ED FOR NEW OR WORSENING SYMPTOMS OR IF FOLLOW UP WITH PCP CANNOT BE OBTAINED. PATIENT FEELS COMFORTABLE GOING HOME AT THIS TIME. ALL QUESTIONS ADDRESSED AT TIME OF DISCHARGE. Images Reviewed?: Images reviewed and evaluated by me Time of 1ST Reevaluation: 14:00 Reevaluation 1ST: Improved Consultation: Other (RADIOLOGY: I HAVE CONSULTED THE ON-CALL RADIOLOGIST REGARDING THIS PATIENT'S CASE AND THEY HAVE SUCCESSFULLY REMOVED THE PATIENT'S TUNNELED POWERLINE CATHETER.) Patient Education/Counseling: Diagnosis, Treatment, Need For Follow Up Family Education/Counseling: Diagnosis, Treatment, Need For Follow Up Medical Screening: No EMC Exist At This Time SEPSIS Sepsis Screen Physician Orders * Radiologist Consult (01/13/25 13:16) Chest Portable (01/13/25 13:32) Vital Signs Date Time Temp Pulse Resp B/P (MAP) Pulse Ox O2 Delivery O2 Flow Rate FiO2 01/13/25 13:16 97.5 84 16 157/94 (115) 97 97.5 Departure 1 Departure Time of Disposition: 14:10 Impression: Primary Impression: Encounter for removal of tunneled central venous catheter (CVC) with port Disposition: 01 HOME / SELF CARE / HOMELESS Condition: Stable Additional Instructions: FOLLOW-UP WITH PCP IN 1 TO 2 DAYS. TAKE MEDICATIONS PRESCRIBED. RETURN TO ED FOR ANY NEW OR WORSENING SYMPTOMS. Discharged With: Self Critical Care Note Critical Care Time?: No Stability Stability form required: No I personally scribed for LEONIDAS MARQUIS ([email or web address]) on 01/13/25 at 13:13. Electronically submitted by Ahsan Tapia ([employer]). I personally scribed for LEONIDAS MARQUIS ([email or web address]) on 01/13/25 at 13:56. Electronically submitted by Ahsan Tapia ([employer]). I personally scribed for LEONIDAS MARQUIS ([email or web address]) on 01/13/25 at 13:58. Electronically submitted by Ahsan Tapia ([employer]). LEONIDAS MARQUIS Jan 13, 2025 13:13
[2025-01-13] MEDS: LIDOCAINE 2% (LOCAL ANESTH.) PF 5ml SDV ONE (13:45)
[2025-01-13 14:01] VITALS: BP 148/89; PULSE 87; RESP 17; TEMP 98.5; O2SAT 98
--- NOTE | 2025-01-13 14:08 | DVH ---
EXAM: XY CHEST PORTABLE HISTORY: S/P REMOVAL TD CATH COMPARISON: XY CHEST PORTABLE on DOS: 12/26/24, XY CHEST PORTABLE on DOS: 12/21/24, XY CHEST XRAY 1 VIE W on DOS: 11/27/24, XY CHEST XRAY 1 VIEW on DOS: 09/02/24, CHEST PORTABLE on DOS: 03/26/21 TECHNIQUE: Frontal view of the chest was performed. FINDINGS: There has been interval removal of the right central line. No pneumothorax, consolidative infiltrates , or pulmonary edema. The heart is not enlarged. There is thoracic degenerative disc disease. IMPRESSION: Interval removal of right chest central line. The lungs are clear.
== END 2025-01-13 14:04 | disposition home or self-care (01) ==
LOC: ER 12:55
DX: Z45.2 Encounter for adjustment and management of vascular access device (principal); F10.90 Alcohol use, unspecified, uncomplicated; K21.9 Gastro-esophageal reflux disease without esophagitis; E78.5 Hyperlipidemia, unspecified; E11.22 Type 2 diabetes mellitus with diabetic chronic kidney disease; I12.9 Hypertensive chronic kidney disease with stage 1 through stage 4 chronic kidney disease, or unspecified chronic kidney disease; N18.9 Chronic kidney disease, unspecified; Z88.5 Allergy status to narcotic agent; Z79.899 Other long term (current) drug therapy; Z79.82 Long term (current) use of aspirin; Z79.84 Long term (current) use of oral hypoglycemic drugs; Z86.73 Personal history of transient ischemic attack (TIA), and cerebral infarction without residual deficits
CPT/HCPCS: 71045; 99283; J2003

== ENCOUNTER 2025-01-23 11:10 | Outpatient (CLI) | payer MEDICAID ==
[2025-01-23 11:39] LABS: Hematocrit 44.9 % (41.0-53.0); Hemoglobin 15.0 g/dL (13.5-17.5); Mean Corpuscular Hemoglobin 27.8 pg (28.0-32.0); Mean Corpuscular Volume 83.2 fL (80.0-100.0); Nucleated Red Blood Cells % 0.0 %
[2025-01-23 12:08] LABS: Chloride 106 mmol/L (98-107); Potassium 4.8 mmol/L (3.5-5.1); Sodium 139 mmol/L (136-145)
[2025-01-23 12:09] LABS: Anion Gap 9 (5-15); Calcium 9.7 mg/dL (8.7-10.4); Carbon Dioxide 24 mmol/L (20-31)
[2025-01-23 12:17] LABS: BUN/Creatinine Ratio 22.5 (10.0-20.0); Blood Urea Nitrogen 61 mg/dL (9-23); Glucose 163 mg/dL (74-106)
== END 2025-01-23 17:00 | disposition home or self-care (01) ==
LOC: LAB 11:10
PROVIDERS: ATTEND Internal Medicine
DX: M86.9 Osteomyelitis, unspecified (principal)
CPT/HCPCS: 36415; 80048; 85025

== ENCOUNTER 2025-05-08 11:28 | Outpatient (CLI) | payer MEDICAID ==
[2025-05-08 13:28] LABS: Hematocrit 48.3 % (41.0-53.0); Hemoglobin 15.9 g/dL (13.5-17.5); Mean Corpuscular Hemoglobin 27.8 pg (28.0-32.0); Mean Corpuscular Volume 84.2 fL (80.0-100.0); Nucleated Red Blood Cells % 0.0 %
[2025-05-08 13:52] LABS: Alanine Aminotransferase 19 U/L (7-40); Alkaline Phosphatase 118 U/L (46-116); Anion Gap 12 (5-15); Calcium 8.9 mg/dL (8.7-10.4); Carbon Dioxide 26 mmol/L (20-31); Chloride 99 mmol/L (98-107); Potassium 4.2 mmol/L (3.5-5.1); Sodium 137 mmol/L (136-145)
[2025-05-08 13:56] LABS: BUN/Creatinine Ratio 14.0 (10.0-20.0); Total Protein 7.5 g/dL (5.7-8.2); Triglycerides 92 mg/dL (< 150)
[2025-05-08 13:57] LABS: Albumin 4.2 g/dL (3.2-4.8); Blood Urea Nitrogen 37 mg/dL (9-23); Glucose 158 mg/dL (74-106)
[2025-05-08 13:58] LABS: Bilirubin, Total 0.7 mg/dL (0.2-1.0); Cholesterol 226 mg/dL (< 200); HDL Cholesterol 70 mg/dL (40-59)
[2025-05-08 14:03] LABS: Urine Protein, UAD 1+ (Negative)
== END 2025-05-08 17:00 | disposition home or self-care (01) ==
LOC: LAB 11:28
PROVIDERS: ATTEND Internal Medicine
DX: Z00.01 Encounter for general adult medical examination with abnormal findings (principal); Z79.899 Other long term (current) drug therapy
CPT/HCPCS: 36415; 80053; 80061; 81001; 83036; 84439; 84443; 85025

== ENCOUNTER 2025-05-22 12:04 | Outpatient (CLI) | payer MEDICAID ==
[2025-05-22 13:35] LABS: Anion Gap 9 (5-15); Carbon Dioxide 25 mmol/L (20-31); Chloride 102 mmol/L (98-107); Potassium 5.1 mmol/L (3.5-5.1)
[2025-05-22 13:36] LABS: Calcium 9.1 mg/dL (8.7-10.4)
[2025-05-22 13:37] LABS: Sodium 136 mmol/L (136-145)
[2025-05-22 13:41] LABS: BUN/Creatinine Ratio 18.6 (10.0-20.0)
[2025-05-22 13:46] LABS: Blood Urea Nitrogen 58 mg/dL (9-23); Glucose 146 mg/dL (74-106)
== END 2025-05-22 17:00 | disposition home or self-care (01) ==
LOC: LAB 12:04
PROVIDERS: ATTEND Internal Medicine
DX: I12.9 Hypertensive chronic kidney disease with stage 1 through stage 4 chronic kidney disease, or unspecified chronic kidney disease (principal); E11.22 Type 2 diabetes mellitus with diabetic chronic kidney disease; N18.32 Chronic kidney disease, stage 3b
CPT/HCPCS: 36415; 80048

== ENCOUNTER 2025-05-29 10:32 | Emergency (ER) | payer MEDICAID ==
[~2025-05-29] VITALS: Ht 167.6 cm; Wt 91.8 kg
--- NOTE | 2025-05-29 11:24 | ED.PDOC ---
History of Present Illness HPI Comments 59M presents to the ER w/ prior MHx of CKF, DM, GERD, High Lipids, HTN, TIA and the c/c of abnormal labs. Pt reports on having had his blood drawn on 05/22/25 for his PCP. Pt came to follow up with his PCP today and was told that his potassium was low and to go to the ER to get more blood drawn. Pt notes on not feeling any symptoms at this time. Denies any symptoms at this time. Patient denies any CP, SOB, dizziness, numbness, weakness, tingling, fever, chills, or recent fall. Chief Complaint: Abnormal LAB's Time Seen by MD: 11:15 Primary Care Provider: ALICIA Reviewed Notes: Nurses Notes, Medications, Allergies Allergies: Coded Allergies: Hydrocodone (Verified Adverse Reaction, Severe, MAKES HIM VOMIT, 11/27/24) Home Meds Active Scripts Allopurinol (Allopurinol) 100 Mg Tab, 100 MG PO DAILY for 30 Days, #30 TAB Prov:GINNY RUIZ FOREX TRADER 12/24/24 Furosemide (Furosemide) 20 Mg Tab, 20 MG PO DAILY for 30 Days, #30 TAB Prov:GINNY RUIZ FOR[employer] TRADER 12/24/24 Rifampin (Rifampin) 300 Mg Cap, 300 MG PO BID for 42 Days, CAP Prov:DAVID VARGAS MD 12/04/24 Rifampin (Rifampin) 300 Mg Cap, 300 MG PO BID PRN for 42 Days, #84 CAP Prov:SARAH VARGAS MD 12/03/24 Allopurinol (Allopurinol) 300 Mg Tab, 200 MG PO DAILY for 90 Days, #60 TAB Prov:DAVID VARGAS MD 09/06/24 Pantoprazole Sodium Sesquihydr (Pantoprazole Sodium) 40 Mg Tab, 40 MG PO DAILY for 90 Days, #90 TAB Prov:DAVID VARGAS MD 03/29/21 Gabapentin (Gabapentin) 100 Mg Cap, 100 MG PO Q8H for 30 Days, #90 CAP Prov:DAVID VARGAS MD 03/29/21 Cholecalciferol (Vitamin D3 Super Strength) 2,000 Unit Cap, 4000 UNIT PO DAILY for 100 Days, #100 CAP Prov:DAVID VARGAS MD 03/29/21 Atorvastatin Calcium (ATORVASTATIN CALCIUM) 20 Mg Tab, 40 MG PO HS for 90 Days, #180 TAB Prov:DAVID VARGAS MD 03/29/21 Aspirin (Aspir-Low) 81 Mg Tab, 81 MG PO QPM for 90 Days, #90 TAB Prov:DAVID VARGAS MD 03/29/21 Reported Medications Dapagliflozin Propanediol (Farxiga) 10 Mg Tab, 1 TAB PO DAILY 12/24/24 Lisinopril (Lisinopril) 5 Mg Tab, 1 TAB PO DAILY 12/24/24 Finerenone (Kerendia) 10 Mg Tab, PO 12/24/24 Hydralazine HCl (Hydralazine HCl) 25 Mg Tab, 1 TAB PO BID 12/24/24 Insulin Lispro Protamine & Lis (Humalog Mix 75/25 Kwikpen) 75 Mg/25 Kwp Inj, SC 09/03/24 Insulin Lispro (Humalog Salvatore Kwikpen) 100 Unit/Ml Inj, SC 09/03/24 Tamsulosin Hcl (Tamsulosin Hcl) 0.4 Mg Cap, 0.4 MG PO QPM for 30 Days, MG 09/17/22 Amlodipine Besylate (Amlodipine Besylate) 5 Mg Tab, 10 MG PO DAILY for 30 Days, MG 09/17/22 Hydralazine Hcl (Hydralazine Hcl) 25 Mg Tab, 25 MG PO TID for 30 Days, MG 09/17/22 Information Source: Patient Mode of Arrival: Ambulatory Severity: Moderate Timing: Days Duration: Since onset, Days Prehospital treatment: None Past Medical History PAST MEDICAL HISTORY: CKF, DM, GERD, High Lipids, HTN, TIA Surgical History: Denies all surgeries Family History Family History: Reviewed,noncontributory to illness, Unknown Social History Smoker: Non-Smoker Alcohol: Denies ETOH Use Drugs: Denies Drug Use Lives In: Home Constitutional: reports: others (low potassium); denies: chills, diaphoresis, fatigue, fever, malaise, sweats, weakness EENTM: denies: blurred vision, double vision, ear bleeding, ear discharge, ear drainage, ear pain, ear ringing, eye pain, eye redness, hearing loss, mouth pain, mouth swelling, nasal discharge, nose bleeding, nose congestion, nose pain, photophobia, tearing, throat pain, throat swelling, voice changes, others Respiratory: denies: cough, hemoptysis, orthopnea, SOB at rest, shortness of breath, SOB with excertion, stridor, wheezing, others Cardiovascular: denies: chest pain, dizzy spells, diaphoresis, Dyspnea on exertion, edema, irregular heart beat, left arm pain, lightheadedness, palpitations, PND, syncope, others Gastrointestinal: denies: abdomen distended, abdominal pain, blood streaked bowels, constipated, diarrhea, dysphagia, difficulty swallowing, hematemesis, melena, nausea, poor appetite, poor fluid intake, rectal bleeding, rectal pain, vomiting, others Genitourinary: denies: burning, dysuria, flank pain, frequency, hematuria, incontinence, penile discharge, penile sore, pain, testicle pain, testicle swelling, urgency, others Neurological: denies: dizziness, fainting, headache, left sided numbness, left sided weakness, numbness, paresthesia, pre-existing deficit, right sided numbness, right sided weakness, seizure, speech problems, tingling, tremors, weakness, others Musculoskeletal: denies: back pain, gout, joint pain, joint swelling, muscle pain, muscle stiffness, neck pain, others Integumetry: denies: bruises, change in color, change in hair/nails, dryness, laceration, lesions, lumps, rash, wounds, others Allergic/Immunocompromised: denies: Difficulty Healing, Frequent Infections, Hives, Itching, others Hematologic/Lymphatic: denies: anemia, blood clots, easy bleeding, easy bruising, swollen glands, others Endocrine: denies: excessive hunger, excessive sweating, excessive thirst, excessive urination, flushing, intolerance to cold, intolerance to heat, unexplained weight gain, unexplained weight loss, others Psychiatric: denies: anxiety, bipolar disorder, depression, hopeless, panic disorder, schizophrenia, sleepless, suicidal, others All Other Systems: Reviewed and Negative Physical Exam General Appearance: No Apparent Distress, Normal HEENT: Normal ENT Inspection, PERRL/EOMI, Pharynx Normal, TMs Normal Neck: Full Range of Motion, Non-Tender, Normal, Normal Inspection Respiratory: Chest Non-Tender, Lungs Clear, No Accessory Muscle Use, No Respiratory Distress, Normal Breath Sounds Cardiovascular: No Edema, No JVD, No Murmur, No Gallop, Normal Peripheral Pulses, Regular Rate/Rhythm Breast Exam: Deferred Gastrointestinal: No Organomegaly, Non Tender, No Pulsatile Mass, Normal Bowel Sounds, Soft Genitalia: Deferred Pelvic: Deferred Rectal: Deferred Extremities: No calf tenderness, Normal capillary refill, Normal inspection, Normal range of motion, Non-tender, No pedal edema Musculoskeletal : Apperance: Normal Neurologic: Alert, construction lineman II-XII nml as Tested, No Motor Deficits, Normal Affect, Normal Mood, No Sensory Deficits Cerebellar Function: Normal Reflexes: Normal Skin: Dry, Normal Color, Warm Peripheral Pulses: 1+ carotid (R), 1+ carotid (L) Lymphatic: No Adenopathy Was a procedure done? Was a procedure done?: No Differential Dx Considerations may include: Patient seen in the emergency department for possible abnormal lab potassium X-Ray, Labs, Meds, VS Vital Signs Date Time Temp Pulse Resp B/P (MAP) Pulse Ox O2 Delivery O2 Flow Rate FiO2 05/29/25 12:01 Room Air* 0 21 05/29/25 12:01 99.3 69 16 142/83 (102) 97 99.3 05/29/25 10:37 97.5 70 17 125/97 98 97.5 Lab Test 05/29/25 11:19 Range/Units Sodium Level 141 # 136-145 mmol/L Potassium Level 5.6 *H 3.5-5.1 mmol/L Chloride Level 107 98-107 mmol/L Carbon Dioxide Level 26 20-31 mmol/L Anion Gap 8 5-15 Blood Urea Nitrogen 62 H 9-23 mg/dL Creatinine 3.49 H 0.700-1.30 mg/dL Glomerular Filtration Rate Calc 19 >90 mL/min BUN/Creatinine Ratio 17.8 10.0-20.0 Serum Glucose 119 H 74-106 mg/dL Calcium Level 9.1 8.7-10.4 mg/dL X-Ray, Labs, Meds, VS Comment Patient came to the emergency department for possible abnormal lab potassium was high BNP positive for potassium at 5.6 BUN at 6.2 creatinine at 3.49 with a GFR at 19 Blood sugar 119 Patient is in renal failure and will be admitted for further care Time of 1ST Reevaluation: 11:45 Reevaluation 1ST: Unchanged Time of 2ND Reevaluation: 13:14 Reevaluation 2ND: Unchanged Patient Education/Counseling: Diagnosis, Treatment, Prognosis, Need For Follow Up Family Education/Counseling: Diagnosis, Treatment, Prognosis, Need For Follow Up, No Family Present SEPSIS Sepsis Screen Date sepsis recognized/suspect: May 29, 2025 Time Sepsis recognized/suspect: 1034 Recent Procedure: No On Antibiotic Therapy: No Respiratory Rate >20: No Heart Rate >90: No Temp<36 C (96.8 F) or >38.3 C: No SBP <90 or MAP <65 mmHG: No New Acute Mental Status Change: No Is the patient on CPAP, BIPAP,: No Physician Orders Sodium Bicarb 50meq/50ml Vial (05/29/25 13:15) Calcium Ivpb (05/29/25 13:15) [place]ock Iv (05/29/25 13:10) 0.9% Nacl 500 Ml Bolus (05/29/25 13:15) Vital Signs Date Time Temp Pulse Resp B/P (MAP) Pulse Ox O2 Delivery O2 Flow Rate FiO2 05/29/25 12:01 Room Air* 0 21 05/29/25 12:01 99.3 69 16 142/83 (102) 97 99.3 05/29/25 10:37 97.5 70 17 125/97 98 97.5 Departure 1 Departure Time of Disposition: 13:14 Impression: Primary Impression: ESRD (end stage renal disease) Additional Impression: Hyperkalemia Disposition: ADMITTED INPATIENT Admit to: Med Surg Condition: Serious Critical Care Note Critical Care Time?: No Stability Stability form required: Yes Heart Score Heart Score: Heart Score Response (Comments) Value History N/A 0 EKG N/A 0 Age 45-64 1 Risk Factors 1 or 2 risk factors 1 Troponin N/A 0 Total 2 I personally scribed for MARIOLA YOUSSEF MD ([email or web address]) on 05/29/25 at 11:24. Electronically submitted by Anthony Pelaez ([email or web address]). MARIOLA YOUSSEF MD May 29, 2025 11:24
[2025-05-29 11:46] LABS: Chloride 107 mmol/L (98-107); Sodium 141 mmol/L (136-145)
[2025-05-29 11:47] LABS: Anion Gap 8 (5-15); Carbon Dioxide 26 mmol/L (20-31)
[2025-05-29 11:48] LABS: Calcium 9.1 mg/dL (8.7-10.4)
[2025-05-29 11:50] LABS: Potassium 5.6 mmol/L (3.5-5.1)
[2025-05-29 11:53] LABS: BUN/Creatinine Ratio 17.8 (10.0-20.0); Blood Urea Nitrogen 62 mg/dL (9-23); Glucose 119 mg/dL (74-106)
[2025-05-29] MEDS ORDERED: SODIUM BICARB 8.4% 50Meq/50ml SYR Vial IV ONE (13:15)
[2025-05-29] MEDS ORDERED: CALCIUM CHL 100MG/ML 1,000 MG in D5W 5% 100 ML IV ONE (13:15)
[2025-05-29] MEDS ORDERED: SODIUM CHLORIDE 0.9% 500 ML IVB ONE (13:15)
--- NOTE | 2025-05-29 13:42 | DVHHPRES ---
History of Present Illness Resident Creating Document: URUSLA BUTTERFIELD RESIDENT Review of Systems Allergies: Coded Allergies: Hydrocodone (Verified Adverse Reaction, Severe, MAKES HIM VOMIT, 11/27/24) Exam Vital Signs Vital Signs Date Time Temp Pulse Resp B/P (MAP) Pulse Ox O2 Delivery O2 Flow Rate FiO2 05/29/25 12:01 Room Air* 0 21 05/29/25 12:01 99.3 69 16 142/83 (102) 97 99.3 Labs/Xrays Labs Test 05/29/25 11:19 Range/Units Sodium Level 141 # 136-145 mmol/L Potassium Level 5.6 *H 3.5-5.1 mmol/L Chloride Level 107 98-107 mmol/L Carbon Dioxide Level 26 20-31 mmol/L Anion Gap 8 5-15 Blood Urea Nitrogen 62 H 9-23 mg/dL Creatinine 3.49 H 0.700-1.30 mg/dL Glomerular Filtration Rate Calc 19 >90 mL/min BUN/Creatinine Ratio 17.8 10.0-20.0 Serum Glucose 119 H 74-106 mg/dL Calcium Level 9.1 8.7-10.4 mg/dL SEPSIS Sepsis Screen Date sepsis recognized/suspect: May 29, 2025 Time Sepsis recognized/suspect: 103 Recent Procedure: No On Antibiotic Therapy: No Respiratory Rate >20: No Heart Rate >90: No Temp<36 C (96.8 F) or >38.3 C: No SBP <90 or MAP <65 mmHG: No New Acute Mental Status Change: No Is the patient on CPAP, BIPAP,: No Physician Orders Calcium Chl 100mg/Ml (05/29/25 13:15) Heplock Iv (05/29/25 13:10) Sodium Chloride 0.9% (05/29/25 13:15) Admit (05/29/25 13:34) Code Status (05/29/25 13:34) Renal Standard(2gna,3gk,Lopho) (05/29/25 Dinner) Acetaminophen Tablet (Tylenol Tablet) (05/29/25 13:45) Ondansetron Hcl (Zofran) (05/29/25 13:45) Complete Blood Count (05/30/25 04:00) Comprehensive Metabolic Panel (05/30/25 04:00) Morphine Sulfate Injection (05/29/25 13:45) Oxygen By Nasal Cannula (05/29/25 13:34) Stat Ekg For Chest Pain (05/29/25 13:34) Notify Md Of Changes From Base (05/29/25 13:34) Corporate Real Estate Specialist For 24 Hours (05/29/25 13:34) Emergency Dysrhythmia Protocol (05/29/25 13:34) Rhythm Strips Once Every Shift (05/29/25 13:34) Vitamin D, 25-Hydroxy (05/29/25 13:34) Vitamin B12 (05/29/25 13:34) Urinalysis (05/29/25 13:34) Thyroid Stimulating Hormone (05/29/25 13:34) PTPTT (05/29/25 13:34) Phosphorus (05/29/25 13:34) Magnesium (05/29/25 13:34) Lipid Panel (05/29/25 13:34) Lipase (05/29/25 13:34) Hemoglobin A1c (05/29/25 13:34) Drug Screen (05/29/25 13:34) Complete Blood Count (05/29/25 13:34) Comprehensive Metabolic Panel (05/29/25 13:34) Chest Xray 1 View (05/29/25 13:34) Electrocardigram (05/29/25 13:34) Insulin R 10units Iv X One (05/29/25 13:45) Dextrose 50% 1amp=50ml (05/29/25 13:45) Albuterol 20mg Medneb X One (05/29/25 13:45) Lokelma 10gm Po X One (05/29/25 13:45) Amlodipine Tablet (Norvasc Tablet) (05/30/25 10:00) Aspirin Enteric Coated Tablet (Ecotrin E (05/29/25 18:00) Atorvastatin (Lipitor) (05/29/25 22:00) Furosemide Tablet (Lasix Tablet) (05/30/25 10:00) Hydralazine Hcl Tablet (Apresoline Table (05/29/25 22:00) Pantoprazole Tablet (Protonix Tablet) (05/30/25 10:00) Tamsulosin Hydrochloride (Flomax) (05/29/25 18:00) Vital Signs Date Time Temp Pulse Resp B/P (MAP) Pulse Ox O2 Delivery O2 Flow Rate FiO2 05/29/25 12:01 Room Air* 0 21 05/29/25 12:01 99.3 69 16 142/83 (102) 97 99.3 05/29/25 10:37 97.5 70 17 125/97 98 97.5 Assessment/Plan My Orders Orders - URSULA BUTTERFIELD RESIDENT Procedure Category Date Status Time Admit ADMIT 05/29/25 Verified 13:34 Code Status CODE 05/29/25 Verified 13:34 Renal DIET 05/29/25 Verified Standard(2gna,3gk,Lopho) Dinner Acetaminophen Tablet PHA 05/29/25 Verified (Tylenol Tablet) 13:45 Ondansetron Hcl PHA 05/29/25 Verified (Zofran) 13:45 Complete Blood Count LAB 05/30/25 Verified 04:00 Comprehensive LAB 05/30/25 Verified Metabolic Panel 04:00 Morphine Sulfate PHA 05/29/25 Verified Injection 13:45 Oxygen By Nasal RT 05/29/25 Verified Cannula 13:34 Stat Ekg For Chest [facility] 05/29/25 Verified Pain 13:34 Notify Md Of Changes [facility] 05/29/25 Verified From Base 13:34 Corporate Real Estate Specialist For [facility] 05/29/25 Verified 24 Hours 13:34 Emergency Dysrhythmia [facility] 05/29/25 Verified Protocol 13:34 Rhythm Strips Once [facility] 05/29/25 Verified Every Shift 13:34 Vitamin D, 25-Hydroxy LAB 05/29/25 Verified 13:34 Vitamin B12 LAB 05/29/25 Verified 13:34 Urinalysis LAB 05/29/25 Verified 13:34 Thyroid Stimulating LAB 05/29/25 Verified Hormone 13:34 PTPTT LAB 05/29/25 Verified 13:34 Phosphorus LAB 05/29/25 Verified 13:34 Magnesium LAB 05/29/25 Verified 13:34 Lipid Panel LAB 05/29/25 Verified 13:34 Lipase LAB 05/29/25 Verified 13:34 Hemoglobin A1c LAB 05/29/25 Verified 13:34 Drug Screen LAB 05/29/25 Verified 13:34 Complete Blood Count LAB 05/29/25 Verified 13:34 Comprehensive LAB 05/29/25 Verified Metabolic Panel 13:34 Chest Xray 1 View XY 05/29/25 Verified 13:34 Electrocardigram EKG 05/29/25 Verified 13:34 Insulin R 10units Iv PHA 05/29/25 Verified X One 13:45 Dextrose 50% 1amp=50ml PHA 05/29/25 Verified 13:45 Albuterol 20mg Medneb PHA 05/29/25 Verified X One 13:45 Lokelma 10gm Po X One PHA 05/29/25 Verified 13:45 Amlodipine Tablet PHA 05/30/25 Verified (Norvasc Tablet) 10:00 Aspirin Enteric PHA 05/29/25 Verified Coated Tablet 18:00 Atorvastatin (Lipitor) PHA 05/29/25 Verified 22:00 Furosemide Tablet PHA 05/30/25 Verified (Lasix Tablet) 10:00 Hydralazine Hcl PHA 05/29/25 Verified Tablet (Apresoline 22:00 Pantoprazole Tablet PHA 05/30/25 Verified (Protonix Tablet) 10:00 Tamsulosin PHA 05/29/25 Verified Hydrochloride (Flomax) 18:00 URSULA BUTTERFIELD RESIDENT May 29, 2025 13:42
[2025-05-29] MEDS ORDERED: ALBUTEROL SULF 2.5 MG/0.5ML(0.5%) NEB SOLN NEB ONE (13:45)
[2025-05-29] MEDS ORDERED: ACETAMINOPHEN 325 MG TAB PO PRN (13:45)
[2025-05-29] MEDS ORDERED: DEXTROSE (50%) 50ML SYRG IV ONE (13:45)
[2025-05-29] MEDS ORDERED: MORPHINE SULFATE INJ 2 MG/ml SYRG IV PRN (13:45)
[2025-05-29] MEDS ORDERED: InsuLIN REG 1unit/0.01ml Soln (100units/ml) IV ONE (13:45)
[2025-05-29] MEDS ORDERED: SODIUM ZIRCONIUM CYCL 10 GM PAK PO ONE (13:45)
[2025-05-29] MEDS ORDERED: ONDANSETRON HCL 4 MG/2 ML VIAL IV PRN (13:45)
[2025-05-29 14:05] LABS: Hematocrit 48.4 % (41.0-53.0); Hemoglobin 15.6 g/dL (13.5-17.5); Mean Corpuscular Hemoglobin 27.2 pg (28.0-32.0); Mean Corpuscular Volume 84.4 fL (80.0-100.0); Nucleated Red Blood Cells % 0.2 %
[2025-05-29 14:11] LABS: INR 1.01 (0.9-1.15); Partial Thromboplastin Time 31.5 SEC (24.5-34.5); Prothrombin Time 10.7 sec (9.3-11.8)
[2025-05-29 14:37] LABS: Alanine Aminotransferase 16 U/L (7-40); Albumin 4.2 g/dL (3.2-4.8); Alkaline Phosphatase 109 U/L (46-116); Total Protein 7.5 g/dL (5.7-8.2); Triglycerides 72 mg/dL (< 150)
[2025-05-29 14:38] LABS: Bilirubin, Total 0.4 mg/dL (0.2-1.0)
[2025-05-29 14:39] LABS: Bilirubin, Direct < 0.1 mg/dL (<0.3); Cholesterol 201 mg/dL (< 200); HDL Cholesterol 61 mg/dL (40-59); Magnesium 2.8 mg/dL (1.6-2.6)
[2025-05-29 15:10] LABS: Lipase 47 U/L (12-53)
[2025-05-29] MEDS ORDERED: ASPirin-EC 81 mg tab PO SCH (18:00)
[2025-05-29] MEDS ORDERED: TAMSULOSIN HYDROCHLORIDE 0.4 MG CAP PO SCH (18:00)
[2025-05-29] MEDS ORDERED: ATORVASTATIN 20 MG TAB PO SCH (22:00)
[2025-05-30] MEDS ORDERED: PANTOPRAZOLE 40 MG TAB PO SCH (10:00)
[2025-05-30] MEDS ORDERED: FUROSEMIDE 20 MG TAB PO SCH (10:00)
== END 2025-05-29 14:21 | disposition left against medical advice (07) ==
LOC: ER 10:32 → OVERFLOW 13:34 → UNDOADMIN 13:34 → OVERFLOW 13:41 → UNDODISIN 14:21 → OVERFLOW 14:21
DX: I12.0 Hypertensive chronic kidney disease with stage 5 chronic kidney disease or end stage renal disease (principal); E11.22 Type 2 diabetes mellitus with diabetic chronic kidney disease; N18.6 End stage renal disease; E87.5 Hyperkalemia; E78.5 Hyperlipidemia, unspecified; K21.9 Gastro-esophageal reflux disease without esophagitis; Z79.82 Long term (current) use of aspirin; Z79.899 Other long term (current) drug therapy
CPT/HCPCS: 36415; 80048; 80061; 80076; 82306; 82607; 83690; 83735; 84100; 84443; 85025; 85610; 85730; 99283; J1815; J7042; G0378; J7060

== ENCOUNTER 2025-05-29 16:23 | Inpatient (IN) | payer MEDICAID ==
[~2025-05-29] VITALS: Ht 167.6 cm; Wt 92.9 kg
--- NOTE | 2025-05-29 16:44 | ED.PDOC ---
History of Present Illness HPI Comments Patient is a 59-year-old male with past medical history of type 2 diabetes, chronic kidney disease stage IIIB, hypertension, history of diabetic foot ulcer now healed, who comes in at the recommendation of his PCP. According to the patient, he went to his PCP's appointment and was noted to have a potassium of 5.1 and a serum creatinine of 3.11 from labs drawn on 05/22/2025. Per patient, his serum creatinine was 2.6 about a month ago when he was discharged from the hospital, after which he started taking lisinopril at the recommendation of the analytical data miner, since then his serum creatinine has been up trending which is what prompted this visit to the ER. On review of systems patient is complaining of shortness of breaths and oliguria. Chief Complaint: Abnormal LAB's Time Seen by MD: 16:34 Primary Care Provider: ALICIA Allergies: Coded Allergies: Hydrocodone (Verified Adverse Reaction, Severe, MAKES HIM VOMIT, 11/27/24) Home Meds Active Scripts Allopurinol (Allopurinol) 100 Mg Tab, 100 MG PO DAILY for 30 Days, #30 TAB Prov:GINNY RUIZ TOBACCO BUYER 12/24/24 Furosemide (Furosemide) 20 Mg Tab, 20 MG PO DAILY for 30 Days, #30 TAB Prov:GINNY RUIZ TOBACCO BUYER 12/24/24 Rifampin (Rifampin) 300 Mg Cap, 300 MG PO BID for 42 Days, CAP Prov:DAVID VARGAS MD 12/04/24 Rifampin (Rifampin) 300 Mg Cap, 300 MG PO BID PRN for 42 Days, #84 CAP Prov:SARAH VARGAS MD 12/03/24 Allopurinol (Allopurinol) 300 Mg Tab, 200 MG PO DAILY for 90 Days, #60 TAB Prov:DAVID VARGAS MD 09/06/24 Pantoprazole Sodium Sesquihydr (Pantoprazole Sodium) 40 Mg Tab, 40 MG PO DAILY for 90 Days, #90 TAB Prov:DAVID VARGAS MD 03/29/21 Gabapentin (Gabapentin) 100 Mg Cap, 100 MG PO Q8H for 30 Days, #90 CAP Prov:DAVID VARGAS MD 03/29/21 Cholecalciferol (Vitamin D3 Super Strength) 2,000 Unit Cap, 4000 UNIT PO DAILY for 100 Days, #100 CAP Prov:DAVID VARGAS MD 03/29/21 Atorvastatin Calcium (ATORVASTATIN CALCIUM) 20 Mg Tab, 40 MG PO HS for 90 Days, #180 TAB Prov:DAVID VARGAS MD 03/29/21 Aspirin (Aspir-Low) 81 Mg Tab, 81 MG PO QPM for 90 Days, #90 TAB Prov:DAVID VARGAS MD 03/29/21 Reported Medications Dapagliflozin Propanediol (Farxiga) 10 Mg Tab, 1 TAB PO DAILY 12/24/24 Lisinopril (Lisinopril) 5 Mg Tab, 1 TAB PO DAILY 12/24/24 Finerenone (Kerendia) 10 Mg Tab, PO 12/24/24 Hydralazine HCl (Hydralazine HCl) 25 Mg Tab, 1 TAB PO BID 12/24/24 Insulin Lispro Protamine & Lis (Humalog Mix 75/25 Kwikpen) 75 Mg/25 Kwp Inj, SC 09/03/24 Insulin Lispro (Humalog Salvatore Kwikpen) 100 Unit/Ml Inj, SC 09/03/24 Tamsulosin Hcl (Tamsulosin Hcl) 0.4 Mg Cap, 0.4 MG PO QPM for 30 Days, MG 09/17/22 Amlodipine Besylate (Amlodipine Besylate) 5 Mg Tab, 10 MG PO DAILY for 30 Days, MG 09/17/22 Hydralazine Hcl (Hydralazine Hcl) 25 Mg Tab, 25 MG PO TID for 30 Days, MG 09/17/22 Mode of Arrival: Ambulatory Past Medical History PAST MEDICAL HISTORY: CKF, DM, GERD, High Lipids, HTN, TIA Past Medical History (Contd): type 2 diabetes, chronic kidney disease stage IIIB, hypertension, history of diabetic foot ulcer now healed Surgical History: Denies all surgeries Surgical History (Cont'd) Incision and drainage of the diabetic foot ulcer, head surgery secondary to head trauma Family History Family History: Reviewed,noncontributory to illness, Unknown Social History Smoker: Non-Smoker Alcohol: Denies ETOH Use Drugs: Denies Drug Use Lives In: Home Constitutional: denies: chills, diaphoresis, fatigue, fever, malaise, sweats, weakness, others EENTM: denies: blurred vision, double vision, ear bleeding, ear discharge, ear drainage, ear pain, ear ringing, eye pain, eye redness, hearing loss, mouth pain, mouth swelling, nasal discharge, nose bleeding, nose congestion, nose pain, photophobia, tearing, throat pain, throat swelling, voice changes, others Respiratory: reports: shortness of breath; denies: cough, hemoptysis, orthopnea, SOB at rest, SOB with excertion, stridor, wheezing, others Cardiovascular: denies: chest pain, dizzy spells, diaphoresis, Dyspnea on exertion, edema, irregular heart beat, left arm pain, lightheadedness, palpitations, PND, syncope, others Gastrointestinal: reports: others (Decreased urine output); denies: abdomen distended, abdominal pain, blood streaked bowels, constipated, diarrhea, dysphagia, difficulty swallowing, hematemesis, melena, nausea, poor appetite, poor fluid intake, rectal bleeding, rectal pain, vomiting Genitourinary: denies: burning, dysuria, flank pain, frequency, hematuria, incontinence, penile discharge, penile sore, pain, testicle pain, testicle swelling, urgency, others Neurological: denies: dizziness, fainting, headache, left sided numbness, left sided weakness, numbness, paresthesia, pre-existing deficit, right sided numbness, right sided weakness, seizure, speech problems, tingling, tremors, weakness, others Musculoskeletal: denies: back pain, gout, joint pain, joint swelling, muscle pain, muscle stiffness, neck pain, others Integumetry: denies: bruises, change in color, change in hair/nails, dryness, laceration, lesions, lumps, rash, wounds, others Allergic/Immunocompromised: denies: Difficulty Healing, Frequent Infections, Hives, Itching, others Hematologic/Lymphatic: denies: anemia, blood clots, easy bleeding, easy bruising, swollen glands, others Endocrine: denies: excessive hunger, excessive sweating, excessive thirst, excessive urination, flushing, intolerance to cold, intolerance to heat, unexplained weight gain, unexplained weight loss, others Psychiatric: denies: anxiety, bipolar disorder, depression, hopeless, panic di sorder, schizophrenia, sleepless, suicidal, others Physical Exam General Appearance: No Apparent Distress, None, Normal HEENT: Normal ENT Inspection, PERRL/EOMI Neck: Full Range of Motion, Non-Tender, Normal Inspection Respiratory: Chest Non-Tender, No Accessory Muscle Use, No Respiratory Distress Cardiovascular: No Edema, No JVD, Regular Rate/Rhythm Breast Exam: Deferred Gastrointestinal: Non Tender, No Pulsatile Mass, Normal Bowel Sounds Genitalia: Deferred Pelvic: Deferred Rectal: Rectal Exam not done Extremities: No calf tenderness, Normal inspection, Normal range of motion, Non-tender, Other (Trace lower extremity edema) Neurologic: Alert, No Motor Deficits, No Sensory Deficits Cerebellar Function: NOT DONE Reflexes: NOT DONE Skin: Dry, Normal Color Peripheral Pulses: 2+ dorsalis pedis (R), 2+ dorsalis pedis (L) Lymphatic: NOT DONE Was a procedure done? Was a procedure done?: No Differential Dx Considerations may include: Acute kidney injury Chronic kidney disease Hyperkalemia Acute tubular necrosis Vasomotor nephropathy X-Ray, Labs, Meds, VS Vital Signs Date Time Temp Pulse Resp B/P (MAP) Pulse Ox O2 Delivery O2 Flow Rate FiO2 05/29/25 17:15 Room Air* 0 21 05/29/25 17:15 98.3 69 16 139/67 (91) 99 98.3 05/29/25 16:29 Room Air* 0 21 05/29/25 16:26 98.7 71 18 160/83 97 98.7 Time of 1ST Reevaluation: 17:00 Reevaluation 1ST: Unchanged Patient Education/Counseling: Diagnosis, Treatment, Prognosis, Need For Follow Up Family Education/Counseling: No Family Present SEPSIS Sepsis Screen Date sepsis recognized/suspect: May 29, 2025 Time Sepsis recognized/suspect: 1626 Recent Procedure: No On Antibiotic Therapy: No Respiratory Rate >20: No Heart Rate >90: No Temp<36 C (96.8 F) or >38.3 C: No SBP <90 or MAP <65 mmHG: No New Acute Mental Status Change: No Is the patient on CPAP, BIPAP,: No Vital Signs Date Time Temp Pulse Resp B/P (MAP) Pulse Ox O2 Delivery O2 Flow Rate FiO2 05/29/25 17:15 Room Air* 0 21 05/29/25 17:15 98.3 69 16 139/67 (91) 99 98.3 05/29/25 16:29 Room Air* 0 21 05/29/25 16:26 98.7 71 18 160/83 97 98.7 Departure 1 Departure Time of Disposition: 17:01 Impression: Primary Impression: Acute kidney injury Additional Impressions: Chronic kidney disease Qualified Codes: N18.32 - Chronic kidney disease, stage 3b Hyperkalemia Acute tubular necrosis Uncontrolled diabetes mellitus Qualified Codes: E11.65 - Type 2 diabetes mellitus with hyperglycemia Disposition: 09 ADMITTED INPATIENT Admit to: [facility] Condition: Guarded Critical Care Note Critical Care Time?: No Stability Stability form required: SUKHWINDER Hennessy RESIDENT May 29, 2025 16:44
--- NOTE | 2025-05-29 17:29 | DVHHPRES ---
History of Present Illness Resident Creating Document: URSULA BUTTERFIELD History of Present Illness Mychal Russo is a 59 year old male patient who presents to the ED referred by PCP due to abnormal labs (Potassium 5.1 and creatinine 3.11 on , previous creatinine 2.6) associated with dyspnea in functional class II and oliguria. Patient reports recent initiation of Lisinopril indicated by dry roaster. Patient initially checked in to ED with lab results which showed worsening labs (K 5.9 and creatinine 3.6) indicating admission, but patient he eloped without receiving the hyperkalemia protocol and later on returned after discussing severity of clinical status. Denies any other associated symptoms Past medical history: Diabetes insulin-dependent, dyslipidemia, hypertension, TIA, CKD stage IIIB, diabetic foot s/p op, diabetic neuropathy, gout, GERD, BPH, vitamin-D deficiency. (Per med rec patient was on finerenone) Surgical history: Incision and drainage of diabetic foot, head surgery secondary to trauma Family history noncontributory Social history: Lives in [place] with family (next of kin daughter). Denies current tobacco, alcohol and other drug abuse. Allergies: Hydrocodone Home medication: Allopurinol, furosemide, rifampin, allopurinol, pantoprazole, gabapentin, vitamin-D, atorvastatin 40 mg p.o. daily, aspirin 81 mg p.o. daily, lisinopril 5 mg p.o. daily, hydralazine 25 mg p.o. b.i.d., dapagliflozin 10 mg p.o. daily, amlodipine 10 mg p.o. daily, tamsulosin 0.4 mg p.o. daily Patient seen and examined at bedside. Currently has no new complaints. Admitted to telemetry for further evaluation. Past Medical History Per HPI Past Surgical History Per HPI Family History Per HPI Past Social History Per HPI Review of Systems Review of Systems Per HPI Allergies: Coded Allergies: Hydrocodone (Verified Adverse Reaction, Severe, MAKES HIM VOMIT, 11/27/24) Exam Vital Signs Vital Signs Date Time Temp Pulse Resp B/P (MAP) Pulse Ox O2 Delivery O2 Flow Rate FiO2 05/29/25 17:15 Room Air* 0 21 05/29/25 17:15 98.3 69 16 139/67 (91) 99 98.3 Exam Patient lying in bed, in no acute distress General: Lucid, afebrile, mucosae are moist Cardiovascular: Normal S1 and S2. No murmurs, gallops or rubs Respiratory: Normal ventilation mechanics. Clear lung sounds on auscultation. Abdomen: Soft, nontender, no organomegaly, normal bowel sounds MSK/skin: Mobilizes 4 limbs. Skin is dry and warm Neurological: Oriented in 3 spheres. No motor no sensitive deficits. Pupils are isocoric and reactive SEPSIS Sepsis Screen Date sepsis recognized/suspect: May 29, 2025 Time Sepsis recognized/suspect: 1625 Recent Procedure: No On Antibiotic Therapy: No Respiratory Rate >20: No Heart Rate >90: No Temp<36 C (96.8 F) or >38.3 C: No SBP <90 or MAP <65 mmHG: No New Acute Mental Status Change: No Is the patient on CPAP, BIPAP,: No Vital Signs Date Time Temp Pulse Resp B/P (MAP) Pulse Ox O2 Delivery O2 Flow Rate FiO2 05/29/25 17:15 Room Air* 0 21 05/29/25 17:15 98.3 69 16 139/67 (91) 99 98.3 05/29/25 16:29 Room Air* 0 21 05/29/25 16:26 98.7 71 18 160/83 97 98.7 Assessment/Plan Assessment/Plan ASSESSMENT AARON hemodynamically mediated (VMN) on CKD stage IIIB Acute tubular necrosis Hyperkalemia Hypermagnesemia Elevated lipase Diabetes History of diabetic foot status post incision and drainage Diabetic Peripheral neuropathy History of TIA PLAN Admitted patient to telemetry Indicated hyperkalemia protocol Repeat CMP Discontinued lisinopril and nephrotoxic medication. Consulted nephrology Continued amlodipine and hydralazine for antihypertensive medication. Increase dose of atorvastatin to 80 mg p.o. daily due to dyslipidemia (LDL is 120, goal of less than 55 due to history of TIA) Goals of care discussed with patient for over 18 minutes: Full code status Discussed plan with Dr. Travis, patient and nurses: Admit patient to telemetry. Indicated hyperkalemia protocol. Discontinued nephrotoxic medication (lisinopril). Consulted Nephrology (Farheen) patient has poor prognosis. Plan discussed with: Patient, Daughter, Other Date of Service: May 29, 2025 Billing Provider: ANICETO TRAVIS MD Common Visit Codes: [id number] INP/OBS CARE (HIGH) Secondary Visit Codes: [id number] CARE PLAN 30 MINUTES ETCHEGOYEN,URSULA RESIDENT May 29, 2025 17:29
[2025-05-29] MEDS ORDERED: DEXTROSE (50%) 50ML SYRG IV ONE (17:30)
[2025-05-29] MEDS ORDERED: MORPHINE SULFATE 4 MG/ML SYR/VIAL IV PRN (17:30)
[2025-05-29] MEDS ORDERED: InsuLIN REG 1unit/0.01ml Soln (100units/ml) IV ONE (17:30)
[2025-05-29] MEDS ORDERED: SODIUM ZIRCONIUM CYCL 10 GM PAK PO ONE (17:30)
[2025-05-29] MEDS ORDERED: ACETAMINOPHEN 325 MG TAB PO PRN (17:30)
[2025-05-29] MEDS ORDERED: ONDANSETRON HCL 4 MG/2 ML VIAL IV PRN (17:30)
[2025-05-29] MEDS: ALBUTEROL SULF 2.5 MG/0.5ML(0.5%) NEB SOLN NEB ONE (17:47)
[2025-05-29 18:07] LABS: Hematocrit 47.7 % (41.0-53.0); Hemoglobin 15.5 g/dL (13.5-17.5); Mean Corpuscular Hemoglobin 27.5 pg (28.0-32.0); Mean Corpuscular Volume 84.6 fL (80.0-100.0); Nucleated Red Blood Cells % 0.0 %
[2025-05-29 18:23] LABS: INR 0.98 (0.9-1.15); Partial Thromboplastin Time 30.6 SEC (24.5-34.5); Prothrombin Time 10.4 sec (9.3-11.8)
[2025-05-29 18:26] LABS: Alanine Aminotransferase 16 U/L (7-40); Albumin 4.3 g/dL (3.2-4.8); Anion Gap 9 (5-15); BUN/Creatinine Ratio 18.4 (10.0-20.0); Calcium 9.0 mg/dL (8.7-10.4); Carbon Dioxide 26 mmol/L (20-31); Chloride 103 mmol/L (98-107); Potassium 5.0 mmol/L (3.5-5.1); Sodium 138 mmol/L (136-145); Total Protein 7.6 g/dL (5.7-8.2); Triglycerides 101 mg/dL (< 150)
[2025-05-29 18:27] LABS: Alkaline Phosphatase 116 U/L (46-116); Bilirubin, Total 0.4 mg/dL (0.2-1.0); Blood Urea Nitrogen 66 mg/dL (9-23); Cholesterol 201 mg/dL (< 200); Glucose 165 mg/dL (74-106); HDL Cholesterol 60 mg/dL (40-59); Magnesium 2.9 mg/dL (1.6-2.6)
[2025-05-29 18:31] VITALS: PULSE 99; RESP 16; O2SAT 100
[2025-05-29 18:40] LABS: Lipase 100 U/L (12-53)
--- NOTE | 2025-05-29 18:49 | DVH ---
CHEST RADIOGRAPH Indication: SOB Technique: XY CHEST XRAY 1 VIEW Comparison: None FINDINGS: The cardiac silhouette is unremarkable. The lungs demonstrate no pulmonary airspace consolidation. The pulmonary vasculature is unremarkable. There is no pleural effusion. There is no pneumothorax. Aortic atherosclerotic disease. IMPRESSION: No pulmonary airspace consolidation.
[2025-05-29] MEDS ORDERED: ALBUTEROL SULF 2.5 MG/0.5ML(0.5%) NEB SOLN NEB ONE (19:45)
[2025-05-29] MEDS: DEXTROSE (50%) 50ML SYRG IV ONE ×2 (19:50→21:44)
[2025-05-29] MEDS: InsuLIN REG 1unit/0.01ml Soln (100units/ml) IV ONE (19:51)
[2025-05-29] MEDS: SODIUM ZIRCONIUM CYCL 10 GM PAK PO ONE (19:52)
[2025-05-29] MEDS: ASPirin-EC 81 mg tab PO SCH (20:01)
[2025-05-29] MEDS: TAMSULOSIN HYDROCHLORIDE 0.4 MG CAP PO SCH (20:01)
[2025-05-29] MEDS: ACCU-CHEK COMFORT CURVE STRIP VI ONE (21:36)
[2025-05-29] MEDS: InsuLIN REG 1unit/0.01ml Soln (100units/ml) SC ONE (21:42)
[2025-05-29] MEDS ORDERED: ATORVASTATIN 20 MG TAB PO SCH (22:00)
[2025-05-29 22:36] VITALS: BP 128/69; PULSE 91; PULSE 92; RESP 18; TEMP 97.6; O2SAT 97
[2025-05-29] MEDS: ATORVASTATIN 20 MG TAB PO SCH (23:04)
[2025-05-30] VITALS (8 sets, daily range): BP systolic 106–165; BP diastolic 53–94; PULSE 71–82; RESP 15–18; TEMP 97.5–98.3; O2SAT 95–98
[2025-05-30] MEDS: INFLUENZA TRIVALENT 2024-2025 0.5 ML INJ IM ONE (00:15)
[2025-05-30 00:25] LABS: Urine Protein, UAD 1+ (Negative)
[2025-05-30 01:48] LABS: Amphetamine Screen, Urine Neg (NEGATIVE); Barbiturate Scree,Urine Neg (NEGATIVE); Benzodiazephine Screen, Urine Neg (NEGATIVE); Cannabinoid Screen, Urine Neg (NEGATIVE); Cocaine Screen, Urine Neg (NEGATIVE); Opiate Scree,Urine Neg (NEGATIVE); Phencyclidine Screen, Urine Neg (NEGATIVE)
[2025-05-30] MEDS: GABAPENTIN 100 MG CAP PO SCH (06:11)
[2025-05-30 06:26] LABS: Lipase 41.0 U/L (12-53)
[2025-05-30 06:29] LABS: Magnesium 2.8 mg/dL (1.6-2.6)
[2025-05-30 08:08] LABS: Hematocrit 41.6 % (41.0-53.0); Hemoglobin 13.7 g/dL (13.5-17.5); Mean Corpuscular Hemoglobin 27.6 pg (28.0-32.0); Mean Corpuscular Volume 84.0 fL (80.0-100.0); Nucleated Red Blood Cells % 0.1 %
[2025-05-30 08:57] LABS: Alanine Aminotransferase 13 U/L (7-40); Albumin 3.5 g/dL (3.2-4.8); Alkaline Phosphatase 85 U/L (46-116); Anion Gap 12 (5-15); BUN/Creatinine Ratio 19.4 (10.0-20.0); Bilirubin, Total 0.4 mg/dL (0.2-1.0); Carbon Dioxide 21 mmol/L (20-31); Chloride 106 mmol/L (98-107); Potassium 4.2 mmol/L (3.5-5.1); Sodium 139 mmol/L (136-145); Total Protein 6.1 g/dL (5.7-8.2)
[2025-05-30 09:03] LABS: Blood Urea Nitrogen 68 mg/dL (9-23); Calcium 8.4 mg/dL (8.7-10.4); Glucose 142 mg/dL (74-106)
[2025-05-30] MEDS: FUROSEMIDE 20 MG TAB PO SCH (09:53)
[2025-05-30] MEDS: CHOLECALCIFEROL (VITD3) 1,000UNIT=25mCg TAB PO SCH (09:53)
[2025-05-30] MEDS: PANTOPRAZOLE 40 MG TAB PO SCH (09:54)
--- NOTE | 2025-05-30 12:43 | DVHPN2 ---
CHEY YOUNG RESIDENT 05/30/25 1243: Progress Note Date Seen: May 30, 2025 Medical Necessity Reason Pt with a Central, PICC or Fol: No Subjective Review of Systems Mychal Russo is a 59 year old male with past medical history of Diabetes insulin-dependent, dyslipidemia, hypertension, TIA, CKD stage IIIB, diabetic foot s/p op, diabetic neuropathy, gout, GERD, BPH, vitamin-D deficiency presents to the ED referred by PCP due to abnormal labs (Potassium 5.1 and creatinine 3.11 on , previous creatinine 2.6) associated with dyspnea in functional class II and oliguria. Patient reports recent initiation of Lisinopril indicated by top knitter. Patient initially checked in to ED with lab results which showed worsening labs (K 5.9 and creatinine 3.6) indicating admission, but patient he eloped without receiving the hyperkalemia protocol and later on returned after discussing severity of clinical status. Denies any other associated symptoms Past medical history: Diabetes insulin-dependent, dyslipidemia, hypertension, TIA, CKD stage IIIB, diabetic foot s/p op, diabetic neuropathy, gout, GERD, BPH, vitamin-D deficiency. (Per med rec patient was on finerenone) Surgical history: Incision and drainage of diabetic foot, head surgery secondary to trauma Family history noncontributory Social history: Lives in [place] with family (next of kin daughter). Denies current tobacco, alcohol and other drug abuse. Allergies: Hydrocodone Home medication: Allopurinol, furosemide, rifampin, allopurinol, pantoprazole, gabapentin, vitamin-D, atorvastatin 40 mg p.o. daily, aspirin 81 mg p.o. daily, lisinopril 5 mg p.o. daily, hydralazine 25 mg p.o. b.i.d., dapagliflozin 10 mg p.o. daily, amlodipine 10 mg p.o. daily, tamsulosin 0.4 mg p.o. daily Patient was seen today at bedside, labs and chart reviewed. Patient has no complaint. Hyperkalemia resolved, ordered Nephrology consult for further evaluation and care-recommended low-potassium diet, discontinue lisinopril. Veltassa 1 packet twice a day. Hold torsemide.. Objective vital signs Vital Sign Date Time Temp Pulse Resp B/P (MAP) Pulse Ox O2 Delivery O2 Flow Rate FiO2 05/30/25 09:53 117/55 11/25/25 08:34 97.9 77 15 95 97.9 05/30/25 08:00 Room Air* 0 21 Total Intake and Output 05/29/25 05/29/25 05/30/25 15:00 23:00 07:00 Intake Total 600 ml Balance 600 ml medications Current Medications Medications Dose Ordered Sig/Andrea Route Start Time Stop Time Status Last Admin Dose Admin Acetaminophen 325 mg Q4HP PRN PO 05/29/25 17:30 Ondansetron HCl 4 mg Q4HP PRN IV 05/29/25 17:30 Morphine Sulfate 2 mg Q4HPRN PRN IV 05/29/25 17:30 Amlodipine Besylate 10 mg DAILY PO 05/30/25 10:00 Aspirin 81 mg QPM PO 05/29/25 18:00 05/29/25 20:01 81 MG Furosemide 20 mg DAILY PO 05/30/25 10:00 05/30/25 09:53 20 MG Hydralazine HCl 25 mg TID PO 05/29/25 22:00 05/30/25 06:10 25 MG Pantoprazole Sodium 40 mg DAILY PO 05/30/25 10:00 05/30/25 09:54 40 MG Tamsulosin HCl 0.4 mg QPM PO 05/29/25 18:00 05/29/25 20:01 0.4 MG Cholecalciferol 4,000 unit DAILY PO 05/30/25 10:00 05/30/25 09:53 4,000 UNIT Atorvastatin Calcium 80 mg HS PO 05/29/25 22:00 05/29/25 23:04 80 MG Gabapentin 100 mg TID PO 05/30/25 06:00 05/30/25 06:11 100 MG Examination General examination- awake, alert, oriented HEENT- PEERLA, no acute nasal discharge Cardiovascular- S1-S2 audible, rate and rhythm regular, no murmur Respiratory- CTAB, no wheeze or rhonchi Gastrointestinal-nontender, bowel sound+. Nondistended Musculoskeletal-no acute joint swelling or tenderness or redness Lower extremity- no leg edema Neurological- cranial nerves intact, no acute dysarthria or dysphagia Psychiatry- denies depression or SI or HI Skin- no acute rash or purpura laboratory and microbiology Laboratory Tests 05/30/25 05:45 Test 05/30/25 05:45 Range/Units Serum Glucose 142 H 74-106 mg/dL Problem List/Assessment/Plan Problem List/Assessment/Plan Assessment and plan #AARON hemodynamically mediated (VMN) on CKD stage IIIB #Acute tubular necrosis #Hyperkalemia #Hypermagnesemia -creatinine 3.59> 3.5 -potassium 5.9> 5.0> 4.1 -avoid dehydration and nephrotoxic drugs -continue oral hydration -monitor CMP - nephrology consult -recommended low-potassium diet, discontinue lisinopril. Veltassa 1 packet twice a day. Hold torsemide.. #Diabetes #History of diabetic foot status post incision and drainage #Diabetic Peripheral neuropathy -insulin sliding scale as prescribed -monitor blood sugar -continue gabapentin 100 mg p.o. t.i.d. # hypertension #History of TIA # hyperlipidemia -amlodipine 10 mg p.o. daily -Lasix 20 mg p.o. daily -hydralazine 25 mg p.o. t.i.d. -atorvastatin 80 mg p.o. q.h.s. # gout -follow up outpatient with the primary care physician # GERD -pantoprazole as prescribed #BPH -tamsulosin 0.4 mg p.o. q.d. Diabetes insulin-dependent, dyslipidemia, hypertension, TIA, CKD stage IIIB, diabetic foot s/p op, diabetic neuropathy, gout, GERD, BPH, vitamin-D deficiency Goals of care, Code status full code ; discussed with >15 minutes PUD prophylaxis: Pantoprazole DVT prophylaxis: No acute indication, patient ambulating Plan discussed with Dr , nursing staff, Total time spent on patient evaluation, chart review, assessment and plan, discussion discussion >35 minutes Plan discussed with: Patient, Other (RN) Date of Service: May 30, 2025 Billing Provider: ANICETO MA MD Common Visit Codes: [id number] INP/OBS CARE(HIGH) GRACIELA FELIPE RESIDENT 05/31/25 1608: CHEY YOUNG RESIDENT May 30, 2025 12:43 GRACIELA FELIPE RESIDENT May 31, 2025 16:08
[2025-05-30] MEDS ORDERED: DEXTROSE (50%) 50ML SYRG IV PRN (12:45)
[2025-05-30] MEDS: SODIUM CHLORIDE 0.9% 1,000 ML IV SCH (14:45)
--- NOTE | 2025-05-30 14:45 | DVHINCON2 ---
Date of service: May 30, [address] Travis Reason for Consultation Acute kidney injury History of Present Illness 59-year-old patient with significant history of chronic kidney disease stage IIIB, hypertension, diabetes type 2, BPH, vitamin-D deficiency presents to the hospital with abnormal labs of hyperkalemia. Patient states that he was started recently on lisinopril low-dose by his artist consultant and when he was checking his blood pressure he noticed a message of abnormal rhythm from electronic sphygmomanometer. He went to see his primary care doctor who performed labs and found to have hyperkalemia five point diet mg/dL. Patient has been taking his torsemide as usual has noticed some decreased urinary output. He denies chest pain orthopnea or PND or leg swelling. Laboratory data revealed serum creatinine of 3.5 mg/dL as compared to creatinine of two in December of this year add hyperkalemia. Past Medical History Diabetes insulin-dependent, dyslipidemia, hypertension, TIA, CKD stage IIIB, diabetic foot s/p op, diabetic neuropathy, gout, GERD, BPH, vitamin-D deficiency. Past Surgical History Surgical history: Incision and drainage of diabetic foot, head surgery secondary to trauma Allergies: Coded Allergies: Hydrocodone (Verified Adverse Reaction, Severe, MAKES HIM VOMIT, 11/27/24) Home Meds Active Scripts Allopurinol (Allopurinol) 100 Mg Tab, 100 MG PO DAILY for 30 Days, #30 TAB Prov:GINNY RUIZ SHOW HOST/HOSTESS 12/24/24 Furosemide (Furosemide) 20 Mg Tab, 20 MG PO DAILY for 30 Days, #30 TAB Prov:GINNY RUIZ SHOW HOST/HOSTESS 12/24/24 Rifampin (Rifampin) 300 Mg Cap, 300 MG PO BID for 42 Days, CAP Prov:DAVID VARGAS MD 12/04/24 Rifampin (Rifampin) 300 Mg Cap, 300 MG PO BID PRN for 42 Days, #84 CAP Prov:SARAH VARGAS MD 12/03/24 Allopurinol (Allopurinol) 300 Mg Tab, 200 MG PO DAILY for 90 Days, #60 TAB Prov:DAVID VARGAS MD 09/06/24 Pantoprazole Sodium Sesquihydr (Pantoprazole Sodium) 40 Mg Tab, 40 MG PO DAILY for 90 Days, #90 TAB Prov:DAVID VARGAS MD 03/29/21 Gabapentin (Gabapentin) 100 Mg Cap, 100 MG PO Q8H for 30 Days, #90 CAP Prov:DAVID VARGAS MD 03/29/21 Cholecalciferol (Vitamin D3 Super Strength) 2,000 Unit Cap, 4000 UNIT PO DAILY for 100 Days, #100 CAP Prov:DAVID VARGAS MD 03/29/21 Atorvastatin Calcium (ATORVASTATIN CALCIUM) 20 Mg Tab, 40 MG PO HS for 90 Days, #180 TAB Prov:DAVID VARGAS MD 03/29/21 Aspirin (Aspir-Low) 81 Mg Tab, 81 MG PO QPM for 90 Days, #90 TAB Prov:DAVID VARGAS MD 03/29/21 Reported Medications Dapagliflozin Propanediol (Farxiga) 10 Mg Tab, 1 TAB PO DAILY 12/24/24 Lisinopril (Lisinopril) 5 Mg Tab, 1 TAB PO DAILY 12/24/24 Finerenone (Kerendia) 10 Mg Tab, PO 12/24/24 Hydralazine HCl (Hydralazine HCl) 25 Mg Tab, 1 TAB PO BID 12/24/24 Insulin Lispro Protamine & Lis (Humalog Mix 75/25 Kwikpen) 75 Mg/25 Kwp Inj, SC 09/03/24 Insulin Lispro (Humalog Salvatore Kwikpen) 100 Unit/Ml Inj, SC 09/03/24 Tamsulosin Hcl (Tamsulosin Hcl) 0.4 Mg Cap, 0.4 MG PO QPM for 30 Days, MG 09/17/22 Amlodipine Besylate (Amlodipine Besylate) 5 Mg Tab, 10 MG PO DAILY for 30 Days, MG 09/17/22 Hydralazine Hcl (Hydralazine Hcl) 25 Mg Tab, 25 MG PO TID for 30 Days, MG 09/17/22 Current Medications Current Medications Medications (Trade) Dose Ordered Sig/Andrea Route PRN Reason Start Time Stop Time Status Last Admin Acetaminophen (Tylenol Tablet) 325 mg Q4HP PRN PO MILD PAIN (1-3 PAIN SCALE) 05/29/25 17:30 Ondansetron HCl (Zofran) 4 mg Q4HP PRN IV NAUSEA / VOMITING 05/29/25 17:30 Morphine Sulfate 2 mg Q4HPRN PRN IV SEVERE PAIN (7-10 PAIN SCALE) 05/29/25 17:30 Amlodipine Besylate (Norvasc Tablet) 10 mg DAILY PO 05/30/25 10:00 Aspirin (Ecotrin Enteric Coated Tablet) 81 mg QPM PO 05/29/25 18:00 05/29/25 20:01 Atorvastatin Calcium (Lipitor) 40 mg HS PO 05/29/25 22:00 05/29/25 21:11 DC Furosemide (Lasix Tablet) 20 mg DAILY PO 05/30/25 10:00 05/30/25 09:53 Hydralazine HCl (Apresoline Tablet) 25 mg TID PO 05/29/25 22:00 05/30/25 13:01 Pantoprazole Sodium (Protonix Tablet) 40 mg DAILY PO 05/30/25 10:00 05/30/25 09:54 Tamsulosin HCl (Flomax) 0.4 mg QPM PO 05/29/25 18:00 05/29/25 20:01 Cholecalciferol (Vitamin D3 Tablet) 4,000 unit DAILY PO 05/30/25 10:00 05/30/25 09:53 Atorvastatin Calcium (Lipitor) 80 mg HS PO 05/29/25 22:00 05/29/25 23:04 Gabapentin (Neurontin Capsule) 100 mg TID PO 05/30/25 06:00 05/30/25 13:01 Diagnostic Test (Pha) (Accu-Chek Comfort Curve T) 1 strip ACHS 05/30/25 17:00 Insulin Human Regular (InsuLIN R) ACHS SC 05/30/25 17:00 Dextrose 50 ml UD PRN IV Blood Sugar LESS THAN 60 05/30/25 12:45 Family History: Diabetes mellitus G8 MOTHER G8 FATHER FH: prostate cancer G8 FATHER Hypertension G8 MOTHER G8 FATHER Social History He denies smoking alcohol or drug abuse Review of Systems HEENT: Oral mucosa dry Neck no JVD Cardiovascular: Denies for chest pain denies orthopnea or PND Respiratory: Denies cough or shortness of breath Gastrointestinal: Denies for nausea vomiting Musculoskeletal: Denies myalgias Neurological: Denies focal weakness Dermatological: Denies any rash The rest of the review of systems were reviewed pertinent positives and pertinent negatives are as per HPI up to 12 points review of systems H&P Exam Vital Signs/I&O Vital Sign Date Time Temp Pulse Resp B/P (MAP) Pulse Ox O2 Delivery O2 Flow Rate FiO2 05/30/25 13:01 155/77 05/30/25 13:00 97.8 78 17 98 97.8 05/30/25 08:00 Room Air* 0 21 Intake and Output 05/29/25 05/30/25 19:00 07:00 Intake Total 600 ml Balance 600 ml Intake Oral 600 ml # Voids 1 Physical Exam HEENT: No evidence of JVD, no oral ulcers. Pulmonary: Lungs are clear on auscultation bilaterally Cardiovascular S1-S2, no S3 or S4 Abdomen: Bowel sounds positive, soft no rebound tenderness Skin: No rash, Neurological: Alert, oriented, no focal weakness Labs/Diagnostic Data Labs/Diagnostic Data Laboratory Tests Test 05/30/25 05:45 05/29/25 23:00 05/29/25 21:51 05/29/25 17:44 Range/Units White Blood Count 5.2 6.0 4.4-10.8 10^3/uL Red Blood Count 4.96 5.64 4.5-5.90 10^6/uL Hemoglobin 13.7 15.5 13.5-17.5 g/dL Hematocrit 41.6 # 47.7 41.0-53.0 % Mean Corpuscular Volume 84.0 84.6 80.0-100.0 fL Mean Corpuscular Hemoglobin 27.6 L 27.5 L 28.0-32.0 pg Mean Corpuscular Hemoglobin Concent 32.9 32.5 32.0-36.0 g/dL Red Cell Distribution Width 14.8 H 14.8 H 11.8-14.3 % Platelet Count 185 222 140-450 10^3/uL Mean Platelet Volume 9.1 8.6 6.9-10.8 fL Neutrophils (%) (Auto) 48.9 52.7 37.0-80.0 % Lymphocytes (%) (Auto) 36.2 31.5 10.0-50.0 % Monocytes (%) (Auto) 12.5 H 12.9 H 0.0-12.0 % Eosinophils (%) (Auto) 1.7 1.8 0.0-7.0 % Basophils (%) (Auto) 0.7 1.1 0.0-2.0 % Neutrophils # (Auto) 2.5 3.2 1.6-8.6 10 ^3/uL Lymphocytes # (Auto) 1.9 1.9 0.4-5.4 10 ^3/uL Monocytes # (Auto) 0.6 0.8 0-1.3 10 ^3/uL Eosinophils # (Auto) 0.1 0.1 0-0.8 10 ^3/uL Basophils # (Auto) 0 0.1 0-0.2 10 ^3/uL Nucleated Red Blood Cells 0.1 0.0 % Sodium Level 139 138 136-145 mmol/L Potassium Level 4.2 4.1 5.0 3.5-5.1 mmol/L Chloride Level 106 103 98-107 mmol/L Carbon Dioxide Level 21 26 20-31 mmol/L Anion Gap 12 9 5-15 Blood Urea Nitrogen 68 H 66 H 9-23 mg/dL Creatinine 3.50 H 3.59 H 0.700-1.30 mg/dL Glomerular Filtration Rate Calc 19 19 >90 mL/min BUN/Creatinine Ratio 19.4 18.4 10.0-20.0 Serum Glucose 142 H 165 H 74-106 mg/dL Calcium Level 8.4 L 9.0 8.7-10.4 mg/dL Magnesium Level 2.8 H 2.9 H 1.6-2.6 mg/dL Total Bilirubin 0.4 0.4 0.2-1.0 mg/dL Aspartate Amino Transferase (AST) 18 15 13-40 U/L Alanine Aminotransferase (ALT) 13 16 7-40 U/L Alkaline Phosphatase 85 116 46-116 U/L Total Protein 6.1 7.6 5.7-8.2 g/dL Albumin 3.5 4.3 3.2-4.8 g/dL Lipase 41 100 H 12-53 U/L Urine Color Light-yellow Yellow Urine Clarity Clear Clear Urine pH 5.5 5.0-9.0 Urine Specific [place] 1.009 1.001-1.035 Urine Protein 1+ H Negative Urine Ketones Negative Negative Urine Blood Negative Negative /uL Urine Nitrite Negative Negative Urine Bilirubin Negative Negative Urine Urobilinogen Normal Negative mg/dL Urine Leukocyte Esterase Negative Negative /uL Urine RBC <1 0 - 3 /hpf Urine Microscopic WBC 1 0-3 /HPF Urine Squamous Epithelial Cells None seen <5 /hpf Urine Bacteria None seen None Seen /hpf Urine Glucose 4+ H Normal mg/dL Urine Opiates Screen Neg NEGATIVE Urine Fentanyl Screen Neg NEGATIVE Urine Barbiturates Screen Neg NEGATIVE Urine Phencyclidine Screen Neg NEGATIVE Urine Amphetamines Screen Neg NEGATIVE Urine Benzodiazepines Screen Neg NEGATIVE Urine Cocaine Screen Neg NEGATIVE Urine Cannabinoids Screen Neg NEGATIVE Prothrombin Time 10.4 9.3-11.8 sec Prothrombin Time INR 0.98 0.9-1.15 Activated Partial Thromboplast Time 30.6 24.5-34.5 SEC Lactic Acid Level 0.6 0.4-2.0 mmol/L Phosphorus Level 4.0 2.4-5.1 mg/dL Triglycerides Level 101 < 150 mg/dL Cholesterol Level 201 H < 200 mg/dL LDL Cholesterol 121 H < 100 mg/dL HDL Cholesterol 60 H 40-59 mg/dL Vitamin B12 Level 1306 H 211-911 pg/mL Vitamin D 25-Hydroxy 47.6 30.0-100 ng/mL Thyroid Stimulating Hormone (TSH) 1.20 0.55-4.78 uIU/mL Chest x-ray no acute cardiopulmonary process Assessment Assessment: 1. Acute kidney injury on Chronic kidney disease stage IIIB 2. Hyperkalemia likely secondary to AARON in addition to FLORIDALMA inhibitor 3. Diabetes type 2 4. Hypertension 5. BPH Recommendations and plan: Low-potassium diet Discontinue lisinopril and finishing on upon discharge Proteinuria Veltassa one packet twice a day IV fluids with a NS overnight Hold torsemide for now Continue rest of antihypertensive meds The patient stated he wants to go home if renal function in a.m. is same or better done today and potassium normal he is okay to go home from Nephrology perspective tomorrow on May 31 Continue following up with Nephrology as an outpatient. His next appointment is June Plan discussed with: Patient SHOSHANA LIN MD May 30, 2025 14:45
[2025-05-30] MEDS: ACCU-CHEK COMFORT CURVE STRIP VI SCH (17:00)
[2025-05-30] MEDS: InsuLIN REG 1unit/0.01ml Soln (100units/ml) SC SCH (17:58)
[2025-05-30] MEDS ORDERED: IBUPROFEN 600 MG TAB PO ONE (21:30)
[2025-05-31 01:00] VITALS: BP 131/69; PULSE 74; RESP 18; TEMP 97.9; O2SAT 96
[2025-05-31 05:00] VITALS: BP 157/89; PULSE 75; RESP 18; TEMP 98.2; O2SAT 96
[2025-05-31 08:00] VITALS: PULSE 79; PULSE 82; O2SAT 98
[2025-05-31] MEDS: hydrALAZINE HCL 20 MG/ML VL IV ONE (08:44)
[2025-05-31 09:08] LABS: Chloride 105 mmol/L (98-107); Potassium 4.3 mmol/L (3.5-5.1); Sodium 137 mmol/L (136-145)
[2025-05-31 09:09] VITALS: BP 159/78; PULSE 83; RESP 17; TEMP 98.2; O2SAT 97
[2025-05-31 09:09] LABS: Anion Gap 8 (5-15); Carbon Dioxide 24 mmol/L (20-31)
[2025-05-31 09:10] LABS: Calcium 8.9 mg/dL (8.7-10.4)
[2025-05-31 09:14] LABS: BUN/Creatinine Ratio 15.8 (10.0-20.0)
[2025-05-31 09:17] LABS: Blood Urea Nitrogen 47 mg/dL (9-23); Glucose 133 mg/dL (74-106)
--- NOTE | 2025-05-31 09:30 | DVHDSRES ---
Discharge Summary Date of Admission Resident Creating Document: CHEY YOUNG RESIDENT May 29, 2025 at 17:24 Date of Discharge: May 31, 2025 Admitting Diagnosis AARON on CKD Hyperkalemia Labs/Diagnostic Data: Laboratory Results Test 05/31/25 08:40 05/31/25 06:09 05/30/25 05:45 05/29/25 23:00 Sodium Level 137 mmol/L (136-145) Potassium Level 4.3 mmol/L (3.5-5.1) Chloride Level 105 mmol/L (98-107) Carbon Dioxide Level 24 mmol/L (20-31) Anion Gap 8 (5-15) Blood Urea Nitrogen 47 mg/dL (9-23) Creatinine 2.97 mg/dL (0.700-1.30) Glomerular Filtration Rate Calc 23 mL/min (>90) BUN/Creatinine Ratio 15.8 (10.0-20.0) Serum Glucose 133 mg/dL (74-106) Calcium Level 8.9 mg/dL (8.7-10.4) POC Glucose 107 mg/dl (70-106) White Blood Count 5.2 10^3/uL (4.4-10.8) Red Blood Count 4.96 10^6/uL (4.5-5.90) Hemoglobin 13.7 g/dL (13.5-17.5) Hematocrit 41.6 % (41.0-53.0) Mean Corpuscular Volume 84.0 fL (80.0-100.0) Mean Corpuscular Hemoglobin 27.6 pg (28.0-32.0) Mean Corpuscular Hemoglobin Concent 32.9 g/dL (32.0-36.0) Red Cell Distribution Width 14.8 % (11.8-14.3) Platelet Count 185 10^3/uL (140-450) Mean Platelet Volume 9.1 fL (6.9-10.8) Neutrophils (%) (Auto) 48.9 % (37.0-80.0) Lymphocytes (%) (Auto) 36.2 % (10.0-50.0) Monocytes (%) (Auto) 12.5 % (0.0-12.0) Eosinophils (%) (Auto) 1.7 % (0.0-7.0) Basophils (%) (Auto) 0.7 % (0.0-2.0) Neutrophils # (Auto) 2.5 10 ^3/uL (1.6-8.6) Lymphocytes # (Auto) 1.9 10 ^3/uL (0.4-5.4) Monocytes # (Auto) 0.6 10 ^3/uL (0-1.3) Eosinophils # (Auto) 0.1 10 ^3/uL (0-0.8) Basophils # (Auto) 0 10 ^3/uL (0-0.2) Nucleated Red Blood Cells 0.1 % Magnesium Level 2.8 mg/dL (1.6-2.6) Total Bilirubin 0.4 mg/dL (0.2-1.0) Aspartate Amino Transferase (AST) 18 U/L (13-40) Alanine Aminotransferase (ALT) 13 U/L (7-40) Alkaline Phosphatase 85 U/L (46-116) Total Protein 6.1 g/dL (5.7-8.2) Albumin 3.5 g/dL (3.2-4.8) Lipase 41 U/L (12-53) Urine Color Light-yellow (Yellow) Urine Clarity Clear (Clear) Urine pH 5.5 (5.0-9.0) Urine Specific [place] 1.009 (1.001-1.035) Urine Protein 1+ (Negative) Urine Ketones Negative (Negative) Urine Blood Negative /uL (Negative) Urine Nitrite Negative (Negative) Urine Bilirubin Negative (Negative) Urine Urobilinogen Normal mg/dL (Negative) Urine Leukocyte Esterase Negative /uL (Negative) Urine RBC <1 /hpf (0 - 3) Urine Microscopic WBC 1 /HPF (0-3) Urine Squamous Epithelial Cells None seen /hpf (<5) Urine Bacteria None seen /hpf (None Seen) Urine Glucose 4+ mg/dL (Normal) Urine Opiates Screen Neg (NEGATIVE) Urine Fentanyl Screen Neg (NEGATIVE) Urine Barbiturates Screen Neg (NEGATIVE) Urine Phencyclidine Screen Neg (NEGATIVE) Urine Amphetamines Screen Neg (NEGATIVE) Urine Benzodiazepines Screen Neg (NEGATIVE) Urine Cocaine Screen Neg (NEGATIVE) Urine Cannabinoids Screen Neg (NEGATIVE) Test 05/29/25 17:44 Prothrombin Time 10.4 sec (9.3-11.8) Prothrombin Time INR 0.98 (0.9-1.15) Activated Partial Thromboplast Time 30.6 SEC (24.5-34.5) Lactic Acid Level 0.6 mmol/L (0.4-2.0) Phosphorus Level 4.0 mg/dL (2.4-5.1) Triglycerides Level 101 mg/dL (< 150) Cholesterol Level 201 mg/dL (< 200) LDL Cholesterol 121 mg/dL (< 100) HDL Cholesterol 60 mg/dL (40-59) Vitamin B12 Level 1306 pg/mL (211-911) Vitamin D 25-Hydroxy 47.6 ng/mL (30.0-100) Thyroid Stimulating Hormone (TSH) 1.20 uIU/mL (0.55-4.78) Other Laboratory Tests 05/31/25 08:40 05/30/25 05:45 Brief Hx & Hospital Course: Johnny Penn is a 59 year old male with past medical history of Diabetes insulin-dependent, dyslipidemia, hypertension, TIA, CKD stage IIIB, diabetic foot s/p op, diabetic neuropathy, gout, GERD, BPH, vitamin-D deficiency presents to the ED referred by PCP due to abnormal labs (Potassium 5.1 and creatinine 3.11 on , previous creatinine 2.6) associated with dyspnea in functional class II and oliguria. Patient reports recent initiation of Lisinopril indicated by v block saw operator. Patient initially checked in to ED with lab results which showed worsening labs (K 5.9 and creatinine 3.6) indicating admission, but patient he eloped without receiving the hyperkalemia protocol and later on returned after discussing severity of clinical status. Denies any other associated symptoms. Patient tested positive for hepatitis-C. Patient is treated conservatively. Hyperkalemia resolved, patient was seen by Nephrology. Recommended to discontinue diuretics and lisinopril. Patient is being discharged home in hemodynamically stable condition. Discontinued Lasix and lisinopril. Lokelma started per Nephrology recommendation. Hepatitis C antibodies came positive, patient needs referral as outpatient for GI to perform PCR, Dr Luna PCP already aware about the findings. General examination- awake, alert, oriented HEENT- PEERLA, no acute nasal discharge Cardiovascular- S1-S2 audible, rate and rhythm regular, no murmur Respiratory- CTAB, no wheeze or rhonchi Gastrointestinal-nontender, bowel sound+. Nondistended Musculoskeletal-no acute joint swelling or tenderness or redness Lower extremity- no leg edema Neurological- cranial nerves intact, no acute dysarthria or dysphagia Psychiatry- denies depression or SI or HI Skin- no acute rash or purpura Plan of care was discussed with Dr. Travis Operations or Procedures [address] [address] Ph: [phone] DIAGNOSTIC IMAGING Diagnostic Imaging Report : [id number] Signed PATIENT: JOHNNY PENN ACCT: [id number] UNIT: [id number] : 1965 LOC: OVERFLOW ROOM / BED: [address] [place] [address] / A AGE / SEX: 59 / M ADM STATUS: ADM IN SERVICE 23 ORDERING PHYSICIAN: URSULA BUTTERFIELD PROCEDURE(s): CXR1 - CHEST XRAY 1 VIEW REASON: SOB ORDER NUMBER(s): [id number], ACCESSION NUMBER(s): [id number] CHEST RADIOGRAPH Indication: SOB Technique: XY CHEST XRAY 1 VIEW Comparison: None FINDINGS: The cardiac silhouette is unremarkable. The lungs demonstrate no pulmonary airspace consolidation. The pulmonary vasculature is unremarkable. There is no pleural effusion. There is no pneumothorax. Aortic atherosclerotic disease. IMPRESSION: No pulmonary airspace consolidation. ATED BY: CAMILLA LINN MD DICTATED DATE/TIME: 05/29/251851 SIGNED BY: CAMILLA LINN MD SIGNED DATE/TIME: 05/29/251851 CC: Condition at Discharge: Stable Final Diagnosis/Problems List #AARON hemodynamically mediated (VMN) on CKD stage IIIB #Acute tubular necrosis #Hyperkalemia #Hypermagnesemia #Diabetes #History of diabetic foot status post incision and drainage #Diabetic Peripheral neuropathy # hypertension #History of TIA # hyperlipidemia # GERD #BPH #Gout Discharge Disposition: Home Discharge Instruct/Medications Diet: Consistent carbohydrate, Cardiac 2g Na,low cholest, Renal Activity: No Restrictions, As Tolerated Follow Up/Referral: DC clinic PCP Nephrology Medications: See prescriptions Scheduled Allopurinol (Allopurinol), 200 MG PO DAILY Allopurinol (Allopurinol), 100 MG PO DAILY Amlodipine Besylate (Amlodipine Besylate), 10 MG PO DAILY, (Reported) Aspirin (Aspir-Low), 81 MG PO QPM Atorvastatin Calcium (Atorvastatin Calcium), 40 MG PO HS Cholecalciferol (Vitamin D3 Super Strength), 4,000 UNIT PO DAILY Dapagliflozin Propanediol (Farxiga), 1 TAB PO DAILY, (Reported) Gabapentin (Gabapentin), 100 MG PO Q8H Hydralazine HCl (Hydralazine HCl), 1 TAB PO BID, (Reported) Hydralazine Hcl (Hydralazine Hcl), 25 MG PO TID, (Reported) Pantoprazole Sodium Sesquihydr (Pantoprazole Sodium), 40 MG PO DAILY Rifampin (Rifampin), 300 MG PO BID Sodium Zirconium Cyclosilicate (Lokelma), 5 GM PO Q72HR Tamsulosin Hcl (Tamsulosin Hcl), 0.4 MG PO QPM, (Reported) Scheduled PRN Rifampin (Rifampin), 300 MG PO BID PRN Miscellaneous Medications Finerenone (Kerendia), PO, (Reported) Insulin Lispro (Humalog Salvatore Kwikpen), SC, (Reported) Insulin Lispro Protamine & Lis (Humalog Mix 75/25 Kwikpen), SC, (Reported) Discontinued Medications Furosemide (Furosemide), 20 MG PO DAILY Lisinopril (Lisinopril), 1 TAB PO DAILY, (Reported) Discharge Statement: "Patient was advised to return to the ER or call 911 if any headaches, dizziness, shortness of breath, chest pain, abdominal pain, bleeding, fevers, or worsening of medical condition. Patient was counseled about treatment plan, medications, possible side effects, patientverbalized understanding. All questions were answered to the best of my ability. This discharge took greater then 30 minutes in planning, reviewing documentation, counseling the patient, and discussing with other team members." ASSESSMENT ASSESSMENT Assessment Date of Service: May 31, 2025 Billing Provider: ANICETO TRAVIS MD Common Visit Codes: 67620-GIG/OBS DISCH DAY >30min CHEY YOUNG RESIDENT May 31, 2025 09:30 GRACIELA FELIPE RESIDENT May 31, 2025 14:52
[2025-05-31 13:06] VITALS: BP 130/77; PULSE 91; RESP 18; TEMP 98.6; O2SAT 96
[2025-05-31] MEDS ORDERED: SODI5PAK PO (14:50)
--- NOTE | 2025-05-31 14:53 | DVHPN2 ---
Progress Note - Dictate Date Seen: May 31, 2025 Medical Necessity Reason Pt with a Central, PICC or Fol: No Subjective The patient feels much better he wants to go home vital signs Vital Sign Date Time Temp Pulse Resp B/P (MAP) Pulse Ox O2 Delivery O2 Flow Rate FiO2 05/31/25 13:06 98.6 91 18 130/77 (94) 96 98.6 05/31/25 08:00 Room Air* 0 21 Total Intake and Output 05/30/25 05/30/25 05/31/25 15:00 23:00 07:00 Intake Total 1350 ml 1200 ml Balance 1350 ml 1200 ml medications Current Medications Medications Dose Ordered Sig/Andrea Route Start Time Stop Time Status Last Admin Dose Admin Acetaminophen 325 mg Q4HP PRN PO 05/29/25 17:30 Ondansetron HCl 4 mg Q4HP PRN IV 05/29/25 17:30 Morphine Sulfate 2 mg Q4HPRN PRN IV 05/29/25 17:30 Amlodipine Besylate 10 mg DAILY PO 05/30/25 10:00 05/31/25 08:45 10 MG Aspirin 81 mg QPM PO 05/29/25 18:00 05/30/25 17:47 81 MG Furosemide 20 mg DAILY PO 05/30/25 10:00 Hold 05/30/25 09:53 20 MG Hydralazine HCl 25 mg TID PO 05/29/25 22:00 05/31/25 06:04 25 MG Pantoprazole Sodium 40 mg DAILY PO 05/30/25 10:00 05/31/25 08:45 40 MG Tamsulosin HCl 0.4 mg QPM PO 05/29/25 18:00 05/30/25 17:47 0.4 MG Cholecalciferol 4,000 unit DAILY PO 05/30/25 10:00 05/31/25 08:45 4,000 UNIT Atorvastatin Calcium 80 mg HS PO 05/29/25 22:00 05/30/25 21:54 80 MG Gabapentin 100 mg TID PO 05/30/25 06:00 05/31/25 06:04 100 MG Diagnostic Test (Pha) 1 strip ACHS 05/30/25 17:00 05/31/25 11:46 1 STRIP Insulin Human Regular ACHS SC 05/30/25 17:00 05/31/25 11:30 4 UNITS Dextrose 50 ml UD PRN IV 05/30/25 12:45 objective HEENT: No evidence of JVD, no oral ulcers. Pulmonary: Lungs are clear on auscultation bilaterally Cardiovascular S1-S2, no S3 or S4 Abdomen: Bowel sounds positive, soft no rebound tenderness Skin: No rash Neurological: Alert, oriented, no focal weakness laboratory and microbiology Laboratory Tests 05/31/25 08:40 05/30/25 05:45 Test 05/31/25 08:40 Range/Units Serum Glucose 133 H 74-106 mg/dL Assessment/Plan Assessment: 1. Improving Acute kidney injury on Chronic kidney disease stage IIIB 2. Hyperkalemia likely secondary to AARON in addition to FLORIDALMA inhibitor 3. Diabetes type 2 4. Hypertension 5. BPH Recommendations and plan: Lokelma or Veltassa twice a week Low-potassium diet Discontinue lisinopril Discontinue IV fluids Hold torsemide for the next two days; then resume to every other day Continue rest of antihypertensive meds Follow up on hepatitis-C antibody, hep C PCR follow up outpatient with ID if confirmed positive Okay to discharge home from Nephrology perspective. Continue following up with Nephrology as an outpatient. His next appointment is June Plan discussed with: Patient SHOSHANA LIN MD May 31, 2025 14:53
[2025-05-31 16:42] VITALS: BP 132/66; PULSE 90; RESP 17; TEMP 98.6; O2SAT 97
== END 2025-05-31 17:05 | disposition home or self-care (01) | DRG 425 ==
LOC: ER 16:23 → OVERFLOW 17:24 → TELE-CENTR 22:30 → CENTRAL 05-31 10:02
PROVIDERS: ADMIT Internal Medicine Geriatric Medicine; ATTEND Internal Medicine Geriatric Medicine
DX: E87.5 Hyperkalemia (principal); N17.0 Acute kidney failure with tubular necrosis; I12.9 Hypertensive chronic kidney disease with stage 1 through stage 4 chronic kidney disease, or unspecified chronic kidney disease; N18.32 Chronic kidney disease, stage 3b; E11.22 Type 2 diabetes mellitus with diabetic chronic kidney disease; E11.42 Type 2 diabetes mellitus with diabetic polyneuropathy; E83.41 Hypermagnesemia; K21.9 Gastro-esophageal reflux disease without esophagitis; M10.9 Gout, unspecified; N40.0 Benign prostatic hyperplasia without lower urinary tract symptoms; E78.5 Hyperlipidemia, unspecified; Z88.5 Allergy status to narcotic agent; Z86.73 Personal history of transient ischemic attack (TIA), and cerebral infarction without residual deficits; Z79.4 Long term (current) use of insulin; Z79.899 Other long term (current) drug therapy; Z80.42 Family history of malignant neoplasm of prostate; Z82.49 Family history of ischemic heart disease and other diseases of the circulatory system; Z83.3 Family history of diabetes mellitus
CPT/HCPCS: 36415; 71045; 80048; 80053; 80061; 80307; 81001; 82306; 82607; 82962; 83605; 83690; 83735; 84100; 84132; 84443; 85025; 85610; 85730; 86803; 90656; 94640; 96374; G0378; J1815

== ENCOUNTER 2025-06-05 13:40 | Outpatient (CLI) | payer MEDICAID ==
[~2025-06-05 13:40] MED LIST changes: -FURO20TA4 PO; -LISI-275 PO; +SODI5PAK PO
== END 2025-06-05 17:00 | disposition home or self-care (01) ==
LOC: LAB 13:40
PROVIDERS: ATTEND Internal Medicine
DX: B19.20 Unspecified viral hepatitis C without hepatic coma (principal)
CPT/HCPCS: 36415; 86703; 86803; 87902

== ENCOUNTER 2025-06-25 01:39 | Inpatient (IN) | payer MEDICAID ==
[~2025-06-25] VITALS: Ht 167.6 cm; Wt 94.3 kg
[2025-06-25] MEDS: VANCOMYCIN 1GM/250ML KIT 250 ML IV ONE (02:00)
--- NOTE | 2025-06-25 02:35 | ED.PDOC ---
Musculoskeletal HPI Comments HPI: Poor Historian. 60-year-old male presents to emergency department for evaluation of right foot pain started yesterday with the associated chills. Patient has history of diabetes and toe amputations due to diabetes and he feels that the same way as when he had a foot ulcer developed that led to him losing his toes. Patient is experiencing some chills at home. Pain is worse with any weight-bearing. Past Medical History: Diabetes, hypertension, chronic kidney disease Past Surgical History: Toe amputation secondary to diabetes REVIEW OF SYSTEMS: CONSTITUTIONAL: Denies acute: fever, diaphoresis, generalized weakness. HEAD: Denies acute: headache, photophobia Eyes: Denies acute: Double vision, vision loss, eye pain, eye discharge. EARS: Denies acute: tinnitus, hearing loss, ear discharge, ear pain, THROAT: Denies acute: sore throat, swelling, difficulty swallowing , pain with swallowing, change in voice. NECK: Denies acute: neck pain, neck swelling, stiff neck. HEART: Denies acute : chest pain, palpitations, LUNGS: Denies acute: SOB, wheezing, cough, hemoptysis ABDOMEN: Denies acute: abdominal pain, Nausea, Vomiting, diarrhea, melena , hematemesis, hematochezia SKIN: Denies acute: rash, redness, lesions, itchiness. EXTREMITIES: Denies acute: calf pain, numbness, tingling, weakness, denies pain in extremity. Denies acute: Low back pain. Neuro: Denies acute: focal neurological deficit, motor or sensory focal neurological deficit, tremors, seizure like activity, confusion, dizziness, change in mental status, loss of bowel or bladder function, cauda equina like symptoms. : Denies acute: dysuria, hematuria, flank pain, increase in urinary frequency. PSYCH: Denies acute: hallucination, suicidal ideation, homicidal ideation. PHYSICAL EXAM: General: -----mild---acute distress, awake and alert. Head: normocephalic, atraumatic. No raccoon's eyes, no umana sign. Neck: supple, trachea is midline, no swelling. Throat: Normal phonation. Eyes:, no erythema, no purulent discharge, no proptosis, no icterus. Heart: regular rate, regular rhythm, no significant murmur appreciated. Lungs: no apparent respiratory distress, Able to speak in full sentences. No wheezing, no rhonchi, no crackles. No stridors Clear to auscultation bilaterally. Abdomen: non tender to palpation, non distended, soft, no guarding, no rebound, + bowel sounds. Neuro: Awake, Alert, oriented to name, self, situation, follows commands GCS=15. Speech is normal. Skin: no petechia, no purpura, no cyanosis, non-pale, not jaundice. Lower extremities: --trace - Pitting edema no deformity, no focal swelling, no calf TTP. Evaluation of the area of complaint: Right foot plantar aspect tenderness to palpation with the noted scabbing ulcer. Unable to bear weight secondary to pain. Makes eye contact. moves all four extremities. Face: no apparent facial droop. Ears: Normal appearing TM b/l, Pedal pulses are palpable. ED COURSE: DISCLAIMER: This medical document was created using an electronic medical record system with voice recognition software and computerized dictation system. Although this document has been carefully reviewed, there might still be some phonetic and typographical errors. Occasional wrong-word or "sound-alike" substitutions may have occurred due to the inherent limitations of voice recognition software. These areas are purely typographical due to imperfections of the software programs and do not reflect any compromise in the patient's medical care. Please read the chart carefully and recognize, using context, where these substitutions have occurred. Chief Complaint: Wound Check Time Seen by MD: 01:46 Primary Care Provider: ALICIA Reviewed Notes: Allergies Allergies: Coded Allergies: Hydrocodone (Verified Adverse Reaction, Severe, MAKES HIM VOMIT, 11/27/24) Home Meds Active Scripts Sodium Zirconium Cyclosilicate (Lokelma) 5 Gm Tulio, 5 GM PO Q72HR for 4 Days, #10 PACK Prov:GRACIELA FELIPE RESIDENT 05/31/25 Allopurinol (Allopurinol) 100 Mg Tab, 100 MG PO DAILY for 30 Days, #30 TAB Prov:GINNY RUIZ ASSET PROTECTION SPECIALIST 12/24/24 Rifampin (Rifampin) 300 Mg Cap, 300 MG PO BID for 42 Days, CAP Prov:DAVID VARGAS MD 12/04/24 Rifampin (Rifampin) 300 Mg Cap, 300 MG PO BID PRN for 42 Days, #84 CAP Prov:SARAH VARGAS MD 12/03/24 Allopurinol (Allopurinol) 300 Mg Tab, 200 MG PO DAILY for 90 Days, #60 TAB Prov:DAVID VARGAS MD 09/06/24 Pantoprazole Sodium Sesquihydr (Pantoprazole Sodium) 40 Mg Tab, 40 MG PO DAILY for 90 Days, #90 TAB Prov:DAVID VARGAS MD 03/29/21 Gabapentin (Gabapentin) 100 Mg Cap, 100 MG PO Q8H for 30 Days, #90 CAP Prov:DAVID VARGAS MD 03/29/21 Cholecalciferol (Vitamin D3 Super Strength) 2,000 Unit Cap, 4000 UNIT PO DAILY for 100 Days, #100 CAP Prov:DAVID VARGAS MD 03/29/21 Atorvastatin Calcium (ATORVASTATIN CALCIUM) 20 Mg Tab, 40 MG PO HS for 90 Days, #180 TAB Prov:DAVID VARGAS MD 03/29/21 Aspirin (Aspir-Low) 81 Mg Tab, 81 MG PO QPM for 90 Days, #90 TAB Prov:DAVID VARGAS MD 03/29/21 Reported Medications Dapagliflozin Propanediol (Farxiga) 10 Mg Tab, 1 TAB PO DAILY 12/24/24 Finerenone (Kerendia) 10 Mg Tab, PO 12/24/24 Hydralazine HCl (Hydralazine HCl) 25 Mg Tab, 1 TAB PO BID 12/24/24 Insulin Lispro Protamine & Lis (Humalog Mix 75/25 Kwikpen) 75 Mg/25 Kwp Inj, SC 09/03/24 Insulin Lispro (Humalog Salvatore Kwikpen) 100 Unit/Ml Inj, SC 09/03/24 Tamsulosin Hcl (Tamsulosin Hcl) 0.4 Mg Cap, 0.4 MG PO QPM for 30 Days, MG 09/17/22 Amlodipine Besylate (Amlodipine Besylate) 5 Mg Tab, 10 MG PO DAILY for 30 Days, MG 09/17/22 Hydralazine Hcl (Hydralazine Hcl) 25 Mg Tab, 25 MG PO TID for 30 Days, MG 09/17/22 Information Source: Patient Mode of Arrival: Ambulatory Past Medical History PAST MEDICAL HISTORY: CKF, DM, GERD, High Lipids, HTN, TIA Surgical History: Denies all surgeries Family History Family History: Reviewed,noncontributory to illness, Unknown Social History Smoker: Non-Smoker Alcohol: Denies ETOH Use Drugs: Denies Drug Use Lives In: Home X-Ray, Labs, Meds, VS Vital Signs Date Time Temp Pulse Resp B/P (MAP) Pulse Ox O2 Delivery O2 Flow Rate FiO2 06/25/25 01:43 98.0 94 16 151/78 98 98.0 Lab Test 06/25/25 02:10 Range/Units White Blood Count Pending Red Blood Count Pending Hemoglobin Pending Hematocrit Pending Mean Corpuscular Volume Pending Mean Corpuscular Hemoglobin Pending Mean Corpuscular Hemoglobin Concent Pending Red Cell Distribution Width Pending Platelet Count Pending Mean Platelet Volume Pending Neutrophils (%) (Auto) Pending Lymphocytes (%) (Auto) Pending Monocytes (%) (Auto) Pending Basophils (%) (Auto) Pending Neutrophils # (Auto) Pending Lymphocytes # (Auto) Pending Monocytes # (Auto) Pending Erythrocyte Sedimentation Rate Pending Sodium Level Pending Potassium Level Pending Chloride Level Pending Carbon Dioxide Level Pending Anion Gap Pending Blood Urea Nitrogen Pending Creatinine Pending Glomerular Filtration Rate Calc Pending BUN/Creatinine Ratio Pending Serum Glucose Pending Lactic Acid Level Pending Calcium Level Pending C-Reactive Protein High Sensitivity Pending Departure 1 Departure Time of Disposition: 02:32 Impression: Primary Impression: Diabetic foot ulcer Disposition: ADMITTED INPATIENT Admit to: Tele Condition: Guarded Discharged With: Self LORE ALVARENGA DO Jun 25, 2025 02:35
--- NOTE | 2025-06-25 02:46 | DVH ---
XY R FOOT 2 VIEW XRAY INDICATION: diabetic ulcer. TECHNICAL DATA: Frontal, oblique and lateral views were obtained of the right foot. COMPARISON: XY R FOOT 2 VIEW XRAY on DOS: 11/27/24 IMPRESSION: Marked hallux deformity of the great toe. Possible soft tissue gas laterally and adjacent to the 2nd and 3rd interphalangeal space. There has been distal amputation of the 2nd phalanges and transmetatarsal amputation of the 5th digit. Partial resection of the 4th metatarsal. No discrete osseous erosion or periosteal reaction to suggest osteomyelitis. If clinical concern persists, consider MRI with contrast or 3-phase bone scan.
[2025-06-25 02:51] LABS: Nucleated Red Blood Cells % 0.0 %
[2025-06-25 02:54] LABS: Chloride 99 mmol/L (98-107); Hematocrit 42.0 % (41.0-53.0); Hemoglobin 13.9 g/dL (13.5-17.5); Mean Corpuscular Hemoglobin 27.3 pg (28.0-32.0); Mean Corpuscular Volume 82.6 fL (80.0-100.0); Potassium 3.7 mmol/L (3.5-5.1)
[2025-06-25] MEDS: PIPERACILLIN-TAZOB 3.375GM 100 ML IV ONE (02:54)
[2025-06-25 02:55] LABS: Anion Gap 9 (5-15); Carbon Dioxide 27 mmol/L (20-31)
[2025-06-25 03:01] LABS: BUN/Creatinine Ratio 16.5 (10.0-20.0)
[2025-06-25 03:03] LABS: Blood Urea Nitrogen 52 mg/dL (9-23); Calcium 8.5 mg/dL (8.7-10.4); Glucose 374 mg/dL (74-106); Sodium 135 mmol/L (136-145)
--- NOTE | 2025-06-25 04:11 | DVH ---
EXAM: CT CT R FOOT WO CONTRAST History: poss infection Comparison Study: MRI MRI R FOOT WO CONTRAST on DOS: 11/28/24 TECHNIQUE: Multidetector CT right foot was performed. Imaging was performed without IV contrast. Axial, coronal and sagittal multiplanar reformats were obtained from the axial data set by the technologist. Radiation optimization: All CT scans at this facility use at least one of these dose optimization techniques: automated exposure control mA and/or kV adjustment per patient size (includes targeted exams where dose is matched to clinical indication) or iterative reconstruction. Radiation Dose Information: CT Dose: CTDI volume is 7.75 mGy. Dose-length product is 215.78 mGy*cm FINDINGS: Examination is limited by patient's foot positioning and anatomy. There has been transmetatarsal amputation of the 5th digit, transmetatarsal amputation of the 4th digit with retention of the phalanges and amputation of the phalanges of the 2nd digit. No discrete soft tissue gas or abscess. There is more chronic appearing deformity of the base of the 5th and 4th metatarsal base .calcaneus, talus and navicular appear unremarkable. IMPRESSION: 1. No evidence of soft tissue gas or abscess 2. Complex postsurgical appearance of the foot with more chronic appearing erosive deformity of the residual 5th metatarsal and 4th metatarsal base, may be seen in chronic osteomyelitis as seen on prior MRI.
[2025-06-25] MEDS ORDERED: SODIUM ZIRCONIUM CYCL 10 GM PAK PO SCH (10:00)
[2025-06-25] MEDS ORDERED: DEXTROSE (50%) 50ML SYRG IV PRN (10:00)
[2025-06-25] MEDS: SODIUM CHLORIDE 0.9% 1,000 ML IV SCH (10:00)
[2025-06-25] MEDS ORDERED: NITROGLYCERIN 0.4 MG SL TAB SL PRN (10:00)
[2025-06-25] MEDS ORDERED: MORPHINE SULFATE INJ 2 MG/ml SYRG IV PRN (10:00)
[2025-06-25] MEDS ORDERED: HYDROcodone-ACET 5/325MG TAB PO PRN (10:00)
[2025-06-25] MEDS ORDERED: ONDANSETRON HCL 4 MG/2 ML VIAL IV PRN (10:00)
[2025-06-25] MEDS ORDERED: ACETAMINOPHEN 325 MG TAB PO PRN (10:00)
[2025-06-25] MEDS: ALLOPURINOL 100 MG TAB PO SCH (10:38)
[2025-06-25] MEDS: DOXYCYCLINE 100MG/100ML 100 ML IV SCH (10:38)
[2025-06-25] MEDS: PANTOPRAZOLE 40 MG TAB PO SCH (10:38)
[2025-06-25] MEDS: GABAPENTIN 100 MG CAP PO SCH (10:38)
[2025-06-25] MEDS: ENOXAPARIN SOD 30 MG/0.3 ML SYRINGE SC ONE (10:42)
[2025-06-25] MEDS: CEFEPIME 1GM/50ML 50 ML IV SCH (10:43)
[2025-06-25] MEDS: ACCU-CHEK COMFORT CURVE STRIP VI SCH (10:48)
[2025-06-25] MEDS: InsuLIN REG 1unit/0.01ml Soln (100units/ml) SC SCH ×2 (10:49→23:21)
--- NOTE | 2025-06-25 11:05 | DVHHPRES ---
History of Present Illness Resident Creating Document: GAVI REYNOLDS RESIDENT History of Present Illness Karan Rodriguez is a 60-year-old male with a history of type 2 DM with a CKD 3 DLD, HTN, CAD, gout, GERD, BPH, presented to the ED with a painful foot wound suspected to be infected. Reported developing hardening dialysis after missing his regular foot care appointment with the Dr. Wagoner. Patient reported he experienced chills but denies fever. Approximately 1 year ago he had diabetic ulcer that was successfully treated by Dr. Wagoner, he has been following up monthly with the Dr. Wagoner for Car[facility] cleaning and maintenance but his last appointment was scheduled for last month but due to doctors be scheduled his appointment was postponed for 2 months until end of the year but he started developing pain and suspected the area become infected which prompted him to visit ER. PMH: Diabetes insulin-dependent, dyslipidemia, hypertension, TIA, CKD stage II IB, diabetic foot s/p op, diabetic neuropathy, gout, GERD, BPH, vitamin-D deficiency. (Per med rec patient was on finerenone) PSH: Incision and drainage of diabetic foot, head surgery secondary to trauma Family history noncontributory Social history: [place] in [place] family (next of kin daughter). Denies current tobacco, alcohol and other drug abuse. Allergies: Hydrocodone Home medication: Allopurinol, furosemide, rifampin, allopurinol, pantoprazole, gabapentin, vitamin-D, atorvastatin 40 mg p.o. daily, aspirin 81 mg p.o. daily, lisinopril 5 mg p.o. daily, hydralazine 25 mg p.o. b.i.d., dapagliflozin 10 mg p.o. daily, amlodipine 10 mg p.o. daily, tamsulosin 0.4 mg p.o. daily ROS: Patient seen and examined at bedside. Currently has no new complaints, except pain in the right foot. Review of Systems Allergies: Coded Allergies: Hydrocodone (Verified Adverse Reaction, Severe, MAKES HIM VOMIT, 11/27/24) Medications Current Medications Medications Dose Ordered Sig/Andrea Route Start Time Stop Time Status Last Admin Dose Admin Sodium Chloride 10 ml Q8HR IV 06/25/25 14:00 Sodium Chloride 1,000 ml @ 60 mls/hr [id number] IV 06/25/25 10:00 Acetaminophen/ Hydrocodone Bitart 1 tab Q4HP PRN PO 06/25/25 10:00 Hold Ondansetron HCl 4 mg Q4HP PRN IV 06/25/25 10:00 Enoxaparin Sodium 30 mg DAILY SC 06/26/25 10:00 Acetaminophen 650 mg Q6HP PRN PO 06/25/25 10:00 Nitroglycerin 0.4 mg Q5MINP PRN SL 06/25/25 10:00 Morphine Sulfate 2 mg Q30M PRN IV 06/25/25 10:00 Diagnostic Test (Pha) 1 strip ACHS 06/25/25 11:30 06/25/25 10:48 1 STRIP Insulin Human Regular HS SC 06/25/25 22:00 Insulin Human Regular AC SC 06/25/25 11:30 06/25/25 10:49 3 UNITS Dextrose 50 ml UD PRN IV 06/25/25 10:00 Allopurinol 100 mg DAILY PO 06/25/25 10:00 06/25/25 10:38 100 MG Amlodipine Besylate 10 mg DAILY PO 06/25/25 10:00 06/25/25 10:40 10 MG Aspirin 81 mg QPM PO 06/25/25 18:00 Atorvastatin Calcium 40 mg HS PO 06/25/25 22:00 Gabapentin 100 mg Q8H PO 06/25/25 10:00 06/25/25 10:38 100 MG Hydralazine HCl 25 mg BID PO 06/25/25 10:00 06/25/25 10:39 25 MG Pantoprazole Sodium 40 mg DAILY PO 06/25/25 10:00 06/25/25 10:38 40 MG Zirconium Oxide 5 gm Q72HR PO 06/25/25 10:00 Hold Tamsulosin HCl 0.4 mg QPM PO 06/25/25 18:00 Doxycycline Hyclate 100 ml @ 50 mls/hr Q12H IV 06/25/25 10:00 06/25/25 10:38 50 MLS/HR Cefepime HCl 50 ml @ 12.5 mls/hr DAILY IV 06/25/25 10:00 06/25/25 10:43 12.5 MLS/HR Exam Vital Signs Vital Signs Date Time Temp Pulse Resp B/P (MAP) Pulse Ox O2 Delivery O2 Flow Rate FiO2 06/25/25 10:40 140/72 06/25/25 10:18 98.2 76 16 96 98.2 06/25/25 02:59 Room Air* 0 21 Exam Pt is lying on bed General Appearance: Alert, Oriented X3, Cooperative, Not in acute distress HEENT: Atraumatic, Mucous membranes moist/pink Respiratory: Clear to auscultation, Normal air movement, No added sounds Cardiovascular: Regular rate, Normal S1, Normal S2, No murmurs Abdominal: Active bowel sounds, Soft, no distention, no tenderness Extremities: Trace edema, Normal pulses, No tenderness Skin: clean wound on base of 1st metatarsal in the right foot Neuro: Normal speech, sensorimotor deficits none Psych/Mental Status: Mental status NL, Mood NL Nurse was there as correctional manager during examination Labs/Xrays Labs Test 06/25/25 10:45 06/25/25 02:10 Range/Units POC Glucose 188 H 70-106 mg/dl White Blood Count 6.5 4.4-10.8 10^3/uL Red Blood Count 5.08 4.5-5.90 10^6/uL Hemoglobin 13.9 13.5-17.5 g/dL Hematocrit 42.0 41.0-53.0 % Mean Corpuscular Volume 82.6 80.0-100.0 fL Mean Corpuscular Hemoglobin 27.3 L 28.0-32.0 pg Mean Corpuscular Hemoglobin Concent 33.0 32.0-36.0 g/dL Red Cell Distribution Width 14.3 11.8-14.3 % Platelet Count 261 140-450 10^3/uL Mean Platelet Volume 8.6 6.9-10.8 fL Neutrophils (%) (Auto) 66.4 37.0-80.0 % Lymphocytes (%) (Auto) 17.2 10.0-50.0 % Monocytes (%) (Auto) 13.8 H 0.0-12.0 % Eosinophils (%) (Auto) 1.2 0.0-7.0 % Basophils (%) (Auto) 1.4 0.0-2.0 % Neutrophils # (Auto) 4.3 1.6-8.6 10 ^3/uL Lymphocytes # (Auto) 1.1 0.4-5.4 10 ^3/uL Monocytes # (Auto) 0.9 0-1.3 10 ^3/uL Eosinophils # (Auto) 0.1 0-0.8 10 ^3/uL Basophils # (Auto) 0.1 0-0.2 10 ^3/uL Nucleated Red Blood Cells 0.0 % Erythrocyte Sedimentation Rate 11 0-20 mm/hr Sodium Level 135 L 136-145 mmol/L Potassium Level 3.7 3.5-5.1 mmol/L Chloride Level 99 98-107 mmol/L Carbon Dioxide Level 27 20-31 mmol/L Anion Gap 9 5-15 Blood Urea Nitrogen 52 H 9-23 mg/dL Creatinine 3.15 H 0.700-1.30 mg/dL Glomerular Filtration Rate Calc 22 >90 mL/min BUN/Creatinine Ratio 16.5 10.0-20.0 Serum Glucose 374 H 74-106 mg/dL Lactic Acid Level 0.9 0.4-2.0 mmol/L Calcium Level 8.5 L 8.7-10.4 mg/dL C-Reactive Protein High Sensitivity 1.42 H <1.0 mg/dL SEPSIS Sepsis Screen Date sepsis recognized/suspect: Jun 25, 2025 Time Sepsis recognized/suspect: 258 Recent Procedure: No On Antibiotic Therapy: No Respiratory Rate >20: No Heart Rate >90: No Temp<36 C (96.8 F) or >38.3 C: No SBP <90 or MAP <65 mmHG: No New Acute Mental Status Change: No Is the patient on CPAP, BIPAP,: No Physician Orders Admit (06/25/25 09:55) Allergies (06/25/25 09:55) Code Status (06/25/25 09:55) Sodium Chloride Lock (Saline Lock Ns) (06/25/25 14:00) Sodium Chloride 0.9% (06/25/25 10:00) Hydrocodone-Acet 5/325mg Tab ([place] 5/32 (06/25/25 10:00) Ondansetron Hcl (Zofran) (06/25/25 10:00) Complete Blood Count (06/26/25 04:00) Comprehensive Metabolic Panel (06/26/25 04:00) Condition: Fair (06/25/25 09:55) Acetaminophen Tablet (Tylenol Tablet) (06/25/25 10:00) Nitroglycerin Sublingual (Ntrostat Subli (06/25/25 10:00) Morphine Sulfate Injection (06/25/25 10:00) Oxygen By Nasal Cannula (06/25/25 09:55) Stat Ekg For Chest Pain (06/25/25 09:55) Notify Md Of Changes From Base (06/25/25 09:55) Care Management Coordinator For 24 Hours (06/25/25 09:55) Emergency Dysrhythmia Protocol (06/25/25 09:55) Rhythm Strips Once Every Shift (06/25/25 09:55) *Podiatry Consult [place](Dvmg) (06/25/25 09:55) Urinalysis (06/25/25 09:55) Drug Screen (06/25/25 09:55) Glucose Blood (Accu-Chek Comfort Curve T (06/25/25 11:30) Insulin R (Human) (Insulin R) (06/25/25 22:00) Insulin R (Human) (Insulin R) (06/25/25 11:30) Dextrose 50% Syringe (06/25/25 10:00) Consistent Carb(Ccho)Diabetes (06/25/25 Lunch) Wound Culture W/ Gs (06/25/25 09:55) Mrsa Screen (06/25/25 09:55) Allopurinol Tablet (Zyloprim Tablet) (06/25/25 10:00) Amlodipine Tablet (Norvasc Tablet) (06/25/25 10:00) Aspirin Enteric Coated Tablet (Ecotrin E (06/25/25 18:00) Atorvastatin (Lipitor) (06/25/25 22:00) Gabapentin Capsule (Neurontin Capsule) (06/25/25 10:00) Hydralazine Hcl Tablet (Apresoline Table (06/25/25 10:00) Pantoprazole Tablet (Protonix Tablet) (06/25/25 10:00) Sodium Zirconium Cyclosilicate (Lokelma) (06/25/25 10:00) Tamsulosin Hydrochloride (Flomax) (06/25/25 18:00) Doxycycline 100mg/100ml (Vibramycin) (06/25/25 10:00) Cefepime 1gm/50ml (Maxipime 1gm/50ml) (06/25/25 10:00) Enoxaparin Sodium (Lovenox) (06/26/25 10:00) Hemoglobin A1c (06/25/25 10:57) PTPTT (06/25/25 10:59) Chest Portable (06/25/25 10:59) Npo After Midnight (06/25/25 10:59) Vital Signs Date Time Temp Pulse Resp B/P (MAP) Pulse Ox O2 Delivery O2 Flow Rate FiO2 06/25/25 10:40 140/72 06/25/25 10:39 140/72 06/25/25 10:18 98.2 76 16 140/72 (94) 96 98.2 06/25/25 05:27 80 06/25/25 05:25 98.4 80 18 128/62 (84) 95 98.4 Laboratory Tests Test 06/25/25 02:10 Lactic Acid Level 0.9 mmol/L (0.4-2.0) White Blood Count 6.5 10^3/uL (4.4-10.8) Medications Medications Dose Ordered Sig/Andrea Route Start Time Stop Time Status Last Admin Dose Admin Allopurinol 100 mg DAILY PO 06/25/25 10:00 06/25/25 10:38 100 MG Amlodipine Besylate 10 mg DAILY PO 06/25/25 10:00 06/25/25 10:40 10 MG Cefepime HCl 50 ml @ 12.5 mls/hr DAILY IV 06/25/25 10:00 06/25/25 10:43 12.5 MLS/HR Diagnostic Test (Pha) 1 strip ACHS 06/25/25 11:30 06/25/25 10:48 1 STRIP Doxycycline Hyclate 100 ml @ 50 mls/hr Q12H IV 06/25/25 10:00 06/25/25 10:38 50 MLS/HR Enoxaparin Sodium 30 mg ONCE ONCE SC 06/25/25 10:30 06/25/25 10:31 DC 06/25/25 10:42 30 MG Gabapentin 100 mg Q8H PO 06/25/25 10:00 06/25/25 10:38 100 MG Hydralazine HCl 25 mg BID PO 06/25/25 10:00 06/25/25 10:39 25 MG Insulin Human Regular AC SC 06/25/25 11:30 06/25/25 10:49 3 UNITS Pantoprazole Sodium 40 mg DAILY PO 06/25/25 10:00 06/25/25 10:38 40 MG Piperacillin Sod/ Tazobactam Sod 100 ml @ 100 mls/hr ONCE ONCE IV 06/25/25 02:00 06/25/25 02:59 DC 06/25/25 02:54 100 MLS/HR Vancomycin HCl 250 ml @ 250 mls/hr ONCE ONCE IV 06/25/25 02:00 06/25/25 02:59 DC 06/25/25 02:00 250 MLS/HR Assessment/Plan Assessment/Plan Chronic Diabetic foot wound R/o osteomyelitis Uncontrolled type 2 DM, pending HbA1c AARON Likely VMN on CKD IIIB Plan: Foot CT - Complex postsurgical appearance of the foot with more chronic appearing erosive deformity of the residual 5th & 4th metatarsal base, may be seen in chronic osteomyelitis as seen on prior MRI. Podiatry Cultures UA/UDS Avoid nephrotoxic agents Doxycycline and cefepime are preferred over Zosyn and vancomycin due to AARON on CKD Diabetic and renal diet Insulin sliding scale GERD - Protonix Dyslipidemia - Lipitor Gout - allopurinol Diabetic neuropathy - gabapentin HTN - amlodipine PPx Protonix Lovenox Diabetic and renal diet NPO after midnight Reconciled home medications Goals of care addressed with the patient for more than 27 minutes: Full code status Case discussed with Dr. Cortez ,patient and nurse Plan discussed with: Patient My Orders Orders - GAVI REYNOLDS RESIDENT Procedure Category Date Status Time Admit ADMIT 06/25/25 Transmitted 09:55 Allergies [place] 06/25/25 In Process 09:55 Code Status CODE 06/25/25 Transmitted 09:55 Sodium Chloride Lock PHA 06/25/25 In Process (Saline Lock Ns) 14:00 Sodium Chloride 0.9% PHA 06/25/25 In Process 10:00 Hydrocodone-Acet PHA 06/25/25 In Process 5/325mg Tab ([place] 10:00 Ondansetron Hcl PHA 06/25/25 In Process (Zofran) 10:00 Complete Blood Count LAB 06/26/25 Verified 04:00 Comprehensive LAB 06/26/25 Verified Metabolic Panel 04:00 Condition: Fair [place] 06/25/25 In Process 09:55 Acetaminophen Tablet PHA 06/25/25 In Process (Tylenol Tablet) 10:00 Nitroglycerin PHA 06/25/25 In Process Sublingual (Ntrostat 10:00 Morphine Sulfate PHA 06/25/25 In Process Injection 10:00 Oxygen By Nasal RT 06/25/25 Transmitted Cannula 09:55 Stat Ekg For Chest [place] 06/25/25 In Process Pain 09:55 Notify Of Changes [place] 06/25/25 In Process From Base 09:55 Care Management Coordinator For [place] 06/25/25 In Process 24 Hours 09:55 Emergency Dysrhythmia [place] 06/25/25 In Process Protocol 09:55 Rhythm Strips Once [place] 06/25/25 In Process Every Shift 09:55 *Podiatry Consult CONS 06/25/25 Transmitted [facility](Dvmg) 09:55 Urinalysis LAB 06/25/25 Logged 09:55 Drug Screen LAB 06/25/25 Logged 09:55 Glucose Blood PHA 06/25/25 In Process (Accu-Chek Comfort 11:30 Insulin R (Human) PHA 06/25/25 In Process (Insulin R) 22:00 Insulin R (Human) PHA 06/25/25 In Process (Insulin R) 11:30 Dextrose 50% Syringe PHA 06/25/25 In Process 10:00 Consistent DIET 06/25/25 Transmitted Carb(Ccho)Diabetes Lunch Wound Culture W/ Gs YA 06/25/25 Logged 09:55 Mrsa Screen YA 06/25/25 Logged 09:55 Allopurinol Tablet PHA 06/25/25 In Process (Zyloprim Tablet) 10:00 Amlodipine Tablet PHA 06/25/25 In Process (Norvasc Tablet) 10:00 Aspirin Enteric PHA 06/25/25 In Process Coated Tablet 18:00 Atorvastatin (Lipitor) PHA 06/25/25 In Process 22:00 Gabapentin Capsule PHA 06/25/25 In Process (Neurontin Capsule) 10:00 Hydralazine Hcl PHA 06/25/25 In Process Tablet (Apresoline 10:00 Pantoprazole Tablet PHA 06/25/25 In Process (Protonix Tablet) 10:00 Sodium Zirconium PHA 06/25/25 In Process Cyclosilicate 10:00 Tamsulosin PHA 06/25/25 In Process Hydrochloride (Flomax) 18:00 Doxycycline PHA 06/25/25 In Process 100mg/100ml 10:00 Cefepime 1gm/50ml PHA 06/25/25 In Process (Maxipime 1gm/50ml) 10:00 Enoxaparin Sodium PHA 06/26/25 In Process (Lovenox) 10:00 Hemoglobin A1c LAB 06/25/25 In Process 10:57 PTPTT LAB 06/25/25 Logged 10:59 Chest Portable XY 06/25/25 Logged 10:59 Npo After Midnight [place] 06/25/25 In Process 10:59 Visit Coding STANDARD RES Billing Provider: MARTINEZ CROTEZ MD Date of Service if different f: Jun 25, 2025 Common Visit Codes: 06063-TLAFHQA INP/OBS CARE (MOD) Secondary Visit Codes: 35432-[id number] CARE PLAN 30 MINUTES GAVI REYNOLDS RESIDENT Jun 25, 2025 11:05 MARTINEZ CORTEZ MD Jun 26, 2025 08:00
--- NOTE | 2025-06-25 11:31 | DVH ---
INDICATION: pre op TECHNIQUE: Frontal view of the chest. COMPARISON: XY CHEST XRAY 1 VIEW on DOS: 05/29/25, XY CHEST PORTABLE on DOS: 01/13/25, XY CHEST PORTABLE on DOS: 12/26/24, XY CHEST PORTABLE on DOS: 12/21/24, XY CHEST XRAY 1 VIEW on DOS: 11/27/24 FINDINGS: . The heart and mediastinal contours are grossly unremarkable. There is no evidence of pleural disease. The lungs are clear. The bony structures of the chest are intact without fracture. IMPRESSION: 1. No evidence of acute disease.
[2025-06-25 11:57] LABS: INR 1.02 (0.9-1.15); Partial Thromboplastin Time 32.8 SEC (24.5-34.5); Prothrombin Time 10.8 sec (9.3-11.8)
[2025-06-25 12:30] VITALS: BP 155/83; PULSE 74; RESP 12; TEMP 97.9; O2SAT 97
[2025-06-25 12:42] VITALS: BP 144/75; PULSE 71; RESP 16; TEMP 98; O2SAT 97
[2025-06-25] MEDS: SODIUM CHLOR 0.9% PF (SALINE LOCK) 10ML VIAL/SYR IV SCH (13:58)
[2025-06-25 16:40] VITALS: BP 142/73; PULSE 78; RESP 16; TEMP 98.2; O2SAT 96
[2025-06-25] MEDS: ASPirin-EC 81 mg tab PO SCH (18:08)
[2025-06-25] MEDS: TAMSULOSIN HYDROCHLORIDE 0.4 MG CAP PO SCH (18:09)
[2025-06-25 20:00] VITALS: RESP 17
[2025-06-25 21:56] VITALS: BP 146/98; PULSE 81; RESP 18; RESP 20; TEMP 98.5; O2SAT 97
[2025-06-25] MEDS: ATORVASTATIN 20 MG TAB PO SCH (22:58)
[2025-06-26 05:00] VITALS: BP 114/71; PULSE 98; RESP 17; TEMP 98.7; O2SAT 95
[2025-06-26 06:46] LABS: Hematocrit 38.7 % (41.0-53.0); Hemoglobin 12.7 g/dL (13.5-17.5); Mean Corpuscular Hemoglobin 27.1 pg (28.0-32.0); Mean Corpuscular Volume 82.7 fL (80.0-100.0); Nucleated Red Blood Cells % 0.1 %
[2025-06-26 07:00] LABS: Alanine Aminotransferase 10 U/L (7-40); Alkaline Phosphatase 80 U/L (46-116); Anion Gap 8 (5-15); BUN/Creatinine Ratio 11.4 (10.0-20.0); Carbon Dioxide 28 mmol/L (20-31); Chloride 104 mmol/L (98-107); Potassium 4.2 mmol/L (3.5-5.1); Sodium 140 mmol/L (136-145); Total Protein 6.1 g/dL (5.7-8.2)
[2025-06-26 07:01] LABS: Albumin 3.4 g/dL (3.2-4.8); Bilirubin, Total 0.3 mg/dL (0.2-1.0)
[2025-06-26 07:02] LABS: Blood Urea Nitrogen 36 mg/dL (9-23); Calcium 8.3 mg/dL (8.7-10.4); Glucose 191 mg/dL (74-106)
[2025-06-26 09:00] VITALS: BP 166/89; PULSE 84; RESP 17; TEMP 98.6; O2SAT 95
[2025-06-26] MEDS: ENOXAPARIN SOD 30 MG/0.3 ML SYRINGE SC SCH (10:00)
[2025-06-26 12:08] LABS: Urine Protein, UAD 1+ (Negative)
[2025-06-26 12:24] LABS: Amphetamine Screen, Urine Neg (NEGATIVE); Barbiturate Scree,Urine Neg (NEGATIVE); Benzodiazephine Screen, Urine Neg (NEGATIVE); Cannabinoid Screen, Urine Neg (NEGATIVE); Cocaine Screen, Urine Neg (NEGATIVE); Opiate Scree,Urine Neg (NEGATIVE); Phencyclidine Screen, Urine Neg (NEGATIVE)
--- NOTE | 2025-06-26 12:41 | DVHCONRES ---
Date Seen: Jun 26, 2025 Reason for Consultation Right foot wound History of Present Illness Karan Rodriguez is a 60-year-old male with a history of type 2 DM with a CKD 3 DLD, HTN, CAD, gout, GERD, BPH, presented to the ED with a painful foot wound suspected to be infected. Reported developing hardening dialysis after missing his regular foot care appointment with the Dr. Wagoner. Patient reported he experienced chills but denies fever. Approximately 1 year ago he had diabetic ulcer that was successfully treated by Dr. Wagoner, he has been following up monthly with the Dr. Wagoner for Caris cleaning and maintenance but his last appointment was scheduled for last month but due to doctors be scheduled his appointment was postponed for 2 months until end of the year but he started developing pain and suspected the area become infected which prompted him to visit ER. Past Medical History See H&P Past Surgical History See H&P Family History: Diabetes mellitus G8 MOTHER G8 FATHER FH: prostate cancer G8 FATHER Hypertension G8 MOTHER G8 FATHER Allergies: Coded Allergies: Hydrocodone (Verified Adverse Reaction, Severe, MAKES HIM VOMIT, 11/27/24) Home Meds Active Scripts Sodium Zirconium Cyclosilicate (Lokelma) 5 Gm Tulio, 5 GM PO Q72HR for 4 Days, #10 PACK Prov:GRACIELA FELIPE RESIDENT 05/31/25 Allopurinol (Allopurinol) 100 Mg Tab, 100 MG PO DAILY for 30 Days, #30 TAB Prov:GINNY RUIZ EDUCATION SITE MANAGER 12/24/24 Rifampin (Rifampin) 300 Mg Cap, 300 MG PO BID for 42 Days, CAP Prov:DAVID VARGAS MD 12/04/24 Rifampin (Rifampin) 300 Mg Cap, 300 MG PO BID PRN for 42 Days, #84 CAP Prov:SARAH VARGAS MD 12/03/24 Allopurinol (Allopurinol) 300 Mg Tab, 200 MG PO DAILY for 90 Days, #60 TAB Prov:DAVID VARGAS MD 09/06/24 Pantoprazole Sodium Sesquihydr (Pantoprazole Sodium) 40 Mg Tab, 40 MG PO DAILY for 90 Days, #90 TAB Prov:DAVID VARGAS MD 03/29/21 Gabapentin (Gabapentin) 100 Mg Cap, 100 MG PO Q8H for 30 Days, #90 CAP Prov:DAVID VARGAS MD 03/29/21 Cholecalciferol (Vitamin D3 Super Strength) 2,000 Unit Cap, 4000 UNIT PO DAILY for 100 Days, #100 CAP Prov:DAVID VARGAS MD 03/29/21 Atorvastatin Calcium (ATORVASTATIN CALCIUM) 20 Mg Tab, 40 MG PO HS for 90 Days, #180 TAB Prov:DAVID VARGAS MD 03/29/21 Aspirin (Aspir-Low) 81 Mg Tab, 81 MG PO QPM for 90 Days, #90 TAB Prov:DAVID VARGAS MD 03/29/21 Reported Medications Dapagliflozin Propanediol (Farxiga) 10 Mg Tab, 1 TAB PO DAILY 12/24/24 Finerenone (Kerendia) 10 Mg Tab, PO 12/24/24 Hydralazine HCl (Hydralazine HCl) 25 Mg Tab, 1 TAB PO BID 12/24/24 Insulin Lispro Protamine & Lis (Humalog Mix 75/25 Kwikpen) 75 Mg/25 Kwp Inj, SC 09/03/24 Insulin Lispro (Humalog Salvatore Kwikpen) 100 Unit/Ml Inj, SC 09/03/24 Tamsulosin Hcl (Tamsulosin Hcl) 0.4 Mg Cap, 0.4 MG PO QPM for 30 Days, MG 09/17/22 Amlodipine Besylate (Amlodipine Besylate) 5 Mg Tab, 10 MG PO DAILY for 30 Days, MG 09/17/22 Hydralazine Hcl (Hydralazine Hcl) 25 Mg Tab, 25 MG PO TID for 30 Days, MG 09/17/22 Current Medications Current Medications Medications (Trade) Dose Ordered Sig/Andrea Route PRN Reason Start Time Stop Time Status Last Admin Sodium Chloride (Saline Lock Ns) 10 ml Q8HR IV 06/25/25 14:00 06/26/25 06:00 Enoxaparin Sodium (Lovenox) 30 mg DAILY SC 06/26/25 10:00 Insulin Human Regular (InsuLIN R) HS SC 06/25/25 22:00 06/25/25 23:21 Aspirin (Ecotrin Enteric Coated Tablet) 81 mg QPM PO 06/25/25 18:00 06/25/25 18:08 Atorvastatin Calcium (Lipitor) 40 mg HS PO 06/25/25 22:00 06/25/25 22:58 Tamsulosin HCl (Flomax) 0.4 mg QPM PO 06/25/25 18:00 06/25/25 18:09 Vital Signs Vital Signs Date Time Temp Pulse Resp B/P (MAP) Pulse Ox O2 Delivery O2 Flow Rate FiO2 06/26/25 10:04 166/89 06/26/25 08:03 Room Air* 0 21 06/26/25 05:00 98.7 98 17 95 98.7 Physical Exam Dermatological: Skin is dry with mild erythema and some maceration around the wound site No gross deformities noted Mild non-pitting edema present bilaterally Right plantar 2nd metatarsal granular base minimal cellulitis Vascular: Dorsalis pedis and posterior tibial pulses are 1+ bilaterally Capillary refill is under 2 seconds Skin temperature is warm bilaterally Neurologic: Protective sensation is absent on the plantar forefoot bilaterally Monofilament testing reveals decreased sensation in multiple plantar sites Musculoskeletal: Range of motion at the ankle and MTP joints is within normal limits. Strength is 5/5 in all tested muscle groups. Gait is antalgic due to offloading of the affected limb. Labs/Diagnostic Data Labs Test 06/26/25 11:19 06/26/25 11:15 06/26/25 05:17 06/25/25 11:10 Range/Units POC Glucose 137 H 70-106 mg/dl Urine Color Colorless Yellow Urine Clarity Clear Clear Urine pH 7.0 5.0-9.0 Urine Specific [place] 1.009 1.001-1.035 Urine Protein 1+ H Negative Urine Ketones Negative Negative Urine Blood Negative Negative /uL Urine Nitrite Negative Negative Urine Bilirubin Negative Negative Urine Urobilinogen Normal Negative mg/dL Urine Leukocyte Esterase Negative Negative /uL Urine RBC 1 0 - 3 /hpf Urine Microscopic WBC 1 0-3 /HPF Urine Squamous Epithelial Cells None seen <5 /hpf Urine Bacteria None seen None Seen /hpf Urine Glucose 4+ H Normal mg/dL Urine Opiates Screen Neg NEGATIVE Urine Fentanyl Screen Neg NEGATIVE Urine Barbiturates Screen Neg NEGATIVE Urine Phencyclidine Screen Neg NEGATIVE Urine Amphetamines Screen Neg NEGATIVE Urine Benzodiazepines Screen Neg NEGATIVE Urine Cocaine Screen Neg NEGATIVE Urine Cannabinoids Screen Neg NEGATIVE White Blood Count 4.9 4.4-10.8 10^3/uL Red Blood Count 4.68 4.5-5.90 10^6/uL Hemoglobin 12.7 L 13.5-17.5 g/dL Hematocrit 38.7 L 41.0-53.0 % Mean Corpuscular Volume 82.7 80.0-100.0 fL Mean Corpuscular Hemoglobin 27.1 L 28.0-32.0 pg Mean Corpuscular Hemoglobin Concent 32.7 32.0-36.0 g/dL Red Cell Distribution Width 14.3 11.8-14.3 % Platelet Count 222 140-450 10^3/uL Mean Platelet Volume 8.9 6.9-10.8 fL Neutrophils (%) (Auto) 53.4 37.0-80.0 % Lymphocytes (%) (Auto) 27.9 10.0-50.0 % Monocytes (%) (Auto) 14.5 H 0.0-12.0 % Eosinophils (%) (Auto) 2.6 0.0-7.0 % Basophils (%) (Auto) 1.6 0.0-2.0 % Neutrophils # (Auto) 2.6 1.6-8.6 10 ^3/uL Lymphocytes # (Auto) 1.4 0.4-5.4 10 ^3/uL Monocytes # (Auto) 0.7 0-1.3 10 ^3/uL Eosinophils # (Auto) 0.1 0-0.8 10 ^3/uL Basophils # (Auto) 0.1 0-0.2 10 ^3/uL Nucleated Red Blood Cells 0.1 % Sodium Level 140 # 136-145 mmol/L Potassium Level 4.2 3.5-5.1 mmol/L Chloride Level 104 98-107 mmol/L Carbon Dioxide Level 28 20-31 mmol/L Anion Gap 8 5-15 Blood Urea Nitrogen 36 #H 9-23 mg/dL Creatinine 3.17 H 0.700-1.30 mg/dL Glomerular Filtration Rate Calc 22 >90 mL/min BUN/Creatinine Ratio 11.4 10.0-20.0 Serum Glucose 191 #H 74-106 mg/dL Calcium Level 8.3 L 8.7-10.4 mg/dL Total Bilirubin 0.3 0.2-1.0 mg/dL Aspartate Amino Transferase (AST) 12 L 13-40 U/L Alanine Aminotransferase (ALT) 10 7-40 U/L Alkaline Phosphatase 80 46-116 U/L Total Protein 6.1 5.7-8.2 g/dL Albumin 3.4 3.2-4.8 g/dL Prothrombin Time 10.8 9.3-11.8 sec Prothrombin Time INR 1.02 0.9-1.15 Activated Partial Thromboplast Time 32.8 24.5-34.5 SEC Test 06/25/25 02:10 Range/Units Erythrocyte Sedimentation Rate 11 0-20 mm/hr Hemoglobin A1c 7.5 H <5.7 % A1C Lactic Acid Level 0.9 0.4-2.0 mmol/L C-Reactive Protein High Sensitivity 1.42 H <1.0 mg/dL Microbiology Date/Time Source Procedure Growth Status 06/26/25 06:30 Nose MRSA Screen - Final Complete 06/25/25 02:15 Blood Blood Culture - Preliminary NO GROWTH AFTER 24 HOURS OF INCUBATION. Resulted Problems(with codes): (1) Fever (2) Intractable headache (3) Generalized weakness (4) Pericardial effusion (5) Lumbar strain (6) Episode of syncope (7) Shortness of breath (8) Swelling of right upper extremity (9) Osteomyelitis of foot (10) Swelling of lower leg (11) Dressing change (12) Diabetic foot (13) Encounter for removal of tunneled central venous catheter (CVC) with port (14) ESRD (end stage renal disease) (15) Hyperkalemia (16) Acute tubular necrosis (17) Chronic kidney disease (18) Uncontrolled diabetes mellitus (19) Acute kidney injury (20) Diabetic foot ulcer Plan/Recommendation ASSESSMENT: Patient is a 60 year old seen on the floor for a worsening ulcer PLAN: - The patients chart was reviewed, clinical findings were discussed with the patient, the etiologies of the conditions were discussed in detail, and a treatment plan was agreed to at this time, with both oral and written instructions provided. - reviewed advanced imaging - discussed plan is to perform an incision and drainage with Anibal osteotomy - patient will be NPO at midnight - take him to the OR tomorrow - we will get cultures in the OR - can weightbear as tolerated in postoperative shoe - can discharged home with p.o. antibiotics after surgery All questions were answered and concerns addressed to the patient's satisfaction. The patient was given the phone number to the clinic and was told how to make contact with the clinic should any concerns or questions arise. Patient understands that if any questions or concerns arise prior to the next appointment, we should be contacted immediately. FOLLOW-UP: Continue to follow while inpatient Plan discussed with: Patient Visit Coding Podiatry Date of Service if different f: Jun 26, 2025 Billing Provider: ROLANDO WAGONER DPM Podiatry Common Visit Codes: CONSULT ONLY Podiatry Consult Codes: 31935-OR/OBS CONSLTJ NEW/EST HI 80 ROLANDO WAGONER DPM Jun 26, 2025 12:41
--- NOTE | 2025-06-26 12:59 | DVHPN2 ---
Subjective Continues to report having pain to right foot. Reviewed: Care Plan, H&P, Labs, Medications Changes from previous H/P or p: No Changes Objective Vitals Vital Signs Date Time Temp Pulse Resp B/P (MAP) Pulse Ox O2 Delivery O2 Flow Rate FiO2 06/26/25 10:04 166/89 06/26/25 08:03 Room Air* 0 21 06/26/25 05:00 98.7 98 17 95 98.7 Intake/Output Intake and Output 06/26/25 07:00 Intake Total 1350 ml Output Total 1000 ml Balance 350 ml Intake Oral 1250 ml IV Total 100 ml Output Urine Total 1000 ml # Voids 1 General Appearance: Alert, Oriented X3, Cooperative, mild distress HEENT: Atraumatic, PERRLA Lungs: Clear to auscultation, Normal air movement Cardiovascular: Normal S1, Normal S2 Abdomen: Normal bowel sounds, Soft, No tenderness, No hepatospenomegaly Musculoskeletal: Normal sensory function, Normal motor function Skin: Dry, Intact Psych/Mental Status: Mental status NL, Mood NL Medications Current Medications Medications Dose Ordered Sig/Andrea Route Start Time Stop Time Status Last Admin Dose Admin Sodium Chloride 10 ml Q8HR IV 06/25/25 14:00 06/26/25 06:00 10 ML Sodium Chloride 1,000 ml @ 60 mls/hr [id number] IV 06/25/25 10:00 06/25/25 23:02 60 MLS/HR Acetaminophen/ Hydrocodone Bitart 1 tab Q4HP PRN PO 06/25/25 10:00 Hold Ondansetron HCl 4 mg Q4HP PRN IV 06/25/25 10:00 Enoxaparin Sodium 30 mg DAILY SC 06/26/25 10:00 Acetaminophen 650 mg Q6HP PRN PO 06/25/25 10:00 Nitroglycerin 0.4 mg Q5MINP PRN SL 06/25/25 10:00 Morphine Sulfate 2 mg Q30M PRN IV 06/25/25 10:00 Diagnostic Test (Pha) 1 strip ACHS 06/25/25 11:30 06/26/25 11:28 1 STRIP Insulin Human Regular HS SC 06/25/25 22:00 06/25/25 23:21 4 UNITS Insulin Human Regular AC SC 06/25/25 11:30 06/25/25 17:00 2 UNITS Dextrose 50 ml UD PRN IV 06/25/25 10:00 Allopurinol 100 mg DAILY PO 06/25/25 10:00 06/25/25 10:38 100 MG Amlodipine Besylate 10 mg DAILY PO 06/25/25 10:00 06/26/25 10:04 10 MG Aspirin 81 mg QPM PO 06/25/25 18:00 06/25/25 18:08 81 MG Atorvastatin Calcium 40 mg HS PO 06/25/25 22:00 06/25/25 22:58 40 MG Gabapentin 100 mg Q8H PO 06/25/25 10:00 06/26/25 10:03 100 MG Hydralazine HCl 25 mg BID PO 06/25/25 10:00 06/26/25 10:04 25 MG Pantoprazole Sodium 40 mg DAILY PO 06/25/25 10:00 06/26/25 10:03 40 MG Zirconium Oxide 5 gm Q72HR PO 06/25/25 10:00 Hold Tamsulosin HCl 0.4 mg QPM PO 06/25/25 18:00 06/25/25 18:09 0.4 MG Doxycycline Hyclate 100 ml @ 50 mls/hr Q12H IV 06/25/25 10:00 06/26/25 10:03 50 MLS/HR Cefepime HCl 50 ml @ 12.5 mls/hr DAILY IV 06/25/25 10:00 06/26/25 12:05 12.5 MLS/HR Laboratory Results Laboratory Tests 06/26/25 05:17 Chemistry Test 06/26/25 05:17 Albumin 3.4 g/dL (3.2-4.8) Calcium Level 8.3 mg/dL (8.7-10.4) L Total Protein 6.1 g/dL (5.7-8.2) LFT Test 06/26/25 05:17 Alanine Aminotransferase (ALT) 10 U/L (7-40) Alkaline Phosphatase 80 U/L (46-116) Aspartate Amino Transferase (AST) 12 U/L (13-40) L Total Bilirubin 0.3 mg/dL (0.2-1.0) Urinalysis Test 06/26/25 11:15 Urine Color Colorless (Yellow) Urine Clarity Clear (Clear) Urine pH 7.0 (5.0-9.0) Urine Specific [place] 1.009 (1.001-1.035) Urine Protein 1+ (Negative) H Urine Ketones Negative (Negative) Urine Blood Negative /uL (Negative) Urine Nitrite Negative (Negative) Urine Bilirubin Negative (Negative) Urine Urobilinogen Normal mg/dL (Negative) Urine Leukocyte Esterase Negative /uL (Negative) Urine RBC 1 /hpf (0 - 3) Urine Microscopic WBC 1 /HPF (0-3) Urine Squamous Epithelial Cells None seen /hpf (<5) Urine Bacteria None seen /hpf (None Seen) Urine Glucose 4+ mg/dL (Normal) H Microbiology Microbiology Date/Time Source Procedure Growth Status 06/26/25 06:30 Nose MRSA Screen - Final Complete 06/25/25 02:15 Blood Blood Culture - Preliminary NO GROWTH AFTER 24 HOURS OF INCUBATION. Resulted Labs and/or images reviewed: Labs reviewed by me, Image(s) reviewed by me Assessment/Plan Assessment/Plan Impression: -right diabetic foot wound -rule out osteomyelitis -diabetes mellitus -primary hypertension -CKD stage 4 -obesity -dyslipidemia -primary hypertension Plan: -podiatry consultation: Plans for surgery in a.m. -regular insulin sliding scale -nephrology consultation -continue current antibiotic therapy -stop IV fluids -restart Jardiance -repeat labs in a.m. Total time spent with patient discussing and formulating plan of care: 35 minutes. This medical document was created using an electronic medical record system with [employer] dictation system. Although this document has been carefully reviewed, there may still be some phonetic and typographical errors. These areas are purely typographical due to imperfections of the software programs, and do not reflect any compromise in the patient's medical care. Plan discussed with: Patient, Other (RN) My Orders Orders - GINNY RUIZ NP Procedure Category Date Status Time *Dr. Conchita Dimas -Da CONS 06/26/25 Verified Bobbi 12:44 Basic Metabolic Panel LAB 06/27/25 Verified 04:00 Complete Blood Count LAB 06/27/25 Verified 04:00 Date of Service: Jun 26, 2025 Billing Provider: GINNY RUIZ NP Common Visit Codes: [id number] INP/OBS CARE(HIGH) GINNY RUIZ NP Jun 26, 2025 12:59
[2025-06-26 13:00] VITALS: BP 157/85; PULSE 80; RESP 17; TEMP 98.4; O2SAT 98
--- NOTE | 2025-06-26 15:58 | MEDREC ---
[facility] ASP Intervention Section I [facility] ASP Intervention: Review courses of therapy (Missing anaerobe coverage. Please consider adding Flaggyl) HERON MATIAS [facility] RESIDENT Jun 26, 2025 15:58
[2025-06-26 17:00] VITALS: BP 167/95; PULSE 80; RESP 16; TEMP 98.7; O2SAT 98
[2025-06-26 20:00] VITALS: RESP 18
[2025-06-26 20:57] VITALS: BP 156/93; PULSE 78; RESP 18; TEMP 98.4; O2SAT 97
[2025-06-27] VITALS (7 sets, daily range): BP systolic 112–157; BP diastolic 69–90; PULSE 70–83; RESP 12–18; TEMP 98.1–98.7; O2SAT 92–99
--- NOTE | 2025-06-27 04:06 | DVHINCON2 ---
CONSULTING PHYSICIAN: Dr. Anthony. REASON FOR CONSULTATION: Renal failure. HISTORY OF PRESENT ILLNESS: The patient is a 60-year-old gentleman who is well known to me. He used to be on dialysis. He regained renal function. Since then, he has been under the care of Dr. Gaines. He comes to the office regularly to see him every couple of months for chronic kidney disease stage 3 to 4. He comes to the hospital now complaining of severe onset of right foot pain associated with swelling. He has developed a small ulcer in the plantar area of the forefront of the foot. He saw the inspector eyeglass frames, and he told him he needs to have surgery for a bone problem that is causing the pain and ulceration. His creatinine is 3.1. I am being consulted to evaluate and treat his kidney function. The patient tells me that he has not been getting his diuretics here, and his edema is getting worse. REVIEW OF SYSTEMS: Otherwise unremarkable. PAST MEDICAL HISTORY: Significant for longstanding hypertension, diabetes, chronic kidney disease, stage 4. He was on dialysis for a while. He has history of diabetic nephropathy, anemia, Charcot foot, peripheral vascular disease, hyperlipidemia. MEDICATIONS IN THE HOSPITAL: Include Jardiance, hydralazine, Lovenox, atorvastatin, insulin, tamsulosin, cefepime, doxycycline, pantoprazole, gabapentin, amlodipine, allopurinol, morphine, nitroglycerin and Zofran. SOCIAL HISTORY: He denies smoking cigarettes or drinking alcohol. FAMILY HISTORY: Significant for hypertension and diabetes. PHYSICAL EXAMINATION: VITAL SIGNS: Blood pressure is 167/95, heart rate 80, respirations 16, temperature 98. GENERAL: The patient is in no acute distress. Alert and oriented x 3. HEENT: Unremarkable. NECK: There is no jugular venous distention. No palpable thyroid or lymphadenopathy. LUNGS: Clear to auscultation. CARDIOVASCULAR: Shows regular rate with S4 gallop. ABDOMEN: Soft, nontender. No organomegaly. No ascites. EXTREMITIES: Show no clubbing or cyanosis. The left lower extremity has 1+ edema below the knee. The edema gets worse in the distal extremity in the foot, and there is also a 0.5 x 0.5 ulcer in the forefront of the foot. LABORATORY FINDINGS: Hemoglobin is 12.7, white blood cell count is 4.9. Sodium 140, potassium 4.2, bicarbonate 28, creatinine is 3.1, estimated GFR 22 mL/minute. ASSESSMENT AND PLAN: * Chronic kidney disease stage 4. * Diabetic nephropathy. * Cellulitis of the right lower extremity. Rule out thrombosis or osteomyelitis. * Uncontrolled hypertension. My recommendation is to start intravenous Bumex 2 mg IV every 12 hours. Gently diurese him over the next 48 hours until the edema resolves, then switch over to torsemide 20 mg by mouth twice a day. We can continue Jardiance for now. As an outpatient, he also should be on an angiotensin receptor florencia. We should avoid the use of nephrotoxic medications. Check his basic metabolic panel daily. Check a spot urine protein-creatinine ratio. Monitor his intake and output of fluid closely. I will follow him closely. Thank you for the consultation. MD HENRY Thibodeaux/YULISSA TID: [id number] RECEIPT: [id number]
[2025-06-27 07:50] LABS: Hemoglobin 14.0 g/dL (13.5-17.5); Nucleated Red Blood Cells % 0.1 %
[2025-06-27 07:52] LABS: Hematocrit 43.1 % (41.0-53.0); Mean Corpuscular Hemoglobin 27.0 pg (28.0-32.0); Mean Corpuscular Volume 83.1 fL (80.0-100.0)
[2025-06-27 08:03] LABS: Anion Gap 11 (5-15); Carbon Dioxide 25 mmol/L (20-31); Chloride 103 mmol/L (98-107); Potassium 4.1 mmol/L (3.5-5.1); Sodium 139 mmol/L (136-145)
[2025-06-27 08:04] LABS: Calcium 9.1 mg/dL (8.7-10.4)
[2025-06-27 08:09] LABS: BUN/Creatinine Ratio 11.6 (10.0-20.0)
[2025-06-27 08:10] LABS: Magnesium 2.3 mg/dL (1.6-2.6)
[2025-06-27 08:22] LABS: Blood Urea Nitrogen 34 mg/dL (9-23); Glucose 204 mg/dL (74-106)
[2025-06-27] MEDS: LOSARTAN POTASSIUM 50 MG TAB PO SCH (10:43)
[2025-06-27] MEDS: EMPAGLIFLOZIN 10 MG TAB PO SCH (10:44)
[2025-06-27 11:04] LABS: Hematocrit 41.4 % (41.0-53.0); Hemoglobin 13.5 g/dL (13.5-17.5); Mean Corpuscular Hemoglobin 27.1 pg (28.0-32.0); Mean Corpuscular Volume 83.1 fL (80.0-100.0); Nucleated Red Blood Cells % 0.0 %
--- NOTE | 2025-06-27 11:06 | DVHPN2 ---
Subjective Continues to report having pain to right foot. Reviewed: Care Plan, H&P, Labs, Medications Changes from previous H/P or p: No Changes Objective Vitals Vital Signs Date Time Temp Pulse Resp B/P (MAP) Pulse Ox O2 Delivery O2 Flow Rate FiO2 06/27/25 10:44 157/90 06/27/25 08:34 98.7 81 16 96 98.7 06/27/25 08:00 Room Air* 0 21 Intake/Output Intake and Output 06/27/25 07:00 Intake Total 1850 ml Balance 1850 ml Intake Oral 800 ml IV Total 1050 ml # Voids 6 General Appearance: Alert, Oriented X3, Cooperative, mild distress HEENT: Atraumatic, PERRLA Lungs: Clear to auscultation, Normal air movement Cardiovascular: Normal S1, Normal S2 Abdomen: Normal bowel sounds, Soft, No tenderness, No hepatospenomegaly Musculoskeletal: Normal sensory function, Normal motor function Skin: Dry, Intact Psych/Mental Status: Mental status NL, Mood NL Medications Current Medications Medications Dose Ordered Sig/Andrea Route Start Time Stop Time Status Last Admin Dose Admin Sodium Chloride 10 ml Q8HR IV 06/25/25 14:00 06/27/25 06:33 10 ML Acetaminophen/ Hydrocodone Bitart 1 tab Q4HP PRN PO 06/25/25 10:00 Hold Ondansetron HCl 4 mg Q4HP PRN IV 06/25/25 10:00 Enoxaparin Sodium 30 mg DAILY SC 06/26/25 10:00 Acetaminophen 650 mg Q6HP PRN PO 06/25/25 10:00 Nitroglycerin 0.4 mg Q5MINP PRN SL 06/25/25 10:00 Morphine Sulfate 2 mg Q30M PRN IV 06/25/25 10:00 Diagnostic Test (Pha) 1 strip ACHS 06/25/25 11:30 06/27/25 06:33 1 STRIP Insulin Human Regular HS SC 06/25/25 22:00 06/26/25 22:50 2 UNITS Insulin Human Regular AC SC 06/25/25 11:30 06/26/25 17:43 6 UNITS Dextrose 50 ml UD PRN IV 06/25/25 10:00 Allopurinol 100 mg DAILY PO 06/25/25 10:00 06/27/25 10:00 100 MG Amlodipine Besylate 10 mg DAILY PO 06/25/25 10:00 06/27/25 10:44 10 MG Aspirin 81 mg QPM PO 06/25/25 18:00 06/26/25 17:40 81 MG Atorvastatin Calcium 40 mg HS PO 06/25/25 22:00 06/26/25 22:49 40 MG Gabapentin 100 mg Q8H PO 06/25/25 10:00 06/27/25 10:43 100 MG Pantoprazole Sodium 40 mg DAILY PO 06/25/25 10:00 06/27/25 10:44 40 MG Zirconium Oxide 5 gm Q72HR PO 06/25/25 10:00 Hold Tamsulosin HCl 0.4 mg QPM PO 06/25/25 18:00 06/26/25 17:40 0.4 MG Doxycycline Hyclate 100 ml @ 50 mls/hr Q12H IV 06/25/25 10:00 06/27/25 10:44 50 MLS/HR Cefepime HCl 50 ml @ 12.5 mls/hr DAILY IV 06/25/25 10:00 06/26/25 12:05 12.5 MLS/HR Empaglifozin 10 mg DAILY PO 06/27/25 10:00 06/27/25 10:44 10 MG Hydralazine HCl 50 mg TID PO 06/26/25 22:00 06/27/25 06:29 50 MG Bumetanide 2 mg 2XW IV 06/29/25 12:00 Losartan Potassium 50 mg DAILY PO 06/27/25 10:00 06/27/25 10:43 50 MG Laboratory Results Laboratory Tests 06/27/25 07:05 Chemistry Test 06/27/25 07:05 Calcium Level 9.1 mg/dL (8.7-10.4) Magnesium Level 2.3 mg/dL (1.6-2.6) Urinalysis Test 06/26/25 11:15 Urine Color Colorless (Yellow) Urine Clarity Clear (Clear) Urine pH 7.0 (5.0-9.0) Urine Specific [place] 1.009 (1.001-1.035) Urine Protein 1+ (Negative) H Urine Ketones Negative (Negative) Urine Blood Negative /uL (Negative) Urine Nitrite Negative (Negative) Urine Bilirubin Negative (Negative) Urine Urobilinogen Normal mg/dL (Negative) Urine Leukocyte Esterase Negative /uL (Negative) Urine RBC 1 /hpf (0 - 3) Urine Microscopic WBC 1 /HPF (0-3) Urine Squamous Epithelial Cells None seen /hpf (<5) Urine Bacteria None seen /hpf (None Seen) Urine Creatinine Pending Urine Protein/Creatinine Ratio Pending Urine Glucose 4+ mg/dL (Normal) H Urine Total Protein Pending Microbiology Microbiology Date/Time Source Procedure Growth Status 06/26/25 06:30 Nose MRSA Screen - Final Complete 06/25/25 02:15 Blood Blood Culture - Preliminary NO GROWTH AFTER 48 HOURS OF INCUBATION. Resulted Labs and/or images reviewed: Labs reviewed by me, Image(s) reviewed by me Assessment/Plan Assessment/Plan Impression: -right diabetic foot wound -rule out osteomyelitis -diabetes mellitus -primary hypertension -CKD stage 4 -obesity -dyslipidemia -primary hypertension Plan: -Events: Plans for surgery this afternoon. Blood pressure uncontrolled. Bumex and losartan added by Nephrology -regular insulin sliding scale -nephrology consultation : Recommendations reviewed -continue current antibiotic therapy -pain management -repeat labs in a.m. Total time spent with patient discussing and formulating plan of care: 35 minutes. This medical document was created using an electronic medical record system with [email or web address] dictation system. Although this document has been carefully reviewed, there may still be some phonetic and typographical errors. These areas are purely typographical due to imperfections of the software programs, and do not reflect any compromise in the patient's medical care. Plan discussed with: Patient, Other (RN) My Orders Orders - GINNY RUIZ NP Procedure Category Date Status Time *Dr. Conchita Dimas -Baljit CONS 06/26/25 Transmitted Bobbi 12:44 Empagliflozin PHA 06/27/25 In Process (Jardiance) 10:00 Hydralazine Hcl PHA 06/26/25 In Process Tablet (Apresoline 22:00 Apply: [place] 06/26/25 In Process 12:05 * Dietary Consult CONS 06/26/25 Transmitted 17:13 * Wound Consult CONS 06/26/25 Transmitted Basic Metabolic Panel LAB 06/28/25 Verified 04:00 Complete Blood Count LAB 06/27/25 In Process 09:48 Date of Service: Jun 27, 2025 Billing Provider: GINNY RUIZ NP Common Visit Codes: [id number] INP/OBS CARE(HIGH) GINNY RUIZ NP Jun 27, 2025 11:06
--- NOTE | 2025-06-27 12:01 | DVHPN2 ---
Subjective Karan Rodriguez is a 60-year-old male with a history of type 2 DM with a CKD 3 DLD, HTN, CAD, gout, GERD, BPH, presented to the ED with a painful foot wound suspected to be infected. Reported developing hardening dialysis after missing his regular foot care appointment with the Dr. Akhtar. Patient reported he experienced chills but denies fever. Approximately 1 year ago he had diabetic ulcer that was successfully treated by Dr. Akhtar, he has been following up monthly with the Dr. Akhtar for Caris cleaning and maintenance but his last appointment was scheduled for last month but due to doctors be scheduled his appointment was postponed for 2 months until end of the year but he started developing pain and suspected the area become infected which prompted him to visit ER. Reviewed: Care Plan, H&P, Labs, Medications Changes from previous H/P or p: No Changes Objective Vitals Vital Signs Date Time Temp Pulse Resp B/P (MAP) Pulse Ox O2 Delivery O2 Flow Rate FiO2 06/27/25 10:44 157/90 06/27/25 08:34 98.7 81 16 96 98.7 06/27/25 08:00 Room Air* 0 21 Intake/Output Intake and Output 06/27/25 07:00 Intake Total 1850 ml Balance 1850 ml Intake Oral 800 ml IV Total 1050 ml # Voids 6 Exam Dermatological: Skin is dry with mild erythema and some maceration around the wound site No gross deformities noted Mild non-pitting edema present bilaterally Right foot plantar wound with granular base Vascular: Dorsalis pedis and posterior tibial pulses are 1+ bilaterally Capillary refill is under 2 seconds Skin temperature is warm bilaterally Neurologic: Protective sensation is absent on the plantar forefoot bilaterally Monofilament testing reveals decreased sensation in multiple plantar sites Musculoskeletal: Range of motion at the ankle and MTP joints is within normal limits. Strength is 5/5 in all tested muscle groups. Gait is antalgic due to offloading of the affected limb. General Appearance: Alert, Oriented X3, Cooperative, mild distress HEENT: Atraumatic, PERRLA Lungs: Clear to auscultation, Normal air movement Cardiovascular: Normal S1, Normal S2 Abdomen: Normal bowel sounds, Soft, No tenderness, No hepatospenomegaly Musculoskeletal: Normal sensory function, Normal motor function Skin: Dry, Intact Psych/Mental Status: Mental status NL, Mood NL Medications Current Medications Medications Dose Ordered Sig/Andrea Route Start Time Stop Time Status Last Admin Dose Admin Sodium Chloride 10 ml Q8HR IV 06/25/25 14:00 06/27/25 11:12 10 ML Acetaminophen/ Hydrocodone Bitart 1 tab Q4HP PRN PO 06/25/25 10:00 Hold Ondansetron HCl 4 mg Q4HP PRN IV 06/25/25 10:00 Enoxaparin Sodium 30 mg DAILY SC 06/26/25 10:00 Acetaminophen 650 mg Q6HP PRN PO 06/25/25 10:00 Nitroglycerin 0.4 mg Q5MINP PRN SL 06/25/25 10:00 Morphine Sulfate 2 mg Q30M PRN IV 06/25/25 10:00 Diagnostic Test (Pha) 1 strip ACHS 06/25/25 11:30 06/27/25 06:33 1 STRIP Insulin Human Regular HS SC 06/25/25 22:00 06/26/25 22:50 2 UNITS Insulin Human Regular AC SC 06/25/25 11:30 06/26/25 17:43 6 UNITS Dextrose 50 ml UD PRN IV 06/25/25 10:00 Allopurinol 100 mg DAILY PO 06/25/25 10:00 06/27/25 10:00 100 MG Amlodipine Besylate 10 mg DAILY PO 06/25/25 10:00 06/27/25 10:44 10 MG Aspirin 81 mg QPM PO 06/25/25 18:00 06/26/25 17:40 81 MG Atorvastatin Calcium 40 mg HS PO 06/25/25 22:00 06/26/25 22:49 40 MG Gabapentin 100 mg Q8H PO 06/25/25 10:00 06/27/25 10:43 100 MG Pantoprazole Sodium 40 mg DAILY PO 06/25/25 10:00 06/27/25 10:44 40 MG Zirconium Oxide 5 gm Q72HR PO 06/25/25 10:00 Hold Tamsulosin HCl 0.4 mg QPM PO 06/25/25 18:00 06/26/25 17:40 0.4 MG Doxycycline Hyclate 100 ml @ 50 mls/hr Q12H IV 06/25/25 10:00 06/27/25 10:44 50 MLS/HR Cefepime HCl 50 ml @ 12.5 mls/hr DAILY IV 06/25/25 10:00 06/26/25 12:05 12.5 MLS/HR Empaglifozin 10 mg DAILY PO 06/27/25 10:00 06/27/25 10:44 10 MG Hydralazine HCl 50 mg TID PO 06/26/25 22:00 06/27/25 06:29 50 MG Bumetanide 2 mg 2XW IV 06/29/25 12:00 Losartan Potassium 50 mg DAILY PO 06/27/25 10:00 06/27/25 10:43 50 MG Laboratory Results Laboratory Tests 06/27/25 07:05 06/27/25 10:43 Chemistry Test 06/27/25 07:05 Calcium Level 9.1 mg/dL (8.7-10.4) Magnesium Level 2.3 mg/dL (1.6-2.6) Urinalysis Test 06/26/25 11:15 Urine Color Colorless (Yellow) Urine Clarity Clear (Clear) Urine pH 7.0 (5.0-9.0) Urine Specific [place] 1.009 (1.001-1.035) Urine Protein 1+ (Negative) H Urine Ketones Negative (Negative) Urine Blood Negative /uL (Negative) Urine Nitrite Negative (Negative) Urine Bilirubin Negative (Negative) Urine Urobilinogen Normal mg/dL (Negative) Urine Leukocyte Esterase Negative /uL (Negative) Urine RBC 1 /hpf (0 - 3) Urine Microscopic WBC 1 /HPF (0-3) Urine Squamous Epithelial Cells None seen /hpf (<5) Urine Bacteria None seen /hpf (None Seen) Urine Creatinine Pending Urine Protein/Creatinine Ratio Pending Urine Glucose 4+ mg/dL (Normal) H Urine Total Protein Pending Microbiology Microbiology Date/Time Source Procedure Growth Status 06/26/25 06:30 Nose MRSA Screen - Final Complete 06/25/25 02:15 Blood Blood Culture - Preliminary NO GROWTH AFTER 48 HOURS OF INCUBATION. Resulted Assessment/Plan Assessment/Plan ASSESSMENT: Patient is a 60 year old seen on the floor for a worsening ulcer PLAN: - The patients chart was reviewed, clinical findings were discussed with the patient, the etiologies of the conditions were discussed in detail, and a treatment plan was agreed to at this time, with both oral and written instructions provided. - reviewed advanced imaging - discussed plan is to perform an incision and drainage and yung osteotomy - patient will be NPO at midnight - take him to the OR tomorrow - we will get cultures in the OR - can weightbear as tolerated in postoperative shoe - recommend oral antibiotics All questions were answered and concerns addressed to the patient's satisfaction. The patient was given the phone number to the clinic and was told how to make contact with the clinic should any concerns or questions arise. Patient understands that if any questions or concerns arise prior to the next appointment, we should be contacted immediately. FOLLOW-UP: Continue to follow while inpatient Plan discussed with: Patient My Orders Orders - ROLANDO AKHTAR DPM Procedure Category Date Status Time Obtain Consent For: ORDERS 06/26/25 Transmitted 12:43 Electrocardigram EKG 06/26/25 Logged 15:23 Problem List: (1) Diabetic foot ulcer (2) Hyperkalemia (3) Fever (4) Shortness of breath (5) Generalized weakness (6) Acute tubular necrosis (7) Pericardial effusion (8) Dressing change (9) ESRD (end stage renal disease) (10) Diabetic foot (11) Chronic kidney disease (12) Uncontrolled diabetes mellitus (13) Osteomyelitis of foot (14) Lumbar strain (15) Acute kidney injury (16) Episode of syncope (17) Intractable headache (18) Swelling of right upper extremity (19) Swelling of lower leg (20) Encounter for removal of tunneled central venous catheter (CVC) with port Visit Coding Podiatry Date of Service if different f: Jun 27, 2025 Billing Provider: ROLANDO AKHTAR DPM Podiatry Common Visit Codes: 32722-[id number] INP/OBS CARE(HIGH) ROLANDO AKHTAR DPM Jun 27, 2025 12:01
[2025-06-27] MEDS ORDERED: MIDAZOLAM HCL 2MG/2ML 2ml VIAL (1mg/ml) ONE (12:32)
[2025-06-27] MEDS ORDERED: fentaNYL CITRATE 100 MCG/2 ML VL ONE (12:32)
[2025-06-27] MEDS ORDERED: LIDOCAINE 1% HCL (LOCAL ANESTH.) INJ 20ML MDV ONE (12:37)
[2025-06-27] MEDS: LIDOCAINE 1% HCL (LOCAL ANESTH.) INJ 20ML MDV ONE (12:45)
--- NOTE | 2025-06-27 13:02 | DVHOP2 ---
Operative Report - 2 Report Details Date: 06/27/25 Preop Diagnosis: 1. Right foot diabetic ulcer 2. Right foot cellulitis 3. Right foot metatarsalgia Postop Diagnosis: Same as preop Surgeon: Rolando Akhtar MD Anesthesiologist: See anesthesia Anesthesia: Mac Consent: The patient was informed of the risks and benefits of the procedure. These include but are not limited to complications of anesthesia, postoperative infection, incomplete relief of symptoms, recurrence of symptoms, damage to blood vessels, nerves and tendons, deep venous thrombosis, pulmonary embolism a nd possible need for repeat surgery in the future. Complications: None Estimated Blood Loss: Minimal Fluids: See anesthesia Findings: Consistent with the diagnosis Indications for Surgery: Worsening foot wound Name of Procedure Performed 1. Right foot I&D (18015) 2. Right foot 2nd yung osteotomy (27741) 3. Right foot 3rd yung osteotomy (26128) 4. Right foot 4th yung osteotomy (38674) Procedure Details Procedure Details: PRE-PROCEDURE INFORMATION: In the pre-op holding area, the extremity to be operated on was clearly marked and the patient verified correct laterality of the marking. The patient was transferred to the OR table and placed in a supine position. A timeout was performed in which identification of the correct patien t, procedure, location, and materials was done. The right foot and leg were prepped and draped in normal sterile fashion. DESCRIPTION OF PROCEDURE: Attention was directed to the right where area of fluctuance was noted. An incision was made over this area and was deepened through blunt dissection. The incision was deepened to the level of abscess and bone. Care was taken to the dissection to avoid any neurovascular and tendinous structures. The incision was deepened to the bone, and the abscess appeared to be purulent fluid consistent with pus. The cortices of the bone was then removed with rongeur an all necrotic tissue. After the abscess was drained, the area was irrigated with 3 L normal saline using cysto tubing. Deep cultures were then obtained from the wound. The area was then inspected and any areas of tracking, especially along the tendons were also drained. The wound was packed with Betadine-soaked gauze. Attention was directed to the right 2nd metatarsal head where a stab incision was made. The incision was deepened through blunt and sharp dissection. Care was taken to avoid damage to neurovascular structures throughout dissection. Incision was carried to the level of the 2nd metatarsal head, it was noted there was significant plantar flexion of the metatarsal head. Using an MIS bur, the an osteotomy was performed across the neck of the metatarsal head. The me tatarsal head was then able to float. Attention was directed to the right 3rd metatarsal head where a stab incision was made. The incision was deepened through blunt and sharp dissection. Care was taken to avoid damage to neurovascular structures throughout dissection. Incision was carried to the level of the 3rd metatarsal head, it was noted there was significant plantar flexion of the metatarsal head. Using an MIS bur, the an osteotomy was performed across the neck of the metatarsal head. The meta tarsal head was then able to float. Attention was directed to the right 4th metatarsal head where a stab incision was made. The incision was deepened through blunt and sharp dissection. Care was taken to avoid damage to neurovascular structures throughout dissection. Incision was carried to the level of the 4th metatarsal head, it was noted there was significant plantar flexion of the metatarsal head. Using an MIS bur, the an osteotomy was performed across the neck of the metatarsal head. The metata rsal head was then able to float. All surgical wounds were irrigated copiously with saline and closed in layers with the aforementioned suture material. A dry sterile dressing was placed on the surgical extremity. The patient was placed in a postop shoe POSTOPERATIVE INFORMATION: The patient tolerated the above noted procedure and anesthesia well and was transferred to the PACU with vital signs stable, and vascular status intact with capillary refill intact to all digits. Weightbearing as tolerated in a postoperative shoe. Follow up in a week. Recommend 2 weeks of Augmentin 875. Condition Good Disposition Still a Patient Visit Coding Podiatry Date of Service if different f: Jun 27, 2025 Billing Provider: ROLANDO AKHTAR DPM Podiatry Common Visit Codes: PROCEDURE ONLY ROLANDO AKHTAR DPM Jun 27, 2025 13:02
[2025-06-27] MEDS ORDERED: PROPOFOL 10 MG/ML 20 ML IV ONE (13:33)
--- NOTE | 2025-06-27 14:00 | DVHPN2 ---
Progress Note - Dictate Date Seen: Jun 27, 2025 Has the PT tested + for MRSA If YES, has PT been informed?: No Medical Necessity Reason Pt with a Central, PICC or Fol: No Subjective No new complaints vital signs Vital Sign Date Time Temp Pulse Resp B/P (MAP) Pulse Ox O2 Delivery O2 Flow Rate FiO2 06/27/25 13:30 71 16 135/72 (93) 97 06/27/25 13:10 Mask 6.0 06/27/25 13:10 98.3 98.3 06/27/25 08:00 21 Total Intake and Output 06/26/25 06/26/25 06/27/25 15:00 23:00 07:00 Intake Total 800 ml 950 ml 100 ml Balance 800 ml 950 ml 100 ml medications Current Medications Medications Dose Ordered Sig/Andrea Route Start Time Stop Time Status Last Admin Dose Admin Sodium Chloride 10 ml Q8HR IV 06/25/25 14:00 06/27/25 11:12 10 ML Acetaminophen/ Hydrocodone Bitart 1 tab Q4HP PRN PO 06/25/25 10:00 Hold Ondansetron HCl 4 mg Q4HP PRN IV 06/25/25 10:00 Enoxaparin Sodium 30 mg DAILY SC 06/26/25 10:00 Acetaminophen 650 mg Q6HP PRN PO 06/25/25 10:00 Nitroglycerin 0.4 mg Q5MINP PRN SL 06/25/25 10:00 Morphine Sulfate 2 mg Q30M PRN IV 06/25/25 10:00 Diagnostic Test (Pha) 1 strip ACHS 06/25/25 11:30 06/27/25 11:30 1 STRIP Insulin Human Regular HS SC 06/25/25 22:00 06/26/25 22:50 2 UNITS Insulin Human Regular AC SC 06/25/25 11:30 06/26/25 17:43 6 UNITS Dextrose 50 ml UD PRN IV 06/25/25 10:00 Allopurinol 100 mg DAILY PO 06/25/25 10:00 06/27/25 10:00 100 MG Amlodipine Besylate 10 mg DAILY PO 06/25/25 10:00 06/27/25 10:44 10 MG Aspirin 81 mg QPM PO 06/25/25 18:00 06/26/25 17:40 81 MG Atorvastatin Calcium 40 mg HS PO 06/25/25 22:00 06/26/25 22:49 40 MG Gabapentin 100 mg Q8H PO 06/25/25 10:00 06/27/25 10:43 100 MG Pantoprazole Sodium 40 mg DAILY PO 06/25/25 10:00 06/27/25 10:44 40 MG Zirconium Oxide 5 gm Q72HR PO 06/25/25 10:00 Hold Tamsulosin HCl 0.4 mg QPM PO 06/25/25 18:00 06/26/25 17:40 0.4 MG Doxycycline Hyclate 100 ml @ 50 mls/hr Q12H IV 06/25/25 10:00 06/27/25 10:44 50 MLS/HR Cefepime HCl 50 ml @ 12.5 mls/hr DAILY IV 06/25/25 10:00 06/27/25 12:14 12.5 MLS/HR Empaglifozin 10 mg DAILY PO 06/27/25 10:00 06/27/25 10:44 10 MG Hydralazine HCl 50 mg TID PO 06/26/25 22:00 06/27/25 06:29 50 MG Bumetanide 2 mg 2XW IV 06/29/25 12:00 Losartan Potassium 50 mg DAILY PO 06/27/25 10:00 06/27/25 10:43 50 MG objective GENERAL: The patient is in no acute distress. Alert and oriented x 3. HEENT: Unremarkable. NECK: There is no jugular venous distention. No palpable thyroid or lymphadenopathy. LUNGS: Clear to auscultation. CARDIOVASCULAR: Shows regular rate with S4 gallop. ABDOMEN: Soft, nontender. No organomegaly. No ascites. EXTREMITIES: Show no clubbing or cyanosis. The left lower extremity has 1+ edema below the knee. The edema gets worse in the distal extremity in the foot, and there is also a 0.5 x 0.5 ulcer in the forefront of the foot. laboratory and microbiology Laboratory Tests 06/27/25 10:43 06/27/25 07:05 Test 06/27/25 07:05 Range/Units Serum Glucose 204 H 74-106 mg/dL Problem List ASSESSMENT AND PLAN: * AARON has resolved * Chronic kidney disease stage 4.GFR returning to baseline * Diabetic nephropathy. * Cellulitis of the right lower extremity. Rule out thrombosis or osteomyelitis. * Hypertension.\ is better controlled after adding ARB Continue Bumex 2 mg IV every 12 hours for another 24 g, then switch to PO torsemide 20 mg by mouth twice a day. We can continue Jardiance for now. We should avoid the use of nephrotoxic medications. Check basic metabolic panel daily. Monitor his intake and output of fluid closely. Dietary Evaluation Review Comments: Control Diabetes: Stabilizes blood glucose, which supports wound healing and prevents catabolism. Avoid Catabolism & Rapid Weight Loss: Adequate energy from carbohydrates prevents muscle breakdown. Reduce Uremic Symptoms & Delay Dialysis: Lower protein intake minimizes nitrogenous waste and slows CKD progression. diet order: [facility] Ren[facility] Diet Protein restriction: 45g/day Expected Outcomes/Goals: controlled DM, Lessened uremic syndrome, and delayed needs for dialysis Plan discussed with: Patient KATALINA CHILEL MD Jun 27, 2025 14:00
[2025-06-28] VITALS (7 sets, daily range): BP systolic 129–158; BP diastolic 67–92; PULSE 71–88; RESP 17–20; TEMP 36.8; O2SAT 94–97
[2025-06-28 07:18] LABS: Anion Gap 10 (5-15); Calcium 8.7 mg/dL (8.7-10.4); Carbon Dioxide 23 mmol/L (20-31); Chloride 103 mmol/L (98-107); Potassium 4.0 mmol/L (3.5-5.1); Sodium 136 mmol/L (136-145)
[2025-06-28 07:25] LABS: BUN/Creatinine Ratio 11.5 (10.0-20.0); Blood Urea Nitrogen 35 mg/dL (9-23); Glucose 312 mg/dL (74-106)
[2025-06-28] MEDS ORDERED: AMOX500T86 PO ×2 (09:24→11:42)
--- NOTE | 2025-06-28 11:40 | DVHDS2 ---
Discharge Summary Date of Admission Jun 25, 2025 at 09:55 Date of Discharge: Jun 29, 2025 Admitting Diagnosis Diabetic foot wound Labs/Diagnostic Data: Laboratory Results Test 06/28/25 05:57 06/28/25 05:52 06/27/25 10:43 06/27/25 07:05 Sodium Level 136 mmol/L (136-145) Potassium Level 4.0 mmol/L (3.5-5.1) Chloride Level 103 mmol/L (98-107) Carbon Dioxide Level 23 mmol/L (20-31) Anion Gap 10 (5-15) Blood Urea Nitrogen 35 mg/dL (9-23) Creatinine 3.05 mg/dL (0.700-1.30) Glomerular Filtration Rate Calc 23 mL/min (>90) BUN/Creatinine Ratio 11.5 (10.0-20.0) Serum Glucose 312 mg/dL (74-106) Calcium Level 8.7 mg/dL (8.7-10.4) POC Glucose 306 mg/dl (70-106) White Blood Count 7.0 10^3/uL (4.4-10.8) Red Blood Count 4.98 10^6/uL (4.5-5.90) Hemoglobin 13.5 g/dL (13.5-17.5) Hematocrit 41.4 % (41.0-53.0) Mean Corpuscular Volume 83.1 fL (80.0-100.0) Mean Corpuscular Hemoglobin 27.1 pg (28.0-32.0) Mean Corpuscular Hemoglobin Concent 32.6 g/dL (32.0-36.0) Red Cell Distribution Width 14.7 % (11.8-14.3) Platelet Count 218 10^3/uL (140-450) Mean Platelet Volume 8.6 fL (6.9-10.8) Neutrophils (%) (Auto) 70.2 % (37.0-80.0) Lymphocytes (%) (Auto) 17.0 % (10.0-50.0) Monocytes (%) (Auto) 10.3 % (0.0-12.0) Eosinophils (%) (Auto) 1.5 % (0.0-7.0) Basophils (%) (Auto) 1.0 % (0.0-2.0) Neutrophils # (Auto) 4.9 10 ^3/uL (1.6-8.6) Lymphocytes # (Auto) 1.2 10 ^3/uL (0.4-5.4) Monocytes # (Auto) 0.7 10 ^3/uL (0-1.3) Eosinophils # (Auto) 0.1 10 ^3/uL (0-0.8) Basophils # (Auto) 0.1 10 ^3/uL (0-0.2) Nucleated Red Blood Cells 0.0 % Magnesium Level 2.3 mg/dL (1.6-2.6) Test 06/26/25 11:15 06/26/25 05:17 06/25/25 11:10 06/25/25 02:10 Urine Color Colorless (Yellow) Urine Clarity Clear (Clear) Urine pH 7.0 (5.0-9.0) Urine Specific [place] 1.009 (1.001-1.035) Urine Protein 1+ (Negative) Urine Ketones Negative (Negative) Urine Blood Negative /uL (Negative) Urine Nitrite Negative (Negative) Urine Bilirubin Negative (Negative) Urine Urobilinogen Normal mg/dL (Negative) Urine Leukocyte Esterase Negative /uL (Negative) Urine RBC 1 /hpf (0 - 3) Urine Microscopic WBC 1 /HPF (0-3) Urine Squamous Epithelial Cells None seen /hpf (<5) Urine Bacteria None seen /hpf (None Seen) Urine Glucose 4+ mg/dL (Normal) Urine Opiates Screen Neg (NEGATIVE) Urine Fentanyl Screen Neg (NEGATIVE) Urine Barbiturates Screen Neg (NEGATIVE) Urine Phencyclidine Screen Neg (NEGATIVE) Urine Amphetamines Screen Neg (NEGATIVE) Urine Benzodiazepines Screen Neg (NEGATIVE) Urine Cocaine Screen Neg (NEGATIVE) Urine Cannabinoids Screen Neg (NEGATIVE) Total Bilirubin 0.3 mg/dL (0.2-1.0) Aspartate Amino Transferase (AST) 12 U/L (13-40) Alanine Aminotransferase (ALT) 10 U/L (7-40) Alkaline Phosphatase 80 U/L (46-116) Total Protein 6.1 g/dL (5.7-8.2) Albumin 3.4 g/dL (3.2-4.8) Prothrombin Time 10.8 sec (9.3-11.8) Prothrombin Time INR 1.02 (0.9-1.15) Activated Partial Thromboplast Time 32.8 SEC (24.5-34.5) Erythrocyte Sedimentation Rate 11 mm/hr (0-20) Hemoglobin A1c 7.5 % A1C (<5.7) Lactic Acid Level 0.9 mmol/L (0.4-2.0) C-Reactive Protein High Sensitivity 1.42 mg/dL (<1.0) Other Laboratory Tests 06/28/25 05:57 06/27/25 10:43 Brief Hx & Hospital Course: History of Present Illness Karan Rodriguez is a 60-year-old male with a history of type 2 DM with a CKD 3 DLD, HTN, CAD, gout, GERD, BPH, presented to the ED with a painful foot wound suspected to be infected. Reported developing hardening dialysis after missing his regular foot care appointment with the Dr. Wagoner. Patient reported he experienced chills but denies fever. Approximately 1 year ago he had diabetic ulcer that was successfully treated by Dr. Wagoner, he has been following up monthly with the Dr. Wagoner for Caris cleaning and maintenance but his last appointment was scheduled for last month but due to doctors be scheduled his appointment was postponed for 2 months until end of the year but he started developing pain and suspected the area become infected which prompted him to visit ER. Course of hospitalization: Patient was started on empiric antibiotic therapy. Consultation was obtained for podiatry. Patient underwent surgery to infected diabetic foot wound yesterday. Patient's blood sugars has been somewhat elevated today, probably secondary to intraoperative Decadron. Nephrology consultation was also obtained given patient's CKD stage IIIB/four. Patient will be started on IV Bumex today given right lower extremity swelling. Blood sugars we will be normalized with regular insulin sliding scale. Given his impaired renal function, patient will be placed on oral antibiotic therapy at time of discharge, Augmentin 500 mg p.o. b.i.d. times 14 days. Patient was agreeable with discharge plan. All questions answered. Physical examination General: Alert and Oriented x3. No acute distress. Well-nourished. Eyes: EOMI. Anicteric. HENT: Moist mucous membranes. Lungs: Clear to auscultation bilaterally. No accessory muscle use. Cardiovascular: Regular rate and rhythm. No murmur. No JVD. Abdomen: Soft, non-tender and non-distended. No palpable masses. Extremities: No edema. Non-tender. Skin: No rashes or lesions. Warm. Neurologic: No focal neurological deficits. CN II-XII grossly intact, but not individually tested. Psychiatric: Cooperative. Appropriate mood and affect. Total time spent with patient discussing and formulating plan of care: 35 minutes. This medical document was created using an electronic medical record system with [employer] dictation system. Although this document has been carefully reviewed, there may still be some phonetic and typographical errors. These areas are purely typographical due to imperfections of the software programs, and do not reflect any compromise in the patient's medical care. Consults/Reason for consult Podiatry: Infected diabetic foot wound Operations or Procedures 06/27/2025: Right foot I and D Condition at Discharge: Good Final Diagnosis/Problems List Right Diabetic foot wound -ruled out osteomyelitis -diabetes mellitus -primary hypertension -CKD stage 4 -obesity -dyslipidemia -primary hypertension Discharge Disposition: Home Discharge Instruct/Medications Diet: Consistent carbohydrate Activity: No Restrictions, As Tolerated Follow Up/Referral: Dr Wagoner in [address] Arango at next scheduled appointment PCP in 1-2 weeks Medications: Augmentin 500mg po bid x 1 days Scheduled Allopurinol (Allopurinol), 200 MG PO DAILY Allopurinol (Allopurinol), 100 MG PO DAILY Amlodipine Besylate (Amlodipine Besylate), 10 MG PO DAILY, (Reported) Amoxicillin & Pot Clavulanate (Augmentin), 1 TAB PO BID Aspirin (Aspir-Low), 81 MG PO QPM Atorvastatin Calcium (Atorvastatin Calcium), 40 MG PO HS Cholecalciferol (Vitamin D3 Super Strength), 4,000 UNIT PO DAILY Dapagliflozin Propanediol (Farxiga), 1 TAB PO DAILY, (Reported) Gabapentin (Gabapentin), 100 MG PO Q8H Hydralazine HCl (Hydralazine HCl), 1 TAB PO BID, (Reported) Hydralazine Hcl (Hydralazine Hcl), 25 MG PO TID, (Reported) Pantoprazole Sodium Sesquihydr (Pantoprazole Sodium), 40 MG PO DAILY Rifampin (Rifampin), 300 MG PO BID Sodium Zirconium Cyclosilicate (Lokelma), 5 GM PO Q72HR Tamsulosin Hcl (Tamsulosin Hcl), 0.4 MG PO QPM, (Reported) Scheduled PRN Rifampin (Rifampin), 300 MG PO BID PRN Miscellaneous Medications Finerenone (Kerendia), PO, (Reported) Insulin Lispro (Humalog Salvatore Kwikpen), SC, (Reported) Insulin Lispro Protamine & Lis (Humalog Mix 75/25 Kwikpen), SC, (Reported) 36 Discharge Statement: "Patient was advised to return to the ER or call 911 if any headaches, dizziness, shortness of breath, chest pain, abdominal pain, bleeding, fevers, or worsening of medical condition. Patient was counseled about treatment plan, medications, possible side effects, patientverbalized understanding. All questions were answered to the best of my ability. This discharge took greater then 30 minutes in planning, reviewing documentation, counseling the patient, and discussing with other team members." ASSESSMENT ASSESSMENT Assessment Right Diabetic foot wound Date of Service: Jun 28, 2025 Billing Provider: GINNY RUIZ NP Common Visit Codes: 26430-TWU/OBS DISCH DAY >30min GINNY RUIZ NP Jun 28, 2025 11:40
--- NOTE | 2025-06-28 11:59 | DVHPN2 ---
Progress Note - Dictate Date Seen: Jun 28, 2025 Has the PT tested + for MRSA If YES, has PT been informed?: No Medical Necessity Reason Pt with a Central, PICC or Fol: No Subjective No new complaints vital signs Vital Sign Date Time Temp Pulse Resp B/P (MAP) Pulse Ox O2 Delivery O2 Flow Rate FiO2 06/28/25 09:22 155/80 06/28/25 09:00 98.3 88 18 94 98.3 06/28/25 07:47 Room Air* 0 21 Total Intake and Output 06/27/25 06/27/25 06/28/25 15:00 23:00 07:00 Intake Total 200 ml 50 ml 1480 ml Balance 200 ml 50 ml 1480 ml medications Current Medications Medications Dose Ordered Sig/Andrea Route Start Time Stop Time Status Last Admin Dose Admin Sodium Chloride 10 ml Q8HR IV 06/25/25 14:00 06/28/25 05:25 10 ML Acetaminophen/ Hydrocodone Bitart 1 tab Q4HP PRN PO 06/25/25 10:00 Hold Ondansetron HCl 4 mg Q4HP PRN IV 06/25/25 10:00 Enoxaparin Sodium 30 mg DAILY SC 06/26/25 10:00 06/28/25 09:21 30 MG Acetaminophen 650 mg Q6HP PRN PO 06/25/25 10:00 Nitroglycerin 0.4 mg Q5MINP PRN SL 06/25/25 10:00 Morphine Sulfate 2 mg Q30M PRN IV 06/25/25 10:00 Diagnostic Test (Pha) 1 strip ACHS 06/25/25 11:30 06/28/25 05:56 1 STRIP Insulin Human Regular HS SC 06/25/25 22:00 06/27/25 22:00 10 UNITS Insulin Human Regular AC SC 06/25/25 11:30 06/28/25 06:01 12 UNITS Dextrose 50 ml UD PRN IV 06/25/25 10:00 Allopurinol 100 mg DAILY PO 06/25/25 10:00 06/28/25 09:22 100 MG Amlodipine Besylate 10 mg DAILY PO 06/25/25 10:00 06/28/25 09:21 10 MG Aspirin 81 mg QPM PO 06/25/25 18:00 06/27/25 16:55 81 MG Atorvastatin Calcium 40 mg HS PO 06/25/25 22:00 12/23/25 22:47 40 MG Gabapentin 100 mg Q8H PO 06/25/25 10:00 06/28/25 09:22 100 MG Pantoprazole Sodium 40 mg DAILY PO 06/25/25 10:00 06/28/25 09:22 40 MG Zirconium Oxide 5 gm Q72HR PO 06/25/25 10:00 Hold Tamsulosin HCl 0.4 mg QPM PO 06/25/25 18:00 06/27/25 16:55 0.4 MG Doxycycline Hyclate 100 ml @ 50 mls/hr Q12H IV 06/25/25 10:00 06/28/25 09:23 50 MLS/HR Cefepime HCl 50 ml @ 12.5 mls/hr DAILY IV 06/25/25 10:00 06/28/25 11:35 12.5 MLS/HR Empaglifozin 10 mg DAILY PO 06/27/25 10:00 06/28/25 09:22 10 MG Hydralazine HCl 50 mg TID PO 06/26/25 22:00 06/28/25 05:56 50 MG Bumetanide 2 mg 2XW IV 06/29/25 12:00 Losartan Potassium 50 mg DAILY PO 06/27/25 10:00 06/28/25 09:22 50 MG objective GENERAL: The patient is in no acute distress. Alert and oriented x 3. HEENT: Unremarkable. NECK: There is no jugular venous distention. No palpable thyroid or lymphadenopathy. LUNGS: Clear to auscultation. CARDIOVASCULAR: Shows regular rate with S4 gallop. ABDOMEN: Soft, nontender. No organomegaly. No ascites. EXTREMITIES: Show no clubbing or cyanosis. The left lower extremity has 1+ edema below the knee. The edema gets worse in the distal extremity in the foot, and there is also a 0.5 x 0.5 ulcer in the forefront of the foot. laboratory and microbiology Laboratory Tests 06/28/25 05:57 06/27/25 10:43 Test 06/28/25 05:57 Range/Units Serum Glucose 312 #H 74-106 mg/dL Problem List ASSESSMENT AND PLAN: * AARON has resolved * Chronic kidney disease stage 4.GFR returning to baseline * Diabetic nephropathy. * Cellulitis of the right lower extremity. Rule out thrombosis or osteomyelitis. * Hypertension.\ is better controlled after adding ARB Stop IV Buymex, start torsemide 20 mg by mouth twice a day. We can continue Jardiance for now. We should avoid the use of nephrotoxic medications. Check basic metabolic panel daily. Monitor his intake and output of fluid closely. Dietary Evaluation Review Comments: Control Diabetes: Stabilizes blood glucose, which supports wound healing and prevents catabolism. Avoid Catabolism & Rapid Weight Loss: Adequate energy from carbohydrates prevents muscle breakdown. Reduce Uremic Symptoms & Delay Dialysis: Lower protein intake minimizes nitrogenous waste and slows CKD progression. [facility] Protein restriction: 45g/day Expected Outcomes/Goals: controlled DM, Lessened uremic syndrome, and delayed needs for dialysis Plan discussed with: Patient KATALINA CHILEL MD Jun 28, 2025 11:59
[2025-06-28] MEDS: BUMETANIDE 1mg/4ml VIAL (0.25mg/ml) IV ONE (12:09)
[2025-06-28] MEDS: TORSEMIDE 20 MG TAB PO SCH (17:27)
[2025-06-29 01:00] VITALS: BP 111/60; PULSE 78; RESP 18; TEMP 97.7; O2SAT 97
[2025-06-29 05:00] VITALS: BP 125/76; PULSE 72; RESP 18; TEMP 97.7; O2SAT 95
[2025-06-29 09:00] VITALS: BP 136/70; PULSE 76; RESP 16; TEMP 98.6; O2SAT 95
--- NOTE | 2025-06-29 10:53 | DVHPN2 ---
Assessment/Plan Assessment/Plan discharged please see dc summary Plan discussed with: Other Date of Service: Jun 29, 2025 Billing Provider: JACE VALENTIN MD Common Visit Codes: 20751-MUU/OBS DISCH DAY <30MIN JACE VALENTIN MD Jun 29, 2025 10:53
[2025-06-29] MEDS ORDERED: BUMETANIDE 2.5mg/10ml (0.25 mg/ml) INJ IV SCH (12:00)
--- NOTE | 2025-07-01 09:42 | ECG ---
[facility] Test Date: 2025-06-26 Test Time: 15:23:52 Pat Name: JOHNNY PENN Department: Room: 0209 A Gender: M [employer]ch[employer] Presentation Manager: segundo : 1965 Requested By: ROLANDO AKHTAR Order Number: [id number] Reading MD: Gordy Stevens Measurements Intervals Tappen Rate: 75 P: 35 RI: 152 QRS: 22 QRSD: 89 T: 40 QT: 379 QTc: 424 Interpretive Statements Sinus rhythm Probable anteroseptal infarct, recent Electronically Signed On 07-06-2025 15:47:08 PST by Gordy Stevens Please click the below link to view image of tracing.
== END 2025-06-29 10:30 | disposition home or self-care (01) | DRG 314 ==
LOC: ER 01:39 → OVERFLOW 09:55 → CENTRAL 21:56
PROVIDERS: ADMIT Nurse Practitioner Acute Care; ATTEND Nurse Practitioner Acute Care
PROC: 0QBN0ZZ Excision of Right Metatarsal, Open Approach (ICD-10-PCS; 2025-06-27)
PROC: 0Y9M0ZZ Drainage of Right Foot, Open Approach (ICD-10-PCS; principal; 2025-06-27 12:45)
DX: M77.41 Metatarsalgia, right foot (principal); N18.4 Chronic kidney disease, stage 4 (severe); Z99.2 Dependence on renal dialysis; N17.9 Acute kidney failure, unspecified; L03.115 Cellulitis of right lower limb; E11.621 Type 2 diabetes mellitus with foot ulcer; E66.9 Obesity, unspecified; I12.9 Hypertensive chronic kidney disease with stage 1 through stage 4 chronic kidney disease, or unspecified chronic kidney disease; E11.22 Type 2 diabetes mellitus with diabetic chronic kidney disease; E78.5 Hyperlipidemia, unspecified; K21.9 Gastro-esophageal reflux disease without esophagitis; I25.10 Atherosclerotic heart disease of native coronary artery without angina pectoris; N40.0 Benign prostatic hyperplasia without lower urinary tract symptoms; M10.9 Gout, unspecified; Z88.5 Allergy status to narcotic agent; Z86.73 Personal history of transient ischemic attack (TIA), and cerebral infarction without residual deficits; Z83.3 Family history of diabetes mellitus; Z82.49 Family history of ischemic heart disease and other diseases of the circulatory system; Z80.42 Family history of malignant neoplasm of prostate; Z68.33 Body mass index [BMI] 33.0-33.9, adult
CPT/HCPCS: 36415; 71045; 73620; 73700; 80048; 80053; 80307; 81001; 82962; 83036; 83605; 83735; 85025; 85610; 85652; 85730; 86141; 86850; 86900; 86901; 87040; 87081; 93005; 96361; 96365; 96366; G0378; J1100; J1815; J2003; J2250; J2543; J2704